=== PATIENT | male | born 1960 | race Caucasian/White ===

== ENCOUNTER 2017-12-13 06:33 | Emergency (ER) | payer OTHER, SELFPAY ==
[2017-12-13 06:34] VITALS: BP 180/92; PULSE 69; RESP 20; TEMP 36.7; O2SAT 96; BMI 37.0
--- NOTE | 2017-12-13 07:13 | EKG12_ITS ---
Test Reason : Blood Pressure : / mmHG Vent. Rate : 067 BPM Atrial Rate : 067 BPM P-R Int : 170 ms QRS Dur : 094 ms QT Int : 386 ms P-R-T Axes : 064 -09 058 degrees QTc Int : 407 ms Normal sinus rhythm Normal ECG Confirmed by THELMA SKELTON ([id number]), primer expeditor and drier REBECA OCONNELL ([id number]) on 12/18/2017 1:48:16 PM Referred By: JENNYFER Confirmed By:THELMA SKELTON
--- NOTE | 2017-12-13 07:14 | ED.VISSUMM ---
- ER Visit Summary Date of Service: 12/13/17 Chief Complaint: Dizziness and elevated blood pressure History of Present Illness: The patient is a 57 M who has a complicated past medical history of lupus anticoagulant, DVT and PEs, abnormal heart rhythm intermittently, vertigo, insulin-dependent diabetes and hypertension. Patient states on Sunday he started having his normal vertigo symptoms. Denies any headache. Denies any chest pain. Denies any shortness of breath. Denies any neurological symptoms other than dizziness. No trouble with speech, no trouble with his vision and no ataxia. No recent falls or head trauma. He is on Lovenox. He states that today he woke up he felt flushed and thought his blood pressure was elevated. Physical Examination: Well-appearing middle-age male. Vital signs are stable afebrile. His initial blood pressure is elevated at 180/92. Pulse ox 96% on room air no signs of hypoxia. H EENT exam is unremarkable atraumatic. Pupils round reactive light. Normal speech. No facial droop. Neck nontender. No lymphadenopathy. Lungs clear to auscultation bilaterally. Heart regular rate and rhythm no murmur rate about 70. Abdomen soft nontender no peritoneal signs. He is moving all 4 extremities. Neurovascular intact. He has 5 out of 5 radiologic technology teacher strength bilaterally. Dorsi plantar flexion intact. Neurologic exam is normal. His NIH is 0. He has normal fingertip to nose. Normal [id number]. Normal speech. No facial droop. Skin is unremarkable. Test Results: BC normal with a white count of 4 H&H of 15 and 42. Electrolytes unremarkable. Anion gap of 9. Normal BUN and creatinine. Glucose is elevated at 316. EKG is a sinus rhythm rate is 67 with no acute abnormalities. Emergency Department Course and Treatment: Extensive past medical history this does seem to be his typical vertigo which is been worked up extensively in the past with imaging. I do not think he needs that today because he has no neurological symptoms nor does he have a headache. I will obtain screening labs due to him being on blood thinners and being a diabetic. His neurological all and overall exam is normal. Treatment Plan: Efren exam the patient is doing well at 0817. Normal and is feeling better. He will take his normal medications at 9 AM. His current blood pressure is 151/69. His neurologic exam remains normal. Disposition: Discharge Impression: Acute dizziness secondary to vertigo. Acute on chronic hypertension History of lupus anticoagulant with prior DVTs and PEs on Lovenox. History of insulin-dependent diabetes. This note was generated with [employer] dictation software. It may contain incorrect words, spelling, and punctuation that were not noted in review of the chart prior to signing ED Disposition - Plan for ED Patient: Chief Complaint: Dizziness Referrals: Bianka Knutson MD [Primary Care Provider] -
--- NOTE | 2017-12-13 07:18 | ED.DCSUM_ITS ---
- ER Visit Summary Date of Service: 12/13/17 Chief Complaint: Dizziness and elevated blood pressure History of Present Illness: The patient is a 57 M who has a complicated past medical history of lupus anticoagulant, DVT and PEs, abnormal heart rhythm intermittently, vertigo, insulin-dependent diabetes and hypertension. Patient states on Sunday he started having his normal vertigo symptoms. Denies any headache. Denies any chest pain. Denies any shortness of breath. Denies any neurological symptoms other than dizziness. No trouble with speech, no trouble with his vision and no ataxia. No recent falls or head trauma. He is on Lovenox. He states that today he woke up he felt flushed and thought his blood pressure was elevated. Physical Examination: Well-appearing middle-age male. Vital signs are stable afebrile. His initial blood pressure is elevated at 180/92. Pulse ox 96% on room air no signs of hypoxia. H EENT exam is unremarkable atraumatic. Pupils round reactive light. Normal speech. No facial droop. Neck nontender. No lymphadenopathy. Lungs clear to auscultation bilaterally. Heart regular rate and rhythm no murmur rate about 70. Abdomen soft nontender no peritoneal signs. He is moving all 4 extremities. Neurovascular intact. He has 5 out of 5 waiter/waitress captain strength bilaterally. Dorsi plantar flexion intact. Neurologic exam is normal. His NIH is 0. He has normal fingertip to nose. Normal [id number]. Normal speech. No facial droop. Skin is unremarkable. Test Results: BC normal with a white count of 4 H&H of 15 and 42. Electrolytes unremarkable. Anion gap of 9. Normal BUN and creatinine. Glucose is elevated at 316. EKG is a sinus rhythm rate is 67 with no acute abnormalities. Emergency Department Course and Treatment: Extensive past medical history this does seem to be his typical vertigo which is been worked up extensively in the past with imaging. I do not think he needs that today because he has no neurological symptoms nor does he have a headache. I will obtain screening labs due to him being on blood thinners and being a diabetic. His neurological all and overall exam is normal. Treatment Plan: Efren exam the patient is doing well at 0817. Normal and is feeling better. He will take his normal medications at 9 AM. His current blood pressure is 151/69. His neurologic exam remains normal. Disposition: Discharge Impression: Acute dizziness secondary to vertigo. Acute on chronic hypertension History of lupus anticoagulant with prior DVTs and PEs on Lovenox. History of insulin-dependent diabetes. This note was generated with [employer] dictation software. It may contain incorrect words, spelling, and punctuation that were not noted in review of the chart prior to signing ED Disposition - Plan for ED Patient: Chief Complaint: Dizziness Referrals: Bianka Knutson MD [Primary Care Provider] -
[2017-12-13] MEDS: Meclizine 12.5 MG Tablet 50 MG PO (07:29)
[2017-12-13 07:36] LABS: Absolute Lymphocyte Count 1.22 X10^3/ul (0.83-4.51); Absolute Neutrophil Count 2.5 X10^3/uL (2.0-7.7); Basophil# 0.02 X10^3/uL; Basophil% 0.5 % (0-1); Eosinophil# 0.19 X10^3/uL; Eosinophils% 4.3 % (0-5); Hematocrit 42.2 % (40-54); Hemoglobin 15.3 g/dl (13.0-16.5); Lymphocyte # 1.22 X10^3/ul (4.0); Lymphocyte % 27.9 % (19-41); Mean Corp Hgb Conc 36.3 g/gl (32-36); Mean Corpuscular Hgb 32.3 pg (27.0-32.0); Mean Corpuscular Volume 89.2 fL (80-94); Mean Platelet Vol. 10.3 fl (6.2-12.0); Monocyte# 0.46 X10^3/uL; Monocyte% 10.5 % (0-10); Neutrophil # 2.48 X10^3/uL (2.7-7.7); Neutrophil % 56.6 % (47-70); Platelet Count 187 K/mm3 (150-450); RBC Distribution Width CV 13.2 % (11.6-14.6); RBC Distribution Width SD 42.8 fl (35.1-43.9); Red Blood Count 4.73 M/mm3 (4.6-6.2); White Blood Count 4.4 K/mm3 (4.4-11.0)
[2017-12-13 07:40] LABS: POSITIVE COUNT NO; POSITIVE DIFFERENTIAL NO; POSITIVE MORPHOLOGY NO
[2017-12-13 08:12] LABS: Anion Gap 9 (5-15); BUN 20 mg/dL (7-18); BUN/Creat Ratio 23.6 RATIO (10-20); Calcium,Total 10.3 mg/dL (8.5-10.1); Chloride 97 mmol/L (98-107); Creatinine, Serum 0.85 mg/dL (0.70-1.30); EST Glomerular Filtration Rate 99 mL/min (>60); Est Glom Filt Rate - Afr Amer 120 mL/min (>60); Estimated Creatinine Clearance 94.73 ml/min; Glucose 316 mg/dL (74-106); Potassium 4.7 mmol/L (3.5-5.1); Sodium Level 134 mmol/L (136-145)
--- NOTE | 2017-12-13 08:18 | ED.DEP ---
ED Disposition - Plan for ED Patient: Disposition: Home or Assisted Living Chief Complaint: Dizziness Instructions: ED Dizziness [facility]O, ED Hypertension Conf Out Of Control Referrals: Bianka Knutson MD [Primary Care Provider] - 3-5 Days if not improving Additional Instructions: Take your current medications. Watch her blood pressure and blood sugars closely. Return to ER feeling worse or follow-up your primary care physician to ensure your improving. Your labs and EKG today looked good other than your blood sugar being 316.
[2017-12-13 08:56] VITALS: BP 148/79; PULSE 69; RESP 15; O2SAT 98
== END 2017-12-13 08:56 | disposition home or self-care (01) ==
PROVIDERS: Emergency Provider Emergency Medicine; Family Provider Internal Medicine; PCP Internal Medicine
DX: R42 Dizziness and giddiness (principal); I10 Essential (primary) hypertension; D68.62 Lupus anticoagulant syndrome; Z86.718 Personal history of other venous thrombosis and embolism; Z86.711 Personal history of pulmonary embolism; E11.9 Type 2 diabetes mellitus without complications; I49.9 Cardiac arrhythmia, unspecified; Z79.4 Long term (current) use of insulin; Z79.84 Long term (current) use of oral hypoglycemic drugs; Z79.01 Long term (current) use of anticoagulants; Z79.899 Other long term (current) drug therapy
CPT/HCPCS: 80048; 85025; 93005; 99285; A4216

== ENCOUNTER 2018-01-02 17:24 | Emergency (ER) | payer OTHER, SELFPAY ==
[2018-01-02 17:24] VITALS: BP 180/103; PULSE 71; PULSE 74; RESP 14; RESP 16; TEMP 36.9; O2SAT 96; O2SAT 97; BMI 78.4
--- NOTE | 2018-01-02 17:47 | EKG12_ITS ---
Test Reason : CP Blood Pressure : / mmHG Vent. Rate : 071 BPM Atrial Rate : 071 BPM P-R Int : 148 ms QRS Dur : 092 ms QT Int : 408 ms P-R-T Axes : 068 030 058 degrees QTc Int : 443 ms Normal sinus rhythm Normal ECG Confirmed by THELMA SKELTON ([id number]), copy editor REBECA OCONNELL ([id number]) on 01/07/2018 1:59:01 PM Referred By: LEVAR Confirmed By:THELMA SKELTON
--- NOTE | 2018-01-02 17:47 | RAD_ITS ---
STUDY: X-RAY CHEST REASON FOR EXAM: Male, 57 years old. Chest pain for 3 days, atrial fibrillation. History of pulmonary embolus. TECHNIQUE: PA and lateral views of the chest. COMPARISON: Prior comparison studies are not available for review at this time. FINDINGS: The lungs are clear and expanded. There is no demonstrated pleural abnormality. Normal size heart. Normal mediastinum and art. Normal visualized pulmonary arteries. There is mild atherosclerotic calcification of the aortic arch. Normal visualized thoracic spine. 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 There is no demonstrated abnormality of the visualized soft tissue structures of the upper abdomen. RAD/Chest PA and Lateral IMPRESSION: No acute cardiopulmonary disease. Electronically Signed: Huan Flores MD at 19:13 EDT , Service support ,
[2018-01-02] MEDS: 0.9% Normal Saline 1,000 ML 1000 ML IV (18:09)
[2018-01-02 18:15] LABS: Absolute Lymphocyte Count 1.66 X10^3/ul (0.83-4.51); Absolute Neutrophil Count 2.6 X10^3/uL (2.0-7.7); Basophil# 0.01 X10^3/uL; Basophil% 0.2 % (0-1); Eosinophil# 0.15 X10^3/uL; Hematocrit 42.7 % (40-54); Hemoglobin 15.1 g/dl (13.0-16.5); Lymphocyte # 1.66 X10^3/ul (4.0); Lymphocyte % 33.3 % (19-41); Mean Corp Hgb Conc 35.4 g/gl (32-36); Mean Corpuscular Hgb 31.5 pg (27.0-32.0); Mean Corpuscular Volume 89.1 fL (80-94); Mean Platelet Vol. 10.9 fl (6.2-12.0); Monocyte# 0.51 X10^3/uL; Monocyte% 10.2 % (0-10); Neutrophil # 2.64 X10^3/uL (2.7-7.7); Neutrophil % 52.9 % (47-70); POSITIVE COUNT NO; POSITIVE DIFFERENTIAL NO; POSITIVE MORPHOLOGY NO; Platelet Count 214 K/mm3 (150-450); RBC Distribution Width CV 13.3 % (11.6-14.6); Red Blood Count 4.79 M/mm3 (4.6-6.2)
[2018-01-02 18:25] VITALS: BP 147/76; PULSE 74; RESP 13; O2SAT 93
--- NOTE | 2018-01-02 18:42 | ED.VISSUMM ---
- ER Visit Summary Date of Service: 01/02/18 Chief Complaint: Chest pain and diarrhea History of Present Illness: The patient is a 57 M who states that recently he went and ate a large amount of exotic foods. He states that he developed significant diarrhea over the past several days. He states he felt kind of weak today and did feel good enough to go to works a schedule appointment with his doctors nurse practitioner to get a work note. He went and they observed him rubbing his chest and he noted some epigastric lower chest discomfort. States it radiates into his back. He does note he has had a couple episodes of vomiting over the past few days. He took Imodium today which has stopped his diarrhea. He had an EKG that was negative at the office. He has a history of DVT and is on lifelong Lovenox. History of diabetes as well as colon cancer treated with radiation and chemotherapy. Also history of high cholesterol. Physical Examination: Afebrile blood pressure 170/84. Gen: Well-nourished well-developed Head: Normocephalic atraumatic Eyes: Perrl EOMI ENT: TMs clear no rhinorrhea moist mucous membranes Neck: Supple no lymphadenopathy no JVD nontender CVS: Regular rate rhythm no murmurs normal S1-S2 Respiratory: No distress clear to auscultation bilaterally chest nontender Abdomen: Soft nontender nondistended normal bowel sounds no masses Back: Nontender Extremity: Nontender no edema Skin: Normal color no rash Neuro: alert orientated ?3 CN II-XII intact normal strength sensation reflexes gait cerebellar Psych: Normal affect normal mood Test Results: EKG demonstrates a normal sinus rhythm at a rate of 71. This appears unchanged from December 13, 2017. CBC and BMP showed glucose of 255. Lipase 163. Liver enzymes normal. Troponin <0.02. Patient's symptoms have been constant greater than 24 hours. Emergency Department Course and Treatment: Patient's JEREMY score is 1. He got some improvement with a GI cocktail. I believe his symptoms are more consistent with some gastritis probably in relationship to the raw food he had been eating which given the diarrhea. Patient will be discharged home to follow-up with his doctor. Impression: 1. Chest pain 2. Gastritis 3. Diarrhea This note was generated with [employer] dictation software. It may contain incorrect words, spelling, and punctuation that were not noted in review of the chart prior to signing ED Disposition - Plan for ED Patient: Disposition: Home or Assisted Living Chief Complaint: Chest Pain Instructions: ED Gastritis Referrals: Bianka Knutson MD [Primary Care Provider] - 3-5 Days if not improving
[2018-01-02 19:03] LABS: ALB/GLOB Ratio 0.9 RATIO (0.9-2.4); AST(SGOT) 26 U/L (15-37); Alanine Aminotransfer ALT/SGPT 51 U/L (16-61); Albumin, Serum 4.1 g/dL (3.2-5.0); Alkaline Phosphatase 80 U/L (45-117); Anion Gap 9 (5-15); BUN 19 mg/dL (7-18); BUN/Creat Ratio 22.2 RATIO (10-20); Calcium,Total 9.3 mg/dL (8.5-10.1); Chloride 98 mmol/L (98-107); Creatinine, Serum 0.85 mg/dL (0.70-1.30); EST Glomerular Filtration Rate 98 mL/min (>60); Est Glom Filt Rate - Afr Amer 118 mL/min (>60); Estimated Creatinine Clearance 94.73 ml/min; Globulin 4.4 g/dL (2.2-4.2); Glucose 255 mg/dL (74-106); Lipase 163 U/L (73-393); Potassium 4.2 mmol/L (3.5-5.1); Protein, Total 8.5 g/dL (6.4-8.2); Sodium Level 135 mmol/L (136-145)
[2018-01-02 19:13] VITALS: BP 154/118; PULSE 72; RESP 14; O2SAT 95
[2018-01-02 20:01] VITALS: BP 145/86; RESP 17; O2SAT 94
== END 2018-01-02 20:02 | disposition home or self-care (01) ==
PROVIDERS: Emergency Provider Emergency Medicine; Family Provider Internal Medicine; PCP Internal Medicine
DX: R07.89 Other chest pain (principal); K29.70 Gastritis, unspecified, without bleeding; R19.7 Diarrhea, unspecified; K21.9 Gastro-esophageal reflux disease without esophagitis; E11.9 Type 2 diabetes mellitus without complications; E78.00 Pure hypercholesterolemia, unspecified; F41.9 Anxiety disorder, unspecified; Z85.038 Personal history of other malignant neoplasm of large intestine; Z86.718 Personal history of other venous thrombosis and embolism; Z92.21 Personal history of antineoplastic chemotherapy; Z92.3 Personal history of irradiation; Z79.84 Long term (current) use of oral hypoglycemic drugs; Z79.4 Long term (current) use of insulin; Z79.01 Long term (current) use of anticoagulants; Z79.899 Other long term (current) drug therapy
CPT/HCPCS: 71046; 80053; 83690; 84484; 85025; 93005; 96360; 96361; 99284; J7030; A4216

== ENCOUNTER 2018-01-11 16:39 | Emergency (ER) | payer OTHER, SELFPAY ==
[2018-01-11 16:41] VITALS: BP 154/91; PULSE 100; RESP 20; TEMP 36.8; O2SAT 95; BMI 35.2
--- NOTE | 2018-01-11 17:06 | CT_ITS ---
STUDY: CT ABDOMEN AND PELVIS WITH CONTRAST REASON FOR EXAM: Male, 57 years old. Nausea vomiting dizziness history of colon cancer RADIATION DOSAGE (If Supplied By Facility): CTDIvol = ( 16.32 ) mGy, DLP = ( 1268.56 ) mGycm TECHNIQUE: Transaxial images were obtained from the dome of the diaphragm to the symphysis pubis with oral contrast. 100 ml of Isovue 300 contrast was administered. Sagittal and coronal images were reconstructed. Individualized dose optimization techniques were used for this CT. COMPARISON: December 04, 2014 CT scan abdomen and pelvis FINDINGS: There is trace bilateral lower lobe atelectasis. There is minimal emphysematous change in the visualized left lung base image #22 stable since prior study. There is trace coronary calcification. There is decreased attenuation of the mildly liver consistent with steatosis. There is a stable subtle focus of low attenuation at the falciform fissure compatible a small focus of fatty infiltration. The liver appears otherwise fairly homogeneous. There are at least 2 gallstones each measuring 8.8 mm within the neck of the gallbladder. There is no significant obvious evidence of wall thickening of the gallbladder pericholecystic fluid. This is similar to the prior study. There is moderate splenomegaly the AP diameter of the spleen is 16 cm on today's study. Approximate the same level on prior study the spleen measured 15 cm. Normal pancreas. Normal bilateral adrenal glands. Normal right kidney. There is a stable exophytic left renal cyst measuring 1.8 cm with Hounsfield units in the range of simple fluid. There is no evidence of hydronephrosis. There is a minimal hiatal hernia. There is a partially decompressed appearance of the stomach with a thickened wall internal radiopaque material. There is contrast within the small bowel and nondistended loops. There is abundant stool in the colon from the cecum to the rectum. There is postoperative change in the sigmoid. This is similar to the prior study. Since the prior study there is lesser distention of the small bowel. There is persistent stable but somewhat atypical appearing presacral stranding that measures up to 2 cm at the level of the sacrum, image #108 there is a poor fatty plane between the presacral stranding similar to prior study. There is postoperative change visualized.. The appendix is visualized and appears normal. The aorta is partially calcified. There is contrast within the right iliac artery, right external iliac artery and visualized in the right internal iliac artery. There is contrast visualized in the left internal iliac and in the left external iliac. There is calcification demonstrated in the bilateral iliac arteries. Normal inferior vena cava. Normal retroperitoneum. The bladder is decompressed. It is mild wall thickening allowing for decompression. There is a stable phlebolith in the right side of the pelvis. There are prostatic calcifications. There is scarring and/or mild peripheral body wall edema similar to prior study. There are diffuse degenerative changes of the visualized lumbar spine. There is multilevel disc space narrowing spondylosis. The level of L2-L3 there is a broad disc osteophyte complex with moderate right neural foramina narrowing mild left neural foramina narrowing no significant central stenosis. At L3-L4 there is a broad disc bulge moderate neural foraminal narrowing without central stenosis. At L4-L5 there is a broad disc bulge moderate neural foramina narrowing mild central stenosis. At L5-S1 there is a broad disc osteophyte complex mild neural foramina narrowing or significant central stenosis. There is degenerative change of the SI joints. CT/Abdomen/Pelvis WITH Contrast IMPRESSION: Constipation. No evidence of obstruction. Postoperative change rectosigmoid junction stable since prior study. Decompressed nonspecific mild thick-walled appearance of the stomach for which gastritis is not excluded. Cholelithiasis stable since prior study Hepatic steatosis and hepatomegaly Slightly worsened splenomegaly Stable left renal cyst Persistent presacral stranding and thickening which may be related to prior history of radiation and/or surgery. Although this is stable, recommend consideration for follow-up PET scan given the clinical history. Decompressed appearance of the bladder could consider cystitis. Electronically Signed: Yeimy Merlos MD at 19:33 EDT Tel , Service support ,
--- NOTE | 2018-01-11 17:07 | EKG12_ITS ---
Test Reason : VOMITING Blood Pressure : / mmHG Vent. Rate : 090 BPM Atrial Rate : 090 BPM P-R Int : 148 ms QRS Dur : 088 ms QT Int : 366 ms P-R-T Axes : 055 -22 033 degrees QTc Int : 447 ms Normal sinus rhythm Normal ECG Confirmed by BOO ELIZONDO, MARTÍNEZ ([id number]), news video editor REBECA OCONNELL ([id number]) on 01/15/2018 1:39:08 PM Referred By: ISAIAH Confirmed By:MARTÍNEZ HADDAD MD
[2018-01-11] MEDS: 0.9% Normal Saline 1,000 ML 1000 ML IV (17:33)
[2018-01-11] MEDS: Ondansetron 4 MG/2 ML Vial IV (17:34)
[2018-01-11 17:36] LABS: Bacteria 0 SEEN /hpf (None Seen); Red Blood Cells-Urine 0 SEEN /hpf (0-5)
[2018-01-11 17:41] VITALS: BP 138/85; BP 143/75; BP 143/76; PULSE 71; PULSE 86
[2018-01-11 17:41] LABS: Absolute Lymphocyte Count 1.12 X10^3/ul (0.83-4.51); Absolute Neutrophil Count 1.8 X10^3/uL (2.0-7.7); Basophil# 0.02 X10^3/uL; Basophil% 0.6 % (0-1); Eosinophil# 0.11 X10^3/uL; Eosinophils% 3.1 % (0-5); Hematocrit 39.7 % (40-54); Hemoglobin 13.7 g/dl (13.0-16.5); Lymphocyte # 1.12 X10^3/ul (4.0); Lymphocyte % 31.5 % (19-41); Mean Corp Hgb Conc 34.5 g/gl (32-36); Mean Corpuscular Hgb 30.6 pg (27.0-32.0); Mean Corpuscular Volume 88.6 fL (80-94); Mean Platelet Vol. 10.5 fl (6.2-12.0); Monocyte# 0.51 X10^3/uL; Monocyte% 14.3 % (0-10); Neutrophil # 1.79 X10^3/uL (2.7-7.7); Neutrophil % 50.2 % (47-70); Platelet Count 169 K/mm3 (150-450); RBC Distribution Width CV 13.1 % (11.6-14.6); RBC Distribution Width SD 42.1 fl (35.1-43.9); Red Blood Count 4.48 M/mm3 (4.6-6.2); White Blood Count 3.6 K/mm3 (4.4-11.0)
[2018-01-11 17:43] LABS: POSITIVE COUNT NO; POSITIVE DIFFERENTIAL NO; POSITIVE MORPHOLOGY NO
[2018-01-11 17:52] LABS: Color, Urine Yellow (Yellow); Glucose, Dipstick Normal (Normal); Ketone-Dipstick Negative (Negative); Leukocyte Esterase-Dipstick Negative /ul (Negative); Nitrite-Dipstick Negative (Negative); Occult Blood-Urine 25 /ul (Negative); Protein-Dipstick 15 mg/dl (Negative); Urine Bilirubin Dipstick Negative (Negative); Urine Clarity Clear (Clear); Urine Urobilinogen Normal (Normal)
[2018-01-11 18:00] LABS: AST(SGOT) 17 U/L (15-37); Alanine Aminotransfer ALT/SGPT 36 U/L (16-61); Albumin, Serum 3.9 g/dL (3.2-5.0); Alkaline Phosphatase 88 U/L (45-117); Anion Gap 8 (5-15); BUN 19 mg/dL (7-18); BUN/Creat Ratio 22.9 RATIO (10-20); Calcium,Total 9.2 mg/dL (8.5-10.1); Chloride 101 mmol/L (98-107); Creatinine, Serum 0.83 mg/dL (0.70-1.30); EST Glomerular Filtration Rate 101 mL/min (>60); Est Glom Filt Rate - Afr Amer 123 mL/min (>60); Estimated Creatinine Clearance 97.01 ml/min; Globulin 3.8 g/dL (2.2-4.2); Glucose 238 mg/dL (74-106); Potassium 3.7 mmol/L (3.5-5.1); Protein, Total 7.7 g/dL (6.4-8.2); Sodium Level 134 mmol/L (136-145)
[2018-01-11 18:02] LABS: Mucous, Urine 1+ /hpf (<or=2+)
[2018-01-11 18:04] LABS: White Blood Cells 0-5 SEEN /hpf (0-5)
[2018-01-11 18:07] LABS: Squamous Epithelial Cells - UA 0-5 SEEN /hpf (0-5); Transitional Epithelial - Ur 0 SEEN /hpf (0-5)
--- NOTE | 2018-01-11 19:08 | ED.VISSUMM ---
- ER Visit Summary Date of Service: 01/11/18 Chief Complaint: Nausea, diarrhea, lightheadedness History of Present Illness: The patient is a 57 M with multiple comorbidities including lupus anticoagulant, fully anticoagulated on a Simons apparent, history of colon cancer, insulin-dependent diabetes, and new onset hypertension presents with multiple symptoms. The patient states over the past month and a half, he has been having intermittent dizziness. He describes it both as a sensation of motion and his lightheadedness. He states it is mostly when he changes position. He has also been having symptoms when he exerts himself. He states that if he gets up quickly or leans over, he will get lightheaded. He feels like it is going to pass out. He has never lost consciousness. He was also working out. He states that he was lifting weights and became more lightheaded. He also states that he has been having some loose watery diarrhea. He states that this is uncommon for him since his colon surgery. He had it 3 times last week and 3 times this week. He was also recently started on an DULCE inhibitor. He denies any fevers but does admit to some chills. He has not been on any recent antibiotics. There has been no blood in his bowel movements. He has had no chest pain or exertional dyspnea. Physical Examination: Vital signs reviewed General: Well-nourished, well-developed Head: Normocephalic, atraumatic Eyes: Pupils equal and reactive, extraocular muscles intact Neck, supple, no lymphadenopathy Heart: Regular rate and rhythm Respiratory: No distress, clear bilaterally Abdomen: Soft, nontender, nondistended, no peritoneal signs Back: Nontender Extremities: Nontender, no edema, no cords Skin: Normal color no rash Neuro: Alert and oriented, no focal or lateralizing deficits Test Results: [] Emergency Department Course and Treatment: The patient presents with major complaint being lightheadedness with motion. I did have some concern given his recent and new antihypertensive. I did obtain an EKG which is unremarkable. The patient's labs are relatively unremarkable. He does have a mild leukopenia with monocytic predominance. He also has a mild elevation of his BUN, which I feel is likely from volume contraction. The patient was hydrated. I did obtain orthostatics which were unremarkable. Patient underwent CT of his abdomen pelvis given his diarrhea and history of colon cancer. There are multiple findings, but they all appear chronic in nature. I do feel that the patient's lightheadedness is likely multifactorial. I do feel he may have some underlying autonomic insufficiency from significant diabetes along with his new and hypertensive medications. At this time, I do not see a dangerous process. I do feel this patient is safe for discharge with outpatient follow-up. He and are comfortable with this plan of care. He will be discharged home. Treatment Plan: [] Disposition: Discharge Impression: 1. Lightheadedness This note was generated with [employer] dictation software. It may contain incorrect words, spelling, and punctuation that were not noted in review of the chart prior to signing ED Disposition - Plan for ED Patient: Disposition: Home or Assisted Living Chief Complaint: Nausea/Vomiting/Diarrhea Instructions: ED Dizziness UKO Referrals: Bianka Knutson MD [Primary Care Provider] -
[2018-01-11 19:11] VITALS: BP 130/77; PULSE 79; RESP 15; O2SAT 97
[2018-01-11 19:56] VITALS: BP 154/79; PULSE 75; RESP 23; O2SAT 95
== END 2018-01-11 19:57 | disposition home or self-care (01) ==
PROVIDERS: Emergency Provider Emergency Medicine; Family Provider Internal Medicine; PCP Internal Medicine
DX: E86.0 Dehydration (principal); R42 Dizziness and giddiness; R11.2 Nausea with vomiting, unspecified; R19.7 Diarrhea, unspecified; K59.00 Constipation, unspecified; E11.9 Type 2 diabetes mellitus without complications; I10 Essential (primary) hypertension; D68.62 Lupus anticoagulant syndrome; Z85.038 Personal history of other malignant neoplasm of large intestine; Z79.84 Long term (current) use of oral hypoglycemic drugs; Z79.4 Long term (current) use of insulin; Z79.01 Long term (current) use of anticoagulants; Z79.899 Other long term (current) drug therapy
CPT/HCPCS: 74177; 80053; 81001; 85025; 93005; 96361; 96374; 99284; J7030; Q9967; A4216; J2405

== ENCOUNTER 2018-02-03 13:42 | Emergency (ER) | payer OTHER, SELFPAY ==
[2018-02-03 13:43] VITALS: BP 149/82; PULSE 82; RESP 20; TEMP 36.7; O2SAT 94; BMI 35.4
--- NOTE | 2018-02-03 13:55 | EKG12_ITS ---
Test Reason : COUGH Blood Pressure : / mmHG Vent. Rate : 073 BPM Atrial Rate : 073 BPM P-R Int : 150 ms QRS Dur : 084 ms QT Int : 408 ms P-R-T Axes : 053 021 052 degrees QTc Int : 449 ms Normal sinus rhythm Normal ECG Confirmed by KYARA ELIZONDO, KAVITA ([id number]), communications editor REBECA OCONNELL ([id number]) on 02/05/2018 2:55:05 PM Referred By: AKOSUA Confirmed By:KAVITA SPARROW MD
--- NOTE | 2018-02-03 13:58 | ED.VISSUMM ---
- ER Visit Summary Date of Service: 02/03/18 Chief Complaint: [] Runny nose harsh cough for for 5 days History of Present Illness: The patient is a 57 M [] history of on Lovenox for lupus anticoagulant no history of PE or DVT for 5 days of runny nose harsh cough sore throat decreased p.o. intake low-grade fevers he has no history of flu vaccination no exposures he has no cardiopulmonary history otherwise he simply states he is coughing so much is exhausted, body aches, bowel bladder habits are normal he does wear her CPAP machine and he cannot use his CPAP because of the coughing Physical Examination: [] Has a harsh cough during the department his nose is congested his neck is supple his lungs reveal minimal wheezing heart tones are regular the abdomen soft nontender upper lower extremity and extremities are unremarkable no sinus clubbing or edema neurologically is awake moving all 4 Test Results: [] Emergency Department Course and Treatment: [] IV fluids flu screen, flu screen was negative he is received IV fluids his labs are unremarkable as is his EKG his chest x-ray shows questionable lingular infiltrate some other findings consistent with possible viral infection see those reports the patient is feeling much better his clinical symptomatology of runny nose body aches cough certainly would support a viral diagnosis but given all the above his complaints and the chest x-ray finding he is comfortable discharge home he will start Levaquin Mucinex and inhaler and to follow-up with his family doctor return for change in symptoms Treatment Plan: [] Disposition: [] Home stable Impression: [] Viral illness acute versus pneumonia This note was generated with [employer] dictation software. It may contain incorrect words, spelling, and punctuation that were not noted in review of the chart prior to signing ED Disposition - Plan for ED Patient: Chief Complaint: Cold Sx Referrals: Bianka Knutson MD [Primary Care Provider] -
[2018-02-03] MEDS: Oxymetazoline 0.05% 1 SPRAY SPRAY.BTL 2 SPRAY NASAL (14:16)
[2018-02-03 14:17] VITALS: PULSE 65; RESP 18
[2018-02-03] MEDS: Ipratropium/Albuterol Sulfate 3 ML AMPUL.NEB INHALATION (14:17)
[2018-02-03] MEDS: Acetaminophen/Codeine #3 Tablet 1 TABLET PO (14:17)
--- NOTE | 2018-02-03 14:18 | RAD_ITS ---
STUDY: X-RAY CHEST REASON FOR EXAM: Male, 57 years old. Cough. TECHNIQUE: Single view of the chest was obtained COMPARISON: January 02, 2018 chest radiograph FINDINGS: No lung consolidation, pleural effusion or pneumothorax. Mild perihilar streaky opacities. Osseous structures demonstrate no acute abnormalities. Cardiac size within normal limits. IMPRESSION: Mild perihilar congestive changes with probable subtle developing infiltrates versus atelectasis in the left lingular region. Electronically Signed: Sammy Parra, at 14:36 EDT Tel , Service support , RAD/Chest 1 View (Portable)
[2018-02-03 14:19] LABS: Absolute Lymphocyte Count 1.29 X10^3/ul (0.83-4.51); Basophil# 0.02 X10^3/uL; Basophil% 0.3 % (0-1); Eosinophil# 0.23 X10^3/uL; Eosinophils% 3.5 % (0-5); Hematocrit 39.5 % (40-54); Hemoglobin 14.1 g/dl (13.0-16.5); Lymphocyte # 1.29 X10^3/ul (4.0); Lymphocyte % 19.8 % (19-41); Mean Corp Hgb Conc 35.7 g/gl (32-36); Mean Corpuscular Hgb 30.9 pg (27.0-32.0); Mean Corpuscular Volume 86.6 fL (80-94); Monocyte# 0.99 X10^3/uL; Monocyte% 15.2 % (0-10); Neutrophil # 3.98 X10^3/uL (2.7-7.7); Neutrophil % 60.9 % (47-70); POSITIVE COUNT NO; POSITIVE DIFFERENTIAL NO; POSITIVE MORPHOLOGY NO; Platelet Count 202 K/mm3 (150-450); RBC Distribution Width CV 13.5 % (11.6-14.6); RBC Distribution Width SD 41.7 fl (35.1-43.9); Red Blood Count 4.56 M/mm3 (4.6-6.2); White Blood Count 6.5 K/mm3 (4.4-11.0)
[2018-02-03 14:24] VITALS: BP 180/82; PULSE 72; RESP 12; O2SAT 95
[2018-02-03 14:42] LABS: Anion Gap 8 (5-15); BUN 15 mg/dL (7-18); Calcium,Total 10.2 mg/dL (8.5-10.1); Chloride 99 mmol/L (98-107); Creatinine, Serum 0.94 mg/dL (0.70-1.30); EST Glomerular Filtration Rate 88 mL/min (>60); Est Glom Filt Rate - Afr Amer 107 mL/min (>60); Estimated Creatinine Clearance 85.66 ml/min; Glucose 255 mg/dL (74-106); Potassium 4.2 mmol/L (3.5-5.1); Sodium Level 133 mmol/L (136-145)
[2018-02-03 14:53] LABS: BNP,B-Type NATRIURETIC PEPTIDE 16.9 pg/mL (0-100)
--- NOTE | 2018-02-03 15:58 | ED.DEP ---
ED Disposition - Plan for ED Patient: Chief Complaint: Cold Sx Instructions: ED Upper Resp Infec Abx Tx, ED Pneumonia Adult Prescriptions: Albuterol Inhaler [Ventolin Hfa] 1 - 2 puff INHALATION Q4H PRN PRN #1 inhaler PRN Reason: Wheezing Levofloxacin [Levaquin] 750 mg PO DAILY #7 tab Guaifenesin [Mucinex] 1,200 mg PO BID #10 tbmp.12hr Acetaminophen/Codeine #3 [Tylenol #3 Tablet] 1 - 2 tab PO Q6H PRN #12 tab PRN Reason: Pain Referrals: Bianka Knutson MD [Primary Care Provider] -
[2018-02-03] MEDS: levoFLOXacin 750 MG Tablet PO (16:06)
[2018-02-03 16:07] VITALS: BP 134/79; PULSE 68; RESP 20; O2SAT 92
== END 2018-02-03 16:23 | disposition home or self-care (01) ==
LOC: ED 14:34
PROVIDERS: Emergency Provider Emergency Medicine; Family Provider Internal Medicine; PCP Internal Medicine
DX: J18.9 Pneumonia, unspecified organism (principal); B34.9 Viral infection, unspecified; D68.62 Lupus anticoagulant syndrome; Z79.01 Long term (current) use of anticoagulants; Z79.899 Other long term (current) drug therapy
CPT/HCPCS: 71045; 80048; 83880; 84484; 85025; 87804; 87880; 93005; 94640; 96360; 99285; J7030; J7040; A4216

== ENCOUNTER 2018-02-11 10:01 | Emergency (ER) | payer OTHER, SELFPAY ==
[2018-02-11 10:02] VITALS: BP 176/87; PULSE 67; RESP 28; TEMP 36.6; O2SAT 97; BMI 19.8
--- NOTE | 2018-02-11 10:17 | RAD_ITS ---
STUDY: X-RAY CHEST REASON FOR EXAM: Male, 57 years old. SOB TECHNIQUE: Frontal and lateral views of the chest. COMPARISON: 02/03/2018 FINDINGS: The lungs are clear and expanded. There is no demonstrated pleural abnormality. Normal size heart. Normal mediastinum and art. Normal visualized pulmonary arteries. Normal visualized aortic arch and descending thoracic aorta. Normal visualized thoracic spine. Normal visualized ribs, clavicles, and shoulders. There is no demonstrated abnormality of the visualized soft tissue structures of the upper abdomen. RAD/Chest PA and Lateral IMPRESSION: Normal x-ray examination of the chest. Electronically Signed: Matias Milan MD at 11:34 EDT Tel , Service support ,
[2018-02-11] MEDS: predniSONE 20 MG Tablet 60 MG PO (10:31)
[2018-02-11] MEDS: Albuterol 2.5 MG/3 ML VIAL.NEB. INHALATION (10:55)
[2018-02-11] MEDS: Ipratropium/Albuterol Sulfate 3 ML AMPUL.NEB INHALATION (10:55)
[2018-02-11 10:56] LABS: Anion Gap 5 (5-15); BUN 17 mg/dL (7-18); BUN/Creat Ratio 21.2 RATIO (10-20); Chloride 98 mmol/L (98-107); EST Glomerular Filtration Rate 105 mL/min (>60); Est Glom Filt Rate - Afr Amer 127 mL/min (>60); Estimated Creatinine Clearance 86.53 ml/min; Glucose 268 mg/dL (74-106); Potassium 4.2 mmol/L (3.5-5.1); Sodium Level 133 mmol/L (136-145)
[2018-02-11 10:57] VITALS: PULSE 72; RESP 20; O2SAT 97
--- NOTE | 2018-02-11 11:22 | ED.VISSUMM ---
- ER Visit Summary Date of Service: 02/11/18 Chief Complaint: No better History of Present Illness: The patient is a 57 M is seen on January 08 and diagnosed with a lingular community-acquired pneumonia. He was placed on levofloxacin 750 mg. He is a non-smoker. He does report cough. Cough is nonproductive. He also has runny nose and congestion. He reported elevated temperature at onset of illness. He also had chills and sweats at that time. He does report generalized weakness. He made the comment I cannot believe you have and admitted me . He has used an inhaler. Does not have a spacer. Physical Examination: Vital signs remarkable for respiratory 28. Blood pressure 176/87. He is not hypoxic nor is afebrile. Head is atraumatic normocephalic. Pupils are equal round reactive. Extraocular muscles are intact. TMs are pearly white with landmarks noted. Nares patent with clear drainage. Posterior pharynx without erythema or exudate. Uvula is midline. There is no dysphonia or dysphasia. Trachea is midline. There is no stridor with auscultation of the neck. Heart is regular without murmur, gallop or rub. Lungs are remarkable for increased x-ray phase with wheezing heard throughout. Wheezing is greater on the left side. Abdomen is soft nontender. Bowel sounds are present normal. There is no asymmetry, swelling, discoloration, leg vein distention, palpable cords or tenderness along the distribution of the deep venous system. Test Results: BMP is remarkable for a glucose of 268, which is an improvement over reported blood sugar of greater than 350. Two-view chest x-ray was obtained and is unremarkable. The questional infiltrate has resolved. Emergency Department Course and Treatment: She was treated with DuoNeb and albuterol and received Solu-Medrol. Chest x-ray was obtained since he reports no improvement. BMP was obtained because of reported elevated blood sugars and increased urination and polydipsia. Treatment Plan: Prescription for spacer. Burst of prednisone and outpatient follow-up with PCP Disposition: Discharge to home Impression: 1. Hyperactive airway disease secondary to recent community acquired pneumonia, lingula 2. Hyperglycemia in known diabetic 3. History of PE and DVT status post IVC 4. High risk medication, anticoagulant This note was generated with FittingRoomation software. It may contain incorrect words, spelling, and punctuation that were not noted in review of the chart prior to signing ED Disposition - Plan for ED Patient: Disposition: Home or Assisted Living Chief Complaint: Shortness of Breath Instructions: ED Reactive Airway Disease Prescriptions: Inhaler, Assist Devices [Space Chamber Plus] 1 ea UD #1 spacer Prednisone [Deltasone] 40 mg PO DAILY #8 tab Referrals: Bianka Knutson MD [Primary Care Provider] - 3-5 Days if not improving
--- NOTE | 2018-02-11 11:28 | ED.DCSUM_ITS ---
- ER Visit Summary Date of Service: 02/11/18 Chief Complaint: No better History of Present Illness: The patient is a 57 M is seen on January 08 and diagnosed with a lingular community-acquired pneumonia. He was placed on levofloxacin 750 mg. He is a non-smoker. He does report cough. Cough is nonproductive. He also has runny nose and congestion. He reported elevated temperature at onset of illness. He also had chills and sweats at that time. He does report generalized weakness. He made the comment I cannot believe you have and admitted me . He has used an inhaler. Does not have a spacer. Physical Examination: Vital signs remarkable for respiratory 28. Blood pressure 176/87. He is not hypoxic nor is afebrile. Head is atraumatic normocephalic. Pupils are equal round reactive. Extraocular muscles are intact. TMs are pearly white with landmarks noted. Nares patent with clear drainage. Posterior pharynx without erythema or exudate. Uvula is midline. There is no dysphonia or dysphasia. Trachea is midline. There is no stridor with auscultation of the neck. Heart is regular without murmur, gallop or rub. Lungs are remarkable for increased x-ray phase with wheezing heard throughout. Wheezing is greater on the left side. Abdomen is soft nontender. Bowel sounds are present normal. There is no asymmetry, swelling, discoloration , leg vein distention, palpable cords or tenderness along the distribution of the deep venous system. Test Results: BMP is remarkable for a glucose of 268, which is an improvement over reported blood sugar of greater than 350. Two-view chest x-ray was obtained and is unremarkable. The questional infiltrate has resolved. Emergency Department Course and Treatment: She was treated with DuoNeb and albuterol and received Solu-Medrol. Chest x-ray was obtained since he reports no improvement. BMP was obtained because of reported elevated blood sugars and increased urination and polydipsia. Treatment Plan: Prescription for spacer. Burst of prednisone and outpatient follow-up with PCP Disposition: Discharge to home Impression: 1. Hyperactive airway disease secondary to recent community acquired pneumonia , lingula 2. Hyperglycemia in known diabetic 3. History of PE and DVT status post IVC 4. High risk medication, anticoagulant This note was generated with Prescientation software. It may contain incorrect words, spelling, and punctuation that were not noted in review of the chart prior to signing ED Disposition - Plan for ED Patient: Disposition: Home or Assisted Living Chief Complaint: Shortness of Breath Instructions: ED Reactive Airway Disease Prescriptions: Inhaler, Assist Devices [Space Chamber Plus] 1 ea UD #1 spacer Prednisone [Deltasone] 40 mg PO DAILY #8 tab Referrals: Bianka Knutson MD [Primary Care Provider] - 3-5 Days if not improving
[2018-02-11 11:39] VITALS: BP 139/84; PULSE 69; RESP 15; O2SAT 96
--- NOTE | 2018-02-12 15:50 | CM.ED ---
ED CALLBACK: Attempted to call patient for follow-up. Left a voicemail with contact information and to please call with questions/concerns.
== END 2018-02-11 11:42 | disposition home or self-care (01) ==
PROVIDERS: Emergency Provider Emergency Medicine; Family Provider Internal Medicine; PCP Internal Medicine
DX: J98.8 Other specified respiratory disorders (principal); Z87.01 Personal history of pneumonia (recurrent); E11.65 Type 2 diabetes mellitus with hyperglycemia; Z86.718 Personal history of other venous thrombosis and embolism; Z86.711 Personal history of pulmonary embolism; Z95.828 Presence of other vascular implants and grafts; E66.9 Obesity, unspecified; Z85.038 Personal history of other malignant neoplasm of large intestine; Z79.01 Long term (current) use of anticoagulants; Z79.84 Long term (current) use of oral hypoglycemic drugs; Z79.4 Long term (current) use of insulin; Z79.899 Other long term (current) drug therapy
CPT/HCPCS: 71046; 80048; 94640; 99283; A4216

== ENCOUNTER → 2018-04-30 14:45 | Outpatient (CLI) | payer OTHER, SELFPAY | PROVIDERS: Family Provider Internal Medicine; PCP Internal Medicine; Visit Provider Physician Assistant Surgical | DX: K52.9 Noninfective gastroenteritis and colitis, unspecified (principal) | CPT/HCPCS: 87506 ==

== ENCOUNTER 2018-08-13 08:08 | Emergency (ER) | payer OTHER, SELFPAY ==
[2018-08-13 08:09] VITALS: BP 165/89; PULSE 65; RESP 18; TEMP 36.6; O2SAT 97; BMI 35.8
--- NOTE | 2018-08-13 08:26 | CT_ITS ---
STUDY: CT ABDOMEN AND PELVIS WITH CONTRAST REASON FOR EXAM: Male, 57 years old. Right upper quadrant abdominal pain. RADIATION DOSAGE (If Supplied By Facility): CTDIvol = ( 17.02 ) mGy, DLP = ( 1337.22 ) mGycm TECHNIQUE: Transaxial images were obtained from the dome of the diaphragm to the symphysis pubis with oral contrast. 100 ml of Isovue 300 contrast was administered. Sagittal and coronal images were reconstructed. Individualized dose optimization techniques were used for this CT. COMPARISON: CT of the abdomen and pelvis dated January 11, 2018. FINDINGS: There is bilateral basilar dependent atelectasis. No pleural effusions are visualized. The visualized portions of the heart are within normal limits. There is hepatomegaly with diffuse hepatic enlargement. Maximum cephalocaudal dimension of the liver measures approximately 27.1 cm. There is decreased attenuation of the liver consistent with steatosis. There are multiple gallstones. There is mild splenomegaly. Maximum dimension of the spleen measures 15.6 cm. Normal pancreas. Normal bilateral adrenal glands. Normal right kidney. There is an exophytic cyst arising from the posterior cortex of the upper pole left kidney measuring 2.4 cm. There is no evidence for hydronephrosis, hydroureter or radiopaque ureteral calculi. Normal visualized stomach. There is no evidence for dilated bowel, ascites or pneumoperitoneum. Stool visible throughout the colon with scattered diverticula. The appendix is visualized and appears normal. There is mild atherosclerotic calcification of the abdominal aorta, without a demonstrated aneurysm. There is an IVC filter in place. There is borderline retroperitoneal lymphadenopathy with enlarged nodes no greater than 10mm in the short axis diameter. There is abnormal soft tissue in the presacral space. This is unchanged since the previous study and may be the result of treatment or infection. Urinary bladder wall is mildly thickened measuring approximately 6.4 mm in thickness. There are prostatic calcifications. Mesh arterial is visible adjacent to the intra-abdominal wall probably related to ventral herniorrhaphy. The bones appear osteopenic. There is multilevel spondylosis. There is degenerative disc disease at L5-S1. There are mild degenerative changes of both hips. There are degenerative changes of the left sacroiliac joint. CT/Abdomen/Pelvis WITH Contrast IMPRESSION: 1. Hepatic steatosis and hepatomegaly. 2. Cholelithiasis. 3. Mild splenomegaly. 4. Small left-sided renal cyst. Electronically Signed: Corina Schultz MD at 11:13 EDT , Service support ,
--- NOTE | 2018-08-13 08:29 | ED.DCSUM_ITS ---
- ER Visit Summary Date of Service: 08/13/18 Chief Complaint: Abdominal pain History of Present Illness: The patient is a 57 M who presents with a right- sided mid quadrant abdominal pain. Patient states that this began on Sunday while on vacation in [place]. He states he bent over to get his socks on and began to feel a spasm. He states his hurt ever since. He states he hurts throughout the abdomen. He notes his last bowel movement was this morning but was small. He notes it has been several days since he has had a significant bowel movement. He has been able to eat and drink and denies any nausea and vomiting. No fevers. No urinary symptoms. The pain radiates into his back. He has a history of colon cancer having had colectomy with 3 anastomosis. He notes he has a history of cholelithiasis. He has not had cholecystectomy or appendectomy. He has had abdominal hernia repair with mesh. He states that he has had a bowel blockage in the past that was treated by making him have a bowel movement. This was treated at [facility]. He reports that he left some of his medications behind in either [place] or [place]. Physical Examination: Afebrile vital signs are stable Gen: Well-nourished well-developed Head: Normocephalic atraumatic Eyes: Perrl EOMI ENT: TMs clear no rhinorrhea moist mucous membranes Neck: Supple no lymphadenopathy no JVD nontender CVS: Regular rate rhythm no murmurs normal S1-S2 Respiratory: No distress clear to auscultation bilaterally chest nontender Abdomen: Soft tender to palpation diffusely most significantly in the right middle quadrant without rebound nondistended normal bowel sounds no masses Back: Nontender Extremity: Nontender no edema Skin: Normal color no rash Neuro: alert orientated ?3 CN II-XII intact normal strength sensation reflexes gait cerebellar Psych: Normal affect normal mood Test Results: CBC the white count 3.6 hemoglobin 11.8. Glucose of 450. Lipase 193 liver enzymes normal. Lactic acid 2.3. CT abdomen pelvis showed some increased stool in the right side near the anastomosis. Emergency Department Course and Treatment: There is no obvious obstruction. Patient received pain medication. His glucose is elevated but he is also out of his insulin and now only taking his orals. He is awaiting word from his insurance company to get additional insulin. Patient will be started on some magnesium citrate some Colace and recommended that he obtain some apple juice or prune juice. I will write for some Bentyl. He will follow-up with his doctor. Impression: 1. Acute abdominal pain 2. Constipation This note was generated with Enbase dictation software. It may contain incorrect words, spelling, and punctuation that were not noted in review of the chart prior to signing ED Disposition - Plan for ED Patient: Disposition: Home or Assisted Living Chief Complaint: Abd Pain Instructions: ED Constipation Prescriptions: Docusate Sodium [Colace] 100 mg PO DAILY #7 cap Magnesium Citrate [Citrate Of Magnesia] 300 ml PO X1 #2 bottle Referrals: Bianka nKutson MD [Primary Care Provider] - 3-5 Days if not improving
[2018-08-13] MEDS: 0.9% Normal Saline 1,000 ML 125 ML IV (08:42)
[2018-08-13] MEDS: Ondansetron 4 MG/2 ML Vial IV (08:42)
[2018-08-13] MEDS: HYDROmorphone 1 MG/ML Syringe IV (08:42)
[2018-08-13 08:53] LABS: Absolute Lymphocyte Count 1.06 X10^3/ul (0.83-4.51); Absolute Neutrophil Count 1.9 X10^3/uL (2.0-7.7); Basophil# 0.01 X10^3/uL; Basophil% 0.3 % (0-1); Eosinophil# 0.17 X10^3/uL; Eosinophils% 4.7 % (0-5); Hemoglobin 11.8 g/dl (13.0-16.5); Lymphocyte # 1.06 X10^3/ul (4.0); Lymphocyte % 29.1 % (19-41); Mean Corpuscular Volume 88.8 fL (80-94); Mean Platelet Vol. 10.5 fl (6.2-12.0); Monocyte# 0.47 X10^3/uL; Monocyte% 12.9 % (0-10); Neutrophil # 1.92 X10^3/uL (2.7-7.7); Neutrophil % 52.7 % (47-70); Platelet Count 152 K/mm3 (150-450); RBC Distribution Width CV 13.4 % (11.6-14.6); Red Blood Count 3.94 M/mm3 (4.6-6.2); White Blood Count 3.6 K/mm3 (4.4-11.0)
[2018-08-13 08:54] LABS: Mean Corp Hgb Conc 33.7 g/gl (32-36); Mean Corpuscular Hgb 29.9 pg (27.0-32.0); POSITIVE COUNT NO; POSITIVE DIFFERENTIAL NO; POSITIVE MORPHOLOGY NO
[2018-08-13 09:49] LABS: AST(SGOT) 27 U/L (15-37); Albumin, Serum 3.5 g/dL (3.2-5.0); Alkaline Phosphatase 83 U/L (45-117); Anion Gap 8 (5-15); BUN 14 mg/dL (7-18); BUN/Creat Ratio 15.8 RATIO (10-20); Calcium,Total 8.9 mg/dL (8.5-10.1); Chloride 99 mmol/L (98-107); Creatinine, Serum 0.88 mg/dL (0.70-1.30); EST Glomerular Filtration Rate 94 mL/min (>60); Est Glom Filt Rate - Afr Amer 113 mL/min (>60); Globulin 3.4 g/dL (2.2-4.2); Glucose 450 mg/dL (74-106); Lipase 193 U/L (73-393); Potassium 4.1 mmol/L (3.5-5.1); Protein, Total 6.9 g/dL (6.4-8.2); Sodium Level 133 mmol/L (136-145)
[2018-08-13 09:55] LABS: Alanine Aminotransfer ALT/SGPT 40 U/L (16-61)
--- NOTE | 2018-08-13 09:57 | ED.RN ---
LACTIC 2.[address] LAB. DR CRISTOBAL AWARE
[2018-08-13 09:58] LABS: Lactic Acid 2.3 mmol/L (0.4-2.0)
[2018-08-13 10:45] VITALS: BP 157/69; PULSE 60; RESP 18; O2SAT 95
[2018-08-13] MEDS: Dicyclomine 10 MG Capsule 20 MG PO (11:54)
[2018-08-13 12:00] VITALS: BP 160/70; PULSE 72; RESP 16; O2SAT 99
[2018-08-13 12:40] LABS: Reflex Lactate? Y
== END 2018-08-13 12:00 | disposition home or self-care (01) ==
PROVIDERS: Emergency Provider Emergency Medicine; Family Provider Internal Medicine; PCP Internal Medicine
DX: R10.9 Unspecified abdominal pain (principal); K59.00 Constipation, unspecified; E11.9 Type 2 diabetes mellitus without complications; G89.29 Other chronic pain; D68.62 Lupus anticoagulant syndrome; Z85.038 Personal history of other malignant neoplasm of large intestine; Z86.718 Personal history of other venous thrombosis and embolism; Z87.19 Personal history of other diseases of the digestive system; Z90.49 Acquired absence of other specified parts of digestive tract; Z79.84 Long term (current) use of oral hypoglycemic drugs; Z79.4 Long term (current) use of insulin; Z79.899 Other long term (current) drug therapy; Z72.0 Tobacco use
CPT/HCPCS: 74177; 80053; 83605; 83690; 85025; 96361; 96374; 96375; 99284; J7030; Q9967; A4216; J2405

== ENCOUNTER 2018-10-14 09:16 | Emergency (ER) | payer OTHER, SELFPAY ==
[2018-10-14 09:17] VITALS: BP 149/87; PULSE 65; RESP 20; TEMP 36.4; O2SAT 97; BMI 35.4
--- NOTE | 2018-10-14 09:41 | CT_ITS ---
STUDY: CT ABDOMEN AND PELVIS WITH CONTRAST REASON FOR EXAM: Male, 57 years old. ABD PAIN, HX COLON CA. RADIATION DOSAGE (If Supplied By Facility): CTDIvol = ( 18.39 ) mGy, DLP = ( 1306.10 ) mGycm TECHNIQUE: Transaxial images were obtained from the dome of the diaphragm to the symphysis pubis with oral contrast. 100 ml of Isovue 300 contrast was administered. Sagittal and coronal images were reconstructed. Individualized dose optimization techniques were used for this CT. COMPARISON: August 13, 2018 FINDINGS: The visualized lung bases are unremarkable. The visualized portions of the heart are within normal limits. There is hepatomegaly and decreased attenuation of the liver consistent with steatosis. There are multiple gallstones. The spleen is enlarged at 15 cm Normal pancreas. Normal bilateral adrenal glands. Normal right kidney. Normal left kidney. Normal visualized stomach. Normal small intestine. There are multiple colonic diverticula consistent with diverticulosis. There are surgical sutures at the sigmoid. The appendix is visualized and appears normal. There is diffuse atherosclerotic calcification of the abdominal aorta, without a demonstrated aneurysm. There is an IVC filter in place. Normal retroperitoneum. Normal urinary bladder. There is a ventral abdominal wall hernia repair There are diffuse degenerative changes of the visualized lumbar spine. CT/Abdomen/Pelvis WITH Contrast IMPRESSION: Cholelithiasis. Hepatosplenomegaly Electronically Signed: Agatha Franco MD at 12:27 EST Tel , Service support ,
--- NOTE | 2018-10-14 09:42 | EKG12_ITS ---
Test Reason : ABNL PAIN Blood Pressure : / mmHG Vent. Rate : 069 BPM Atrial Rate : 069 BPM P-R Int : 154 ms QRS Dur : 086 ms QT Int : 396 ms P-R-T Axes : 060 039 052 degrees QTc Int : 424 ms Sinus rhythm with Premature atrial complexes Otherwise normal ECG Confirmed by THELMA SKELTON ([id number]), order editor REBECA OCONNELL ([id number]) on 10/28/2018 1:51:09 PM Referred By: LEVAR Confirmed By:THELMA SKELTON
[2018-10-14] MEDS: Ondansetron 4 MG/2 ML Vial IV (10:15)
[2018-10-14] MEDS: 0.9% Normal Saline 1,000 ML 125 ML IV (10:15)
[2018-10-14] MEDS: HYDROmorphone 1 MG/ML Syringe IV (10:15)
--- NOTE | 2018-10-14 10:15 | NURSING ---
NEEDS 2 RED TOPS PER LAB
--- NOTE | 2018-10-14 10:17 | ED.VISSUMM ---
- ER Visit Summary Date of Service: 10/14/18 Chief Complaint: Abdominal pain History of Present Illness: The patient is a 57 M who presents with upper abdominal pain radiating into his lower chest. He states he feels very bloated. He has had no bowel movement today Sunday or Sunday. He had a very small movement on Sunday. Notes a long history of constipation is been doing pretty well over the past couple months by using apple juice. He states he does have a lot of gas and a lot of belching. He feels nauseated. He states that he is never had this much pain before. He has lupus anticoagulant clotting disorder as well as GERD diabetes and hypertension. He also has a history of colon cancer having had colectomy with 3 anastomosis. No appendectomy or cholecystectomy. Former smoker. No fevers. Patient notes a history to penicillin [place] and morphine. He states that his allergy to [place] and morphine is that his doctor wanted to list him as allergies because Dilaudid works better for him. Physical Examination: Afebrile vital signs are stable Gen: Well-nourished well-developed Head: Normocephalic atraumatic Eyes: Perrl EOMI ENT: TMs clear no rhinorrhea moist mucous membranes Neck: Supple no lymphadenopathy no JVD nontender CVS: Regular rate rhythm no murmurs normal S1-S2 Respiratory: No distress clear to auscultation bilaterally chest nontender Abdomen: Soft diffusely tender without guarding or rebound no tympany with palpation normal bowel sounds no masses Back: Nontender Extremity: Nontender no edema Skin: Normal color no rash Neuro: alert orientated ?3 CN II-XII intact normal strength sensation reflexes gait cerebellar Psych: Normal affect normal mood Test Results: EKG showed a sinus rhythm at a rate of 69. This is unchanged from prior. CT of the pelvis no acute findings. CBC CMP and lipase show slight elevation of lipase but more of a nonspecific finding. The patient does not have inflammatory changes around the pancreas on CT. Emergency Department Course and Treatment: Patient initially treated fluids Zofran and Dilaudid. Pain however continued. He was given a GI cocktail and his pain subsided. He is taking his antacid medication only once a day and is supposed to be taken twice a day. I encouraged him to take it twice a day. We will add some Carafate for the next few days. Patient did have a bowel movement here in the department return if worsening or concerns Impression: 1. Acute abdominal pain 2. Constipation 3. GERD This note was generated with Giraffic dictation software. It may contain incorrect words, spelling, and punctuation that were not noted in review of the chart prior to signing ED Disposition - Plan for ED Patient: Disposition: Home or Assisted Living Chief Complaint: Abd Pain Instructions: ED GERD Prescriptions: Sucralfate [Carafate] 1 gm PO 4X/DAY #28 tab Referrals: iBanka Knutson MD [Primary Care Provider] - (in 2 weeks)
[2018-10-14 10:33] LABS: Absolute Lymphocyte Count 0.81 X10^3/ul (0.83-4.51); Absolute Neutrophil Count 5.7 X10^3/uL (2.0-7.7); Basophil# 0.01 X10^3/uL; Basophil% 0.1 % (0-1); Eosinophil# 0.12 X10^3/uL; Eosinophils% 1.6 % (0-5); Hematocrit 37.3 % (40-54); Hemoglobin 13.5 g/dl (13.0-16.5); Lymphocyte # 0.81 X10^3/ul (4.0); Mean Corp Hgb Conc 36.2 g/gl (32-36); Mean Corpuscular Volume 85.6 fL (80-94); Mean Platelet Vol. 10.8 fl (6.2-12.0); Monocyte% 9.5 % (0-10); Neutrophil % 77.7 % (47-70); POSITIVE COUNT NO; POSITIVE DIFFERENTIAL NO; POSITIVE MORPHOLOGY NO; Platelet Count 183 K/mm3 (150-450); RBC Distribution Width CV 13.4 % (11.6-14.6); RBC Distribution Width SD 41.1 fl (35.1-43.9); Red Blood Count 4.36 M/mm3 (4.6-6.2); White Blood Count 7.4 K/mm3 (4.4-11.0)
[2018-10-14 11:31] LABS: Anion Gap 10 (5-15); Chloride 92 mmol/L (98-107); Glucose 393 mg/dL (74-106); Lipase 457 U/L (73-393); Potassium 4.7 mmol/L (3.5-5.1); Sodium Level 127 mmol/L (136-145)
[2018-10-14 11:49] LABS: Albumin, Serum 4.1 g/dL (3.2-5.0); Alkaline Phosphatase 89 U/L (45-117); BUN 14 mg/dL (7-18); BUN/Creat Ratio 18.9 RATIO (10-20); Calcium,Total 9.4 mg/dL (8.5-10.1); Creatinine, Serum 0.74 mg/dL (0.70-1.30); EST Glomerular Filtration Rate 115 mL/min (>60); Est Glom Filt Rate - Afr Amer 139 mL/min (>60); Estimated Creatinine Clearance 108.81 ml/min; Protein, Total 8.1 g/dL (6.4-8.2)
[2018-10-14 11:57] LABS: AST(SGOT) 45 U/L (15-37)
[2018-10-14 11:58] LABS: Alanine Aminotransfer ALT/SGPT 44 U/L (16-61)
[2018-10-14 12:42] VITALS: RESP 15
[2018-10-14] MEDS: Mag Hydrox/Al Hydrox/Simeth 30 ML UDC PO (13:01)
[2018-10-14 13:56] VITALS: BP 163/88; PULSE 62; RESP 18; O2SAT 94
== END 2018-10-14 13:57 | disposition home or self-care (01) ==
PROVIDERS: Emergency Provider Emergency Medicine; Family Provider Internal Medicine; PCP Internal Medicine
DX: R10.10 Upper abdominal pain, unspecified (principal); K59.00 Constipation, unspecified; K21.9 Gastro-esophageal reflux disease without esophagitis; E11.9 Type 2 diabetes mellitus without complications; I10 Essential (primary) hypertension; D68.62 Lupus anticoagulant syndrome; Z85.038 Personal history of other malignant neoplasm of large intestine; Z90.49 Acquired absence of other specified parts of digestive tract; Z79.4 Long term (current) use of insulin; Z79.84 Long term (current) use of oral hypoglycemic drugs; Z79.899 Other long term (current) drug therapy; Z87.891 Personal history of nicotine dependence
CPT/HCPCS: 74177; 80053; 83690; 84484; 85025; 93005; 96361; 96374; 96375; 99283; J7030; Q9967; J2405

== ENCOUNTER → 2018-10-19 11:24 | Outpatient (CLI) | payer OTHER, SELFPAY ==
[2018-10-14 09:17] VITALS: BMI 35.4
[2018-10-19 11:43] LABS: Hemoglobin 13.5 g/dl (13.0-16.5); Mean Corp Hgb Conc 35.5 g/gl (32-36); Mean Corpuscular Hgb 30.4 pg (27.0-32.0); Mean Corpuscular Volume 85.6 fL (80-94); Platelet Count 165 K/mm3 (150-450); RBC Distribution Width CV 12.8 % (11.6-14.6); RBC Distribution Width SD 40.4 fl (35.1-43.9); Red Blood Count 4.44 M/mm3 (4.6-6.2); White Blood Count 4.1 K/mm3 (4.4-11.0)
[2018-10-19 11:45] LABS: Scan Indicated on CBC? Y/N NO
[2018-10-19 11:53] LABS: Anion Gap 7 (5-15); BUN 16 mg/dL (7-18); BUN/Creat Ratio 19.6 RATIO (10-20); Calcium,Total 9.7 mg/dL (8.5-10.1); Chloride 97 mmol/L (98-107); Creatinine, Serum 0.82 mg/dL (0.70-1.30); EST Glomerular Filtration Rate 103 mL/min (>60); Est Glom Filt Rate - Afr Amer 124 mL/min (>60); Glucose 318 mg/dL (74-106); Potassium 4.5 mmol/L (3.5-5.1); Sodium Level 131 mmol/L (136-145)
== END ==
PROVIDERS: Family Provider Internal Medicine; PCP Internal Medicine; Referring Provider Urology; Visit Provider Urology
DX: Z01.812 Encounter for preprocedural laboratory examination (principal); E11.9 Type 2 diabetes mellitus without complications
CPT/HCPCS: 36415; 80048; 85027

== ENCOUNTER 2019-01-03 06:15 | Emergency (ER) | payer OTHER, SELFPAY ==
[2019-01-03 06:16] VITALS: BP 172/89; PULSE 63; RESP 18; TEMP 36.1; O2SAT 97; BMI 35.4
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
[2019-01-03] MEDS: HYDROmorphone 0.5 MG/0.5 ML SYRINGE IM (06:40)
[2019-01-03 06:54] VITALS: RESP 18
== END 2019-01-03 06:55 | disposition home or self-care (01) ==
LOC: ED 06:46
PROVIDERS: Emergency Provider Emergency Medicine; Family Provider Internal Medicine; PCP Internal Medicine
DX: R51 Headache (principal)
CPT/HCPCS: 96372; 99282

== ENCOUNTER 2019-01-05 13:50 | Emergency (ER) | payer OTHER, SELFPAY ==
[2019-01-05 13:52] VITALS: BP 152/91; PULSE 69; RESP 16; TEMP 36.4; O2SAT 96; BMI 35.4
--- NOTE | 2019-01-05 14:13 | CT_ITS ---
STUDY: CT BRAIN WITHOUT CONTRAST REASON FOR EXAM: Male, 58 years old. Headache, right eye swelling RADIATION DOSAGE (If Supplied By Facility): CTDIvol = ( 44.99 ) mGy, DLP = ( 846.73 ) mGycm TECHNIQUE: Transaxial CT imaging of the brain was performed without administration of intravenous contrast material. Individualized dose optimization techniques were used for this CT. COMPARISON: 06/02/2016 FINDINGS: Normal soft tissue structures. Normal calvarium. Normal size ventricles and extra-axial spaces for the patient's age. Normal white matter tracts of the cerebral hemispheres. Normal basal ganglia and thalami. Normal brainstem. Normal cerebellum. There is no intracranial hemorrhage. There are no findings of an acute ischemic infarction. Normal visualized paranasal sinuses. CT/Brain/Head without Contrast IMPRESSION: Normal unenhanced CT scan of the brain. Electronically Signed: Pola Newell MD at 14:52 EDT , Service support ,
[2019-01-05] MEDS: 0.9% Normal Saline 1,000 ML 999 ML IV (14:22)
[2019-01-05] MEDS: proCHLORPERazine 10 MG/2 ML Vial IV (14:24)
[2019-01-05] MEDS: Ketorolac 30 MG/ML Syringe IV (14:24)
[2019-01-05] MEDS: DiphenhydrAMINE 50 MG/ML Syringe IV (14:24)
[2019-01-05 14:32] LABS: Erythrocyte Sedimentation Rate 21 mm/hr (0-20)
[2019-01-05 15:42] LABS: Anion Gap 9 (5-15); BUN 22 mg/dL (7-18); BUN/Creat Ratio 26.8 RATIO (10-20); CRP < 2.90 mg/L (0.0-3.0); Calcium,Total 9.9 mg/dL (8.5-10.1); Chloride 99 mmol/L (98-107); Creatinine, Serum 0.82 mg/dL (0.70-1.30); EST Glomerular Filtration Rate 102 mL/min (>60); Est Glom Filt Rate - Afr Amer 123 mL/min (>60); Glucose 353 mg/dL (74-106); Potassium 4.5 mmol/L (3.5-5.1); Sodium Level 133 mmol/L (136-145)
--- NOTE | 2019-01-05 16:13 | ED.VISSUMM ---
- ER Visit Summary Date of Service: 01/05/19 Chief Complaint: Headache History of Present Illness: The patient is a 58 M who presents with a headache that started a few days ago he was seen in the ED but continues to have the same type of headache. He describes it as a clusters of headaches with pain behind his right eye. He has no neurological symptoms or vision changes he is not a smoker and does not have any pain in his temporal region. He has no fever or chills. No neck pain or stiffness. This was gradual onset of headache. Physical Examination: He has a normal exam, he has tenderness over the right forehead. He has no tenderness over his temporal artery. He has no mastoid tenderness. He has a normal neuro exam. Emergency Department Course and Treatment: CT was negative. Patient has gradual onset of headache with no fever or neck stiffness and a normal neuro exam. Further diagnostic tests are not indicated Emergently. He improved significantly with IV fluids antiemetics and Benadryl as well as Toradol. He will be discharged in stable condition. This is likely cluster or migraine headache Disposition: Discharge stable condition Impression: Cephalgia This note was generated with Orange Leap dictation software. It may contain incorrect words, spelling, and punctuation that were not noted in review of the chart prior to signing ED Disposition - Plan for ED Patient: Disposition: Home or Assisted Living Instructions: Migraines and Cluster Headaches Prescriptions: Naproxen [Naprosyn] 500 mg PO BID PRN #20 tab Metoclopramide [Reglan] 10 mg PO 4X/DAY #20 tab Referrals: Bianka Knutson MD [Primary Care Provider] - 3-5 Days
== END 2019-01-05 16:44 | disposition home or self-care (01) ==
PROVIDERS: Emergency Provider Emergency Medicine; Family Provider Internal Medicine; PCP Internal Medicine
DX: R51 Headache (principal); E11.9 Type 2 diabetes mellitus without complications; I10 Essential (primary) hypertension
CPT/HCPCS: 70450; 80048; 85652; 86140; 96361; 96374; 96375; 99283; J7030; A4216

== ENCOUNTER → 2019-01-14 11:20 | Outpatient (CLI) | payer OTHER, SELFPAY ==
[2019-01-05 13:52] VITALS: BMI 35.4
[2019-01-14 12:43] LABS: Creatinine, Serum 0.93 mg/dL (0.70-1.30); EST Glomerular Filtration Rate 89 mL/min (>60); Est Glom Filt Rate - Afr Amer 107 mL/min (>60)
== END ==
PROVIDERS: Family Provider Internal Medicine; PCP Internal Medicine; Referring Provider Clinical Nurse Specialist; Visit Provider Clinical Nurse Specialist
DX: G89.18 Other acute postprocedural pain (principal); G44.89 Other headache syndrome; Z13.89 Encounter for screening for other disorder
CPT/HCPCS: 36415; 82565

== ENCOUNTER 2019-01-15 12:35 | Inpatient (IN) | payer OTHER, SELFPAY ==
[2019-01-15] VITALS (7 sets, daily range): BP systolic 140–185; BP diastolic 69–88; PULSE 53–79; RESP 14–21; TEMP 36.2–36.7; O2SAT 95–97; BMI 34.7; BMI 32.5; BMI 32.6
--- NOTE | 2019-01-15 13:33 | MRI_ITS ---
STUDY: MRI BRAIN WITH AND WITHOUT CONTRAST REASON FOR EXAM: Male, 58 years old. Facial droop TECHNIQUE: Standardized multiplanar fat and water weighted pulse sequences were obtained. 20 IV Dotarem was administered for the contrast portion of the examination. COMPARISON: None. FINDINGS: The diffusion-weighted sequence is normal. There are a few small punctate areas of increased T2 signal within the deep white matter. Normal bilateral basal ganglia. Normal thalami. There is no extra-axial fluid accumulation. There are no enhancing lesions. Normal flow voids within the major intracranial circulation suggesting patency by spin echo criteria. Normal venous enhancement. There is no enhancing intra-axial or extra-axial abnormality. Normal sella turcica, pituitary gland, infundibular stalk, optic chiasm and hypothalamus. Normal tectal plate and pineal gland. Normal midbrain, marc and medulla. Normal cerebellum. Normal basal cisterns. Normal bilateral temporal bones. Normal bilateral internal auditory canals. No demonstrated orbital abnormality, within the constraints of a routine brain study. There is mild edema of the turbinates. There is mild mucosal thickening within the paranasal sinuses.. Normal calvarium and skull base. Normal visualized soft tissue structures. Normal visualized upper cervical spine. MRI/Brain W/WO Contrast IMPRESSION: No MRI evidence for acute infarct few small punctate increased T2 signal abnormalities likely [place]-Tomas spaces less likely old ischemic changes Mild inflammatory changes paranasal sinuses Electronically Signed: Lenin Huang, at 17:58 EDT Tel , Service support ,
[2019-01-15] MEDS: 0.9% Normal Saline 1,000 ML 1000 ML IV (13:53)
[2019-01-15] MEDS: Ketorolac 30 MG/ML Syringe IV ×2 (13:56→17:21)
[2019-01-15] MEDS: Metoclopramide 10 MG/2 ML Vial IV (13:56)
[2019-01-15] MEDS: DiphenhydrAMINE 50 MG/ML Syringe 25 MG IV (13:56)
[2019-01-15 14:22] LABS: Absolute Lymphocyte Count 1.29 X10^3/ul (0.83-4.51); Absolute Neutrophil Count 3.2 X10^3/uL (2.0-7.7); Basophil# 0.01 X10^3/uL; Basophil% 0.2 % (0-1); Eosinophil# 0.14 X10^3/uL; Eosinophils% 2.7 % (0-5); Hematocrit 43.4 % (40-54); Hemoglobin 15.2 g/dl (13.0-16.5); Lymphocyte # 1.29 X10^3/ul (4.0); Lymphocyte % 24.5 % (19-41); Mean Corpuscular Hgb 30.2 pg (27.0-32.0); Mean Corpuscular Volume 86.3 fL (80-94); Mean Platelet Vol. 10.4 fl (6.2-12.0); Monocyte# 0.58 X10^3/uL; Neutrophil # 3.23 X10^3/uL (2.7-7.7); Neutrophil % 61.4 % (47-70); POSITIVE COUNT NO; POSITIVE DIFFERENTIAL NO; POSITIVE MORPHOLOGY NO; Platelet Count 184 K/mm3 (150-450); RBC Distribution Width CV 13.5 % (11.6-14.6); RBC Distribution Width SD 42.3 fl (35.1-43.9); Red Blood Count 5.03 M/mm3 (4.6-6.2); White Blood Count 5.3 K/mm3 (4.4-11.0)
[2019-01-15 14:23] LABS: International Normalized Ratio 1.2; Prothrombin Time (Protime)PT. 15.3 SECONDS (11.7-14.9)
[2019-01-15 14:24] LABS: Partial Thromboplast Time 40.2 Seconds (24.1-36.2)
[2019-01-15 14:26] LABS: Anion Gap 7 (5-15); BUN 18 mg/dL (7-18); BUN/Creat Ratio 21.1 RATIO (10-20); Calcium,Total 10.3 mg/dL (8.5-10.1); Chloride 96 mmol/L (98-107); Creatinine, Serum 0.85 mg/dL (0.70-1.30); EST Glomerular Filtration Rate 98 mL/min (>60); Est Glom Filt Rate - Afr Amer 118 mL/min (>60); Estimated Creatinine Clearance 93.57 ml/min; Glucose 311 mg/dL (74-106); Sodium Level 131 mmol/L (136-145)
--- NOTE | 2019-01-15 15:23 | ED.VISSUMM ---
- ER Visit Summary Date of Service: 01/15/19 Chief Complaint: Vomiting, headache History of Present Illness: The patient is a 58 M with prior right frontal injury and bone fractures. He states he gets intermittent headaches that seem to be centered around this area. He had a right frontal headache for the past 2 weeks. He is been seen in the ER twice. Patient states previously his right eyelid with a week but he can still open it. Now he seems to have difficulty controlling his right upper eyelid over the last 6 days. He has been having vomiting. Patient states that when he forces his right eye open he feels dizzy and as if he has double vision. Patient had a normal head CT on last visit. Patient is scheduled for MRI, but when symptoms worsened and he had persistent vomiting to the emergency room. Past history significant for diabetes, A. fib, lupus anticoagulant, DVT, complex migraines. He is on Lovenox and has an IVC filter. Physical Examination: Vital signs include blood pressure 172/88, temperature 97.2, heart rate 59, respiratory rate 16, pulse ox 97% on room air. Patient is sitting upright in bed. Head neck examination does reveal right upper eyelid droop. When held open eye is not injected. Pupils are equal and reactive. Heart is regular rate and rhythm. Lung sounds are clear. Abdomen is soft nontender. Neuro exam reveals good strength and sensation in the extremities. Test Results: CBC is unremarkable. Chemistry studies reveal glucose of 311 and a sodium of 131. INR is 1.2 and PTT is 40. Emergency Department Course and Treatment: Patient is given Toradol, Reglan, Benadryl, and IV fluids which helped him at last visit. Patient is sent for MRI which is currently pending. This be signed out to oncoming physician. Treatment Plan: [] Disposition: Pending MRI Impression: Cephalgia with right eyelid droop This note was generated with [employer] dictation software. It may contain incorrect words, spelling, and punctuation that were not noted in review of the chart prior to signing ED Disposition - Plan for ED Patient: Referrals: Bianka Knutson MD [Primary Care Provider] -
[2019-01-15] MEDS: 0.9% Normal Saline 1,000 ML 150 ML IV (17:44)
--- NOTE | 2019-01-15 19:35 | RAD_ITS ---
STUDY: X-RAY CHEST REASON FOR EXAM: Male, 58 years old. Vertigo, dizzy TECHNIQUE: PA and lateral chest COMPARISON: 02/11/2018. FINDINGS: The lungs are clear and expanded. There is no demonstrated pleural abnormality. Normal size heart. Normal mediastinum and art. Normal visualized pulmonary arteries. Normal visualized aortic arch and descending thoracic aorta. Normal visualized thoracic spine. Normal visualized ribs, clavicles, and shoulders. There is no demonstrated abnormality of the visualized soft tissue structures of the upper abdomen. RAD/Chest PA and Lateral IMPRESSION: Normal x-ray examination of the chest. Electronically Signed: Lenin Huang, at 21:30 EDT Tel , Service support ,
--- NOTE | 2019-01-15 19:50 | ED.DCSUM_ITS ---
- ER Visit Summary Date of Service: 01/15/19 Chief Complaint: [] History of Present Illness: The patient is a 58 M [] Physical Examination: [] Test Results: Patient turned over to me by the morning physician. CBC showed a white count of 5. Normal hemoglobin. Electrolytes showed a sodium 131. Glucose of 311 he is diabetic. MRI of his brain showed no specific abnormalities. T2 abnormalities were noted. Paranasal inflammation. No mass. No bleed. Chest x-ray showed no acute abnormality. No tumor. Emergency Department Course and Treatment: Repeat exam patient had recurrent headache. Family was very frustrated with multiple evaluations and no answers over the last 2 weeks. Due to his pain and need for further evaluation he was admitted. Treatment Plan: I spoke to the hospitalist and the patient will be admitted to medical floor. Disposition: Admission Impression: Acute cephalgia with right eye droop of uncertain etiology Hyperglycemia with a history of insulin pen diabetes. Hx of hypercoagulable state. History of A. fib This note was generated with [employer] dictation software. It may contain incorrect words, spelling, and punctuation that were not noted in review of the chart prior to signing
--- NOTE | 2019-01-15 20:13 | PCM.HP.STD ---
Problem List (1) Migraine Status: Acute Qualifiers: Migraine type: without aura Status migrainosus presence: with status migrainosus Intractability: intractable Qualified Code(s): G43.011 - Migraine without aura, intractable, with status migrainosus (2) Cranial nerve III palsy Status: Acute Qualifiers: Laterality: right Qualified Code(s): H49.01 - Third [oculomotor] nerve palsy, right eye History of Present Illness Date of Admission: 01/15/19 Chief Complaint: headache The patient is a 58 year old M presents with a 2-week history of a right-sided headache. For the past few days, patient has been having swelling of his right eyelid. Patient was here on the and received Dilaudid and again on the then again today. Today, he received Benadryl, Toradol, Reglan and IV fluids and still has a headache. The hospitalist service was asked to admit the patient. Patient is never had migraines previously. But has just been unrelenting. Patient had MRI in the ER that was negative for any acute stroke. Patient being admitted for further treatment and of his migraine and cranial nerve III palsy. [] Past Medical History Past Medical History (Chronic Problems): Chronic Problems Lupus anticoagulant disorder (Chronic) Presence of IVC filter (Chronic) Deep venous thrombosis of lower extremity (Chronic) Carcinoma of colon (Chronic) On anticoagulant therapy (Chronic) Anxiety (Chronic) Allergies acetaminophen [From Vicodin] Allergy (Verified 01/15/19 12:38) Other MAKES PT LOOPY hydrocodone [From Vicodin] Allergy (Verified 01/15/19 12:38) Other MAKES PT LOOPY Penicillins [PCN] Allergy (Verified 01/15/19 12:38) Unknown morphine Adverse Reaction (Verified 01/15/19 12:38) Other PER PATIENT MAKES HIM LOOPY Home Medications: Ambulatory Orders Medication Instructions Recorded Enoxaparin [Lovenox] 120 mg SC BID 12/04/14 Gemfibrozil 600 mg PO BID 12/04/14 Glimepiride 8 mg PO DAILY 12/04/14 Insulin Glargine [Lantus SoloStar 60 unit SC QHS 12/04/14 Pen] Metoprolol Tartrate [Lopressor 25 mg PO BID 12/04/14 (Beta Federico)] Omeprazole 20 mg PO DAILY 12/04/14 Lisinopril [Zestril] 10 mg PO DAILY 01/11/18 Metoclopramide [Reglan] 10 mg PO 4X/DAY #20 tab 01/05/19 Famotidine [Pepcid] 20 mg PO DAILY 01/15/19 Surgical History: - - Partial colectomy for colon cancer Smoking Status: Former smoker Tobacco Use: Non-smoker Alcohol: None Drugs: Marijuana - Daily - *Family History Maternal History Items: - - Clotting disorder Review of Systems Constitutional: Denies: Anorexia, Chills, Fever, Night Sweats, Malaise, Weakness Eyes: Reports: Blurred vision. Denies: Double vision HEENT: Denies: Head Aches, Sinus Congestion, Sinus Drainage Cardiovascular: Denies: Chest Pain, Palpitations Respiratory: Denies: Cough, Shortness of breath at rest, Sputum production Gastrointestinal: Denies: Abdominal Pain, Nausea, Vomiting Genitourinary: Denies: Dysuria Musculoskeletal: Denies: Joint Pain, Joint Tenderness Skin: Denies: Rash, Wounds Neurological: Reports: Blurred vision. Denies: Double vision, Focal weakness, Numbness, Tingling Psychiatric: Denies: Anxiety, Depression Endocrine: Denies: Change in Body Habitus, Heat/ Cold Intolerance Hematologic/ Lymphatic: Denies: Easy Bruising, Easy Bleeding, Hx of blood clot Comment: A 10 point ROS was negative expect as above in the ROS and HPI. VTE Information - Inpt Only VTE Present on Admission: No Patient Problems: Active and Suspected Problems Migraine (Acute) Cranial nerve III palsy (Acute) - Physical Exam General: Alert, Oriented x3, Cooperative, No apparent distress, Well developed, Well nourished HEENT: Atraumatic, EOMI, Normocephalic, - - right ptosis. right eye down and out. unable to look medially. Oral: Moist Mucosa, No Gingival or Mucosal Lesions/ Ulcerations Neck: No Nodes, Thyroid Normal Size and Texture Lungs: Clear to auscultation, Normal air movement, No rhonchi, No wheeze Cardiovascular: Regular rate, Regular Rhythm, Normal S1, Normal S2, No murmurs Abdomen: Bowel Sounds Present, Soft, Non Tender, Non-Distended Extremities: No edema, No Calf Tenderness Skin: No rashes, No breakdown Musculoskeletal: No Tenderness to Palpation of Joints or Extremities, No Muscle Wasting Neurological: Cranial nerves II-XII grossly intact - cranial nerve III palsy on right, Neuro grossly intact, - Psych/Mental Status: Normal Affect, Appropriate Vital Signs Temp Pulse Resp BP Pulse Ox 36.2 C L 79 18 168/88 H 97 01/15/19 12:35 01/15/19 19:13 01/15/19 19:13 01/15/19 19:13 01/15/19 19:13 Oxygen Delivery Method Room Air Weight: 100 kg Body Mass Index (BMI) 32.5 Finger Stick Blood Glucose 364 Laboratory Tests Past 24 Hrs 01/15/19 01/15/19 01/15/19 14:04 14:04 14:04 WBC 5.3 RBC 5.03 Hgb 15.2 Hct 43.4 MCV 86.3 MCH 30.2 MCHC 35.0 RDW 13.5 RDW Differential 42.3 Plt Count 184 MPV 10.4 Immature Gran % (Auto) 0.200 Neut % (Auto) 61.4 Lymph % (Auto) 24.5 [place] % (Auto) 11.0 H Eos % (Auto) 2.7 Baso % (Auto) 0.2 Absolute Neuts (auto) 3.2 Absolute Lymphs (auto) 1.29 Total Counted Not Reportable PT 15.3 H INR 1.2 APTT 40.2 H Sodium 131 L Potassium 5.0 Chloride 96 L Carbon Dioxide 28.0 Anion Gap 7 BUN 18 Creatinine 0.85 Estim Creat Clear Calc 93.57 Est GFR (MDRD) Af Amer 118 Est GFR (MDRD) Non-Af 98 BUN/Creatinine Ratio 21.1 H Glucose 311 H Calcium 10.3 H Assessment/Plan All Active Problems Migraine (Acute) Cranial nerve III palsy (Acute) Gastroenteritis (Acute) 1. Migraine; Discussed with neurology, and is recommended Depakote 500 IV every 8 hours for 48 hours, spoke with pharmacy and we have valproate, Decadron 4mg IV every 6 for 24 hours, magnesium sulfate 2 g IV x1, as needed Toradol. Neurology will evaluate the patient and make further recommendations on the 2. Right cranial nerve III palsy Neurology recommended getting a CTA of the head, ESR. Since patient is diabetic we will also get an A1 C. Will patch the patient's left eye for now to strengthen his right eye. 3. Diabetes mellitus type 2 Blood sugars have been uncontrolled as of late. Will check an A1c Continue with his home medications Sliding scale insulin for now, may need prandial insulin and possibly splitting his basal insulin to twice daily possibly at higher dose 4. History of venous thromboembolic disease Has lupus anticoagulant. Has been on Lovenox since being diagnosed. Patient said that he was diagnosed with VT E prior to being diagnosed with colon cancer. Recommend patient follow-up with Dr. Reddy as outpatient to see some a novel anticoagulants could be utilized 5. DVT prophylaxis: Patient is anticoagulated Code Visit Inpatient E&M: 52312 Init Hosp L3
--- NOTE | 2019-01-15 20:18 | HP.PCM_ITS ---
Problem List (1) Migraine Status: Acute Qualifiers: Migraine type: without aura Status migrainosus presence: with status migrainosus Intractability: intractable Qualified Code(s): G43.011 - Migraine without aura, intractable, with status migrainosus (2) Cranial nerve III palsy Status: Acute Qualifiers: Laterality: right Qualified Code(s): H49.01 - Third [oculomotor] nerve palsy, right eye History of Present Illness Date of Admission: 01/15/19 Chief Complaint: headache The patient is a 58 year old M presents with a 2-week history of a right-sided headache. For the past few days, patient has been having swelling of his right eyelid. Patient was here on the and received Dilaudid and again on the then again today. Today, he received Benadryl, Toradol, Reglan and IV fluids and still has a headache. The hospitalist service was asked to admit the patient. Patient is never had migraines previously. But has just been unrelenting. Patient had MRI in the ER that was negative for any acute stroke. Patient being admitted for further treatment and of his migraine and cranial nerve III palsy. [] Past Medical History Past Medical History (Chronic Problems): Chronic Problems Lupus anticoagulant disorder (Chronic) Presence of IVC filter (Chronic) Deep venous thrombosis of lower extremity (Chronic) Carcinoma of colon (Chronic) On anticoagulant therapy (Chronic) Anxiety (Chronic) Allergies acetaminophen [From Vicodin] Allergy (Verified 01/15/19 12:38) Other MAKES PT LOOPY hydrocodone [From Vicodin] Allergy (Verified 01/15/19 12:38) Other MAKES PT LOOPY Penicillins [PCN] Allergy (Verified 01/15/19 12:38) Unknown morphine Adverse Reaction (Verified 01/15/19 12:38) Other PER PATIENT MAKES HIM LOOPY Home Medications: Ambulatory Orders Medication Instructions Recorded Enoxaparin [Lovenox] 120 mg SC BID 12/04/14 Gemfibrozil 600 mg PO BID 12/04/14 Glimepiride 8 mg PO DAILY 12/04/14 Insulin Glargine [Lantus SoloStar 60 unit SC QHS 12/04/14 Pen] Metoprolol Tartrate [Lopressor 25 mg PO BID 12/04/14 (Beta Federico)] Omeprazole 20 mg PO DAILY 12/04/14 Lisinopril [Zestril] 10 mg PO DAILY 01/11/18 Metoclopramide [Reglan] 10 mg PO 4X/DAY #20 tab 01/05/19 Famotidine [Pepcid] 20 mg PO DAILY 01/15/19 Surgical History: - - Partial colectomy for colon cancer Smoking Status: Former smoker Tobacco Use: Non-smoker Alcohol: None Drugs: Marijuana - Daily - *Family History Maternal History Items: - - Clotting disorder Review of Systems Constitutional: Denies: Anorexia, Chills, Fever, Night Sweats, Malaise, Weakness Eyes: Reports: Blurred vision. Denies: Double vision HEENT: Denies: Head Aches, Sinus Congestion, Sinus Drainage Cardiovascular: Denies: Chest Pain, Palpitations Respiratory: Denies: Cough, Shortness of breath at rest, Sputum production Gastrointestinal: Denies: Abdominal Pain, Nausea, Vomiting Genitourinary: Denies: Dysuria Musculoskeletal: Denies: Joint Pain, Joint Tenderness Skin: Denies: Rash, Wounds Neurological: Reports: Blurred vision. Denies: Double vision, Focal weakness, Numbness, Tingling Psychiatric: Denies: Anxiety, Depression Endocrine: Denies: Change in Body Habitus, Heat/ Cold Intolerance Hematologic/ Lymphatic: Denies: Easy Bruising, Easy Bleeding, Hx of blood clot Comment: A 10 point ROS was negative expect as above in the ROS and HPI. VTE Information - Inpt Only VTE Present on Admission: No Patient Problems: Active and Suspected Problems Migraine (Acute) Cranial nerve III palsy (Acute) - Physical Exam General: Alert, Oriented x3, Cooperative, No apparent distress, Well developed, Well nourished HEENT: Atraumatic, EOMI, Normocephalic, - - right ptosis. right eye down and out. unable to look medially. Oral: Moist Mucosa, No Gingival or Mucosal Lesions/ Ulcerations Neck: No Nodes, Thyroid Normal Size and Texture Lungs: Clear to auscultation, Normal air movement, No rhonchi, No wheeze Cardiovascular: Regular rate, Regular Rhythm, Normal S1, Normal S2, No murmurs Abdomen: Bowel Sounds Present, Soft, Non Tender, Non-Distended Extremities: No edema, No Calf Tenderness Skin: No rashes, No breakdown Musculoskeletal: No Tenderness to Palpation of Joints or Extremities, No Muscle Wasting Neurological: Cranial nerves II-XII grossly intact - cranial nerve III palsy on right, Neuro grossly intact, - Psych/Mental Status: Normal Affect, Appropriate Vital Signs Temp Pulse Resp BP Pulse Ox 36.2 C L 79 18 168/88 H 97 01/15/19 12:35 01/15/19 19:13 01/15/19 19:13 01/15/19 19:13 01/15/19 19:13 Oxygen Delivery Method Room Air Weight: 100 kg Body Mass Index (BMI) 32.5 Finger Stick Blood Glucose 364 Laboratory Tests Past 24 Hrs 01/15/19 01/15/19 01/15/19 14:04 14:04 14:04 WBC 5.3 RBC 5.03 Hgb 15.2 Hct 43.4 MCV 86.3 MCH 30.2 MCHC 35.0 RDW 13.5 RDW Differential 42.3 Plt Count 184 MPV 10.4 Immature Gran % (Auto) 0.200 Neut % (Auto) 61.4 Lymph % (Auto) 24.5 [place] % (Auto) 11.0 H Eos % (Auto) 2.7 Baso % (Auto) 0.2 Absolute Neuts (auto) 3.2 Absolute Lymphs (auto) 1.29 Total Counted Not Reportable PT 15.3 H INR 1.2 APTT 40.2 H Sodium 131 L Potassium 5.0 Chloride 96 L Carbon Dioxide 28.0 Anion Gap 7 BUN 18 Creatinine 0.85 Estim Creat Clear Calc 93.57 Est GFR (MDRD) Af Amer 118 Est GFR (MDRD) Non-Af 98 BUN/Creatinine Ratio 21.1 H Glucose 311 H Calcium 10.3 H Assessment/Plan All Active Problems Migraine (Acute) Cranial nerve III palsy (Acute) Gastroenteritis (Acute) 1. Migraine; * Discussed with neurology, and is recommended Depakote 500 IV every 8 hours for 48 hours, spoke with pharmacy and we have valproate, Decadron 4mg IV every 6 for 24 hours, magnesium sulfate 2 g IV x1, as needed Toradol. * Neurology will evaluate the patient and make further recommendations on the 2. Right cranial nerve III palsy * Neurology recommended getting a CTA of the head, ESR. * Since patient is diabetic we will also get an A1 C. * Will patch the patient's left eye for now to strengthen his right eye. 3. Diabetes mellitus type 2 * Blood sugars have been uncontrolled as of late. * Will check an A1c * Continue with his home medications * Sliding scale insulin for now, may need prandial insulin and possibly splitting his basal insulin to twice daily possibly at higher dose 4. History of venous thromboembolic disease * Has lupus anticoagulant. * Has been on Lovenox since being diagnosed. Patient said that he was diagnosed with VT E prior to being diagnosed with colon cancer. * Recommend patient follow-up with Dr. Reddy as outpatient to see some a novel anticoagulants could be utilized 5. DVT prophylaxis: Patient is anticoagulated Code Visit Inpatient E&M: 69041 Init Hosp L3
--- NOTE | 2019-01-15 20:22 | CT_ITS ---
STUDY: CTA OF THE BRAIN REASON FOR EXAM: Male, 58 years old. Acute cranial nerve III palsy. RADIATION DOSAGE (If Supplied By Facility): CTDIvol = ( 26.76 ) mGy, DLP = ( 1327.59 ) mGycm TECHNIQUE: CT angiography was performed with a multi-detector CT scanner. Data acquisition was obtained from the skull base through the vertex following intravenous administration of 100ml IV Isovue 370. MIP images were reconstructed from the axial data set. Post-processing of the angiographic images was performed, with multiplanar reformation and 3D reconstruction. Individualized dose optimization techniques were used for this CT. COMPARISON: June 15, 2014 CT angiogram. MRI brain January 15, 2018.. FINDINGS: Normal bilateral petrous carotid arteries. Normal right cavernous carotid artery with a normal supraclinoid bifurcation. Normal left cavernous carotid artery with a normal supraclinoid bifurcation. Normal right A1 segments of the anterior cerebral artery. Normal left A1 segments of the anterior cerebral artery. Normal intact anterior communicating artery (ACOM). Normal bilateral A2 segments of the anterior cerebral arteries. Normal right M1 and M2 segments of the middle cerebral arteries, with a normal M1 bifurcation. Normal left M1 and M2 segments of the middle cerebral arteries, with a normal M1 bifurcation. Normal right posterior communicating artery (PCOM). Normal left posterior communicating artery (PCOM). Normal bilateral vertebral arteries. Normal basilar artery with a normal basilar bifurcation. The visualized bilateral superior cerebellar (SCA) arteries are normal. Normal bilateral P1, P2 and visualized P3 segments of the posterior cerebral arteries. There is no demonstrated aneurysm of the [place]. Chronic white matter changes. CT/CTA Head W/WO Contrast IMPRESSION: Normal [place] without a demonstrated aneurysm or hemodynamically significant stenosis. Electronically Signed: Ja Bermudez, at 4:11 EDT Tel , Service support ,
[2019-01-15 21:13] LABS: Erythrocyte Sedimentation Rate 14 mm/hr (0-20)
[2019-01-15 21:18] LABS: AST(SGOT) 22 U/L (15-37); Alanine Aminotransfer ALT/SGPT 52 U/L (16-61); Albumin, Serum 4.6 g/dL (3.2-5.0); Alkaline Phosphatase 77 U/L (45-117); Globulin 3.9 g/dL (2.2-4.2); Protein, Total 8.5 g/dL (6.4-8.2)
[2019-01-15] MEDS: Metoclopramide 10 MG Tablet PO (21:56)
[2019-01-15] MEDS: Enoxaparin 120 MG/0.8 ML Syringe SC (21:57)
[2019-01-15] MEDS: Metoprolol Tartrate 25 MG Tablet PO (21:58)
[2019-01-15 22:15] LABS: Bedside Glucose 249 mg/dL (70-110)
[2019-01-15] MEDS: Ketorolac 15 MG/ML Vial IV (23:10)
[2019-01-16] VITALS (8 sets, daily range): BP systolic 111–173; BP diastolic 62–78; PULSE 58–86; RESP 16–18; TEMP 36.7–37.2; O2SAT 94–97
[2019-01-16] MEDS: Insulin Lispro 100 UNIT/ML INSULN.PEN SQ ×3 (06:59→16:16)
[2019-01-16 07:01] LABS: Bedside Glucose 312 mg/dL (70-110)
[2019-01-16] MEDS: Glucerna Shake 120 ML LIQUID PO (07:50)
[2019-01-16] MEDS: Gemfibrozil 600 MG Tablet PO ×2 (07:50→16:16)
[2019-01-16] MEDS: Glimepiride 4 MG Tablet 8 MG PO (07:50)
[2019-01-16] MEDS: Lisinopril 10 MG Tablet PO (10:16)
[2019-01-16] MEDS: Famotidine 20 MG Tablet PO (10:16)
[2019-01-16] MEDS: Enoxaparin 120 MG/0.8 ML Syringe SC (10:16)
[2019-01-16] MEDS: Metoclopramide 10 MG Tablet PO ×4 (10:16→22:12)
[2019-01-16 10:17] LABS: Anion Gap 6 (5-15); BUN 17 mg/dL (7-18); Calcium,Total 9.6 mg/dL (8.5-10.1); Chloride 98 mmol/L (98-107); Creatinine, Serum 0.85 mg/dL (0.70-1.30); EST Glomerular Filtration Rate 98 mL/min (>60); Est Glom Filt Rate - Afr Amer 119 mL/min (>60); Estimated Creatinine Clearance 93.57 ml/min; Glucose 372 mg/dL (74-106); Potassium 4.7 mmol/L (3.5-5.1); Sodium Level 129 mmol/L (136-145)
[2019-01-16] MEDS: Metoprolol Tartrate 25 MG Tablet PO ×2 (10:17→22:11)
[2019-01-16] MEDS: Pantoprazole Sodium 20 MG Tablet PO (10:17)
--- NOTE | 2019-01-16 10:25 | CASEMGMT ---
RN CM Assessment Presentation: Migraine, R cranial nerve III palsy, MRI/CT neg. Neuro consult Intro role of CM and purpose of RN CM assessment. Pt is sitting in chair and able to participate in assessment. Demographics, PCP and Pharmacy verified. Pt states he is normally independent, works and does not require any assistance at home. PCP: Dr. Knutson Specialists: Preferred Pharmacy: [facility] Insurance: [employer] Prescription Benefit: yes LNOK: Olimpia Vargas, Living Arrangements: Lives independently in own home. Transportation: drives self DME: CPAP only. Pt states he has contacted [facility] to see if he can get supplies through them instead of [facility]. Pt states he does not need assistance with this. RN CM suggested they check his insurance for In/out of network benefits. HHC: none Patient DC goals: home DC PLAN: Srinath Ponce RN BSN ACM
[2019-01-16 11:16] LABS: Bedside Glucose 384 mg/dL (70-110)
--- NOTE | 2019-01-16 13:56 | PCM.PROGNOTE ---
Patient Problems: Active and Suspected Problems Migraine (Acute) Cranial nerve III palsy (Acute) Subjective: Patient seen and examined. Reports headache has improved, currently rates pain 3 out of 10. Continues to have right eye droop. No other neurologic symptoms or complaints. - Physical Exam General: Alert, Oriented x3, Cooperative HEENT: Atraumatic, PERRLA, EOMI, Normocephalic, - - Right eye ptosis. Neck: Supple, No JVD, Negative Carotid Bruits Lungs: Clear to auscultation, Normal air movement Cardiovascular: Regular rate, Regular Rhythm, Normal S1, Normal S2, No murmurs Abdomen: Bowel Sounds Present, Soft, Non Tender, Non-Distended Extremities: No clubbing, No cyanosis, No edema, Capillary Refill Less than 3 Seconds Skin: No rashes, No breakdown, - - Chronic skin changes bilateral lower extremities. Musculoskeletal: No Tenderness to Palpation of Joints or Extremities Neurological: Cranial nerves II-XII grossly intact, Neuro grossly intact Psych/Mental Status: Normal Affect, Appropriate Vital Signs Temp Pulse Resp BP Pulse Ox 98.0 F 70 16 111/63 97 01/16/19 13:36 01/16/19 13:36 01/16/19 13:36 01/16/19 13:36 01/16/19 13:36 Oxygen Delivery Method Room Air Weight: 220 lb 7.396 oz Body Mass Index (BMI) 32.5 Finger Stick Blood Glucose 364 Intake and Output for Last 24 Hours 01/14/19 01/15/19 01/16/19 23:59 23:59 23:59 Intake Total 2906 / 2906 Balance 2906 / 2906 Laboratory Tests Past 24 Hrs 01/15/19 01/15/19 01/15/19 14:04 14:04 14:04 WBC 5.3 RBC 5.03 Hgb 15.2 Hct 43.4 MCV 86.3 MCH 30.2 MCHC 35.0 RDW 13.5 RDW Differential 42.3 Plt Count 184 MPV 10.4 Immature Gran % (Auto) 0.200 Neut % (Auto) 61.4 Lymph % (Auto) 24.5 [place] % (Auto) 11.0 H Eos % (Auto) 2.7 Baso % (Auto) 0.2 Absolute Neuts (auto) 3.2 Absolute Lymphs (auto) 1.29 Total Counted Not Reportable ESR PT 15.3 H INR 1.2 APTT 40.2 H Sodium 131 L Potassium 5.0 Chloride 96 L Carbon Dioxide 28.0 Anion Gap 7 BUN 18 Creatinine 0.85 Estim Creat Clear Calc 93.57 Est GFR (MDRD) Af Amer 118 Est GFR (MDRD) Non-Af 98 BUN/Creatinine Ratio 21.1 H Glucose 311 H Hemoglobin A1c Calcium 10.3 H Total Bilirubin Direct Bilirubin AST ALT Alkaline Phosphatase Total Protein Albumin Globulin 01/15/19 01/15/19 01/15/19 14:04 14:04 14:04 WBC RBC Hgb Hct MCV MCH MCHC RDW RDW Differential Plt Count MPV Immature Gran % (Auto) Neut % (Auto) Lymph % (Auto) [place] % (Auto) Eos % (Auto) Baso % (Auto) Absolute Neuts (auto) Absolute Lymphs (auto) Total Counted ESR 14 PT INR APTT Sodium Potassium Chloride Carbon Dioxide Anion Gap BUN Creatinine Estim Creat Clear Calc Est GFR (MDRD) Af Amer Est GFR (MDRD) Non-Af BUN/Creatinine Ratio Glucose Hemoglobin A1c 10.0 H Calcium Total Bilirubin 0.40 Direct Bilirubin 0.10 AST 22 ALT 52 Alkaline Phosphatase 77 Total Protein 8.5 H Albumin 4.6 Globulin 3.9 01/16/19 09:46 WBC RBC Hgb Hct MCV MCH MCHC RDW RDW Differential Plt Count MPV Immature Gran % (Auto) Neut % (Auto) Lymph % (Auto) [place] % (Auto) Eos % (Auto) Baso % (Auto) Absolute Neuts (auto) Absolute Lymphs (auto) Total Counted ESR PT INR APTT Sodium 129 L Potassium 4.7 Chloride 98 Carbon Dioxide 25.0 Anion Gap 6 BUN 17 Creatinine 0.85 Estim Creat Clear Calc 93.57 Est GFR (MDRD) Af Amer 119 Est GFR (MDRD) Non-Af 98 BUN/Creatinine Ratio 20.0 Glucose 372 H Hemoglobin A1c Calcium 9.6 Total Bilirubin Direct Bilirubin AST ALT Alkaline Phosphatase Total Protein Albumin Globulin POC Glucose 01/16/19 01/16/19 01/15/19 11:02 06:56 22:02 POC Glucose 384 H 312 H 249 H Medical Necessity - Tobacco Use Smoking Status: Former smoker Tobacco Use: Non-smoker Assessment/Plan All Active Problems Migraine (Acute) Cranial nerve III palsy (Acute) Gastroenteritis (Acute) 1. Right cranial nerve III palsy-neurology consulted. Brain MRI showed no evidence of acute infarct. Head CTA showed normal [place] without demonstrated aneurysm or hemodynamically significant stenosis. Patient to undergo lumbar puncture. Further recommendations per neurology. 2. Intractable migraine-continue IV Decadron and IV valproic acid per neurology. Migraine improved. 3. 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 Discussed with Dr. Horn, he recommended follow up with Dr. Reddy at discharge, patient's primary oncologist for discussion regarding changing anticoagulation. 4. Type 2 diabetes mellitus, poorly controlled-hemoglobin A1c 10%. Will adjust home lantus regimen to BID. Continue SSI. 5. Hypertension-stable, continue home lisinopril and metoprolol regimen. 6. GERD-continue famotidine regimen. 7. Chronic hyponatremia-trend BMP. Check urine sodium. DVT prophylaxis-Lovenox subcu This patient was seen by ZEV Quintana under the supervision of Dr. Dick.
--- NOTE | 2019-01-16 14:11 | PCM.CONS.GEN ---
Problem List (1) Headache Status: Acute (2) Cranial nerve III palsy Status: Acute Qualifiers: Laterality: right Qualified Code(s): H49.01 - Third [oculomotor] nerve palsy, right eye Reason for Consult Date of Consultation: 01/16/19 Reason for Consultation: Headache, 3rd nerve palsy History of Present Illness: The patient is a 58 year old M with PMH HTN, DM, H/O Colon cancer, H/O DVT/PE on Enoxaparin, lupus anticoagulant, H/O lumbar surgery admitted with ptosis, and headache. Per patient he started having WILLIAMSON around 01/02/2019, right sided, also had associated droopiness of the right eyelid, diplopia, and vomiting. Per patient he had 2 ED visits since then and was treated with Dilaudid as well as migraine cocktail which helped. Per patient he continued to have daily headaches which were severe in intensity and the ptosis in the right eye worsened. Per patient he also had an ophthalmological evaluation as outpatient but no records available. At present patient denies any dizziness, his headache has been improved with Decadron, Depacon and magnesium sulphate that he received since admission. Present patient denies any focal motor weakness, sensory loss, speech disturbances, fever, denies any frequent falls, does drive and does not need any help with his ADLs. He does not use any cane or walker to ambulate. Patient he was given Coumadin in the past for DVT/PE but he continued to have blood clots and hence has been placed on enoxaparin. [] Past Medical History Past Medical History (Chronic Problems): Chronic Problems Lupus anticoagulant disorder (Chronic) Presence of IVC filter (Chronic) Deep venous thrombosis of lower extremity (Chronic) Carcinoma of colon (Chronic) On anticoagulant therapy (Chronic) Anxiety (Chronic) Allergies acetaminophen [From Vicodin] Allergy (Verified 01/15/19 20:16) itchy hydrocodone [From Vicodin] Allergy (Verified 01/15/19 20:16) itchy Penicillins [PCN] Allergy (Verified 01/15/19 20:16) Unknown pt was a child when he had issues with PCN morphine Adverse Reaction (Verified 01/15/19 20:16) loopy Home Medications: Ambulatory Orders Medication Instructions Recorded Enoxaparin [Lovenox] 120 mg SC BID 12/04/14 Gemfibrozil 600 mg PO BID 12/04/14 Glimepiride 8 mg PO DAILY 12/04/14 Insulin Glargine [Lantus SoloStar 60 unit SC QHS 12/04/14 Pen] Metoprolol Tartrate [Lopressor 25 mg PO BID 12/04/14 (Beta Federico)] Omeprazole 20 mg PO DAILY 12/04/14 Lisinopril [Zestril] 10 mg PO DAILY 01/11/18 Famotidine [Pepcid] 20 mg PO DAILY 01/15/19 Metoclopramide [Reglan] 10 mg PO 4X/DAY PRN PRN 01/15/19 Surgical History: - - Partial colectomy for colon cancer Lives: Spouse/ Significant Other Smoking Status: Former smoker Tobacco Use: Non-smoker Alcohol: None Drugs: Marijuana - Daily - *Family History Maternal History Items: - - Clotting disorder Review of Systems Constitutional: Reports: - - Complete ROS negative except as documented in HPI. Patient Problems: Active and Suspected Problems Migraine (Acute) Cranial nerve III palsy (Acute) Headache (Acute) - Physical Exam General: Alert HEENT: Normocephalic Neck: Supple Lungs: Normal air movement Cardiovascular: Normal S1, Normal S2 Abdomen: Bowel Sounds Present Extremities: No cyanosis Neurological: - - consious, alert, AoAx3, CN-right 3rd nerve palsy, pupils BERL, EOMI- right medial rectus palsy, no nystagmus, rest CN normal, power 5/5 both UE/LE, no sensory loss, no cerebellar signs, Reflexes + B/L B/S/T/K/A, gait deferred. Psych/Mental Status: Normal Affect Vital Signs Temp Pulse Resp BP Pulse Ox 98.0 F 70 16 111/63 97 01/16/19 13:36 01/16/19 13:36 01/16/19 13:36 01/16/19 13:36 01/16/19 13:36 Oxygen Delivery Method Room Air Weight: 100 kg Body Mass Index (BMI) 32.5 Finger Stick Blood Glucose 364 Intake and Output for Last 24 Hours 01/14/19 01/15/19 01/16/19 23:59 23:59 23:59 Intake Total 2906 / 2906 Balance 2906 / 2906 Laboratory Tests Past 24 Hrs 03/27/19 03/27/19 03/27/19 14:04 14:04 14:04 WBC 5.3 RBC 5.03 Hgb 15.2 Hct 43.4 MCV 86.3 MCH 30.2 MCHC 35.0 RDW 13.5 RDW Differential 42.3 Plt Count 184 MPV 10.4 Immature Gran % (Auto) 0.200 Neut % (Auto) 61.4 Lymph % (Auto) 24.5 [place] % (Auto) 11.0 H Eos % (Auto) 2.7 Baso % (Auto) 0.2 Absolute Neuts (auto) 3.2 Absolute Lymphs (auto) 1.29 Total Counted Not Reportable ESR PT 15.3 H INR 1.2 APTT 40.2 H Sodium 131 L Potassium 5.0 Chloride 96 L Carbon Dioxide 28.0 Anion Gap 7 BUN 18 Creatinine 0.85 Estim Creat Clear Calc 93.57 Est GFR (MDRD) Af Amer 118 Est GFR (MDRD) Non-Af 98 BUN/Creatinine Ratio 21.1 H Glucose 311 H Hemoglobin A1c Calcium 10.3 H Total Bilirubin Direct Bilirubin AST ALT Alkaline Phosphatase Total Protein Albumin Globulin 01/15/19 01/15/19 01/15/19 14:04 14:04 14:04 WBC RBC Hgb Hct MCV MCH MCHC RDW RDW Differential Plt Count MPV Immature Gran % (Auto) Neut % (Auto) Lymph % (Auto) [place] % (Auto) Eos % (Auto) Baso % (Auto) Absolute Neuts (auto) Absolute Lymphs (auto) Total Counted ESR 14 PT INR APTT Sodium Potassium Chloride Carbon Dioxide Anion Gap BUN Creatinine Estim Creat Clear Calc Est GFR (MDRD) Af Amer Est GFR (MDRD) Non-Af BUN/Creatinine Ratio Glucose Hemoglobin A1c 10.0 H Calcium Total Bilirubin 0.40 Direct Bilirubin 0.10 AST 22 ALT 52 Alkaline Phosphatase 77 Total Protein 8.5 H Albumin 4.6 Globulin 3.9 01/16/19 09:46 WBC RBC Hgb Hct MCV MCH MCHC RDW RDW Differential Plt Count MPV Immature Gran % (Auto) Neut % (Auto) Lymph % (Auto) [place] % (Auto) Eos % (Auto) Baso % (Auto) Absolute Neuts (auto) Absolute Lymphs (auto) Total Counted ESR PT INR APTT Sodium 129 L Potassium 4.7 Chloride 98 Carbon Dioxide 25.0 Anion Gap 6 BUN 17 Creatinine 0.85 Estim Creat Clear Calc 93.57 Est GFR (MDRD) Af Amer 119 Est GFR (MDRD) Non-Af 98 BUN/Creatinine Ratio 20.0 Glucose 372 H Hemoglobin A1c Calcium 9.6 Total Bilirubin Direct Bilirubin AST ALT Alkaline Phosphatase Total Protein Albumin Globulin POC Glucose 01/16/19 01/16/19 01/15/19 11:02 06:56 22:02 POC Glucose 384 H 312 H 249 H Assessment/Plan All Active Problems Migraine (Acute) Cranial nerve III palsy (Acute) Headache (Acute) Gastroenteritis (Acute) The patient is a 58 year old M with PMH HTN, DM, H/O Colon cancer, H/O DVT/PE on Enoxaparin, lupus anticoagulant, H/O lumbar surgery admitted with ptosis, and headache. Per patient he started having WILLIAMSON around 01/02/2019, right sided, also had associated droopiness of the right eyelid, diplopia, and vomiting. Per patient he had 2 ED visits since then and was treated with Dilaudid as well as migraine cocktail which helped. Per patient he continued to have daily headaches which were severe in intensity and the ptosis in the right eye worsened. Per patient he also had an ophthalmological evaluation as outpatient but no records available. At present patient denies any dizziness, his headache has been improved with Decadron, Depacon and magnesium sulphate that he received since admission. Present patient denies any focal motor weakness, sensory loss, speech disturbances, fever, denies any frequent falls, does drive and does not need any help with his ADLs. He does not use any cane or walker to ambulate. Patient he was given Coumadin in the past for DVT/PE but he continued to have blood clots and hence has been placed on enoxaparin. MRI brain w/w/o contrast reported nothing acute, CTA head showed no aneurysm Impression 3rd nerve Palsy Headache Plan -MRI brain report reviewed, CTA head report reviewed -Depacon 500 mg IV TID for 24-48 hrs -Decadron 4 mg IV q 4 hrly for 24-48 hrs -Magnesium Sulphate 1-2 g IV once -Toradol PRN for 24 hrs -Check DULCE level, ACH receptor binging, blocking, modulating Ab, anti-MUSK ab, Lyme ab -ESR-14 -LP- for CSF cell count, protein, glucose, DULCE level, CSF cytology, CSF flow cytometry, CSF HSV PCR, EBV PCR, CMV PCR, cryptococcus, gram stain, oligoclonal bands and MBP -CTA neck -Fall Precautions -GI/DVT prophylaxis -Further medical management per hospitalist team -Please Call with questions if any -Follow up with Neurology as outpatient in 3-4 weeks -Thank you for allowing us to participate in patient's care and management
--- NOTE | 2019-01-16 14:35 | CT_ITS ---
STUDY: CTA NECK WITH CONTRAST REASON FOR EXAM: Male, 58 years old. 3rd nerve palsy RADIATION DOSAGE (If Supplied By Facility): CTDIvol = ( 22.28 ) mGy, DLP = ( 704.70 ) mGycm TECHNIQUE: CT angiography with multi-detector data acquisition was performed from the aortic arch to the skull base following intravenous administration of 100 IV Isovue 370. MIP images were reconstructed from the axial data set. Post-processing of the angiographic images was performed, with multiplanar reformation and 3D reconstruction. Individualized dose optimization techniques were used for this CT. COMPARISON: None. FINDINGS: AORTIC ARCH: There is atherosclerotic calcific plaque formation of the aortic arch and great vessels arising from the aortic arch, without a hemodynamically significant stenosis. RIGHT CAROTID ARTERIES: Normal right common carotid artery (CCA). There is mild atherosclerotic plaque formation with minimal narrowing of the right carotid bulb. Normal origin of the right internal carotid (ICA) artery without a hemodynamically significant stenosis. Normal visualized cervical portion of the right internal carotid artery. Normal origin of the right external carotid artery (ECA). LEFT CAROTID ARTERIES: Normal left common carotid artery (CCA). There is mild atherosclerotic plaque formation with minimal narrowing of the left carotid bulb. Normal origin of the left internal carotid (ICA) artery without a hemodynamically significant stenosis. Normal visualized cervical portion of the left internal carotid artery. Normal origin of the left external carotid artery (ECA). VERTEBRAL ARTERIES: Normal bilateral vertebral arteries. CT/CTA Neck W/WO Contrast IMPRESSION: There is scattered atherosclerotic disease. There is no flow-limiting stenosis or occlusion identified. Electronically Signed: Ja Bermudez, at 6:53 EDT Tel , Service support ,
--- NOTE | 2019-01-16 15:38 | CHAPLAIN ---
patient and bed were out of room when visit was attempted; calling card left
[2019-01-16 16:57] LABS: Urine Sodium 108 mmol/L (Not Establ.)
[2019-01-16 18:46] LABS: Bedside Glucose 349 mg/dL (70-110)
[2019-01-16 22:25] LABS: Bedside Glucose 398 mg/dL (70-110)
--- NOTE | 2019-01-17 | CYSPIN_PTH ---
PATIENT: VALERIA SANTORO LOC: [facility] U#:[id number] AGE/SX: 58/M ROOM: GA314 RE01/15/[address]: Dr. Julia Dick DO : 1960 BED: 1 DIS: 01/17/2019 SPEC #: [id number] RECD: 01/17/19 11:12 STATUS: ADILSON REQ #: [id number] ONUR: 01/17/19 00:[address]: Julia Dick DEPT: CYTOLOGY RECD BY: Chris Vasquez ENTERED: 01/17/19 11:13 SP TYPE: CYSPIN FL OTHR DR: DO Dr. Bianka Childs MD Dr. Ramnath S Ramanathan, MD Tissues: Cerebrospinal Fluid Procedures: Pap Stain (control) Special Stain Group II Cytospin Fluid HEADER OPERATION: Lumbar puncture PRE-OP DIAGNOSIS: Headache TISSUE SUBMITTED: Cerebrospinal fluid for cytology DIAGNOSIS CYTOLOGY Cerebrospinal fluid for cytology (cytospin): Negative for malignant cells. See comment. AM:alexandro 01/20/19 COMMENT The specimen contains scattered polymorphous lymphocytes. Clinical correlation is suggested. CYTOLOGY STUDY Slides are reviewed. CYTOLOGY GROSS Received is 3 ml of clear colorless fluid labeled with the patient's name and and designated per the requisition as CSF. Submitted for cytology preparation. 01/17/19 TC:5 CPT: 86241
[2019-01-17 05:03] VITALS: BP 148/75; PULSE 60; RESP 16; TEMP 36.2; O2SAT 97
[2019-01-17 06:55] LABS: Anion Gap 4 (5-15); BUN 17 mg/dL (7-18); BUN/Creat Ratio 21.8 RATIO (10-20); Chloride 97 mmol/L (98-107); Creatinine, Serum 0.78 mg/dL (0.70-1.30); EST Glomerular Filtration Rate 108 mL/min (>60); Est Glom Filt Rate - Afr Amer 131 mL/min (>60); Estimated Creatinine Clearance 101.97 ml/min; Glucose 271 mg/dL (74-106); Potassium 4.3 mmol/L (3.5-5.1); Sodium Level 130 mmol/L (136-145)
[2019-01-17 07:01] LABS: International Normalized Ratio 1.3
[2019-01-17 07:02] LABS: Partial Thromboplast Time 31.7 Seconds (24.1-36.2)
[2019-01-17 07:15] LABS: Bedside Glucose 269 mg/dL (70-110)
[2019-01-17 08:14] VITALS: BP 167/86; PULSE 58; RESP 16; TEMP 36.7; O2SAT 98
[2019-01-17] MEDS: Insulin Lispro 100 UNIT/ML INSULN.PEN SQ ×2 (08:21→12:33)
[2019-01-17] MEDS: Gemfibrozil 600 MG Tablet PO (08:23)
[2019-01-17] MEDS: Glimepiride 4 MG Tablet 8 MG PO (08:23)
--- NOTE | 2019-01-17 09:05 | RAD_ITS ---
PROCEDURE: Fluoroscopic guided Lumbar Puncture. DATE: January 17, 2019. CLINICAL INDICATION: Headaches. New 3rd cranial nerve palsy. PHYSICIAN: Yogesh Herrera M.D. MEDICATIONS: 1% lidocaine administered subcutaneously for local anesthesia. ACCESS SITE: Lower posterior back. NEEDLE: 22-gauge spinal needle. SPECIMEN: Approximately 15 mL clear]CSF fluid. FLUOROSCOPY TIME (if supplied): (0:47) minutes/seconds COMPLICATIONS: None immediate. The risks, benefits, and alternatives to the procedure were explained to the patient. The specific risks of bleeding, infection, and neurovascular injury were detailed and accepted. Witnessed informed consent was obtained. The patient was placed on the fluoroscopic table in the prone position. The level for needle entry was determined and marked. The overlying skin was cleaned and prepped in the usual sterile fashion. 2% lidocaine was administered subcutaneously for local anesthesia. Under fluoroscopic guidance a 22-gauge spinal needle was advanced. The thecal sac was entered at the L3- L4 vertebral level. The inner stylet was removed. There was spontaneous flow of clear CSF fluid. The patient was placed in a reversed Trendelenburg position. Approximately 15 mL of cerebrospinal fluid was collected using gravity. The specimen was collected and submitted to the laboratory for further evaluation. The needle was withdrawn,. Hemostasis was achieved and a sterile dressing placed. The patient tolerated the procedure well without any immediate complications. The patient was placed supine with head elevated and returned to the floor in stable condition. RAD/Fluoro Guided Lumbar Puncture IMPRESSION: Successful fluoroscopic-guided lumbar puncture. Electronically Signed: Yogesh Herrera, at 10:35 EDT , Service support ,
[2019-01-17 09:42] LABS: Cytology, Body Fluid / CSF SEE PATHOLOGY REPORT
[2019-01-17 09:49] VITALS: BP 167/79; PULSE 64
[2019-01-17] MEDS: Metoprolol Tartrate 25 MG Tablet PO (09:49)
[2019-01-17] MEDS: Pantoprazole Sodium 20 MG Tablet PO (09:52)
[2019-01-17] MEDS: Metoclopramide 10 MG Tablet PO (09:52)
[2019-01-17] MEDS: Famotidine 20 MG Tablet PO (09:52)
[2019-01-17] MEDS: Lisinopril 10 MG Tablet PO (09:52)
[2019-01-17 09:57] LABS: Appearance CSF (character) CLEAR (Clear); Auto B Fluid Analyzer BKGD Ct COUNTS W/IN LIMITS (W/IN LIMITS); CSF Color COLORLESS (Colorless); Tested Tube # 4
[2019-01-17 10:00] LABS: RBC Count, Spinal Fluid 0 /mm-3 (None seen)
[2019-01-17 10:07] LABS: Glucose Spinal Fluid 173 mg/dL (40-75)
[2019-01-17] MEDS: 0.9% NaCl Peripheral Flush Adult/Peds IV (10:08)
[2019-01-17] MEDS: Ketorolac 15 MG/ML Vial IV (10:08)
[2019-01-17 10:20] LABS: Body Fluid QC Type(s) BF1
[2019-01-17 11:30] LABS: Bedside Glucose 347 mg/dL (70-110)
[2019-01-17] MEDS: Insulin Lispro 100 UNIT/ML INSULN.PEN 10 UNIT SC (12:32)
--- NOTE | 2019-01-17 12:37 | DCINST_ITS ---
- Discharge Diagnoses Current Active Problems: Current Active and Chronic Problems Migraine (Acute) Cranial nerve III palsy (Acute) Headache (Acute) You will use the following diet at home:: Calorie/Carbohydrate Controlled (specify 1200, 1400, etc) Discharge Activity: Return to Normal Activity, May Not Drive - Until follow up with PCP/neurology. Call your doctor if you observe: Fever of 101 or Higher, Numbness or Tingling, Shortness of breath, Dizziness, Fainting spells, Chest pain Allergies/Adverse Reactions: Allergies acetaminophen [From Vicodin] Allergy (Verified 01/15/19 20:16) itchy hydrocodone [From Vicodin] Allergy (Verified 01/15/19 20:16) itchy Penicillins [PCN] Allergy (Verified 01/15/19 20:16) Unknown pt was a child when he had issues with PCN morphine Adverse Reaction (Verified 01/15/19 20:16) loopy Medications to take at Discharge Enoxaparin [Lovenox] 120 mg SC BID 12/04/14 Gemfibrozil 600 mg PO BID 12/04/14 Glimepiride 8 mg PO DAILY 12/04/14 Metoprolol Tartrate [Lopressor (beta kris)] 25 mg PO BID 12/04/14 Omeprazole 20 mg PO DAILY 12/04/14 Lisinopril [Zestril] 10 mg PO DAILY 01/11/18 Famotidine [Pepcid] 20 mg PO DAILY 01/15/19 Metoclopramide [Reglan] 10 mg PO 4X/DAY PRN PRN 01/15/19 Insulin Glargine [Lantus SoloStar Pen] 40 units SC BID pen 01/17/19 Insulin Lispro [Humalog KwikPen] See Protocol SQ ACHS #2 insuln.pen 01/17/19 The following prescriptions were given: Insulin Lispro [Humalog KwikPen] See Protocol SQ ACHS #2 insuln.pen Primary Care Physician: Bianka Knutson MD [Primary Care Provider] - Please follow up with your Primary Care Physician in: 1 Week Test Results: Test results from this visit will be discussed in further detail at your follow- up appointment, if applicable. Please Follow Up With: Palomo Parrish MD When: 3 weeks, can call next week to check on lab results Please Follow Up With: Lisy Reddy MD When: Call for apppointment next week Proposed Discharge Date: 01/17/19
--- NOTE | 2019-01-17 12:40 | PCM.WORK.EX ---
Work/School Excuse Work/School Excuse for:: Patient Please excuse this person from:: Work From: 01/15/19 through: 01/24/19 - Or until able to see PCP Restrictions: Other - No driving until follow up with PCP.
--- NOTE | 2019-01-17 12:41 | PCM.DC.SUM ---
Discharge Date and Diagnosis Date of Admission: 01/15/19 Date of Discharge: 01/17/19 - Primary Discharge Diagnosis Active and Suspected Problems 1. Right cranial nerve III palsy 2. Intractable headache, possible cluster headaches 3. History of VTE, lupus anticoagulant 4. Type 2 diabetes mellitus, poorly controlled 5. Hypertension 6. GERD 7. Chronic hyponatremia 8. History of colon cancer - Secondary Discharge Diagnosis Chronic Problems Lupus anticoagulant disorder (Chronic) Presence of IVC filter (Chronic) Deep venous thrombosis of lower extremity (Chronic) Carcinoma of colon (Chronic) On anticoagulant therapy (Chronic) Anxiety (Chronic) Hospital Course and Treatment Imaging Results: Diagnostic Data Brain MRI 01/15/19 13:33 IMPRESSION: No MRI evidence for acute infarct few small punctate increased T2 signal abnormalities likely Virchow-Tomas spaces less likely old ischemic changes Mild inflammatory changes paranasal sinuses Electronically Signed: Lenin Huang, at 17:58 EDT Tel , Service support , Chest X-Ray 01/15/19 19:35 IMPRESSION: Normal x-ray examination of the chest. Electronically Signed: Lenin Huang, at 21:30 EDT Tel , Service support , Head CTA 01/15/19 20:22 IMPRESSION: Normal [place] without a demonstrated aneurysm or hemodynamically significant stenosis. Electronically Signed: Ja Bermudez, at 4:11 EDT Tel , Service support , Neck CTA 01/16/19 14:35 IMPRESSION: There is scattered atherosclerotic disease. There is no flow-limiting stenosis or occlusion identified. Electronically Signed: Ja Bermudez, at 6:53 EDT Tel , Service support , Lumbar Puncture Fluoroscopy 01/17/19 09:05 IMPRESSION: Successful fluoroscopic-guided lumbar puncture. Electronically Signed: Yogesh Herrera, at 10:35 EDT , Service support , Dr. Parrish- Neurology Operations: None Procedures: - - Lumbar Puncture Summary of Care Provided: The patient is a 58 year old M admitted 01/16/2019 due to headache, 3rd nerve palsy. 1. Right cranial nerve III palsy-neurology consulted. Brain MRI showed no evidence of acute infarct. Head CTA showed normal [place] without demonstrated aneurysm or hemodynamically significant stenosis. Lumbar puncture completed, initial labs appear normal. Pending labs to be followed up with as outpatient. Follow up with Dr. Parrish in 3 weeks. Follow up with PCP in one week. Patient continues to have blurred vision of the right eye. Instructed no driving until follow up with PCP. 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 2. Intractable headache, possible cluster headaches-received IV Decadron and IV valproic acid per neurology. Headache resolved. Follow up with neuro as noted above. 3. History of VTE, lupus anticoagulant- on chronic anticoagulation with lovenox. Discussed with Dr. Horn, he recommended follow up with Dr. Reddy at discharge, patient's primary oncologist for discussion regarding changing anticoagulation. Patient reports he had DVT on coumadin. Unknown if INR therapeutic during that time. Follow up with Dr. Reddy next week. 4. Type 2 diabetes mellitus, poorly controlled-hemoglobin A1c 10%. Home lantus regimen increased to 40 units BID. Added on SSI. Continue home oral regimen. Recommend repeat HA1c in 3 months. 5. Hypertension-stable, continue home lisinopril and metoprolol regimen. 6. GERD-continue famotidine regimen. 7. Chronic hyponatremia-trend BMP. Urine sodium WNL. Further evaluation by PCP. 8. History of colon cancer- follows with Dr. Reddy. General: Alert, Oriented x3, Cooperative HEENT: Atraumatic, PERRLA, EOMI, Normocephalic, Right eye ptosis. Neck: Supple, No JVD, Negative Carotid Bruits Lungs: Clear to auscultation, Normal air movement Cardiovascular: Regular rate, Regular Rhythm, Normal S1, Normal S2, No murmurs Abdomen: Bowel Sounds Present, Soft, Non Tender, Non-Distended Extremities: No clubbing, No cyanosis, No edema, Capillary Refill Less than 3 Seconds Skin: No rashes, No breakdown, Chronic skin changes/hyperpigmentation bilateral lower extremities Musculoskeletal: No Tenderness to Palpation of Joints or Extremities Neurological: Cranial nerves II-XII grossly intact, Neuro grossly intact Psych/Mental Status: Normal Affect, Appropriate Patient seen and examined prior to discharge. Physical assessment as noted above. Patient is stable for discharge with follow up recommendations as noted above. This patient was seen by ZEV Quintana under the supervision of Dr. Dick. - Physical Exam Vital Signs Temp Pulse Resp BP Pulse Ox 98.1 F 64 16 167/79 H 98 01/17/19 08:14 01/17/19 09:49 01/17/19 08:14 01/17/19 09:49 01/17/19 08:14 Oxygen Delivery Method Room Air Weight: 220 lb 7.396 oz Body Mass Index (BMI) 32.5 Finger Stick Blood Glucose 364 Intake and Output for Last 24 Hours 01/15/19 01/16/19 01/17/19 23:59 23:59 23:59 Intake Total 4139 / 4139 818 / 818 Balance 4139 / 4139 818 / 818 Microbiology Past 72 Hours 01/17/19 09:28 Gram Stain - Final Csf, Spinal Fluid Laboratory Tests Past 24 Hrs 01/16/19 01/17/19 01/17/19 16:27 06:20 06:20 PT 16.0 H INR 1.3 APTT 31.7 Sodium 130 L Potassium 4.3 Chloride 97 L Carbon Dioxide 29.0 Anion Gap 4 L BUN 17 Creatinine 0.78 Estim Creat Clear Calc 101.97 Est GFR (MDRD) Af Amer 131 Est GFR (MDRD) Non-Af 108 BUN/Creatinine Ratio 21.8 H Glucose 271 H Calcium 10.0 Albumin Ur Random Sodium 108 Fld Polynuclear WBCs # Fld Polynuclear WBCs % Fluid Mononuclear WBCs Fld Mononuclear WBCs % CSF Appearance CSF Color CSF WBC CSF RBC CSF Cell Count Tube # CSF Total Cell Counted CSF Comment CSF Glucose CSF Total Protein CSF Albumin Serum IgG CSF IgG/Albumin CSF Albumin Index CSF IgG Index CSF IgG Local Synthesis CSF Myelin Basic Protein CSF/Ser Oligoclon Bands CSF Cryptococcus Ag CSF VZV DNA (PCR) Acetylchol Rcpt Block Ab Acetylchol Rcpt Modu Ab Lyme Total Antibody CMV DNA Qual PCR [place] RNA (RT-PCR) [place] Interp Enterovirus RNA (PCR) Culture Method Miscellaneous Cytology Miscellaneous Test 01/17/19 01/17/19 01/17/19 06:20 06:20 06:20 PT INR APTT Sodium Potassium Chloride Carbon Dioxide Anion Gap BUN Creatinine Estim Creat Clear Calc Est GFR (MDRD) Af Amer Est GFR (MDRD) Non-Af BUN/Creatinine Ratio Glucose Calcium Albumin Ur Random Sodium Fld Polynuclear WBCs # Fld Polynuclear WBCs % Fluid Mononuclear WBCs Fld Mononuclear WBCs % CSF Appearance CSF Color CSF WBC CSF RBC CSF Cell Count Tube # CSF Total Cell Counted CSF Comment CSF Glucose CSF Total Protein CSF Albumin Serum IgG CSF IgG/Albumin CSF Albumin Index CSF IgG Index CSF IgG Local Synthesis CSF Myelin Basic Protein CSF/Ser Oligoclon Bands CSF Cryptococcus Ag CSF VZV DNA (PCR) Acetylchol Rcpt Block Ab Pending Acetylchol Rcpt Modu Ab Pending Lyme Total Antibody Pending CMV DNA Qual PCR [place] RNA (RT-PCR) [place] Interp Enterovirus RNA (PCR) Culture Method Miscellaneous Cytology Miscellaneous Test Pending 01/17/19 01/17/19 01/17/19 08:55 08:55 09:25 PT INR APTT Sodium Potassium Chloride Carbon Dioxide Anion Gap BUN Creatinine Estim Creat Clear Calc Est GFR (MDRD) Af Amer Est GFR (MDRD) Non-Af BUN/Creatinine Ratio Glucose Calcium Albumin Pending Ur Random Sodium Fld Polynuclear WBCs # Fld Polynuclear WBCs % Fluid Mononuclear WBCs Fld Mononuclear WBCs % CSF Appearance CSF Color CSF WBC CSF RBC CSF Cell Count Tube # CSF Total Cell Counted CSF Comment CSF Glucose CSF Total Protein CSF Albumin Pending Serum IgG Pending CSF IgG/Albumin Pending CSF Albumin Index Pending CSF IgG Index Pending CSF IgG Local Synthesis Pending CSF Myelin Basic Protein Pending CSF/Ser Oligoclon Bands Pending CSF Cryptococcus Ag CSF VZV DNA (PCR) Pending Acetylchol Rcpt Block Ab Acetylchol Rcpt Modu Ab Lyme Total Antibody CMV DNA Qual PCR Pending [place] RNA (RT-PCR) Pending [place] Interp Pending Enterovirus RNA (PCR) Pending Culture Method Pending Miscellaneous Cytology Miscellaneous Test Pending 01/17/19 01/17/19 01/17/19 09:28 09:28 09:28 PT INR APTT Sodium Potassium Chloride Carbon Dioxide Anion Gap BUN Creatinine Estim Creat Clear Calc Est GFR (MDRD) Af Amer Est GFR (MDRD) Non-Af BUN/Creatinine Ratio Glucose Calcium Albumin Ur Random Sodium Fld Polynuclear WBCs # Fld Polynuclear WBCs % Fluid Mononuclear WBCs Fld Mononuclear WBCs % CSF Appearance CSF Color CSF WBC CSF RBC CSF Cell Count Tube # CSF Total Cell Counted CSF Comment CSF Glucose 173 H CSF Total Protein 75.0 H CSF Albumin Serum IgG CSF IgG/Albumin CSF Albumin Index CSF IgG Index CSF IgG Local Synthesis CSF Myelin Basic Protein CSF/Ser Oligoclon Bands CSF Cryptococcus Ag Pending CSF VZV DNA (PCR) Acetylchol Rcpt Block Ab Acetylchol Rcpt Modu Ab Lyme Total Antibody CMV DNA Qual PCR [place] RNA (RT-PCR) [place] Interp Enterovirus RNA (PCR) Culture Method Miscellaneous Cytology Miscellaneous Test Pending 01/17/19 01/17/19 09:28 09:28 PT INR APTT Sodium Potassium Chloride Carbon Dioxide Anion Gap BUN Creatinine Estim Creat Clear Calc Est GFR (MDRD) Af Amer Est GFR (MDRD) Non-Af BUN/Creatinine Ratio Glucose Calcium Albumin Ur Random Sodium Fld Polynuclear WBCs # 0.000 Fld Polynuclear WBCs % 0.0 Fluid Mononuclear WBCs 0.000 Fld Mononuclear WBCs % 0.0 CSF Appearance CLEAR CSF Color COLORLESS CSF WBC 0.000 CSF RBC 0 CSF Cell Count Tube # 4 CSF Total Cell Counted 0.000 CSF Comment May follow CSF Glucose CSF Total Protein CSF Albumin Serum IgG CSF IgG/Albumin CSF Albumin Index CSF IgG Index CSF IgG Local Synthesis CSF Myelin Basic Protein CSF/Ser Oligoclon Bands CSF Cryptococcus Ag CSF VZV DNA (PCR) Acetylchol Rcpt Block Ab Acetylchol Rcpt Modu Ab Lyme Total Antibody CMV DNA Qual PCR [place] RNA (RT-PCR) [place] Interp Enterovirus RNA (PCR) Culture Method Miscellaneous Cytology Pending Miscellaneous Test POC Glucose 01/17/19 01/17/19 01/16/19 11:19 07:08 22:09 POC Glucose 347 H 269 H 398 H 01/16/19 16:11 POC Glucose 349 H Discharge Diet: Carb Control Diet Discharge Activity: Return to Normal Activity, May Not Drive - Until follow up with PCP/neurology. Call your doctor if you observe: Fever of 101 or Higher, Numbness or Tingling, Shortness of breath, Dizziness, Fainting spells, Chest pain Home Medications: Medications to take at Discharge Enoxaparin [Lovenox] 120 mg SC BID 12/04/14 Gemfibrozil 600 mg PO BID 12/04/14 Glimepiride 8 mg PO DAILY 12/04/14 Metoprolol Tartrate [Lopressor (beta kris)] 25 mg PO BID 12/04/14 Omeprazole 20 mg PO DAILY 12/04/14 Lisinopril [Zestril] 10 mg PO DAILY 01/11/18 Famotidine [Pepcid] 20 mg PO DAILY 01/15/19 Metoclopramide [Reglan] 10 mg PO 4X/DAY PRN PRN 01/15/19 Insulin Glargine [Lantus SoloStar Pen] 40 units SC BID pen 01/17/19 Insulin Lispro [Humalog KwikPen] See Protocol SQ ACHS #2 [email or web address] 01/17/19 Following Prescrptions Were Given to Patient: Insulin Lispro [Humalog KwikPen] See Protocol SQ ACHS #2 [email or web address] Primary Care Physician: Bianka Knutson MD [Primary Care Provider] - Please follow up with your Primary Care Physician in: 1 Week Please Follow Up With: Palomo aPrrish MD When: 3 weeks, can call next week to check on lab results Please Follow Up With: Lisy Reddy MD When: Call for apppointment next week Disposition: Home Minutes spent on discharge:: 35 Patient Condition:: Stable Medical Necessity - Tobacco Use Smoking Status: Former smoker Tobacco Use: Non-smoker Meaningful Use Info Meaningful Use Diagnoses (Choose all that apply): None applicable
--- NOTE | 2019-01-17 12:56 | DS.PCM_ITS ---
Discharge Date and Diagnosis Date of Admission: 01/15/19 Date of Discharge: 01/17/19 - Primary Discharge Diagnosis Active and Suspected Problems 1. Right cranial nerve III palsy 2. Intractable headache, possible cluster headaches 3. History of VTE, lupus anticoagulant 4. Type 2 diabetes mellitus, poorly controlled 5. Hypertension 6. GERD 7. Chronic hyponatremia 8. History of colon cancer - Secondary Discharge Diagnosis Chronic Problems Lupus anticoagulant disorder (Chronic) Presence of IVC filter (Chronic) Deep venous thrombosis of lower extremity (Chronic) Carcinoma of colon (Chronic) On anticoagulant therapy (Chronic) Anxiety (Chronic) Hospital Course and Treatment Imaging Results: Diagnostic Data Brain MRI 01/15/19 13:33 IMPRESSION: No MRI evidence for acute infarct few small punctate increased T2 signal abnormalities likely [place]chow-Tomas spaces less likely old ischemic changes Mild inflammatory changes paranasal sinuses Electronically Signed: Lenin Huang, at 17:58 EDT Tel , Service support , Chest X-Ray 01/15/19 19:35 IMPRESSION: Normal x-ray examination of the chest. Electronically Signed: Lenin Huang, at 21:30 EDT Tel , Service support , Head CTA 01/15/19 20:22 IMPRESSION: Normal [place] without a demonstrated aneurysm or hemodynamically significant stenosis. Electronically Signed: Ja Bermudez, at 4:11 EDT Tel , Service support , Neck CTA 01/16/19 14:35 IMPRESSION: There is scattered atherosclerotic disease. There is no flow-limiting stenosis or occlusion identified. Electronically Signed: Ja Bermudez, at 6:53 EDT Tel , Service support , Lumbar Puncture Fluoroscopy 01/17/19 09:05 IMPRESSION: Successful fluoroscopic-guided lumbar puncture. Electronically Signed: Yogesh Herrera, at 10:35 EDT , Service support , Dr. Parrish- Neurology Operations: None Procedures: - - Lumbar Puncture Summary of Care Provided: The patient is a 58 year old M admitted 01/16/2019 due to headache, 3rd nerve palsy. 1. Right cranial nerve III palsy-neurology consulted. Brain MRI showed no evidence of acute infarct. Head CTA showed normal [place] without demonstrated aneurysm or hemodynamically significant stenosis. Lumbar puncture completed, initial labs appear normal. Pending labs to be followed up with as outpatient. Follow up with Dr. Parrish in 3 weeks. Follow up with PCP in one week. Patient continues to have blurred vision of the right eye. Instructed no driving until follow up with PCP. 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 2. Intractable headache, possible cluster headaches-received IV Decadron and IV valproic acid per neurology. Headache resolved. Follow up with neuro as noted above. 3. History of VTE, lupus anticoagulant- on chronic anticoagulation with lovenox. Discussed with Dr. Horn, he recommended follow up with Dr. Reddy at discharge, patient's primary oncologist for discussion regarding changing anticoagulation. Patient reports he had DVT on coumadin. Unknown if INR therapeutic during that time. Follow up with Dr. Reddy next week. 4. Type 2 diabetes mellitus, poorly controlled-hemoglobin A1c 10%. Home lantus regimen increased to 40 units BID. Added on SSI. Continue home oral regimen. Recommend repeat HA1c in 3 months. 5. Hypertension-stable, continue home lisinopril and metoprolol regimen. 6. GERD-continue famotidine regimen. 7. Chronic hyponatremia-trend BMP. Urine sodium WNL. Further evaluation by PCP. 8. History of colon cancer- follows with Dr. Rdedy. General: Alert, Oriented x3, Cooperative HEENT: Atraumatic, PERRLA, EOMI, Normocephalic, Right eye ptosis. Neck: Supple, No JVD, Negative Carotid Bruits Lungs: Clear to auscultation, Normal air movement Cardiovascular: Regular rate, Regular Rhythm, Normal S1, Normal S2, No murmurs Abdomen: Bowel Sounds Present, Soft, Non Tender, Non-Distended Extremities: No clubbing, No cyanosis, No edema, Capillary Refill Less than 3 Seconds Skin: No rashes, No breakdown, Chronic skin changes/hyperpigmentation bilateral lower extremities Musculoskeletal: No Tenderness to Palpation of Joints or Extremities Neurological: Cranial nerves II-XII grossly intact, Neuro grossly intact Psych/Mental Status: Normal Affect, Appropriate Patient seen and examined prior to discharge. Physical assessment as noted above. Patient is stable for discharge with follow up recommendations as noted above. This patient was seen by ZEV Quintana under the supervision of Dr. Dick. - Physical Exam Vital Signs Temp Pulse Resp BP Pulse Ox 98.1 F 64 16 167/79 H 98 01/17/19 08:14 01/17/19 09:49 01/17/19 08:14 01/17/19 09:49 01/17/19 08:14 Oxygen Delivery Method Room Air Weight: 220 lb 7.396 oz Body Mass Index (BMI) 32.5 Finger Stick Blood Glucose 364 Intake and Output for Last 24 Hours 01/15/19 01/16/19 01/17/19 23:59 23:59 23:59 Intake Total 4139 / 4139 818 / 818 Balance 4139 / 4139 818 / 818 Microbiology Past 72 Hours 01/17/19 09:28 Gram Stain - Final Csf, Spinal Fluid Laboratory Tests Past 24 Hrs 01/16/19 01/17/19 01/17/19 16:27 06:20 06:20 PT 16.0 H INR 1.3 APTT 31.7 Sodium 130 L Potassium 4.3 Chloride 97 L Carbon Dioxide 29.0 Anion Gap 4 L BUN 17 Creatinine 0.78 Estim Creat Clear Calc 101.97 Est GFR (MDRD) Af Amer 131 Est GFR (MDRD) Non-Af 108 BUN/Creatinine Ratio 21.8 H Glucose 271 H Calcium 10.0 Albumin Ur Random Sodium 108 Fld Polynuclear WBCs # Fld Polynuclear WBCs % Fluid Mononuclear WBCs Fld Mononuclear WBCs % CSF Appearance CSF Color CSF WBC CSF RBC CSF Cell Count Tube # CSF Total Cell Counted CSF Comment CSF Glucose CSF Total Protein CSF Albumin Serum IgG CSF IgG/Albumin CSF Albumin Index CSF IgG Index CSF IgG Local Synthesis CSF Myelin Basic Protein CSF/Ser Oligoclon Bands CSF Cryptococcus Ag CSF VZV DNA (PCR) Acetylchol Rcpt Block Ab Acetylchol Rcpt Modu Ab Lyme Total Antibody CMV DNA Qual PCR [place] RNA (RT-PCR) [place] Interp Enterovirus RNA (PCR) Culture Method Miscellaneous Cytology Miscellaneous Test 01/17/19 01/17/19 01/17/19 06:20 06:20 06:20 PT INR APTT Sodium Potassium Chloride Carbon Dioxide Anion Gap BUN Creatinine Estim Creat Clear Calc Est GFR (MDRD) Af Amer Est GFR (MDRD) Non-Af BUN/Creatinine Ratio Glucose Calcium Albumin Ur Random Sodium Fld Polynuclear WBCs # Fld Polynuclear WBCs % Fluid Mononuclear WBCs Fld Mononuclear WBCs % CSF Appearance CSF Color CSF WBC CSF RBC CSF Cell Count Tube # CSF Total Cell Counted CSF Comment CSF Glucose CSF Total Protein CSF Albumin Serum IgG CSF IgG/Albumin CSF Albumin Index CSF IgG Index CSF IgG Local Synthesis CSF Myelin Basic Protein CSF/Ser Oligoclon Bands CSF Cryptococcus Ag CSF VZV DNA (PCR) Acetylchol Rcpt Block Ab Pending Acetylchol Rcpt Modu Ab Pending Lyme Total Antibody Pending CMV DNA Qual PCR [place] RNA (RT-PCR) [place] Interp Enterovirus RNA (PCR) Culture Method Miscellaneous Cytology Miscellaneous Test Pending 01/17/19 01/17/19 01/17/19 08:55 08:55 09:25 PT INR APTT Sodium Potassium Chloride Carbon Dioxide Anion Gap BUN Creatinine Estim Creat Clear Calc Est GFR (MDRD) Af Amer Est GFR (MDRD) Non-Af BUN/Creatinine Ratio Glucose Calcium Albumin Pending Ur Random Sodium Fld Polynuclear WBCs # Fld Polynuclear WBCs % Fluid Mononuclear WBCs Fld Mononuclear WBCs % CSF Appearance CSF Color CSF WBC CSF RBC CSF Cell Count Tube # CSF Total Cell Counted CSF Comment CSF Glucose CSF Total Protein CSF Albumin Pending Serum IgG Pending CSF IgG/Albumin Pending CSF Albumin Index Pending CSF IgG Index Pending CSF IgG Local Synthesis Pending CSF Myelin Basic Protein Pending CSF/Ser Oligoclon Bands Pending CSF Cryptococcus Ag CSF VZV DNA (PCR) Pending Acetylchol Rcpt Block Ab Acetylchol Rcpt Modu Ab Lyme Total Antibody CMV DNA Qual PCR Pending [place] RNA (RT-PCR) Pending [place] Interp Pending Enterovirus RNA (PCR) Pending Culture Method Pending Miscellaneous Cytology Miscellaneous Test Pending 01/17/19 01/17/19 01/17/19 09:28 09:28 09:28 PT INR APTT Sodium Potassium Chloride Carbon Dioxide Anion Gap BUN Creatinine Estim Creat Clear Calc Est GFR (MDRD) Af Amer Est GFR (MDRD) Non-Af BUN/Creatinine Ratio Glucose Calcium Albumin Ur Random Sodium Fld Polynuclear WBCs # Fld Polynuclear WBCs % Fluid Mononuclear WBCs Fld Mononuclear WBCs % CSF Appearance CSF Color CSF WBC CSF RBC CSF Cell Count Tube # CSF Total Cell Counted CSF Comment CSF Glucose 173 H CSF Total Protein 75.0 H CSF Albumin Serum IgG CSF IgG/Albumin CSF Albumin Index CSF IgG Index CSF IgG Local Synthesis CSF Myelin Basic Protein CSF/Ser Oligoclon Bands CSF Cryptococcus Ag Pending CSF VZV DNA (PCR) Acetylchol Rcpt Block Ab Acetylchol Rcpt Modu Ab [place]yme Total Antibody CMV DNA Qual PCR [place] RNA (RT-PCR) [place] Interp Enterovirus RNA (PCR) Culture Method Miscellaneous Cytology Miscellaneous Test Pending 01/17/19 01/17/19 09:28 09:28 PT INR APTT Sodium Potassium Chloride Carbon Dioxide Anion Gap BUN Creatinine Estim Creat Clear Calc Est GFR (MDRD) Af Amer Est GFR (MDRD) Non-Af BUN/Creatinine Ratio Glucose Calcium Albumin Ur Random Sodium Fld Polynuclear WBCs # 0.000 Fld Polynuclear WBCs % 0.0 Fluid Mononuclear WBCs 0.000 Fld Mononuclear WBCs % 0.0 CSF Appearance CLEAR CSF Color COLORLESS CSF WBC 0.000 CSF RBC 0 CSF Cell Count Tube # 4 CSF Total Cell Counted 0.000 CSF Comment May follow CSF Glucose CSF Total Protein CSF Albumin Serum IgG CSF IgG/Albumin CSF Albumin Index CSF IgG Index CSF IgG Local Synthesis CSF Myelin Basic Protein CSF/Ser Oligoclon Bands CSF Cryptococcus Ag CSF VZV DNA (PCR) Acetylchol Rcpt Block Ab Acetylchol Rcpt Modu Ab Lyme Total Antibody CMV DNA Qual PCR [place] RNA (RT-PCR) [place] Interp Enterovirus RNA (PCR) Culture Method Miscellaneous Cytology Pending Miscellaneous Test POC Glucose 01/17/19 01/17/19 01/16/19 11:19 07:08 22:09 POC Glucose 347 H 269 H 398 H 01/16/19 16:11 POC Glucose 349 H Discharge Diet: Carb Control Diet Discharge Activity: Return to Normal Activity, May Not Drive - Until follow up with PCP/neurology. Call your doctor if you observe: Fever of 101 or Higher, Numbness or Tingling, Shortness of breath, Dizziness, Fainting spells, Chest pain Home Medications: Medications to take at Discharge Enoxaparin [Lovenox] 120 mg SC BID 12/04/14 Gemfibrozil 600 mg PO BID 12/04/14 Glimepiride 8 mg PO DAILY 12/04/14 Metoprolol Tartrate [Lopressor (beta kris)] 25 mg PO BID 12/04/14 Omeprazole 20 mg PO DAILY 12/04/14 Lisinopril [Zestril] 10 mg PO DAILY 01/11/18 Famotidine [Pepcid] 20 mg PO DAILY 01/15/19 Metoclopramide [Reglan] 10 mg PO 4X/DAY PRN PRN 01/15/19 Insulin Glargine [Lantus SoloStar Pen] 40 units SC BID pen 01/17/19 Insulin Lispro [Humalog KwikPen] See Protocol SQ ACHS #2 [email or web address] 01/17/19 Following Prescrptions Were Given to Patient: Insulin Lispro [Humalog KwikPen] See Protocol SQ ACHS #2 [email or web address] Primary Care Physician: Bianka Knutson MD [Primary Care Provider] - Please follow up with your Primary Care Physician in: 1 Week Please Follow Up With: Palomo Parrish MD When: 3 weeks, can call next week to check on lab results Please Follow Up With: Lisy Reddy MD When: Call for apppointment next week Disposition: Home Minutes spent on discharge:: 35 Patient Condition:: Stable Medical Necessity - Tobacco Use Smoking Status: Former smoker Tobacco Use: Non-smoker Meaningful Use Info Meaningful Use Diagnoses (Choose all that apply): None applicable
[2019-01-17 15:03] VITALS: BP 161/88; PULSE 61; RESP 18; TEMP 36.5; O2SAT 94
[2019-01-17 15:21] LABS: Bedside Glucose 256 mg/dL (70-110)
[2019-01-20 12:04] LABS: Lyme AB/Total Immuno < 0.91 ISR (0.00-0.90)
[2019-01-20 13:28] LABS: Pathologist Review Reviewed
[2019-01-20 14:40] LABS: Cryptococcus Antigen CSF Negative (Negative)
--- NOTE | 2019-01-21 15:46 | CASEMGMT ---
RN CM Discharge Follow-up Phone Call: RAYSHAWN: Blanquita Strata: 4 Call Date: 01/21/19 Discharge Date: 01/15/19 Time of Call: 1545 Duration: 1 min Admitting Diagnosis: Migraine, Cranial Nerve Palsy RN CM attempted to complete follow-up phone call after recent hospitalization. No answer, voice message left with return contact information.
[2019-01-23 14:11] LABS: CMV by PCR Negative (Negative)
[2019-01-30 15:43] LABS: ACHR AB Modulating <12 % (0-20); ACHR Recep AB, Blocking 12 % (0-25)
== END 2019-01-17 15:30 | disposition home or self-care (01) | DRG 103 ==
LOC: ED 14:10 → MS3 19:40
PROVIDERS: Nurse Practitioner Family; Psychiatry & Neurology Neurology; Emergency Provider Emergency Medicine; Family Provider Internal Medicine; PCP Internal Medicine; Visit Provider Internal Medicine
DX: G44.001 Cluster headache syndrome, unspecified, intractable (principal); D68.62 Lupus anticoagulant syndrome; E87.1 Hypo-osmolality and hyponatremia; H49.01 Third [oculomotor] nerve palsy, right eye; E11.65 Type 2 diabetes mellitus with hyperglycemia; I10 Essential (primary) hypertension; K21.9 Gastro-esophageal reflux disease without esophagitis; F41.9 Anxiety disorder, unspecified; Z85.038 Personal history of other malignant neoplasm of large intestine; Z79.01 Long term (current) use of anticoagulants; Z86.718 Personal history of other venous thrombosis and embolism; Z95.828 Presence of other vascular implants and grafts; Z87.891 Personal history of nicotine dependence; Z79.4 Long term (current) use of insulin; Z90.49 Acquired absence of other specified parts of digestive tract
CPT/HCPCS: 36415; 62270; 70496; 70498; 70553; 71046; 77003; 80048; 80076; 82040; 82042; 82784; 82945; 82962; 83036; 83519; 83873; 83916; 84157; 84300; 85025; 85610; 85652; 85730; 86618; 87070; 87102; 87205; 87206; 87496; 87498; 87798; 87899; 88108; 88313; 89050; 89051; 97802; 99282; A9575; J7030; J7040; Q9967; A4216

== ENCOUNTER 2019-01-21 12:22 | Emergency (ER) | payer OTHER, SELFPAY ==
[2019-01-15 20:05] VITALS: BMI 32.5
[2019-01-21 12:23] VITALS: BP 149/73; PULSE 72; RESP 16; TEMP 36.4; O2SAT 98; BMI 34.0
--- NOTE | 2019-01-21 12:42 | EKG12_ITS ---
Test Reason : HYPERKALEMIA Blood Pressure : / mmHG Vent. Rate : 071 BPM Atrial Rate : 071 BPM P-R Int : 150 ms QRS Dur : 084 ms QT Int : 402 ms P-R-T Axes : 053 -17 051 degrees QTc Int : 436 ms Sinus rhythm with marked sinus arrhythmia Otherwise normal ECG Confirmed by THELMA SKELTON ([id number]), department editor MARI REA ([id number]) on 01/24/2019 11:12:51 AM Referred By: Monalisa Johnson Confirmed By:THELMA SKELTON
--- NOTE | 2019-01-21 12:42 | RAD_ITS ---
STUDY: X-RAY CHEST REASON FOR EXAM: Male, 58 years old. Cough. Hyperglycemia. TECHNIQUE: AP and lateral views of the chest. COMPARISON: Comparison is made with prior study dated January 15, 2019. FINDINGS: EKG electrodes are seen. Mild elevation of the right hemidiaphragm. There is no demonstrated pleural abnormality. Normal size heart. Normal mediastinum and art. Normal visualized pulmonary arteries. There is atherosclerotic tortuosity of the aortic arch and descending thoracic aorta. Normal visualized thoracic spine. Normal visualized ribs, clavicles, and shoulders. There is no demonstrated abnormality of the visualized soft tissue structures of the upper abdomen. RAD/Chest PA and Lateral IMPRESSION: No acute abnormality is seen. Electronically Signed: Yogesh Herrera, at 14:05 EDT , Service support ,
[2019-01-21 12:45] LABS: Bedside Glucose 328 mg/dL (70-110)
--- NOTE | 2019-01-21 13:15 | ED.VISSUMM ---
- ER Visit Summary Date of Service: 01/21/19 Chief Complaint: Headache and elevated blood sugar History of Present Illness: The patient is a 58 M who presents with headaches and elevated blood sugar that has been getting worse over the past few days. Patient was recently admitted to the hospital for this. Patient states that when he was discharged his headaches and blood sugars have been getting worse. Patient admits to nausea and vomiting. Patient admits to chronic back pain. Patient describes the pain as throbbing and over the right frontal area. Denies any fevers or chills but admits to some sweats. Patient denies any chest pain or shortness of breath. Physical Examination: Vital signs are stable. Patient is afebrile. Patient is in no acute distress. Cranial nerves II through XII are grossly intact. There is some right facial weakness due to his recent Crandall's palsy. Strength is 5/5 bilaterally in the upper and lower extremities. There are no sensory deficits noted. Heart was regular rate and rhythm. Lungs are clear and equal bilaterally. Abdomen is soft. Bowel sounds are normal. There is no tenderness. The remaining physical exam is within normal limits. Test Results: CBC was normal. Basic metabolic profile showed glucose of 314 with a sodium of 130. Serum ketones were negative. Troponin was less than 0.015. EKG showed normal sinus rhythm with a rate of 71. There are no acute ST or T wave changes. Chest x-ray does not show any acute cardiopulmonary process. A sed rate was obtained because of the headache in the right temporal area. This was normal at 20. Emergency Department Course and Treatment: Patient was given IV fluids, Reglan, Benadryl, and Toradol here. Patient states his headache is resolved at that time. Case was discussed with Dr. Watts. He was going to admit the patient for observation however, the patient declined observation status. Patient wanted to be discharged after this. Patient will be discharged with instructions to increase his Lantus and NovoLog for better control of his blood sugars. Patient and family understood and were agreeable with the plan. All questions were answered. Disposition: Discharge home Impression: 1. Hyperglycemia 2. Migraine headache This note was generated with [employer] software. It may contain incorrect words, spelling, and punctuation that were not noted in review of the chart prior to signing ED Disposition - Plan for ED Patient: Disposition: Home or Assisted Living Diagnosis: Hyperglycemia, Migraine headache Instructions: ED Hyperglycemia Diabetic, ED Headache Migraine Referrals: Bianka Knutson MD [Primary Care Provider] - 5-7 Days Additional Instructions: Increase your Lantus and NovoLog as instructed by Dr. Watts.
[2019-01-21] MEDS: Metoclopramide 10 MG/2 ML Vial IV (13:20)
[2019-01-21] MEDS: 0.9% Normal Saline 1,000 ML 1000 ML IV (13:20)
[2019-01-21] MEDS: Ketorolac 30 MG/ML Syringe IV (13:20)
[2019-01-21] MEDS: DiphenhydrAMINE 50 MG/ML Syringe 25 MG IV (13:20)
[2019-01-21 13:24] LABS: Erythrocyte Sedimentation Rate 20 mm/hr (0-20)
[2019-01-21 13:27] LABS: Absolute Lymphocyte Count 1.53 X10^3/ul (0.83-4.51); Absolute Neutrophil Count 3.2 X10^3/uL (2.0-7.7); Basophil# 0.01 X10^3/uL; Basophil% 0.2 % (0-1); Eosinophil# 0.16 X10^3/uL; Hematocrit 42.5 % (40-54); Hemoglobin 15.2 g/dl (13.0-16.5); Lymphocyte # 1.53 X10^3/ul (4.0); Lymphocyte % 28.2 % (19-41); Mean Corp Hgb Conc 35.8 g/gl (32-36); Mean Corpuscular Hgb 30.5 pg (27.0-32.0); Mean Corpuscular Volume 85.2 fL (80-94); Mean Platelet Vol. 10.3 fl (6.2-12.0); Monocyte# 0.49 X10^3/uL; Neutrophil # 3.22 X10^3/uL (2.7-7.7); Neutrophil % 59.4 % (47-70); POSITIVE COUNT NO; POSITIVE DIFFERENTIAL NO; POSITIVE MORPHOLOGY NO; Platelet Count 214 K/mm3 (150-450); RBC Distribution Width CV 13.6 % (11.6-14.6); Red Blood Count 4.99 M/mm3 (4.6-6.2); White Blood Count 5.4 K/mm3 (4.4-11.0)
[2019-01-21 13:34] LABS: International Normalized Ratio 1.2; Prothrombin Time (Protime)PT. 14.8 SECONDS (11.7-14.9)
[2019-01-21 13:35] LABS: Partial Thromboplast Time 36.5 Seconds (24.1-36.2)
[2019-01-21 13:42] LABS: ALB/GLOB Ratio 1.1 RATIO (0.9-2.4); AST(SGOT) 18 U/L (15-37); Albumin, Serum 4.1 g/dL (3.2-5.0); Alkaline Phosphatase 73 U/L (45-117); Anion Gap 6 (5-15); BUN 19 mg/dL (7-18); BUN/Creat Ratio 22.5 RATIO (10-20); Calcium,Total 9.6 mg/dL (8.5-10.1); Chloride 99 mmol/L (98-107); Creatinine, Serum 0.84 mg/dL (0.70-1.30); EST Glomerular Filtration Rate 99 mL/min (>60); Est Glom Filt Rate - Afr Amer 120 mL/min (>60); Estimated Creatinine Clearance 94.69 ml/min; Globulin 3.9 g/dL (2.2-4.2); Glucose 314 mg/dL (74-106); Potassium 4.4 mmol/L (3.5-5.1); Sodium Level 130 mmol/L (136-145)
[2019-01-21 13:53] LABS: Alanine Aminotransfer ALT/SGPT 41 U/L (16-61)
[2019-01-21 14:50] VITALS: BP 132/74; PULSE 81; RESP 19; TEMP 36.7; O2SAT 100
[2019-01-21 15:10] VITALS: BMI 34.0
[2019-01-21 15:49] VITALS: BP 169/88; PULSE 92; RESP 14; O2SAT 97
[2019-01-21 15:51] LABS: Bedside Glucose 300 mg/dL (70-110)
--- NOTE | 2019-01-21 16:43 | PCM.CONS.GEN ---
Problem List (1) Hyperglycemia Status: Acute (2) Migraine Status: Acute Qualifiers: Migraine type: without aura Status migrainosus presence: with status migrainosus Intractability: intractable Qualified Code(s): G43.011 - Migraine without aura, intractable, with status migrainosus (3) Cranial nerve III palsy Status: Acute Qualifiers: Reason for Consult Date of Consultation: 01/21/19 Reason for Consultation: hyperglycemia. rehab. History of Present Illness: The patient is a 58 year old M who was discharged on 17 January with migraine and cranial nerve III palsy. Still having diplopia. Using patching but with that still makes him feel dizzy. Blood sugars have been in the 3 and 400 range. His Lantus was cut back to 60-40+ sliding scale and blood sugars have been in the 3-400 range. Still with a migraine and presented to the emergency room cocktail of medications with Benadryl, Toradol, Reglan and IV fluids. Headache was better but still ongoing. The hospital service was asked to admit the patient for the hyperglycemia and to assess for rehabilitation needs. I spoke with the patient and female plant operator helper about admission and observation and explained that we can bring him in to get his blood sugars further tuned up, have physical therapy see him and work with tourniquet is headache under better control but it would solely be under observation status. I said that may incur additional cost as compared to admission status did offer them to speak with case management to further delineate that. Patient became very upset and stated that I would go home at that point. I said I will be happy to admit them and get these things further address but it would be silly under observation status at this time but did tell them that if things change that could possibly change to admission status but the observation status at this time. He remained upset and insisted on going home. [] Past Medical History Past Medical History (Chronic Problems): Chronic Problems Lupus anticoagulant disorder (Chronic) Presence of IVC filter (Chronic) Deep venous thrombosis of lower extremity (Chronic) Carcinoma of colon (Chronic) On anticoagulant therapy (Chronic) Anxiety (Chronic) Allergies acetaminophen [From Vicodin] Allergy (Verified 01/15/19 20:16) itchy hydrocodone [From Vicodin] Allergy (Verified 01/15/19 20:16) itchy Penicillins [PCN] Allergy (Verified 01/15/19 20:16) Unknown pt was a child when he had issues with PCN morphine Adverse Reaction (Verified 01/15/19 20:16) loopy Home Medications: Ambulatory Orders Medication Instructions Recorded Enoxaparin [Lovenox] 120 mg SC BID 12/04/14 Metoprolol Tartrate [Lopressor 25 mg PO BID 12/04/14 (beta kris)] Lisinopril [Zestril] 10 mg PO DAILY 01/11/18 Famotidine [Pepcid] 20 mg PO DAILY 01/15/19 Metoclopramide [Reglan] 10 mg PO 4X/DAY PRN PRN 01/15/19 Insulin Lispro [Humalog KwikPen] See Protocol SQ ACHS #2 insuln.pen 01/17/19 Gemfibrozil 600 mg PO BID 01/21/19 Glimepiride 8 mg PO DAILY 01/21/19 Insulin Glargine [Lantus SoloStar 40 units SC QHS 01/21/19 Pen] Omeprazole 20 mg PO BID 01/21/19 Surgical History: - - Partial colectomy for colon cancer Smoking Status: Never smoker - *Family History Maternal History Items: - - Clotting disorder Review of Systems Comment: Patient cut the history and physical short before a good vascular review of systems because he insisted on leaving. - Physical Exam General: Alert, Cooperative, - - Patient had a pleasant demeanor at first but then when I was trying to clarify misconceptions that were told to the patient and his plant operator helper, he became very angry and stated that he was tired of my attitude and insisted on going home. HEENT: Atraumatic, - - Still had ptosis from my limited evaluation on the right Psych/Mental Status: Agitated, Anxious Vital Signs Temp Pulse Resp BP Pulse Ox 36.7 C 92 14 169/88 H 97 01/21/19 14:50 01/21/19 15:49 01/21/19 15:49 01/21/19 15:49 01/21/19 15:49 Oxygen Delivery Method Room Air Weight: 104.326 kg Body Mass Index (BMI) 34.0 Finger Stick Blood Glucose 328 Laboratory Tests Past 24 Hrs 01/21/19 01/21/19 01/21/19 13:10 13:10 13:10 WBC 5.4 RBC 4.99 Hgb 15.2 Hct 42.5 MCV 85.2 MCH 30.5 MCHC 35.8 RDW 13.6 RDW Differential 42.0 Plt Count 214 MPV 10.3 Immature Gran % (Auto) 0.200 Neut % (Auto) 59.4 Lymph % (Auto) 28.2 Morrill % (Auto) 9.0 Eos % (Auto) 3.0 Baso % (Auto) 0.2 Absolute Neuts (auto) 3.2 Absolute Lymphs (auto) 1.53 Total Counted Not Reportable ESR 20 PT 14.8 INR 1.2 APTT 36.5 H Sodium 130 L Potassium 4.4 Chloride 99 Carbon Dioxide 25.0 Anion Gap 6 BUN 19 H Creatinine 0.84 Estim Creat Clear Calc 94.69 Est GFR (MDRD) Af Amer 120 Est GFR (MDRD) Non-Af 99 BUN/Creatinine Ratio 22.5 H Glucose 314 H Calcium 9.6 Total Bilirubin 0.40 AST 18 ALT 41 Alkaline Phosphatase 73 Troponin I < 0.015 Total Protein 8.0 Albumin 4.1 Globulin 3.9 Albumin/Globulin Ratio 1.1 Acetone Level 01/21/19 13:10 WBC RBC Hgb Hct MCV MCH MCHC RDW RDW Differential Plt Count MPV Immature Gran % (Auto) Neut % (Auto) Lymph % (Auto) Morrill % (Auto) Eos % (Auto) Baso % (Auto) Absolute Neuts (auto) Absolute Lymphs (auto) Total Counted ESR PT INR APTT Sodium Potassium Chloride Carbon Dioxide Anion Gap BUN Creatinine Estim Creat Clear Calc Est GFR (MDRD) Af Amer Est GFR (MDRD) Non-Af BUN/Creatinine Ratio Glucose Calcium Total Bilirubin AST ALT Alkaline Phosphatase Troponin I Total Protein Albumin Globulin Albumin/Globulin Ratio Acetone Level NEGATIVE POC Glucose 01/21/19 01/21/19 15:44 12:39 POC Glucose 300 H 328 H Assessment/Plan All Active Problems Hyperglycemia (Acute) Hyperglycemia (Acute) Migraine (Acute) Cranial nerve III palsy (Acute) Headache (Acute) Gastroenteritis (Acute) 1. Hyperglycemia Not in DKA nor hyperosmolar non-ketosis state recommend going back up on his insulin and to scheduled log Follow with primary care and continue to keep a registry of his blood sugars to see if further modifications would be necessary 2. Migraine Overall improved but still ongoing Patient can follow-up with neurology for further recommendations 3. Cranial nerve III palsy May be due to his diabetes Workup at the hospital from last admission was thus far negative though results for myasthenia gravis and LP studies are still outstanding at this time. Did recommend patching of his good eye 4. Possible debility I did offer the patient to be evaluated by physical and Occupational Therapy to assess for any kind of rehabilitation needs Patient became very angry and home. Recommend patient follow-up with his primary care physician in 1-2weeks and see what additional changes would be necessary. Code Visit Office Visits / Consults: [id number] OP Consult L3
--- NOTE | 2019-01-21 16:48 | CON.PCM_ITS ---
Problem List (1) Hyperglycemia Status: Acute (2) Migraine Status: Acute Qualifiers: Migraine type: without aura Status migrainosus presence: with status migrainosus Intractability: intractable Qualified Code(s): G43.011 - Migraine without aura, intractable, with status migrainosus (3) Cranial nerve III palsy Status: Acute Qualifiers: Reason for Consult Date of Consultation: 01/21/19 Reason for Consultation: hyperglycemia. rehab. History of Present Illness: The patient is a 58 year old M who was discharged on 17 January with migraine and cranial nerve III palsy. Still having diplopia. Using patching but with that still makes him feel dizzy. Blood sugars have been in the 3 and 400 range. His Lantus was cut back to 60-40+ sliding scale and blood sugars have been in the 3- 400 range. Still with a migraine and presented to the emergency room cocktail of medications with Benadryl, Toradol, Reglan and IV fluids. Headache was better but still ongoing. The hospital service was asked to admit the patient for the hyperglycemia and to assess for rehabilitation needs. I spoke with the patient and female lighthouse keeper about admission and observation and explained that we can bring him in to get his blood sugars further tuned up, have physical therapy see him and work with tourniquet is headache under better control but it would solely be under observation status. I said that may incur additional cost as compared to admission status did offer them to speak with case management to further delineate that. Patient became very upset and stated that I would go home at that point. I said I will be happy to admit them and get these things further address but it would be silly under observation status at this time but did tell them that if things change that could possibly change to admission status but the observation status at this time. He remained upset and insisted on going home. [] Past Medical History Past Medical History (Chronic Problems): Chronic Problems Lupus anticoagulant disorder (Chronic) Presence of IVC filter (Chronic) Deep venous thrombosis of lower extremity (Chronic) Carcinoma of colon (Chronic) On anticoagulant therapy (Chronic) Anxiety (Chronic) Allergies acetaminophen [From Vicodin] Allergy (Verified 01/15/19 20:16) itchy hydrocodone [From Vicodin] Allergy (Verified 01/15/19 20:16) itchy Penicillins [PCN] Allergy (Verified 01/15/19 20:16) Unknown pt was a child when he had issues with PCN morphine Adverse Reaction (Verified 01/15/19 20:16) loopy Home Medications: Ambulatory Orders Medication Instructions Recorded Enoxaparin [Lovenox] 120 mg SC BID 12/04/14 Metoprolol Tartrate [Lopressor 25 mg PO BID 12/04/14 (beta kris)] Lisinopril [Zestril] 10 mg PO DAILY 01/11/18 Famotidine [Pepcid] 20 mg PO DAILY 01/15/19 Metoclopramide [Reglan] 10 mg PO 4X/DAY PRN PRN 01/15/19 Insulin Lispro [Humalog KwikPen] See Protocol SQ ACHS #2 insuln.pen 01/17/19 Gemfibrozil 600 mg PO BID 01/21/19 Glimepiride 8 mg PO DAILY 01/21/19 Insulin Glargine [Lantus SoloStar 40 units SC QHS 01/21/19 Pen] Omeprazole 20 mg PO BID 01/21/19 Surgical History: - - Partial colectomy for colon cancer Smoking Status: Never smoker - *Family History Maternal History Items: - - Clotting disorder Review of Systems Comment: Patient cut the history and physical short before a good vascular review of systems because he insisted on leaving. - Physical Exam General: Alert, Cooperative, - - Patient had a pleasant demeanor at first but then when I was trying to clarify misconceptions that were told to the patient and his lighthouse keeper, he became very angry and stated that he was tired of my attitude and insisted on going home. HEENT: Atraumatic, - - Still had ptosis from my limited evaluation on the right Psych/Mental Status: Agitated, Anxious Vital Signs Temp Pulse Resp BP Pulse Ox 36.7 C 92 14 169/88 H 97 01/21/19 14:50 01/21/19 15:49 01/21/19 15:49 01/21/19 15:49 01/21/19 15:49 Oxygen Delivery Method Room Air Weight: 104.326 kg Body Mass Index (BMI) 34.0 Finger Stick Blood Glucose 328 Laboratory Tests Past 24 Hrs 01/21/19 01/21/19 01/21/19 13:10 13:10 13:10 WBC 5.4 RBC 4.99 Hgb 15.2 Hct 42.5 MCV 85.2 MCH 30.5 MCHC 35.8 RDW 13.6 RDW Differential 42.0 Plt Count 214 MPV 10.3 Immature Gran % (Auto) 0.200 Neut % (Auto) 59.4 Lymph % (Auto) 28.2 [place] % (Auto) 9.0 Eos % (Auto) 3.0 Baso % (Auto) 0.2 Absolute Neuts (auto) 3.2 Absolute Lymphs (auto) 1.53 Total Counted Not Reportable ESR 20 PT 14.8 INR 1.2 APTT 36.5 H Sodium 130 L Potassium 4.4 Chloride 99 Carbon Dioxide 25.0 Anion Gap 6 BUN 19 H Creatinine 0.84 Estim Creat Clear Calc 94.69 Est GFR (MDRD) Af Amer 120 Est GFR (MDRD) Non-Af 99 BUN/Creatinine Ratio 22.5 H Glucose 314 H Calcium 9.6 Total Bilirubin 0.40 AST 18 ALT 41 Alkaline Phosphatase 73 Troponin I < 0.015 Total Protein 8.0 Albumin 4.1 Globulin 3.9 Albumin/Globulin Ratio 1.1 Acetone Level 01/21/19 13:10 WBC RBC Hgb Hct MCV MCH MCHC RDW RDW Differential Plt Count MPV Immature Gran % (Auto) Neut % (Auto) Lymph % (Auto) [place] % (Auto) Eos % (Auto) Baso % (Auto) Absolute Neuts (auto) Absolute Lymphs (auto) Total Counted ESR PT INR APTT Sodium Potassium Chloride Carbon Dioxide Anion Gap BUN Creatinine Estim Creat Clear Calc Est GFR (MDRD) Af Amer Est GFR (MDRD) Non-Af BUN/Creatinine Ratio Glucose Calcium Total Bilirubin AST ALT Alkaline Phosphatase Troponin I Total Protein Albumin Globulin Albumin/Globulin Ratio Acetone Level NEGATIVE POC Glucose 01/21/19 01/21/19 15:44 12:39 POC Glucose 300 H 328 H Assessment/Plan All Active Problems Hyperglycemia (Acute) Hyperglycemia (Acute) Migraine (Acute) Cranial nerve III palsy (Acute) Headache (Acute) Gastroenteritis (Acute) 1. Hyperglycemia * Not in DKA nor hyperosmolar non-ketosis state recommend going back up on his insulin and to scheduled log * Follow with primary care and continue to keep a registry of his blood sugars to see if further modifications would be necessary 2. Migraine * Overall improved but still ongoing * Patient can follow-up with neurology for further recommendations 3. Cranial nerve III palsy * May be due to his diabetes * Workup at the hospital from last admission was thus far negative though results for myasthenia gravis and LP studies are still outstanding at this time. * Did recommend patching of his good eye 4. Possible debility * I did offer the patient to be evaluated by physical and Occupational Therapy to assess for any kind of rehabilitation needs Patient became very angry and home. Recommend patient follow-up with his [facility] care physician in 1-2weeks and see what additional changes would be necessary. Code Visit Office Visits / Consults: [id number] OP Consult L3
== END 2019-01-21 15:50 | disposition home or self-care (01) ==
PROVIDERS: Emergency Provider Emergency Medicine; Family Provider Internal Medicine; PCP Internal Medicine
DX: E11.65 Type 2 diabetes mellitus with hyperglycemia (principal); G43.909 Migraine, unspecified, not intractable, without status migrainosus; R11.2 Nausea with vomiting, unspecified; G47.33 Obstructive sleep apnea (adult) (pediatric); M54.9 Dorsalgia, unspecified; G89.29 Other chronic pain; Z79.01 Long term (current) use of anticoagulants; Z79.4 Long term (current) use of insulin; Z79.899 Other long term (current) drug therapy; Z85.038 Personal history of other malignant neoplasm of large intestine; Z86.718 Personal history of other venous thrombosis and embolism; Z86.711 Personal history of pulmonary embolism
CPT/HCPCS: 71046; 80053; 82009; 82962; 84484; 85025; 85610; 85652; 85730; 93005; 96361; 96374; 96375; 99285; J7030; A4216

== ENCOUNTER → 2020-03-25 12:10 | Outpatient (CLI) | payer OTHER, SELFPAY ==
[2020-03-03 10:43] VITALS: BMI 34.0
[2020-03-25 13:16] LABS: Absolute Neutrophil Count 3.3 X10^3/uL (2.0-7.7); Basophil# 0.03 X10^3/uL; Basophil% 0.5 % (0-1); Eosinophil# 0.24 X10^3/uL; Eosinophils% 4.1 % (0-5); Hematocrit 41.5 % (40-54); Hemoglobin 14.1 g/dL (13.0-16.5); Lymphocyte % 25.6 % (19-41); Mean Corpuscular Volume 91.2 fL (80-94); Mean Platelet Vol. 10.7 fl (6.2-12.0); Monocyte# 0.73 X10^3/uL; Monocyte% 12.5 % (0-10); NRBC Flagged by Analyzer 0 % (0-5); Neutrophil # 3.34 X10^3/uL (2.7-7.7); Platelet Count 238 K/mm3 (150-450); RBC Distribution Width CV 13.2 % (11.6-14.6); RBC Distribution Width SD 44.3 fl (35.1-43.9); Red Blood Count 4.55 M/mm3 (4.6-6.2); White Blood Count 5.9 K/mm3 (4.4-11.0)
[2020-03-25 13:35] LABS: Microalbumin,Random Urine 18.3 mg/L (NO RANGE EST.); Microalbumin:Creatinine Ratio 13.3 mg/g CRE (<30 mg/g CRE)
[2020-03-25 13:55] LABS: Hemoglobin A1c 7.4 % (3.8-5.6)
[2020-03-25 13:57] LABS: ALB/GLOB Ratio 1.1 RATIO (0.9-2.4); AST(SGOT) 25 U/L (15-37); Alanine Aminotransfer ALT/SGPT 53 U/L (16-61); Albumin, Serum 4.4 g/dL (3.2-5.0); Alkaline Phosphatase 84 U/L (45-117); Anion Gap 7 (5-15); BUN 19 mg/dL (7-18); BUN/Creat Ratio 22.2 RATIO (10-20); Calcium,Total 10.4 mg/dL (8.5-10.1); Chloride 100 mmol/L (98-107); Cholesterol 218 mg/dL (200); Creatinine, Serum 0.86 mg/dL (0.70-1.30); EST Glomerular Filtration Rate 97 mL/min (>60); Est Glom Filt Rate - Afr Amer 117 mL/min (>60); Globulin 4.1 g/dL (2.2-4.2); Glucose 188 mg/dL (74-106); High Density Lipoprotein 27 mg/dL; PSA,Total - Annual Screen 0.05 ng/mL (0.00-4.00); Potassium 4.5 mmol/L (3.5-5.1); Protein, Total 8.5 g/dL (6.4-8.2); Sodium Level 135 mmol/L (136-145); Thyroid Stim Hormone (TSH) 2.77 uIU/mL (0.358-3.74); Triglycerides 660 mg/dL
== END ==
PROVIDERS: PCP Internal Medicine; Referring Provider Internal Medicine; Visit Provider Internal Medicine
DX: E11.65 Type 2 diabetes mellitus with hyperglycemia (principal); Z12.5 Encounter for screening for malignant neoplasm of prostate
CPT/HCPCS: 80053; 80061; 82043; 82570; 83036; 84153; 84443; 85025; G0103

== ENCOUNTER 2020-04-14 07:25 | Day surgery (SDC) | payer OTHER, SELFPAY ==
[2020-03-31 15:13] VITALS: BMI 34.0
--- NOTE | 2020-04-07 12:28 | HP_ITS ---
Intake Vital Signs 03/31/20 BMI 34.0 03/31/20 Height 5 ft 9 in 03/31/20 Weight: 232 lb 03/31/20 BMI 34.2 03/31/20 BP 123/70 H 03/31/20 Blood Pressure Location Rt brachial 03/31/20 Position Sitting 03/31/20 Respiration 18 03/31/20 Temp 98.0 F 03/31/20 Temp Source Temporal Intake Visit Reasons: CSCOPE Chief Complaint: N/V/D [employer] Required: No Is patient in pain?: No Allergies acetaminophen [From Vicodin] Allergy (Verified 03/31/20 15:12) itchy hydrocodone [From Vicodin] Allergy (Verified 03/31/20 15:12) itchy Penicillins [PCN] Allergy (Verified 03/31/20 15:12) Unknown morphine Adverse Reaction (Verified 03/31/20 15:12) loopy Medications Enoxaparin [Lovenox] 120 mg SC BID 12/04/14 [History Confirmed 03/31/20] Metoprolol Tartrate [Lopressor (beta kris)] 25 mg PO BID 12/04/14 [History Confirmed 03/31/20] Lisinopril [Zestril] 10 mg PO DAILY 01/11/18 [History Confirmed 03/31/20] Famotidine [Pepcid] 20 mg PO DAILY 01/15/19 [History Confirmed 03/31/20] Metoclopramide [Reglan] 10 mg PO 4X/DAY PRN PRN 01/15/19 [History Confirmed 03/31/20] Insulin Lispro [Humalog KwikPen] See Protocol SQ ACHS #2 insuln.pen 01/17/19 [Rx Confirmed 03/31/20] Gemfibrozil 600 mg PO BID 01/21/19 [History Confirmed 03/31/20] Glimepiride 8 mg PO DAILY 01/21/19 [History Confirmed 03/31/20] Insulin Glargine [Lantus SoloStar Pen] 40 units SUBCUT QHS 01/21/19 [History Confirmed 03/31/20] Omeprazole 20 mg PO BID 01/21/19 [History Confirmed 03/31/20] PFSH Medical History Vertigo (Acute) Diarrhea (Acute) Hyperglycemia (Acute) Migraine (Acute) Cranial nerve III palsy (Acute) Headache (Acute) Gastroenteritis (Acute) Lupus anticoagulant disorder (Chronic) Presence of IVC filter (Chronic) Deep venous thrombosis of lower extremity (Chronic) Carcinoma of colon (Chronic) On anticoagulant therapy (Chronic) Anxiety (Chronic) Cancer (Acute) Diabetes (Acute) Hemorrhoids (Acute) Pulmonary embolism (Acute) HTN (hypertension) (Chronic) Surgical History S/P colectomy (Acute) S/P hernia repair (Acute) S/P vasectomy (Acute) Family History Mother Cancer Social History (Updated 04/07/20 @ 12:[address] Alfonso Hatch MD) Smoking Status: Never smoker alcohol intake: current alcohol intake frequency: holidays/special occasions only substance use type: marijuana HPI HPI Surgical H&P: Yes HPI: VALERIA SANTORO, is a 59 M who presents to the office today for Evaluation for colonoscopy. Patient had rectal cancer in 2009 underwent a low anterior resection for this. His most recent colonoscopy was 05/28/2015 where a few large mouth diverticuli were found in the sigmoid colon and descending colon and a 5 mm polyp was found at 40 cm from the anal verge.. The polyp came back as a hyperplastic polyp. Patient has a longstanding history of fecal incontinence since his surgery as well. And this is not new and has been fairly consistent and persistent since that surgery. ROS General General: Yes colon cancer; no weight change, appetite, fatigue, breast cancer or weakness HEENT HEENT: No difficulty swallowing, eye injury, eye surgery, swollen glands or hoarseness Endo Endocrine: Yes diabetes mellitus; no thyroid disease, thyroid cancer, Hair loss, heat intolerance or cold intolerance Skin Skin: No rash or changing moles Breast Breast: No left breast lump, right breast lump, nipple discharge, breast pain, abnormal mammogram, abnormal US or breast enlargement Musc Musculoskeletal: No back problems, arthritis, rheumatoid arthritis, gout or joint pain Cardio Cardiovascular: Yes high blood pressure and heart stent; no murmur, pacemaker, heart disease, atrial fibrillation, heart attack, palpitations, shortness of breat with exertion or chest pain Psych Psychiatric: No depression, anxiety or hearing voices Resp Respiratory: No shortness of breath, Yes sleep apnea, No cough, No COPD, No asthma, No emphysema, No wheezing Gastro Gastrointestinal: Yes abdominal pain, No nausea or vomiting, Yes diarrhea, Yes constipation, No blood in stool, Yes acid reflux, No hemorrhoids, No ulcers, No gallbladder problem, No black,tarry stools Hemanth Hematologic: Yes blood thinners, Yes blood disorders, No bleeding, No anemia, Yes blood clots Neuro Neurologic: No system reviewed and no additional complaints, except as docu, No as per HPI, No abnormal walking, No abnormal hearing, No abnormal movements, No abnormal speech, No behavioral changes, No burning sensations, No confusion, No seizure-like activity, No unsteadiness, No dizziness, No localized weakness, No frequent falls, No headache(s), No lack of coordination, No loss of vision, No memory loss, No numbness, No other visual disturbances, No radiating pain, No restless legs, No sensory deficit, No fainting, No tingling, No tremor(s), No weakness, No other Exam Const General: no acute distress, well developed, well hydrated Orientation: oriented to person, oriented to place, oriented to time [facility] Head: normocephalic, atraumatic Ears: external ears normal Mouth: moist mucous membranes Eyes Sclera: sclerae normal Pupils: normal by confrontation Neck Neck: no lymphadenopathy noted Neck mass: No Thyroid: thyroid normal, symmetrical Chest Chest palpation & inspection: normal inspection of the chest Breast Palpation: No nipple discharge Resp Effort & Inspection: normal respiratory effort Auscultation: clear to auscultation bilaterally Percussion: percussion normal Cardio Rate: regular rate Rhythm: regular rhythm Heart Sounds: no murmurs GI Palpation: soft, no hepatosplenomegaly, no masses, nontender Rectal Exam: other Other: Rectal exam deferred. Extrem General: normal to inspection, no clubbing, cyanosis or edema Assessment & Plan Problems 1. Personal history of rectal cancer Z85.048 2. Full incontinence of feces R15.9 Plan I have discussed the above with the patient. I have offered the patient colonoscopy for evaluation. I have explained the risks/benefits of the procedure and described the procedure. I have discussed the risks with the patient, including but not limited to: infection, bleeding, perforation of the GI tract requiring emergency surgery, inability to complete the procedure, injury to any internal organs, complications of anesthesia, etc. - the patient understands and agrees to proceed. I have answered all the patient's questions to the patient's satisfaction and the patient has no further questions. The patient has been given instructions for the colon cleansing preparation. Patient has a history of DVT and PE and has been on IV Lovenox for a long time. I am going to keep him on his IV Lovenox and stop it only on his nighttime dose so that we can get his colonoscopy completed. Coding Level of Care Code Off vis,new,level 3 Diagnoses Personal history of rectal cancer Z85.048 Full incontinence of feces R15.9 ??Fecal incontinence type: full incontinence of feces 04/07/20 1228 <Electronically signed by Alfonso cevallos MD> Date _ Alfonso Hatch MD I have re-examined the patient. There are no clinical changes since date of exam.
[2020-04-14 07:54] VITALS: BP 189/72; PULSE 71; RESP 17; TEMP 36.2; O2SAT 98; BMI 35.1
[2020-04-14] MEDS: Lactated Ringers 1,000 ML 100 ML IV (08:06)
[2020-04-14 08:10] LABS: Bedside Glucose 184 mg/dL (70-110)
[2020-04-14 08:45] VITALS: BP 124/79; BP 189/72; PULSE 55; RESP 16; TEMP 36.4; O2SAT 95
--- NOTE | 2020-04-14 08:49 | OP.COLON_ITS ---
Patient Name: Bright Vargas Procedure Date: 04/14/2020 8:27 AM Date of : 1960 Age: 59 Procedure: Colonoscopy Indications: High risk colon cancer surveillance: Personal history of colon cancer Providers: Alfonso Hatch MD Referring MD: Enedina Magdaleno Medicines: See the Anesthesia note for documentation of the administered medications Patient Profile: This is a 59 year old male. Refer to note in patient chart for documentation of history and physical. Last Colonoscopy: 2014. Complications: No immediate complications. Procedure: Pre-Anesthesia Assessment: - Prior to the procedure, a History and Physical was performed, and patient medications and allergies were reviewed. The patient's tolerance of previous anesthesia was also reviewed. The risks and benefits of the procedure and the sedation options and risks were discussed with the patient. All questions were answered, and informed consent was obtained. Prior Anticoagulants: The patient has taken Lovenox (enoxaparin), last dose was 1 day prior to procedure. ASA Grade Assessment: III - A patient with severe systemic disease. After reviewing the risks and benefits, the patient was deemed in satisfactory condition to undergo the procedure. After I obtained informed consent, the scope was passed under direct vision. Throughout the procedure, the patient's blood pressure, pulse, and oxygen saturations were monitored continuously. The Colonoscope was introduced through the anus with the intention of advancing to the cecum. The scope was advanced to the sigmoid colon before the procedure was aborted. Medications were given. The colonoscopy was aborted due to inadequate bowel prep. Lavage did not allow for the successful completion of the procedure. Scope In: 8:37:57 AM Scope Out: 8:40:29 AM Total Procedure Duration Time 0 hours 2 minutes 32 seconds Findings: Copious quantities of semi-solid stool was found in the entire colon, precluding visualization. Lavage of the area was performed using a small amount, resulting in incomplete clearance with continued poor visualization. Impression: - The procedure was aborted due to inadequate bowel prep. - Stool in the entire examined colon. - No specimens collected. Recommendation: - Discharge patient to home. - Resume previous diet. - Continue present medications. - Repeat colonoscopy in 2 weeks because the bowel preparation was poor. - Telephone my office to schedule appointment in 3 days. Procedure Code(s): --- Professional --- 45660, 53, Colonoscopy, flexible; diagnostic, including collection of specimen(s) by brushing or washing, when performed (separate procedure) Diagnosis Code(s): --- Professional --- Z85.038, Personal history of other malignant neoplasm of large intestine Z53.8, Procedure and treatment not carried out for other reasons CPT copyright 2017 [employer]. All rights reserved. The codes documented in this report are preliminary and upon postal carrier review may be revised to meet current compliance requirements. MD Alfonso Francisco MD 04/14/2020 8:48:30 AM This report has been signed electronically. Number of Addenda: 0 Note Initiated On: 04/14/2020 8:27 AM
--- NOTE | 2020-04-14 08:49 | OP.CCLET_ITS ---
04/14/2020 Enedina Magdaleno [address] [place] [address] Re : Colonoscopy procedure for Bright Vargas Dear Dr. Magdaleno This procedure was performed on Tuesday, April 14, 2020. My impressions and recommendations are as follows: Impressions : - The procedure was aborted due to inadequate bowel prep. - Stool in the entire examined colon. - No specimens collected. Recommendations : - Discharge patient to home. - Resume previous diet. - Continue present medications. - Repeat colonoscopy in 2 weeks because the bowel preparation was poor. - Telephone my office to schedule appointment in 3 days. My findings are described in the full procedure note, which is enclosed. If I can be of further assistance, please feel free to contact me at Doctor phone number(s): , Fax: [phone], Work: . Sincerely, MD Alfonso Francisco MD 04/14/2020 8:48:30 AM This report has been signed electronically.
[2020-04-14 08:55] VITALS: BP 128/76; BP 136/71; BP 189/72; PULSE 52; PULSE 56; RESP 18; O2SAT 96
--- NOTE | 2020-04-14 08:55 | SUR.PHASEI ---
PATIENT INFORMED THIS RN THAT HE DID NOT STOP EATING SOLID FOOD DURING HIS PREP PERIOD, HE DID NOT READ THE INSTRUCTIONS. STATES HE DID NOT TELL DR AKINS OR MEDICAL STAFF UNTIL REACHING PACU.
[2020-04-14 09:00] VITALS: BP 144/76; BP 189/72; PULSE 54; RESP 18; TEMP 36.7; O2SAT 97
[2020-04-14 09:25] VITALS: BP 189/72
== END 2020-04-14 09:36 | disposition home or self-care (01) ==
LOC: EN 07:26 → AC 07:27
PROVIDERS: Anesthesiology; PCP Internal Medicine; Referring Provider Internal Medicine; Visit Provider Surgery
PROC: 0DJD8ZZ Inspection of Lower Intestinal Tract, Via Natural or Artificial Opening Endoscopic (ICD-10-PCS; CPT 45378; principal; 2020-04-14 08:25)
DX: R15.9 Full incontinence of feces (principal); Z53.8 Procedure and treatment not carried out for other reasons; Z85.048 Personal history of other malignant neoplasm of rectum, rectosigmoid junction, and anus; Z11.59 Encounter for screening for other viral diseases; I10 Essential (primary) hypertension; F41.9 Anxiety disorder, unspecified; E11.9 Type 2 diabetes mellitus without complications; G43.909 Migraine, unspecified, not intractable, without status migrainosus; G47.30 Sleep apnea, unspecified; Z86.711 Personal history of pulmonary embolism; Z86.718 Personal history of other venous thrombosis and embolism; Z79.4 Long term (current) use of insulin; Z79.82 Long term (current) use of aspirin; Z79.84 Long term (current) use of oral hypoglycemic drugs; Z79.01 Long term (current) use of anticoagulants; Z79.899 Other long term (current) drug therapy; Z86.010 Personal history of colon polyps
CPT/HCPCS: 45378; 82962; 87635; G2023; J7120; U0003

== ENCOUNTER 2020-05-19 06:49 | Day surgery (SDC) | payer OTHER, SELFPAY ==
--- NOTE | 2020-04-07 12:28 | HP_ITS ---
Intake Vital Signs 03/31/20 BMI 34.0 03/31/20 Height 5 ft 9 in 03/31/20 Weight: 232 lb 03/31/20 BMI 34.2 03/31/20 BP 123/70 H 03/31/20 Blood Pressure Location Rt brachial 03/31/20 Position Sitting 03/31/20 Respiration 18 03/31/20 Temp 98.0 F 03/31/20 Temp Source Temporal Intake Visit Reasons: CSCOPE Chief Complaint: N/V/D Highway Patrol Pilot Required: No Is patient in pain?: No Allergies acetaminophen [From Vicodin] Allergy (Verified 03/31/20 15:12) itchy hydrocodone [From Vicodin] Allergy (Verified 03/31/20 15:12) itchy Penicillins [PCN] Allergy (Verified 03/31/20 15:12) Unknown morphine Adverse Reaction (Verified 03/31/20 15:12) loopy Medications Enoxaparin [Lovenox] 120 mg SC BID 12/04/14 [History Confirmed 03/31/20] Metoprolol Tartrate [Lopressor (beta kris)] 25 mg PO BID 12/04/14 [History Confirmed 03/31/20] Lisinopril [Zestril] 10 mg PO DAILY 01/11/18 [History Confirmed 03/31/20] Famotidine [Pepcid] 20 mg PO DAILY 01/15/19 [History Confirmed 03/31/20] Metoclopramide [Reglan] 10 mg PO 4X/DAY PRN PRN 01/15/19 [History Confirmed 03/31/20] Insulin Lispro [Humalog KwikPen] See Protocol SQ ACHS #2 insuln.pen 01/17/19 [Rx Confirmed 03/31/20] Gemfibrozil 600 mg PO BID 01/21/19 [History Confirmed 03/31/20] Glimepiride 8 mg PO DAILY 01/21/19 [History Confirmed 03/31/20] Insulin Glargine [Lantus SoloStar Pen] 40 units SUBCUT QHS 01/21/19 [History Confirmed 03/31/20] Omeprazole 20 mg PO BID 01/21/19 [History Confirmed 03/31/20] PFSH Medical History Vertigo (Acute) Diarrhea (Acute) Hyperglycemia (Acute) Migraine (Acute) Cranial nerve III palsy (Acute) Headache (Acute) Gastroenteritis (Acute) Lupus anticoagulant disorder (Chronic) Presence of IVC filter (Chronic) Deep venous thrombosis of lower extremity (Chronic) Carcinoma of colon (Chronic) On anticoagulant therapy (Chronic) Anxiety (Chronic) Cancer (Acute) Diabetes (Acute) Hemorrhoids (Acute) Pulmonary embolism (Acute) HTN (hypertension) (Chronic) Surgical History S/P colectomy (Acute) S/P hernia repair (Acute) S/P vasectomy (Acute) Family History Mother Cancer Social History (Updated 04/07/20 @ 12:[address] Alfonso Hatch MD) Smoking Status: Never smoker alcohol intake: current alcohol intake frequency: holidays/special occasions only substance use type: marijuana HPI HPI Surgical H&P: Yes HPI: VALERIA SANTORO, is a 59 M who presents to the office today for Evaluation for colonoscopy. Patient had rectal cancer in 2009 underwent a low anterior resection for this. His most recent colonoscopy was 05/28/2015 where a few large mouth diverticuli were found in the sigmoid colon and descending colon and a 5 mm polyp was found at 40 cm from the anal verge.. The polyp came back as a hyperplastic polyp. Patient has a longstanding history of fecal incontinence since his surgery as well. And this is not new and has been fairly consistent and persistent since that surgery. ROS General General: Yes colon cancer; no weight change, appetite, fatigue, breast cancer or weakness HEENT HEENT: No difficulty swallowing, eye injury, eye surgery, swollen glands or hoarseness Endo Endocrine: Yes diabetes mellitus; no thyroid disease, thyroid cancer, Hair loss, heat intolerance or cold intolerance Skin Skin: No rash or changing moles Breast Breast: No left breast lump, right breast lump, nipple discharge, breast pain, abnormal mammogram, abnormal US or breast enlargement Musc Musculoskeletal: No back problems, arthritis, rheumatoid arthritis, gout or joint pain Cardio Cardiovascular: Yes high blood pressure and heart stent; no murmur, pacemaker, heart disease, atrial fibrillation, heart attack, palpitations, shortness of breat with exertion or chest pain Psych Psychiatric: No depression, anxiety or hearing voices Resp Respiratory: No shortness of breath, Yes sleep apnea, No cough, No COPD, No asthma, No emphysema, No wheezing Gastro Gastrointestinal: Yes abdominal pain, No nausea or vomiting, Yes diarrhea, Yes constipation, No blood in stool, Yes acid reflux, No hemorrhoids, No ulcers, No gallbladder problem, No black,tarry stools Hemanth Hematologic: Yes blood thinners, Yes blood disorders, No bleeding, No anemia, Yes blood clots Neuro Neurologic: No system reviewed and no additional complaints, except as docu, No as per HPI, No abnormal walking, No abnormal hearing, No abnormal movements, No abnormal speech, No behavioral changes, No burning sensations, No confusion, No seizure-like activity, No unsteadiness, No dizziness, No localized weakness, No frequent falls, No headache(s), No lack of coordination, No loss of vision, No memory loss, No numbness, No other visual disturbances, No radiating pain, No restless legs, No sensory deficit, No fainting, No tingling, No tremor(s), No weakness, No other Exam Const General: no acute distress, well developed, well hydrated Orientation: oriented to person, oriented to place, oriented to time [facility] Head: normocephalic, atraumatic Ears: external ears normal Mouth: moist mucous membranes Eyes Sclera: sclerae normal Pupils: normal by confrontation Neck Neck: no lymphadenopathy noted Neck mass: No Thyroid: thyroid normal, symmetrical Chest Chest palpation & inspection: normal inspection of the chest Breast Palpation: No nipple discharge Resp Effort & Inspection: normal respiratory effort Auscultation: clear to auscultation bilaterally Percussion: percussion normal Cardio Rate: regular rate Rhythm: regular rhythm Heart Sounds: no murmurs GI Palpation: soft, no hepatosplenomegaly, no masses, nontender Rectal Exam: other Other: Rectal exam deferred. Extrem General: normal to inspection, no clubbing, cyanosis or edema Assessment & Plan Problems 1. Personal history of rectal cancer Z85.048 2. Full incontinence of feces R15.9 Plan I have discussed the above with the patient. I have offered the patient colonoscopy for evaluation. I have explained the risks/benefits of the procedure and described the procedure. I have discussed the risks with the patient, including but not limited to: infection, bleeding, perforation of the GI tract requiring emergency surgery, inability to complete the procedure, injury to any internal organs, complications of anesthesia, etc. - the patient understands and agrees to proceed. I have answered all the patient's questions to the patient's satisfaction and the patient has no further questions. The patient has been given instructions for the colon cleansing preparation. Patient has a history of DVT and PE and has been on IV Lovenox for a long time. I am going to keep him on his IV Lovenox and stop it only on his nighttime dose so that we can get his colonoscopy completed. Coding Level of Care Code Off vis,new,level 3 Diagnoses Personal history of rectal cancer Z85.048 Full incontinence of feces R15.9 ??Fecal incontinence type: full incontinence of feces 04/07/20 1228 <Electronically signed by Alfonso cevallos MD> Date _ Alfonso Hatch MD I have re-examined the patient. There are no clinical changes since date of exam.
[2020-05-19 07:17] VITALS: BP 142/75; PULSE 86; RESP 16; TEMP 36.6; O2SAT 96; BMI 33.4
[2020-05-19] MEDS: Lactated Ringers 1,000 ML 100 ML IV (07:30)
[2020-05-19 07:36] LABS: Bedside Glucose 235 mg/dL (70-110)
[2020-05-19 08:28] VITALS: BP 111/44; BP 142/75; PULSE 82; RESP 16; TEMP 36.7; O2SAT 97
[2020-05-19 08:30] VITALS: BP 122/44; BP 142/75; PULSE 78; RESP 16; O2SAT 97
--- NOTE | 2020-05-19 08:31 | PCM.HP.BLA ---
History and Physical Date of Admission: 05/19/20 [facility] Medical Records Department [address] [place] [address] MR#: [id number] Acct: [id number] Name: VALERIA SANTORO Rep #: [id number] : 1960 59 From: Alfonso Hatch MD PCP: Dr. Enedina Magdaleno, DO Status: [facility] [place] [facility] Location: [place] [address] Intake Vital Signs 03/31/20 BMI 34.0 03/31/20 Height 5 ft 9 in 03/31/20 Weight: 232 lb 03/31/20 BMI 34.2 03/31/20 BP 123/70 H 03/31/20 Blood Pressure Location Rt brachial 03/31/20 Position Sitting 03/31/20 Respiration 18 03/31/20 Temp 98.0 F 03/31/20 Temp Source Temporal Intake Visit Reasons: CSCOPE Chief Complaint: N/V/D Direct Care Worker Required: No Is patient in pain?: No Allergies acetaminophen [From Vicodin] Allergy (Verified 03/31/20 15:12) itchy hydrocodone [From Vicodin] Allergy (Verified 03/31/20 15:12) itchy Penicillins [PCN] Allergy (Verified 03/31/20 15:12) Unknown morphine Adverse Reaction (Verified 03/31/20 15:12) loopy Medications Enoxaparin [Lovenox] 120 mg SC BID 12/04/14 [History Confirmed 03/31/20] Metoprolol Tartrate [Lopressor (beta kris)] 25 mg PO BID 12/04/14 [History Confirmed 03/31/20] Lisinopril [Zestril] 10 mg PO DAILY 01/11/18 [History Confirmed 03/31/20] Famotidine [Pepcid] 20 mg PO DAILY 01/15/19 [History Confirmed 03/31/20] Metoclopramide [Reglan] 10 mg PO 4X/DAY PRN PRN 01/15/19 [History Confirmed 03/31/20] Insulin Lispro [Humalog KwikPen] See Protocol SQ ACHS #2 insuln.pen 01/17/19 [Rx Confirmed 03/31/20] Gemfibrozil 600 mg PO BID 01/21/19 [History Confirmed 03/31/20] Glimepiride 8 mg PO DAILY 01/21/19 [History Confirmed 03/31/20] Insulin Glargine [Lantus SoloStar Pen] 40 units SUBCUT QHS 01/21/19 [History Confirmed 03/31/20] Omeprazole 20 mg PO BID 01/21/19 [History Confirmed 03/31/20] PFSH Medical History Vertigo (Acute) Diarrhea (Acute) Hyperglycemia (Acute) Migraine (Acute) Cranial nerve III palsy (Acute) Headache (Acute) Gastroenteritis (Acute) Lupus anticoagulant disorder (Chronic) Presence of IVC filter (Chronic) Deep venous thrombosis of lower extremity (Chronic) Carcinoma of colon (Chronic) On anticoagulant therapy (Chronic) Anxiety (Chronic) Cancer (Acute) Diabetes (Acute) Hemorrhoids (Acute) Pulmonary embolism (Acute) HTN (hypertension) (Chronic) Surgical History S/P colectomy (Acute) S/P hernia repair (Acute) S/P vasectomy (Acute) Family History Mother Cancer Social History (Updated 04/07/20 @ 12:[address] Alfonso Hatch MD) Smoking Status: Never smoker alcohol intake: current alcohol intake frequency: holidays/special occasions only substance use type: marijuana HPI HPI Surgical H&P: Yes HPI: VALERIA SANTORO, is a 59 M who presents to the office today for Evaluation for colonoscopy. Patient had rectal cancer in 2009 underwent a low anterior resection for this. His most recent colonoscopy was 05/28/2015 where a few large mouth diverticuli were found in the sigmoid colon and descending colon and a 5 mm polyp was found at 40 cm from the anal verge.. The polyp came back as a hyperplastic polyp. Patient has a longstanding history of fecal incontinence since his surgery as well. And this is not new and has been fairly consistent and persistent since that surgery. ROS General General: Yes colon cancer; no weight change, appetite, fatigue, breast cancer or weakness HEENT HEENT: No difficulty swallowing, eye injury, eye surgery, swollen glands or hoarseness Endo Endocrine: Yes diabetes mellitus; no thyroid disease, thyroid cancer, Hair loss, heat intolerance or cold intolerance Skin Skin: No rash or changing moles Breast Breast: No left breast lump, right breast lump, nipple discharge, breast pain, abnormal mammogram, abnormal US or breast enlargement Musc Musculoskeletal: No back problems, arthritis, rheumatoid arthritis, gout or joint pain Cardio Cardiovascular: Yes high blood pressure and heart stent; no murmur, pacemaker, heart disease, atrial fibrillation, heart attack, palpitations, shortness of breat with exertion or chest pain Psych Psychiatric: No depression, anxiety or hearing voices Resp Respiratory: No shortness of breath, Yes sleep apnea, No cough, No COPD, No asthma, No emphysema, No wheezing Gastro Gastrointestinal: Yes abdominal pain, No nausea or vomiting, Yes diarrhea, Yes constipation, No blood in stool, Yes acid reflux, No hemorrhoids, No ulcers, No gallbladder problem, No black,tarry stools Hemanth Hematologic: Yes blood thinners, Yes blood disorders, No bleeding, No anemia, Yes blood clots Neuro Neurologic: No system reviewed and no additional complaints, except as docu, No as per HPI, No abnormal walking, No abnormal hearing, No abnormal movements, No abnormal speech, No behavioral changes, No burning sensations, No confusion, No seizure-like activity, No unsteadiness, No dizziness, No localized weakness, No frequent falls, No headache(s), No lack of coordination, No loss of vision, No memory loss, No numbness, No other visual disturbances, No radiating pain, No restless legs, No sensory deficit, No fainting, No tingling, No tremor(s), No weakness, No other Exam Const General: no acute distress, well developed, well hydrated Orientation: oriented to person, oriented to place, oriented to time [facility] Head: normocephalic, atraumatic Ears: external ears normal Mouth: moist mucous membranes Eyes Sclera: sclerae normal Pupils: normal by confrontation Neck Neck: no lymphadenopathy noted Neck mass: No Thyroid: thyroid normal, symmetrical Chest Chest palpation & inspection: normal inspection of the chest Breast Palpation: No nipple discharge Resp Effort & Inspection: normal respiratory effort Auscultation: clear to auscultation bilaterally Percussion: percussion normal Cardio Rate: regular rate Rhythm: regular rhythm Heart Sounds: no murmurs GI Palpation: soft, no hepatosplenomegaly, no masses, nontender Rectal Exam: other Other: Rectal exam deferred. Extrem General: normal to inspection, no clubbing, cyanosis or edema Assessment & Plan Problems 1. Personal history of rectal cancer Z85.048 2. Full incontinence of feces R15.9 Plan I have discussed the above with the patient. I have offered the patient colonoscopy for evaluation. I have explained the risks/benefits of the procedure and described the procedure. I have discussed the risks with the patient, including but not limited to: infection, bleeding, perforation of the GI tract requiring emergency surgery, inability to complete the procedure, injury to any internal organs, complications of anesthesia, etc. - the patient understands and agrees to proceed. I have answered all the patient's questions to the patient's satisfaction and the patient has no further questions. The patient has been given instructions for the colon cleansing preparation. Patient has a history of DVT and PE and has been on IV Lovenox for a long time. I am going to keep him on his IV Lovenox and stop it only on his nighttime dose so that we can get his colonoscopy completed. Coding Level of Care Code Off vis,new,level 3 Diagnoses Personal history of rectal cancer Z85.048 Full incontinence of feces R15.9 ??Fecal incontinence type: full incontinence of feces I have re-examined the patient. There are no clinical changes since date of exam.
[2020-05-19 08:35] VITALS: BP 130/53; BP 142/75; PULSE 74; RESP 16; O2SAT 97
--- NOTE | 2020-05-19 08:35 | OP.COLON_ITS ---
Patient Name: Bright Vargas Procedure Date: 05/19/2020 8:03 AM Date of : 1960 Age: 59 Procedure: Colonoscopy Indications: High risk colon cancer surveillance: Personal history of colonic polyps Providers: Alfonso Hatch MD Referring MD: Enedina Magdaleno Medicines: See the Anesthesia note for documentation of the administered medications Patient Profile: This is a 59 year old male. Refer to note in patient chart for documentation of history and physical. Last Colonoscopy: 2014. Complications: No immediate complications. Procedure: Pre-Anesthesia Assessment: - Prior to the procedure, a History and Physical was performed, and patient medications and allergies were reviewed. The patient's tolerance of previous anesthesia was also reviewed. The risks and benefits of the procedure and the sedation options and risks were discussed with the patient. All questions were answered, and informed consent was obtained. Prior Anticoagulants: The patient has taken no previous anticoagulant or antiplatelet agents. ASA Grade Assessment: III - A patient with severe systemic disease. After reviewing the risks and benefits, the patient was deemed in satisfactory condition to undergo the procedure. After I obtained informed consent, the scope was passed under direct vision. Throughout the procedure, the patient's blood pressure, pulse, and oxygen saturations were monitored continuously. The adult colonoscope was introduced through the anus and advanced to the cecum, identified by appendiceal orifice and ileocecal valve. The colonoscopy was performed without difficulty. The patient tolerated the procedure well. The quality of the bowel preparation was adequate to identify polyps 6 mm and larger in size. Scope In: 8:13:07 AM Scope Withdrawal Time 0 hours 6 minutes 47 seconds Scope Out: 8:22:52 AM Total Procedure Duration Time 0 hours 9 minutes 45 seconds Findings: The digital rectal exam findings include decreased sphincter tone. A few small-mouthed diverticula were found in the sigmoid colon. No biopsies or other specimens were collected for this exam. The exam was otherwise without abnormality. Impression: - Decreased sphincter tone found on digital rectal exam. - Diverticulosis in the sigmoid colon. No specimens collected. - The examination was otherwise normal. Recommendation: - Discharge patient to home. - Resume previous diet. - Continue present medications. - Repeat colonoscopy in 10 years for screening purposes. - Return to primary care physician at appointment to be scheduled. Procedure Code(s): --- Professional --- 41736, Colonoscopy, flexible; diagnostic, including collection of specimen(s) by brushing or washing, when performed (separate procedure) Diagnosis Code(s): --- Professional --- Z86.010, Personal history of colonic polyps K62.89, Other specified diseases of anus and rectum K57.30, Diverticulosis of large intestine without perforation or abscess without bleeding CPT copyright 2017 [employer]. All rights reserved. The codes documented in this report are preliminary and upon customer acquisition manager review may be revised to meet current compliance requirements. MD Alfonso Francisco MD 05/19/2020 8:35:02 AM This report has been signed electronically. Number of Addenda: 0 Note Initiated On: 05/19/2020 8:03 AM
--- NOTE | 2020-05-19 08:35 | OP.CCLET_ITS ---
05/19/2020 Enedina Magdaleno [address] [place] [address] Re : Colonoscopy procedure for Bright Vargas Dear Dr. Magdaleno This procedure was performed on Tuesday, May 19, 2020. My impressions and recommendations are as follows: Impressions : - Decreased sphincter tone found on digital rectal exam. - Diverticulosis in the sigmoid colon. No specimens collected. - The examination was otherwise normal. Recommendations : - Discharge patient to home. - Resume previous diet. - Continue present medications. - Repeat colonoscopy in 10 years for screening purposes. - Return to primary care physician at appointment to be scheduled. My findings are described in the full procedure note, which is enclosed. If I can be of further assistance, please feel free to contact me at Doctor phone number(s): , Fax: [phone], Work: . Sincerely, MD Alfonso Francisco MD 05/19/2020 8:35:02 AM This report has been signed electronically.
[2020-05-19 08:40] VITALS: BP 129/44; BP 142/75; PULSE 82; RESP 16; TEMP 36.8; O2SAT 97
[2020-05-19 09:13] VITALS: BP 142/75
== END 2020-05-19 09:13 | disposition home or self-care (01) ==
LOC: EN 06:50 → AC 06:51
PROVIDERS: Anesthesiology; PCP Internal Medicine; Referring Provider Internal Medicine; Visit Provider Surgery
PROC: 0DJD8ZZ Inspection of Lower Intestinal Tract, Via Natural or Artificial Opening Endoscopic (ICD-10-PCS; CPT 45378; principal; 2020-05-19 07:55)
DX: Z85.048 Personal history of other malignant neoplasm of rectum, rectosigmoid junction, and anus (principal); K57.30 Diverticulosis of large intestine without perforation or abscess without bleeding; Z11.59 Encounter for screening for other viral diseases; I10 Essential (primary) hypertension; K21.9 Gastro-esophageal reflux disease without esophagitis; F41.9 Anxiety disorder, unspecified; G47.30 Sleep apnea, unspecified; D68.62 Lupus anticoagulant syndrome; E11.9 Type 2 diabetes mellitus without complications; G43.909 Migraine, unspecified, not intractable, without status migrainosus; Z86.2 Personal history of diseases of the blood and blood-forming organs and certain disorders involving the immune mechanism; Z86.711 Personal history of pulmonary embolism; Z86.718 Personal history of other venous thrombosis and embolism; Z86.010 Personal history of colon polyps; Z95.828 Presence of other vascular implants and grafts; Z90.49 Acquired absence of other specified parts of digestive tract; Z79.4 Long term (current) use of insulin; Z79.84 Long term (current) use of oral hypoglycemic drugs; Z79.899 Other long term (current) drug therapy; F12.90 Cannabis use, unspecified, uncomplicated
CPT/HCPCS: 45378; 82962; 87635; G2023; J7120; J1610; J2405; U0003

== ENCOUNTER → 2021-02-07 10:14 | Outpatient (CLI) | payer OTHER, SELFPAY ==
[2021-02-07 12:45] LABS: Absolute Lymphocyte Count 1.07 X10^3/uL (0.83-4.51); Basophil# 0.01 X10^3/uL; Basophil% 0.2 % (0-1); Eosinophil# 0.22 X10^3/uL; Eosinophils% 4.7 % (0-5); Hematocrit 36.8 % (40-54); Hemoglobin 12.1 g/dL (13.0-16.5); Lymphocyte # 1.07 X10^3/ul (0.83-4.51); Lymphocyte % 22.6 % (19-41); Mean Corp Hgb Conc 32.9 g/dL (32-36); Mean Corpuscular Hgb 29.8 pg (27.0-32.0); Mean Corpuscular Volume 90.6 fL (80-94); Mean Platelet Vol. 10.7 fl (6.2-12.0); Monocyte# 0.42 X10^3/uL; Monocyte% 8.9 % (0-10); NRBC Flagged by Analyzer 0 % (0-5); Neutrophil % 63.4 % (47-70); Platelet Count 194 K/mm3 (150-450); RBC Distribution Width CV 13.3 % (11.6-14.6); RBC Distribution Width SD 44.4 fl (35.1-43.9); Red Blood Count 4.06 M/mm3 (4.6-6.2); White Blood Count 4.7 K/mm3 (4.4-11.0)
[2021-02-07 13:14] LABS: ALB/GLOB Ratio 1.1 RATIO (0.9-2.4); AST(SGOT) 17 U/L (15-37); Alanine Aminotransfer ALT/SGPT 40 U/L (16-61); Albumin, Serum 3.9 g/dL (3.2-5.0); Alkaline Phosphatase 70 U/L (45-117); Anion Gap 5 (5-15); BUN 15 mg/dL (7-18); BUN/Creat Ratio 21.6 RATIO (10-20); Calcium,Total 9.8 mg/dL (8.5-10.1); Chloride 103 mmol/L (98-107); EST Glomerular Filtration Rate 123 mL/min (>60); Est Glom Filt Rate - Afr Amer 148 mL/min (>60); Globulin 3.5 g/dL (2.2-4.2); Glucose 148 mg/dL (74-106); Potassium 4.2 mmol/L (3.5-5.1); Protein, Total 7.4 g/dL (6.4-8.2); Sodium Level 136 mmol/L (136-145); Thyroid Stim Hormone (TSH) 1.93 uIU/mL (0.358-3.74)
[2021-02-09 12:41] LABS: PSA, Total <0.1 ng/mL (0.0-4.0)
== END ==
PROVIDERS: PCP Internal Medicine; Referring Provider Internal Medicine; Visit Provider Internal Medicine
DX: E78.00 Pure hypercholesterolemia, unspecified (principal); Z13.29 Encounter for screening for other suspected endocrine disorder; E29.1 Testicular hypofunction
CPT/HCPCS: 36415; 80053; 84153; 84443; 85025

== ENCOUNTER 2021-07-25 12:16 | Emergency (ER) | payer OTHER, SELFPAY ==
[2021-07-25 12:17] VITALS: BP 131/67; PULSE 68; RESP 16; TEMP 36.5; O2SAT 96; BMI 32.0
--- NOTE | 2021-07-25 12:34 | RAD_ITS ---
STUDY: X-RAY - LEFT HAND, ATTENTION 3 FINGER REASON FOR EXAM: Male, 60 years old. INJURY TECHNIQUE: 3 view(s) of the finger were obtained. COMPARISON: None. FINDINGS: Normal metacarpal head. Normal metacarpophalangeal joint. Normal proximal phalanx. Normal middle phalanx. Normal distal phalanx. Normal proximal interphalangeal joint. Normal distal interphalangeal joint. RAD/Finger(s) Min 2 Views IMPRESSION: Normal x-ray examination of the finger. Electronically Signed: Js Stewart MD at 13:01 EDT Tel , Service support ,
--- NOTE | 2021-07-25 14:13 | EX.ED.UPPERE ---
HPI History of Present Illness Chief Complaint: Upper Extremity Injury Narrative Narrative: Patient presented with laceration to the right middle digit on his right hand. Patient states he was trying to remove a tire from the bottom of his truck because he had a flat tire and states it would not come off. He tried aggressively to pull this down and caught his finger on something. He notes bleeding to the right dorsal middle finger. Patient's tetanus immunization is unknown. [id number]. Patient was able to get the bleeding somewhat controlled however he is on Lovenox daily because he has history of blood clots secondary to lupus anticoagulant disorder. [facility] Medical History Anxiety Cancer Carcinoma of colon Cranial nerve III palsy Deep venous thrombosis of lower extremity Diabetes Diarrhea Gastroenteritis Headache Hemorrhoids HTN (hypertension) Hyperglycemia Lupus anticoagulant disorder Migraine On anticoagulant therapy Presence of IVC filter Pulmonary embolism Right foot pain Vertigo Home Medications enoxaparin 120 mg SC BID 12/04/14 [History Last Taken 01/21/19] metoprolol tartrate 25 mg PO BID 12/04/14 [History Last Taken 04/14/20 05:00] lisinopril 10 mg PO BID 01/11/18 [History Last Taken 01/21/19] famotidine 20 mg PO BID 01/15/19 [History Last Taken 01/21/19] insulin lispro See Protocol SQ ACHS #2 insuln.pen 01/17/19 [Rx Last Taken 01/21/19] gemfibrozil 600 mg PO DAILY 01/21/19 [History Last Taken 01/21/19] glimepiride 8 mg PO DAILY 01/21/19 [History Last Taken 01/21/19] insulin glargine 20 units SC BID 01/21/19 [History Last Taken 01/20/19] Allergy/AdvReac Type Severity Reaction Status Date / Time Penicillins [PCN] Allergy Unknown Verified 07/25/21 12:19 acetaminophen [From Vicodin] AdvReac dopey Verified 07/25/21 12:19 hydrocodone [From Vicodin] AdvReac dopey Verified 07/25/21 12:19 morphine AdvReac loopy Verified 07/25/21 12:19 Family History Mother Cancer Surgical History (Updated 07/25/21 @ 14:40 by Meghana Berman) H/O colectomy S/P colectomy S/P hernia repair S/P vasectomy Social History Smoking Status: Never smoker alcohol intake: current alcohol intake frequency: holidays/special occasions only substance use type: marijuana ROS ROS ED Constitutional Constitutional ED: Denies fever(s) or sweats Eyes Eyes: Denies blurry vision or diplopia ENT ENT ED: Denies rhinorrhea or sore throat Cardiovascular Cardiovascular: Denies chest pain or palpitations Respiratory/Chest Respiratory/Chest: Denies cough, dyspnea or sputum Gastrointestinal Gastrointestinal: Denies abdominal pain, nausea or vomiting Genitourinary Genitourinary ED: Denies dysuria or hematuria Musculoskeletal Musculoskeletal: Denies myalgias or neck pain Integumentary Reports other Details: Right hand laceration Neurologic Neurologic: Denies headache(s) or paresthesias EXAM Physical Exam Const Vital Signs: 07/25/21 12:17 Temperature 97.7 F L Temperature Source Temporal Pulse Rate 68 Respiratory Rate 16 Blood Pressure 131/67 H Blood Pressure Mean 88 Pulse Ox 96 Oxygen Delivery Method Room Air Positive well nourished General Appearance ED: NAD HEENT normocephalic and atraumatic Eyes PERRL and EOMs intact bilaterally Resp normal respiratory effort and no use of accessory muscles Cardio regular rate and regular rhythm Extremity Extremity Narrative: 2 cm laceration dorsal surface of the right third digit on the right hand. Bleeding is controlled with a dressing. No obvious tendon or bony exposure. Patient is full range of motion of the right third digit. Neuro oriented x3 Sensorium / Orientation: alert Psych mental status grossly normal Skin Skin Narrative: As described above. MDM MDM MDM Narrative Medical decision making narrative: Patient with 2 cm laceration to the dorsal surface of the left middle finger. Bleeding is controlled. X-ray of the left hand shows no acute fracture or subluxation. Patient laceration was cleaned and anesthetized. Patient's wound was sutured. Please see procedure note. Patient tolerated procedure well. Tetanus was updated today. Patient given wound care instructions and follow-up in office. Patient given discharge at this time. Impression: 1. Left third digit laceration 2.0 cm Radiography Diagnostic Testing: Radiology Impression Finger X-Ray 07/25/21 12:34 IMPRESSION: Normal x-ray examination of the finger. Electronically Signed: Js Stewart MD at 13:01 EDT Tel , Service support , Procedures Lacerations finger laceration: Length: 0.79 in Depth: Skin Shape: Linear Prep: Sterile Conditions and Chlorhexadine Laceration repair: Irrigated and Lidocaine Irrigated (ml): 250 Suture Information: Ethilon Discharge Plan Triage Chief Complaint: Upper Extremity Injury ED Provider: Yuriy Bland Dx/Rx/DC Orders Prescriptions: No Action enoxaparin 120 MG/0.8 ML syringe 120 mg SC BID RF: 0 metoprolol tartrate 25 MG tablet 25 mg PO BID RF: 0 lisinopril 10 MG tablet 10 mg PO BID RF: 0 famotidine 20 MG tablet 20 mg PO BID RF: 0 insulin lispro 100 UNIT/ML insulin pen See Protocol unit SQ ACHS Qty: 2 RF: 0 gemfibrozil 600 MG tablet 600 mg PO DAILY RF: 0 glimepiride 4 MG tablet 8 mg PO DAILY RF: 0 insulin glargine 100 UNITS/ML insulin pen 20 units SC BID RF: 0 Primary Care Provider: Enedina Magdaleno
[2021-07-25] MEDS: Diphth,Pertuss(Acell),Tet Vac 0.5 ML Vial IM (15:00)
== END 2021-07-25 15:51 | disposition home or self-care (01) ==
PROVIDERS: Emergency Provider Student in an Organized Health Care Education/Training Program; PCP Internal Medicine
DX: S61.213A Laceration without foreign body of left middle finger without damage to nail, initial encounter (principal); W26.9XXA Contact with unspecified sharp object(s), initial encounter; Y93.9 Activity, unspecified; Y92.9 Unspecified place or not applicable; I10 Essential (primary) hypertension; F41.9 Anxiety disorder, unspecified; E11.9 Type 2 diabetes mellitus without complications; H49.00 Third [oculomotor] nerve palsy, unspecified eye; D68.62 Lupus anticoagulant syndrome; G43.909 Migraine, unspecified, not intractable, without status migrainosus; Z86.718 Personal history of other venous thrombosis and embolism; Z86.711 Personal history of pulmonary embolism; Z79.4 Long term (current) use of insulin; Z79.01 Long term (current) use of anticoagulants; Z79.899 Other long term (current) drug therapy
CPT/HCPCS: 12001; 73140; 90471; 90715; 99283

== ENCOUNTER 2022-01-11 09:27 | Emergency (ER) | payer OTHER, SELFPAY ==
[2022-01-11 09:28] VITALS: BP 169/91; PULSE 88; RESP 14; TEMP 36.9; O2SAT 100; BMI 31.8
--- NOTE | 2022-01-11 10:02 | CT_ITS ---
STUDY: CT CERVICAL SPINE WITHOUT CONTRAST REASON FOR EXAM: Male, 61 years old. Neck and shoulder pain following a fall. History of colon cancer. RADIATION DOSAGE (If Supplied By Facility): CTDIvol = ( 26.05 ) mGy, DLP = ( 600.12 ) mGycm TECHNIQUE: High resolution transaxial imaging was performed without contrast material. Sagittal and coronal images were reconstructed. Individualized dose optimization techniques were used for this CT. COMPARISON: None FINDINGS: Normal craniovertebral junction. Normal anterior atlantoaxial articulation. Normal odontoid process. Normal cervical lordosis. Normal vertebral bodies and posterior osseous elements. C2-3: Facet joint osteoarthritis more prominent on the left side. No significant stenosis seen. C3-4: Facet joint osteoarthritis and hypertrophy more prominent on the left side. No significant stenosis is seen. C4-5: Normal endplates. Normal disc height and morphology. Normal central canal and intervertebral neuroforamina. C5-6: Mild degree of disc space narrowing. Uncovertebral arthrosis. Facet joint osteoarthritis and hypertrophy more prominent on the left side. C6-7: Disc space narrowing. Spondylosis. No significant stenosis is seen. C7-T1: Normal endplates. Normal disc height and morphology. Normal central canal and intervertebral neuroforamina. Normal visualized soft tissue structures. CT/Spine Cervical without Contras IMPRESSION: Multilevel degenerative changes, as described above. Electronically Signed: Yogesh Herrera MD at 10:48 EDT ,
--- NOTE | 2022-01-11 10:02 | RAD_ITS ---
STUDY: X-RAY CHEST REASON FOR EXAM: Male, 61 years old. Neck and shoulder pain following a fall. TECHNIQUE: PA and lateral views of the chest. COMPARISON: Comparison is made with prior study of 01/21/2019. FINDINGS: The lungs are clear and expanded. Scattered calcified granulomas. There is no demonstrated pleural abnormality. Normal size heart. Normal mediastinum and art. Normal visualized pulmonary arteries. There is atherosclerotic calcification of the aortic arch with tortuosity. There is demineralization of the osseous structures. Normal visualized ribs, clavicles, and shoulders. There is no demonstrated abnormality of the visualized soft tissue structures of the upper abdomen. RAD/Chest PA and Lateral IMPRESSION: Scattered calcified granulomas. No acute abnormality is seen. Electronically Signed: Yogesh Herrera MD at 10:54 EDT ,
--- NOTE | 2022-01-11 10:08 | EX.ED.DYSGE1 ---
HPI History of Present Illness Chief Complaint: Other, Pain/Inj Informant: patient Onset/Context/Timing Onset: Weeks Current Severity: Moderate Maximum Severity: Severe Narrative Narrative: Patient presents with a 3-week history of neck and upper back pain. Patient states he fell down some steps 3 weeks ago. [facility] and given steroids and Flexeril. Patient states x-rays were performed that he was told was negative. Patient presents today with continued pain. No radicular symptoms. He is taking Tylenol and muscle relaxer at home. [facility] Medical History Anxiety Cancer Carcinoma of colon Cervical strain, acute CHI (closed head injury) Cranial nerve III palsy Deep venous thrombosis of lower extremity Diabetes Diarrhea Gastroenteritis Headache Hemorrhoids HTN (hypertension) Hyperglycemia Left shoulder strain Lupus anticoagulant disorder Migraine On anticoagulant therapy Presence of IVC filter Pulmonary embolism Right foot pain Thoracic myofascial strain Vertigo Home Medications enoxaparin 120 mg SC BID 12/04/14 [History Last Taken 01/21/19] metoprolol tartrate 25 mg PO BID 12/04/14 [History Last Taken 04/14/20 05:00] lisinopril 10 mg PO BID 01/11/18 [History Last Taken 01/21/19] famotidine 20 mg PO BID 01/15/19 [History Last Taken 01/21/19] insulin lispro See Protocol SQ ACHS #2 insuln.pen 01/17/19 [Rx Last Taken 01/21/19] gemfibrozil 600 mg PO DAILY 01/21/19 [History Last Taken 01/21/19] glimepiride 8 mg PO DAILY 01/21/19 [History Last Taken 01/21/19] insulin glargine 20 units SC BID 01/21/19 [History Last Taken 01/20/19] cyclobenzaprine 10 mg tablet 10 mg PO TID PRN #20 tab 12/28/21 [Rx Last Taken Unknown] lidocaine [Lidoderm] 1 patch TOPICAL DAILY #6 ea 01/11/22 [Rx Last Taken Unknown] oxycodone-acetaminophen [Percocet] 1 tab PO Q6H PRN 3 Days #10 tab 01/11/22 [Rx Last Taken Unknown] Allergy/AdvReac Type Severity Reaction Status Date / Time Penicillins [PCN] Allergy Unknown Verified 01/11/22 09:28 acetaminophen [From Vicodin] AdvReac dopey Verified 01/11/22 09:28 hydrocodone [From Vicodin] AdvReac dopey Verified 01/11/22 09:28 morphine AdvReac loopy Verified 01/11/22 09:28 Family History Mother Cancer Surgical History H/O colectomy S/P colectomy S/P hernia repair S/P vasectomy Social History Smoking Status: Never smoker alcohol intake: current alcohol intake frequency: holidays/special occasions only substance use type: marijuana ROS ROS ED Constitutional Constitutional ED: Denies chills or fever(s) Eyes Eyes: Denies change in vision ENT ENT ED: Denies sore throat Cardiovascular Cardiovascular: Denies chest pain Respiratory/Chest Respiratory/Chest: Denies cough or dyspnea Gastrointestinal Gastrointestinal: Denies abdominal pain, nausea or vomiting Genitourinary Genitourinary ED: Denies dysuria Musculoskeletal Musculoskeletal: Reports arthralgias and neck pain; Denies back pain Integumentary Denies rash Neurologic Neurologic: Denies headache(s) or weakness Allergic/Immunologic Allergic/Immunologic ED: Denies urticaria EXAM Physical Exam Const Vital Signs: 01/11/22 09:28 Temperature 98.4 F Temperature Source Temporal Pulse Rate 88 Respiratory Rate 14 Blood Pressure 169/91 H Blood Pressure Mean 117 Pulse Ox 100 Oxygen Delivery Method Room Air Positive well nourished and well developed General Appearance ED: well developed HEENT Reports moist mucous membranes Eyes EOMs intact bilaterally Neck supple Chest Wall inspection of chest normal and palpation of chest normal Resp normal respiratory effort and clear to auscultation bilaterally Cardio regular rate and regular rhythm GI non-tender Palpation: soft Back/Spine Back/Spine Narrative: Paraspinal muscular tenderness left greater than right in the upper thoracic and cervical region. Extremity normal to inspection Neuro oriented x3 Sensorium / Orientation: alert Psych mental status grossly normal Skin no rashes or lesions noted MDM MDM MDM Narrative Medical decision making narrative: Patient given oxycodone for pain. CT scan of the C-spine and chest x-ray ordered. Radiography Diagnostic Testing: Clinical Impression(s) from Imaging Studies Cervical Spine CT 01/11/22 10:02 IMPRESSION: Multilevel degenerative changes, as described above. Electronically Signed: Yogesh Herrera MD at 10:48 EDT , Chest X-Ray 01/11/22 10:02 IMPRESSION: Scattered calcified granulomas. No acute abnormality is seen. Electronically Signed: Yogesh Herrera MD at 10:54 EDT , Treatment and Re-Evaluation Narrative: CT the C-spine shows degenerative changes only. Chest x-ray per my interpretation was no acute abnormality. I did speak with Dr. Magdaleno, the patient's primary care physician. She is okay with me prescribing a short-term of oxycodone. Patient will also be given Lidoderm patches. He has muscle relaxers at home he will take. Discharge Plan Triage Chief Complaint: Other, Pain/Inj ED Provider: Colleen Do Dx/Rx/DC Orders Clinical Impression: Musculoskeletal back pain Instructions: ED Back and Neck Pain, General Prescriptions: New oxycodone-acetaminophen [Percocet] 5-325 mg tablet 1 tab PO Q6H PRN (Reason: pain) 3 Days Qty: 10 RF: 0 lidocaine [Lidoderm] 5 % adhesive patch,medicated 1 patch topical DAILY Qty: 6 RF: 0 No Action cyclobenzaprine 10 mg tablet 10 mg PO TID PRN (Reason: muscle spasm) Qty: 20 RF: 0 enoxaparin 120 MG/0.8 ML syringe 120 mg SC BID RF: 0 metoprolol tartrate 25 MG tablet 25 mg PO BID RF: 0 lisinopril 10 MG tablet 10 mg PO BID RF: 0 famotidine 20 MG tablet 20 mg PO BID RF: 0 insulin lispro 100 UNIT/ML insulin pen See Protocol unit SQ ACHS Qty: 2 RF: 0 gemfibrozil 600 MG tablet 600 mg PO DAILY RF: 0 glimepiride 4 MG tablet 8 mg PO DAILY RF: 0 insulin glargine 100 UNITS/ML insulin pen 20 units SC BID RF: 0 Primary Care Provider: Enedina Magdaleno Referrals: Enedina Magdaleno DO [Primary Care Provider] - 1 Week Disposition Disposition: Home, Self Care
[2022-01-11] MEDS: oxyCODONE 5 MG Tablet PO (10:09)
[2022-01-11 11:19] VITALS: BP 150/75; PULSE 65; RESP 16; O2SAT 97
== END 2022-01-11 11:33 | disposition home or self-care (01) ==
PROVIDERS: Emergency Provider Emergency Medicine; PCP Internal Medicine; Visit Provider Emergency Medicine
DX: M54.9 Dorsalgia, unspecified (principal); D68.62 Lupus anticoagulant syndrome; E11.9 Type 2 diabetes mellitus without complications; Z79.4 Long term (current) use of insulin; M54.2 Cervicalgia; I10 Essential (primary) hypertension; F41.9 Anxiety disorder, unspecified; Z86.718 Personal history of other venous thrombosis and embolism; Z87.19 Personal history of other diseases of the digestive system; Z95.828 Presence of other vascular implants and grafts; H49.00 Third [oculomotor] nerve palsy, unspecified eye; Z85.038 Personal history of other malignant neoplasm of large intestine; W10.9XXA Fall (on) (from) unspecified stairs and steps, initial encounter; Y93.9 Activity, unspecified; Y92.9 Unspecified place or not applicable; Z79.899 Other long term (current) drug therapy; Z90.49 Acquired absence of other specified parts of digestive tract; Z79.01 Long term (current) use of anticoagulants
CPT/HCPCS: 71046; 72125; 99282

== ENCOUNTER 2022-01-25 09:30 | Outpatient (RCR) | payer OTHER, SELFPAY ==
--- NOTE | 2022-01-17 18:27 | HP.PTEVAL ---
Patient's Visit Information VALERIA SANTORO is a 61 year old M referred to Physical Therapy by Dr. Enedina Magdaleno DO with a diagnosis of cervical radiculopathy.. Date of Evaluation: 01/17/22 Physical Therapist: Andres Alegria, DPT, OCS, CSCS - Visit Plan Frequency: 3x /Week Duration: 4-6 Weeks Plan: 2-3x/week for 4 weeks for... 1. Luzmaria based cervical retraction extension ex program and progression of forces, mobs as needed. 2. Manual therapy of STM L UT and manual traction and PROM neck as needed, ext mobs. 3. cervical and postural strengthening. ensure activity modification and return to function. - Subjective Fell 3.5 weeks ago tripping on fabric softener on step down steps. Hit L shoulder on wall and hurt neck. Xrays OK. Needs PT to have an MRI. Has been doing c/s retraction but it really hurts. 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 Sleep is not great but that is normal for her. Has sleep apnea. 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 Ice and rest has helped a little bit. Basic ADLS are getting done at home. Splits petty. - Pain L neck Pain Intensity (Out of 10): 3 Pain Intensity Range: 0, 10 Comment: numb after ice. - Objective Walks and trasnfers I and normal today. Head and hands move as he talks. Certain positions of neck will make him wince mostly L SB, or rotated or extended. Posture is foreard head and protracted scapula. Tender to palpation in L UT are minimally. cervical AROM ext deviates R and 45 degrees, r rotation 50 and L rotation 70 with pain to the right. SB R hurts vs L. UE AROM WFL and without pain. - ext rotation lag test, - HK, - neer, - drop arm, + c/s compression test L. reflexes 1/3 bi and triceps. Sensation UE WNL to gross light touch. Strength UE symmetrical and without pain today. Repeated retraction improves R rotation and ext subtly. - Balance/Special Test Scores Oswestry Neck Score: 11 - Goals Goal 1:: Full cervical AROM without pain or wincing. Goal Time Frame: 4-6 Weeks Goal 2:: patient feel 90% better in overall L neck and shoulder. Goal Time Frame: 4-6 Weeks Goal 3:: Patient score 5 or less on neck oswestry Goal Time Frame: 4-6 Weeks Goal 4:: pt I appropriate management of his condition Goal Time Frame: 4-6 Weeks - Rehabilitation Potential Physical Therapy Diagnosis: cervical radiculopathy Rehabilitation Potential: Fair - Anticipated Interventions Patient/Client Instruction: Educate patient on: Condition, Plan of Care For the Purpose of:: To decrease pain, To increase ROM, To improve muscle performance and motor function, To increase tolerance to activity/condition/position, To improve ability of physical actions for home/community/work/leisure Therapeutic Exercise to Include: Strength training, Postural training, Flexibilty training, Passive ROM, Active ROM, Luzmaria Exercises For the Purpose of:: To decrease pain, To increase ROM, To increase tolerance to activity/condition/position Manual Therapy Techniques to Include: Mobilization, Passive ROM, Soft tissue mobilization For the Purpose of:: To decrease pain, To increase ROM, To improve muscle performance and motor function, To increase tolerance to activity/condition/position, To improve ability of physical actions for home/community/work/leisure Thank you for the opportunity to evaluate your patient. For Medicare and Medicare HMO plans, please review the plan of care and approve it. It will need to be FAXED BACK to us at [phone] for Medicare purposes. For Medicare only, by signing this I certify the plan of care. Please let me know if there are questions or concerns regarding this plan of care. Physician Signature: Date:
--- NOTE | 2022-01-30 09:23 | HP.PTREVAL ---
Dr. Enedina Magdaleno, DO, It has been my pleasure to treat VALERIA SANTORO over the last 6 visits for cervical radiculopathy.. Please see the progress note below for an update on the physical therapy plan of care! Subjective: Pt is very frustrated with pain level which is not improving with therapy. He called ER to see if they could do a full body MRI but did not visit ER over the weekend but his wanted him to. He has only been semicompliant with exercises. He changed lawnmower oil and tire last and was in a lot of pain Sunday after that which is why he cancelled hsi appointment. Objective/Function: Winces in pain with many movements today and restless, does tell some stories for 2-4 minutes with decent head movement and no painful expressions but they return quickly. Just chatted with patient today as he is very frustrated with pain, losing sleep. He is 10/10 over the weekend and wants to be done with PT and get his MRI and move onto next ttreatment. he is slightly bullheaded and wants to do his own thing but, in this case, du to lack of improvement and high level of pain, next step and back to doctor is appropriate. ROM 50 L rotation with pain, 75 R rotation at vervical, 28 ext with increased pain in L UT area. Retraction causes pain. has tingling and numbness in L arm and is weak in wrist ext, and shoulder flexion although it is hard to tell if this is myotomal or due to pain. No improvement in last two weeks. Plan Plan: Pt to schedule with doctor later today and I recommend next appropriate step(MRI, spinne doc, pain management, etc) as he is not progressing with PT. Balance/Gait/Functional tests - Balance/Special Test Scores Oswestry Neck Score: 31 Goals Goal 1:: Full cervical AROM without pain or wincing. Goal Time Frame: 4-6 Weeks Goal Progress: Not Progressing Goal 2:: patient feel 90% better in overall L neck and shoulder. Goal Time Frame: 4-6 Weeks Goal Progress: Not Progressing Goal 3:: Patient score 5 or less on neck oswestry Goal Time Frame: 4-6 Weeks Goal Progress: Not Progressing Goal 4:: pt I appropriate management of his condition Goal Time Frame: 4-6 Weeks Goal Progress: Not Progressing Anticipated Interventions Patient/Client Instruction: Educate patient on: Condition, Plan of Care For the Purpose of:: To decrease pain, To increase ROM, To improve muscle performance and motor function, To increase tolerance to activity/condition/position, To improve ability of physical actions for home/community/work/leisure Therapeutic Exercise to Include: Strength training, Postural training, Flexibilty training, Passive ROM, Active ROM, Luzmaria Exercises For the Purpose of:: To decrease pain, To increase ROM, To increase tolerance to activity/condition/position Manual Therapy Techniques to Include: Mobilization, Passive ROM, Soft tissue mobilization For the Purpose of:: To decrease pain, To increase ROM, To improve muscle performance and motor function, To increase tolerance to activity/condition/position, To improve ability of physical actions for home/community/work/leisure Please do not hesitate to contact me at [phone] by phone or if you have questions or concerns regarding this new plan of care! Sincerely, Andres Alegria, DPT, OCS, CSCS
--- NOTE | 2022-04-04 18:41 | HP.PTDCNRP_ITS ---
VALERIA SANTORO was seen in my office for initial evaluation on 01/17/22. The following Plan of Care was established for this patient: Initial Frequency: 3x /Week Initial Duration: 4-6 Weeks Patient/Client Instruction: Educate patient on: Condition, Plan of Care For the Purpose of:: To decrease pain, To increase ROM, To improve muscle performance and motor function, To increase tolerance to activity/condition/position, To improve ability of physical actions for home/community/work/leisure Therapeutic Exercise to Include: Strength training, Postural training, Flexibilty training, Passive ROM, Active ROM, Luzmaria Exercises For the Purpose of:: To decrease pain, To increase ROM, To increase tolerance to activity/condition/position Manual Therapy Techniques to Include: Mobilization, Passive ROM, Soft tissue mobilization For the Purpose of:: To decrease pain, To increase ROM, To improve muscle performance and motor function, To increase tolerance to activity/condition/pos ition, To improve ability of physical actions for home/community/work/leisure This patient was last seen in our office 01/30/22. Pertinent comments regarding their Physical therapy will appear below: Pt seen 6 visits of POC and was not improving. He was sent back to the doctor for next medical step at last session. i will discontinue from my care. At this point I will be discontinuing this patient from physical therapy. I would be happy to see this patient again in the future if found appropriate by the physician. Thank you! Andres Alegria, DPT, OCS, CSCS Balance/Gait/Functional tests - Balance/Special Test Scores Oswestry Neck Score: 31
== END 2022-01-25 19:00 | disposition home or self-care (01) ==
LOC: PT 09:30
PROVIDERS: PCP Internal Medicine; Referring Provider Internal Medicine; Visit Provider Internal Medicine
DX: M54.12 Radiculopathy, cervical region (principal)
CPT/HCPCS: 97014; 97110; 97140; 97162; 97530; G0283

== ENCOUNTER → 2022-02-13 | Outpatient (CLI) | payer OTHER, SELFPAY ==
--- NOTE | 2022-02-13 07:07 | MRI_ITS ---
EXAM: MR CERVICAL SPINE WITHOUT INTRAVENOUS CONTRAST CLINICAL INDICATION: RADICULOPATHY, NECK PAIN, LEFT ARM PAIN TECHNIQUE: Multiplanar and multisequence MR images of the cervical spine without intravenous contrast were performed. This report was created using [employer] report New [employer] technology. COMPARISON: None. FINDINGS: VERTEBRAE: Straightening of the usual lordotic curvature. No significant spondylolisthesis. Minimal spondylosis and slight associated bulging discs at C5-C6 mildly narrowing the right thecal sac and slightly flattening the right ventral cord contour without ernesto spinal stenosis. Normal craniocervical junction and cervicothoracic junction. SPINAL CORD: Unremarkable in signal and morphology. SOFT TISSUES: Unremarkable. No prevertebral soft tissue swelling. LYMPH NODES: Unremarkable. There is no cervical adenopathy. DISCS/SPINAL CANAL/NEURAL FORAMINA: C2-C3: Unremarkable. Normal disc height and morphology. Normal spinal canal. Normal neuroforamina. C3-C4: Unremarkable. Normal disc height and morphology. Normal spinal canal. Normal neuroforamina. C4-C5: Unremarkable. Normal disc height and morphology. Normal spinal canal. Normal neuroforamina. C5-C6: See above. C6-C7: Unremarkable. Normal disc height and morphology. Normal spinal canal. Normal neuroforamina. C7-T1: Unremarkable. Normal disc height and morphology. Normal spinal canal. Normal neuroforamina. OTHER FINDINGS: No suspicious fluid collections. MRI/Spine Cervical (Routine) IMPRESSION: No acute findings in the cervical spine. Minimal degenerative change at C5-C6. No frankly extruded disc or ernesto spinal stenosis. Electronically Signed: Jennifer Gray MD at 4:39 EDT ,
== END | disposition home or self-care (01) ==
LOC: MRI 06:55
PROVIDERS: PCP Internal Medicine; Visit Provider Nurse Practitioner
DX: M54.12 Radiculopathy, cervical region (principal)
CPT/HCPCS: 72141

== ENCOUNTER 2022-05-08 04:10 | Emergency (ER) | payer OTHER, SELFPAY ==
[2022-05-08 04:11] VITALS: BP 156/85; PULSE 124; RESP 15; TEMP 36.4; O2SAT 96; BMI 31.1
--- NOTE | 2022-05-08 04:32 | EX.ED.DYSGE1 ---
HPI History of Present Illness Chief Complaint: Other, Pain/Inj Narrative Narrative: Patient is a 61-year-old male with history of lupus and previous DVT as well as diabetes. He states that he missed a dose of his Lovenox recently and then after this noticed pain swelling warmth and redness to his left lower leg. He denies any trauma prior to the symptoms began. He denies any fevers or chills. He denies any chest pain or shortness of breath. He states that he is continue to take his Lovenox but has had persistent pain and secondary to this comes in for evaluation [facility] Medical History Anxiety Carcinoma of colon Cranial nerve III palsy Deep venous thrombosis of lower extremity Diabetes HTN (hypertension) Lupus anticoagulant disorder Migraine Presence of IVC filter Pulmonary embolism Home Medications enoxaparin 120 mg/0.8 mL subcutaneous syringe 120 mg subcut BID lupus 12/04/14 [History Last Taken 01/21/19] metoprolol tartrate 25 mg tablet 25 mg PO BID arrythmia 12/04/14 [History Last Taken 04/14/20 05:00] lisinopril 10 mg tablet 10 mg PO BID blood pressure 01/11/18 [History Last Taken 01/21/19] famotidine 20 mg tablet 20 mg PO BID GERD 01/15/19 [History Last Taken 01/21/19] insulin lispro 100 unit/mL subcutaneous pen See Protocol SQ ACHS ##2 01/17/19 [Rx Last Taken 01/21/19] gemfibrozil 600 mg tablet 600 mg PO DAILY DIABETES 01/21/19 [History Last Taken 01/21/19] glimepiride 4 mg tablet 8 mg PO DAILY DIABETES 01/21/19 [History Last Taken 01/21/19] insulin glargine 100 unit/mL (3 mL) subcutaneous pen 20 - 30 unit subcut BID DM 01/21/19 [History Last Taken 01/20/19] oxycodone-acetaminophen 5 mg-325 mg tablet (Percocet) 1 tab PO Q6H PRN pain 3 days #12 tabs 05/08/22 [Rx Last Taken Unknown] Allergy/AdvReac Type Severity Reaction Status Date / Time Penicillins [PCN] Allergy Unknown Verified 05/08/22 04:15 acetaminophen [From Vicodin] AdvReac dopey Verified 05/08/22 04:15 hydrocodone [From Vicodin] AdvReac dopey Verified 05/08/22 04:15 morphine AdvReac loopy Verified 05/08/22 04:15 Family History (Updated 05/08/22 @ 04:[address] Tatiana Sanchez MD) Mother Cancer VTE (venous thromboembolism) Clotting disorder Surgical History (Updated 05/08/22 @ 04:[address] Tatiana Sanchez MD) History of vascular surgery S/P colectomy S/P hernia repair S/P partial colectomy S/P vasectomy Social History (Updated 05/08/22 @ 04:[address] Tatiana Sanchez MD) household members: spouse Smoking Status: Former smoker alcohol intake: current alcohol intake frequency: holidays/special occasions only substance use type: marijuana ROS ROS ED Constitutional Constitutional ED: Denies chills or fever(s) ENT ENT ED: Denies sore throat Cardiovascular Cardiovascular: Denies chest pain Respiratory/Chest Respiratory/Chest: Denies cough or dyspnea Gastrointestinal Gastrointestinal: Reports diarrhea, nausea and vomiting; Denies abdominal pain Genitourinary Genitourinary ED: Denies dysuria Musculoskeletal Musculoskeletal: Reports other Details: Positive of leg pain ; Denies myalgias Integumentary Reports other Details: Positive redness and warmth ; Denies rash Neurologic Neurologic: Denies headache(s) Hematologic/Lymphatic Hematologic/Lymphatic: Reports easy bleeding and easy bruising EXAM Physical Exam Const Vital Signs: 05/08/22 04:11 Temperature 97.6 F L Temperature Source Temporal Pulse Rate 124 H Respiratory Rate 15 Blood Pressure 156/85 H Blood Pressure Mean 108 Pulse Ox 96 Oxygen Delivery Method Room Air Positive well nourished and well developed General Appearance ED: well developed Eyes PERRL and EOMs intact bilaterally Neck supple Resp normal respiratory effort and clear to auscultation bilaterally Cardio regular rhythm Rate: tachycardic and other Other Details: Tachycardic rate with regular rhythm. Radial pulses are plus 2 out of 4 bilaterally are equal and symmetric. GI non-tender and non-distended GI Narrative: No voluntary guarding or rigidity no pulsatile mass Auscultation: hyperactive bowel sounds Palpation: soft Extremity Extremity Narrative: Left lower extremity is asymmetrically swollen compared to right. There is pain with palpation of the left lower leg with positive Homans' sign. There is asymmetric erythema and warmth as well without obvious abscess or lymphangitic streaking. Neuro oriented x3 and CN's II-XII intact bilaterally Sensorium / Orientation: alert Psych mental status grossly normal Skin Skin Narrative: Asymmetric erythema and warmth to the left lower leg as documented above MDM MDM MDM Narrative Medical decision making narrative: Patient presented to the ER afebrile mildly hypertensive and tachycardic which I felt was related to his pain and satting in the high 90s on room air. With his history and physical exam there is concern that his leg pain is from an acute DVT. We also discussed however as he is diabetic it could be secondary to soft tissue skin infection. I informed the patient that I cannot perform a venous duplex at this time of the night/morning. We discussed obtaining laboratory values to check for possible infectious process as well to look at his electrolytes and kidney function as he states he has had bouts of vomiting and diarrhea. The patient states that he does not want these obtained. He denies any chest pain or shortness of breath and does have the presence of an IVC filter and is only missed 1 dose of Lovenox therefore concern for pulmonary versus low despite his tachycardia. I feel tachycardia is related to pain. Therefore at this time patient will be given pain medication. He will be advised to return for an outpatient venous duplex to confirm clot. However as he is on a proper dose of Lovenox at slightly above 1 mg/kg twice a day this is a therapeutic dose for a DVT. Therefore he can continue this therapy to treat a presumed acute DVT but as he has no signs of arterial occlusion and does not want further work-up he is safe for discharge. Discharge Plan Triage Chief Complaint: Other, Pain/Inj ED Provider: Alvaro Canas Dx/Rx/DC Orders Clinical Impression: Deep venous thrombosis of lower extremity, Lupus anticoagulant disorder, Nausea vomiting and diarrhea Instructions: DVT Dc, ED Gastroenteritis, Viral (Adult) Prescriptions: New oxycodone-acetaminophen [Percocet] 5-325 mg tablet 1 tab PO Q6H PRN (Reason: pain) 3 Days Qty: 12 0RF No Action enoxaparin 120 MG/0.8 ML syringe 120 mg SC BID Label Comments: pt states Dr Hatch instructed to hold on [id number] for [id number] metoprolol tartrate 25 MG tablet 25 mg PO BID lisinopril 10 MG tablet 10 mg PO BID famotidine 20 MG tablet 20 mg PO BID insulin lispro 100 UNIT/ML insulin pen See Protocol SQ ACHS Qty: 2 0RF Protocol: 4. Sliding Scale Insulin High-Med Dosing Condition: 150-199 mg/dl = 2 units Condition: 200-259 mg/dl = 4 units Condition: 260-324 mg/dl = 6 units Condition: 325-374 mg/dl = 8 units Condition: 375-409 mg/dl = 10 units Condition: 410-449 mg/dl = 11 units Condition: Greater than 449 call physician Protocol Text: - Use for Total Daily Dose of Insulin 56-80 units - Patient who are insulin resistant or septic HIGH MEDIUM DOSING ALGORITHM gemfibrozil 600 MG tablet 600 mg PO DAILY Label Comments: TAKE 1 TABLET BY MOUTH TWICE DAILY. glimepiride 4 MG tablet 8 mg PO DAILY Label Comments: TAKE 2 TABLETS BY MOUTH DAILY WITH BREAKFAST. insulin glargine 100 UNITS/ML insulin pen 20 - 30 unit SC BID Stand Alone Forms: ED Work / School Excuse Other Ambulatory Orders: Venous Duplex US, Unilateral (Routine) Facility: [facility] - Location: [facility] Ordered By: Dr. Alvaro Canas Primary Care Provider: Enedina Magdaleno Referrals: Enedina Magdaleno DO [Primary Care Provider] - Activity Restrictions/Additional Instructions: Please continue to take your Lovenox/enoxaparin twice a day as directed. Please return to the hospital for your outpatient venous duplex to confirm acute DVT as a cause of your pain and swelling. Your Lovenox twice a day should be enough to resolve your clot but please discuss with your family doctor about the possibility of starting Coumadin for further anticoagulation control. If you develop chest pain or shortness of breath or have any further concerns please return to the ER for repeat evaluation Disposition Disposition: Home, Self Care
[2022-05-08] MEDS: HYDROmorphone 1 MG/ML Syringe 2 MG IV (04:35)
[2022-05-08] MEDS: Ondansetron 4 MG/2 ML Vial IV (04:35)
[2022-05-08 04:59] VITALS: RESP 16
--- NOTE | 2022-05-08 04:59 | NURSING ---
patient educated before giving narcotic about needing to have a ride home and patient told this RN and MD that he would go sleep in his truck. Pt verbalizes understanding that he will go and sleep in truck until 0845.
== END 2022-05-08 05:03 | disposition home or self-care (01) ==
PROVIDERS: Emergency Provider Emergency Medicine; PCP Internal Medicine; Visit Provider Emergency Medicine
DX: I82.402 Acute embolism and thrombosis of unspecified deep veins of left lower extremity (principal); D68.62 Lupus anticoagulant syndrome; E11.9 Type 2 diabetes mellitus without complications; Z79.4 Long term (current) use of insulin; F41.9 Anxiety disorder, unspecified; H49.00 Third [oculomotor] nerve palsy, unspecified eye; Z86.718 Personal history of other venous thrombosis and embolism; Z86.711 Personal history of pulmonary embolism; Z95.828 Presence of other vascular implants and grafts; G43.909 Migraine, unspecified, not intractable, without status migrainosus; Z79.899 Other long term (current) drug therapy; Z87.891 Personal history of nicotine dependence; R11.2 Nausea with vomiting, unspecified; R19.7 Diarrhea, unspecified
CPT/HCPCS: 96374; 96375; 99282; A4216; J2405

== ENCOUNTER 2022-05-08 13:26 | Outpatient (CLI) | payer OTHER, SELFPAY ==
--- NOTE | 2022-05-08 13:29 | VDLE_ITS ---
Reason For Study: Swelling Procedure LEFT This is a venous duplex using B-mode, color GSV is normal. flow and spectral Doppler. CFV is compressible, spontaneous, phasic, Exam performed in department. competent, and demonstrates normal A preliminary report was called and/or faxed augmentation. to PCP: Sharla. FV is compressible, spontaneous, phasic, competent and demonstrates normal augmentation. POP V is compressible, spontaneous, phasic, competent and demonstrates normal augmentation. T/P Trunk is compressible. PTV is compressible. LT PerV is compressible. VL/Venous Duplex US, Unilateral Interpretation Summary There is no evidence of left lower extremity deep vein thrombosis. Left great s aphenous vein appears patent and compressible segmentally. Ordering Physician: Alvaro Canas Referring Physician: Enedina Magdaleno M.D. Performed By: Anastasia Wang RVT
== END 2022-05-08 23:59 | disposition home or self-care (01) ==
LOC: CVS 13:27
PROVIDERS: PCP Internal Medicine; Referring Provider Emergency Medicine; Visit Provider Emergency Medicine
DX: M79.89 Other specified soft tissue disorders (principal); I82.402 Acute embolism and thrombosis of unspecified deep veins of left lower extremity; D68.62 Lupus anticoagulant syndrome; E11.9 Type 2 diabetes mellitus without complications; Z97.4 Presence of external hearing-aid; H49.00 Third [oculomotor] nerve palsy, unspecified eye; Z86.718 Personal history of other venous thrombosis and embolism; Z86.711 Personal history of pulmonary embolism; Z95.828 Presence of other vascular implants and grafts; G43.909 Migraine, unspecified, not intractable, without status migrainosus; Z79.899 Other long term (current) drug therapy; Z87.891 Personal history of nicotine dependence; R11.2 Nausea with vomiting, unspecified; R19.7 Diarrhea, unspecified
CPT/HCPCS: 93971; 96374; 96375; 99282; A4216; J2405

== ENCOUNTER → 2022-05-09 | Outpatient (CLI) | payer OTHER, SELFPAY ==
[2022-05-09 10:38] LABS: Absolute Lymphocyte Count 1.35 X10^3/uL (0.83-4.51); Absolute Neutrophil Count 3.1 X10^3/uL (2.0-7.7); Basophil# 0.03 X10^3/uL; Basophil% 0.5 % (0-1); Eosinophil# 0.26 X10^3/uL; Eosinophils% 4.7 % (0-5); Hematocrit 36.8 % (40-54); Hemoglobin 12.9 g/dL (13.0-16.5); Lymphocyte # 1.35 X10^3/ul (0.83-4.51); Lymphocyte % 24.4 % (19-41); Mean Corp Hgb Conc 35.1 g/dL (32-36); Mean Corpuscular Hgb 31.3 pg (27.0-32.0); Mean Corpuscular Volume 89.3 fL (80-94); Mean Platelet Vol. 10.8 fl (6.2-12.0); Monocyte% 14.5 % (0-10); NRBC Flagged by Analyzer 0 % (0-5); Neutrophil # 3.07 X10^3/uL (2.7-7.7); Neutrophil % 55.5 % (47-70); Platelet Count 220 K/mm3 (150-450); RBC Distribution Width CV 13.1 % (11.6-14.6); RBC Distribution Width SD 42.9 fl (35.1-43.9); Red Blood Count 4.12 M/mm3 (4.6-6.2); White Blood Count 5.5 K/mm3 (4.4-11.0)
[2022-05-09 11:14] LABS: ALB/GLOB Ratio 1.1 RATIO (0.9-2.4); AST(SGOT) 18 U/L (15-37); Alanine Aminotransfer ALT/SGPT 41 U/L (16-61); Albumin, Serum 4.2 g/dL (3.2-5.0); Alkaline Phosphatase 80 U/L (45-117); Anion Gap 8 (5-15); BUN 21 mg/dL (7-18); BUN/Creat Ratio 25.5 RATIO (10-20); Chloride 100 mmol/L (98-107); Creatinine, Serum 0.82 mg/dL (0.70-1.30); EST Glomerular Filtration Rate 101 mL/min (>60); Est Glom Filt Rate - Afr Amer 122 mL/min (>60); Globulin 3.8 g/dL (2.2-4.2); Glucose 197 mg/dL (74-106); Potassium 4.4 mmol/L (3.5-5.1); Sodium Level 136 mmol/L (136-145)
== END | disposition home or self-care (01) ==
LOC: LABSPEC 10:27
PROVIDERS: PCP Internal Medicine; Visit Provider Nurse Practitioner Family
DX: L03.116 Cellulitis of left lower limb (principal)
CPT/HCPCS: 80053; 85025

== ENCOUNTER 2022-10-25 08:16 | Emergency (ER) | payer OTHER, SELFPAY ==
[2022-10-25 08:17] VITALS: BP 186/71; PULSE 64; RESP 14; TEMP 36.2; O2SAT 98; BMI 32.8
--- NOTE | 2022-10-25 08:49 | CT_ITS ---
STUDY: CT ABDOMEN AND PELVIS WITHOUT CONTRAST REASON FOR EXAM: Male, 61 years old. Kidney Stone. Left flank pain. History of lupus. RADIATION DOSAGE (If Supplied By Facility): CTDIvol = ( 15.72 ) mGy, DLP = ( 844.40 ) mGycm TECHNIQUE: Transaxial images were obtained from the dome of the diaphragm to the symphysis pubis without oral contrast, and without intravenous contrast. Sagittal and coronal images were reconstructed. Individualized dose optimization techniques were used for this CT. COMPARISON: Comparison is made with prior examination dated 10/14/2018. FINDINGS: Minimal degree of increased linear markings at the lung bases suggestive of atelectasis and/or scarring. Coronary artery calcification. There is decreased attenuation of the liver consistent with steatosis. Hepatomegaly. There are multiple gallstones. There is mild splenomegaly. Normal pancreas. Normal bilateral adrenal glands. Normal right kidney. Stable left renal cysts. Normal visualized stomach. Normal small intestine. Surgical anastomosis seen at the rectal region. The appendix is visualized and appears normal. There is diffuse atherosclerotic calcification of the abdominal aorta and its major visceral branches, without a demonstrated aneurysm. There is an IVC filter in place. There is borderline retroperitoneal lymphadenopathy with enlarged nodes no greater than 10mm in the short axis diameter. The bladder is not well distended. There is evidence of diffuse bladder wall thickening. There are prostatic calcifications. Stable prominence of the soft tissues in the presacral space. This may be related to prior surgery or radiation. There is evidence of prior ventral hernia repair with a mesh. There are diffuse degenerative changes of the visualized lumbar spine. CT/Abdomen/Pelvis without Cont IMPRESSION: No evidence of obstructive uropathy. Stable examination. Electronically Signed: Yogesh Herrera MD at 10:05 [facility] ,
[2022-10-25] MEDS: fentaNYL 100 MCG/2 ML Ampul 50 MCG IV (09:00)
[2022-10-25] MEDS: Ketorolac 15 MG/ML Vial IV (09:01)
[2022-10-25 09:13] LABS: Bacteria 0 SEEN /hpf (None Seen); Mucous, Urine 0 SEEN /hpf (<or=2+); Red Blood Cells-Urine 0 SEEN /hpf (0-5); Squamous Epithelial Cells - UA 0 SEEN /hpf (0-5); White Blood Cells 0 SEEN /hpf (0-5)
[2022-10-25 09:17] LABS: Absolute Lymphocyte Count 1.43 X10^3/uL (0.83-4.51); Absolute Neutrophil Count 2.4 X10^3/uL (2.0-7.7); Basophil# 0.03 X10^3/uL; Basophil% 0.7 % (0-1); Eosinophil# 0.15 X10^3/uL; Eosinophils% 3.3 % (0-5); Hematocrit 38.5 % (40-54); Hemoglobin 13.7 g/dL (13.0-16.5); Lymphocyte # 1.43 X10^3/ul (0.83-4.51); Lymphocyte % 31.2 % (19-41); Mean Corp Hgb Conc 35.6 g/dL (32-36); Mean Corpuscular Hgb 30.5 pg (27.0-32.0); Mean Corpuscular Volume 85.7 fL (80-94); Mean Platelet Vol. 10.5 fl (6.2-12.0); Monocyte# 0.62 X10^3/uL; Monocyte% 13.5 % (0-10); NRBC Flagged by Analyzer 0 % (0-5); Neutrophil # 2.35 X10^3/uL (2.7-7.7); Neutrophil % 51.1 % (47-70); Platelet Count 156 K/mm3 (150-450); RBC Distribution Width CV 12.8 % (11.6-14.6); Red Blood Count 4.49 M/mm3 (4.6-6.2); White Blood Count 4.6 K/mm3 (4.4-11.0)
[2022-10-25 09:18] LABS: Color, Urine Yellow (Yellow); Glucose, Dipstick 50 mg/dl (Normal); Ketone-Dipstick Negative (Negative); Leukocyte Esterase-Dipstick Negative /ul (Negative); Nitrite-Dipstick Negative (Negative); Occult Blood-Urine Negative /ul (Negative); Protein-Dipstick Negative (Negative); Specific Gravity, Urine 1.015 (1.002-1.030); Urine Bilirubin Dipstick Negative (Negative); Urine Clarity Clear (Clear); Urine Urobilinogen Normal (Normal); Urine pH 6.5 (5.0 - 8.0)
[2022-10-25 09:33] LABS: Anion Gap 6 (5-15); BUN 14 mg/dL (7-18); BUN/Creat Ratio 18.8 RATIO (10-20); Calcium,Total 10.1 mg/dL (8.5-10.1); Chloride 102 mmol/L (98-107); Creatinine, Serum 0.75 mg/dL (0.70-1.30); EST Glomerular Filtration Rate 113 mL/min (>60); Est Glom Filt Rate - Afr Amer 136 mL/min (>60); Estimated Creatinine Clearance 102.12 ml/min; Glucose 250 mg/dL (74-106); Potassium 4.4 mmol/L (3.5-5.1); Sodium Level 136 mmol/L (136-145)
--- NOTE | 2022-10-25 09:45 | EDS_ITS ---
HPI HPI - GI History of Present Illness Chief Complaint: Flank Pain Informant: patient Abdominal Pain/Flank Pain Onset: Weeks (3) Context: Gradual Onset Timing: Intermittent and Waxes and wanes Quality: Aching Location: - (left low back) Current Severity: Severe Maximum Severity: Severe Worsened by: Nothing; Not Worsened By Movement Relieved by: Nothing (Tried smoking marijuana, taking muscle relaxer that may be baclofen, and [id number] pain relievers) Nausea/Vomiting/Emesis GI Symptom: Negative for Nausea or Vomiting Diarrhea/Melena/Hematochezia GI Symptom: Negative for Diarrhea, Melena or Hematochezia Associated Symptoms Associated Symptoms: Negative for Dysuria, Frequency or Hematuria Narrative Narrative: Patient has been having 3 weeks of pain in his left low back that is now so severe that he presents to have it evaluated. He denies any radiation of the pain into his flank or his abdomen or groin. He has never had this before. No known history of kidney stones. 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 He has a history of needing to sit down in order to urinate since his abdominal surgery, however he denies any new urinary symptoms. The pain has been colicky in his low back. [facility] Medical History Anxiety Carcinoma of colon Cranial nerve III palsy Deep venous thrombosis of lower extremity Diabetes HTN (hypertension) Lupus anticoagulant disorder Migraine Presence of IVC filter Pulmonary embolism Home Medications enoxaparin 120 mg/0.8 mL subcutaneous syringe 120 mg subcut BID lupus 12/04/14 [History Last Taken 01/21/19] metoprolol tartrate 25 mg tablet 25 mg PO BID arrythmia 12/04/14 [History Last Taken 04/14/20 05:00] lisinopril 10 mg tablet 10 mg PO BID blood pressure 01/11/18 [History Last Taken 01/21/19] famotidine 20 mg tablet 20 mg PO BID GERD 01/15/19 [History Last Taken 01/21/19] insulin lispro 100 unit/mL subcutaneous pen See Protocol SQ ACHS ##2 01/17/19 [Rx Last Taken 01/21/19] gemfibrozil 600 mg tablet 600 mg PO DAILY DIABETES 01/21/19 [History Last Taken 01/21/19] glimepiride 4 mg tablet 8 mg PO DAILY DIABETES 01/21/19 [History Last Taken 01/21/19] insulin glargine 100 unit/mL (3 mL) subcutaneous pen 20 - 30 unit subcut BID DM 01/21/19 [History Last Taken 01/20/19] oxycodone-acetaminophen 5 mg-325 mg tablet (Percocet) 1 tab PO Q6H PRN pain 3 days #12 tabs 05/08/22 [Rx Last Taken Unknown] cyclobenzaprine 10 mg tablet 10 mg PO TID PRN Muscle Spasm #20 TABLETS 10/25/22 [Rx Last Taken Unknown] meloxicam 7.5 mg tablet 7.5 mg PO DAILY #10 tabs 10/25/22 [Rx Last Taken Unknown] oxycodone-acetaminophen 5 mg-325 mg tablet 1 tab PO Q6H PRN PRN Pain 3 days #12 TABLETS 10/25/22 [Rx Last Taken Unknown] Allergy/AdvReac Type Severity Reaction Status Date / Time Penicillins [PCN] Allergy Unknown Verified 10/25/22 08:17 acetaminophen [From Vicodin] AdvReac dopey Verified 10/25/22 08:17 hydrocodone [From Vicodin] AdvReac dopey Verified 10/25/22 08:17 morphine AdvReac loopy Verified 10/25/22 08:17 Family History (Updated 05/08/22 @ 04:[address] Tatiana Sanchez MD) Mother Cancer VTE (venous thromboembolism) Clotting disorder Surgical History History of vascular surgery S/P colectomy S/P hernia repair S/P partial colectomy S/P vasectomy Social History household members: spouse Smoking Status: Current some day smoker tobacco type: cigarettes alcohol intake: current alcohol intake frequency: holidays/special occasions only substance use type: marijuana ROS ROS ED Constitutional Constitutional ED: Denies chills or fever(s) Eyes Eyes: Denies change in vision or diplopia ENT ENT ED: Denies rhinorrhea or sore throat Cardiovascular Cardiovascular: Denies chest pain or palpitations Respiratory/Chest Respiratory/Chest: Denies cough or dyspnea Gastrointestinal Gastrointestinal: Denies abdominal pain, diarrhea, nausea or vomiting Genitourinary Genitourinary ED: Denies dysuria or hematuria Musculoskeletal Musculoskeletal: Reports back pain; Denies neck pain Integumentary Denies abscess or rash Neurologic Neurologic: Denies headache(s), paresthesias or weakness Psychiatric Psychiatric: Denies anxiety or suicidal thoughts EXAM Physical Exam Const Vital Signs: 10/25/22 08:17 Temperature 97.1 F L Temperature Source Temporal Pulse Rate 64 Respiratory Rate 14 Blood Pressure 186/71 H Blood Pressure Mean 109 Pulse Ox 98 Oxygen Delivery Method Room Air Positive well nourished and well developed General Appearance ED: well developed and NAD HEENT Reports moist mucous membranes normocephalic and atraumatic Eyes PERRL and EOMs intact bilaterally Neck full ROM and supple Resp normal respiratory effort and clear to auscultation bilaterally Cardio regular rate, regular rhythm and no murmurs GI non-tender and non-distended Auscultation: normoactive bowel sounds Palpation: soft Back/Spine Back/Spine Narrative: No pain with superficial palpation of the left low back which is normal on inspection with no rash, but there is significant left CVA tenderness, none on the right. General Back: other FROM Extremity normal to inspection General Extremety ED: Negative for edema, pulses abnormal or tenderness General Extremity: Negative for edema or pulses abnormal Neuro oriented x3, CN's II-XII intact bilaterally, no sensory deficits noted and gait normal Sensorium / Orientation: awake and alert Motor Exam: strength 5/5 throughout Skin no rashes or lesions noted and no wounds MDM MDM MDM Narrative Medical decision making narrative: Possible kidney stone, possible retroperitoneal pathology, CT was ordered, labs, pain and nausea medications. My interpretation of the CT agrees with that of the radiologist. Basically negative. On reevaluation, the rest of his work-up is negative including the urine, patient is feeling a little better but still having discomfort. He states he feels a little swollen back there in his back where it hurts. 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 I encouraged him to try to stretch out the area but I can discharge him home on prescriptions. He used to be on Dilaudid, he states that really bound him up with regards to bowel movements but he can take Vicodin and oxycodone okay. We will prescribe him a short course of oxycodone in addition to cyclobenzaprine and meloxicam. He is comfortable with that plan. Also checked outside report from [facility], no recent narcotic prescriptions. Lab Data Attestation: I reviewed the patient's lab results. Labs: Laboratory Results - last 24 hr 10/25/22 10/25/22 10/25/22 09:00 09:00 09:00 WBC 4.6 RBC 4.49 L Hgb 13.7 Hct 38.5 L MCV 85.7 MCH 30.5 MCHC 35.6 RDW Std Deviation 40.0 RDW Coeff of Yolanda 12.8 Plt Count 156 MPV 10.5 Immature Gran % (Auto) 0.200 Neut % (Auto) 51.1 Lymph % (Auto) 31.2 [place] % (Auto) 13.5 H Eos % (Auto) 3.3 Baso % (Auto) 0.7 Absolute Neuts (auto) 2.4 Absolute Lymphs (auto) 1.43 Nucleated RBC % 0 Sodium 136 Potassium 4.4 Chloride 102 Carbon Dioxide 28.0 Anion Gap 6 BUN 14 Creatinine 0.75 Estim Creat Clear Calc 102.12 Est GFR (MDRD) Af Amer 136 Est GFR (MDRD) Non-Af 113 BUN/Creatinine Ratio 18.8 Glucose 250 H Calcium 10.1 Urine Color Yellow Urine Clarity Clear Urine pH 6.5 Ur Specific [place] 1.015 Urine Protein Negative Urine Glucose (UA) 50 H Urine Ketones Negative Urine Occult Blood Negative Urine Nitrite Negative Urine Bilirubin Negative Urine Urobilinogen Normal Ur Leukocyte Esterase Negative Urine RBC 0 SEEN Urine WBC 0 SEEN Ur Squamous Epith Cells 0 SEEN Urine Bacteria 0 SEEN Urine Mucus 0 SEEN Radiography Diagnostic Testing: Clinical Impression(s) from Imaging Studies Abdomen/Pelvis CT 10/25/22 08:49 IMPRESSION: No evidence of obstructive uropathy. Stable examination. Electronically Signed: Yogesh Herrera MD at 10:05 EST , Discharge Plan Triage Chief Complaint: Flank Pain ED Provider: Mark Armijo Dx/Rx/DC Orders Clinical Impression: Acute left-sided low back pain Instructions: Self-Care for Low Back Pain, ED Back Pain (Acute or Chronic) Prescriptions: New cyclobenzaprine [cyclobenzaprine] 10 mg tablet 10 mg PO TID PRN (Reason: Muscle Spasm) Qty: 20 0RF oxycodone-acetaminophen [oxycodone-acetaminophen] 5-325 mg tablet 1 tab PO Q6H PRN PRN (Reason: Pain) 3 Days Qty: 12 0RF meloxicam 7.5 mg tablet 7.5 mg PO DAILY Qty: 10 0RF No Action enoxaparin 120 MG/0.8 ML syringe 120 mg SC BID Label Comments: pt states Dr Hatch instructed to hold on [id number] for [id number] metoprolol tartrate 25 MG tablet 25 mg PO BID lisinopril 10 MG tablet 10 mg PO BID famotidine 20 MG tablet 20 mg PO BID insulin lispro 100 UNIT/ML insulin pen See Protocol SQ ACHS Qty: 2 0RF Protocol: 4. Sliding Scale Insulin High-Med Dosing Condition: 150-199 mg/dl = 2 units Condition: 200-259 mg/dl = 4 units Condition: 260-324 mg/dl = 6 units Condition: 325-374 mg/dl = 8 units Condition: 375-409 mg/dl = 10 units Condition: 410-449 mg/dl = 11 units Condition: Greater than 449 call physician Protocol Text: - Use for Total Daily Dose of Insulin 56-80 units - Patient who are insulin resistant or septic HIGH MEDIUM DOSING ALGORITHM gemfibrozil 600 MG tablet 600 mg PO DAILY Label Comments: TAKE 1 TABLET BY MOUTH TWICE DAILY. glimepiride 4 MG tablet 8 mg PO DAILY Label Comments: TAKE 2 TABLETS BY MOUTH DAILY WITH BREAKFAST. insulin glargine 100 UNITS/ML insulin pen 20 - 30 unit SC BID oxycodone-acetaminophen [Percocet] 5-325 mg tablet 1 tab PO Q6H PRN (Reason: pain) 3 Days Qty: 12 0RF Stand Alone Forms: ED Work / School Excuse Primary Care Provider: Enedina Magdaleno Referrals: Enedina Magdaleno DO [Primary Care Provider] - 1 Week if not improving Disposition Disposition: Home, Self Care
[2022-10-25 12:10] VITALS: BP 177/80; PULSE 68; RESP 18; O2SAT 98
--- NOTE | 2022-10-25 12:10 | ED.RN ---
PT EDUCATED NOT TO DRIVE AFTER HAVING NARCOTIC MEDICATION FOR 6 HOURS PT VERBALIZES UNDERSTANDING. PT OK TO DRIVE AGAIN AT 1510. PT REPORTS HE WILL GO OUT TO HIS TRUCK AND TRAKE A NAP UNTIL HE IS ABLE TO DRIVE HOME.
== END 2022-10-25 12:12 | disposition home or self-care (01) ==
PROVIDERS: Emergency Provider Emergency Medicine; PCP Internal Medicine; Visit Provider Emergency Medicine
DX: M54.50 Low back pain, unspecified (principal); E11.9 Type 2 diabetes mellitus without complications; I10 Essential (primary) hypertension; F17.210 Nicotine dependence, cigarettes, uncomplicated
CPT/HCPCS: 74176; 80048; 81001; 85025; 96374; 96375; 99282

== ENCOUNTER → 2023-11-09 | Outpatient (CLI) | payer OTHER, SELFPAY ==
--- OUTSIDE RECORDS SUMMARY | 2023-11-09 08:19 | XMS RPT_ITS | CCD ---
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 DO Date Dictated: 05/08/22 1337 Date Transcribed: 05/08/221532 Digital Art Director: Jonel Magdaleno DO Work Phone: Start: 05-08-2022 End: 05-08-2022 Emergency Department Summary Comments: See Note; NOTES: [facility] Medical Records Department [address] [place] [address] Emergency Department Summary 05/08/22 MR#: [id number] Acct: [id number] Name: VALERIA VARGAS Rep #: [id number] : 1960 61 From: Alvaro Canas DO PCP: Dr. Enedina Magdaleno DO Status:REG ER Location: ED HPI History of Present Illness Chief Complaint: Other, Pain/Inj Narrative Narrative: Patient is a 61-year-old male with history of lupus and previous DVT as well as diabetes. He states that he missed a dose of his Lovenox recently and then after this noticed pain swelling warmth and redness to his left lower leg. He denies any trauma prior to the symptoms began. He denies any fevers or chills. He denies any chest pain or shortness of breath. He states that he is continue to take his Lovenox but has had persistent pain and secondary to this comes in for evaluation [facility] Medical History Anxiety Carcinoma of colon Cranial nerve III palsy Deep venous thrombosis of lower extremity Diabetes HTN (hypertension) Lupus anticoagulant disorder Migraine Presence of IVC filter Pulmonary embolism Home Medications enoxaparin 120 mg/0.8 mL subcutaneous syringe 120 mg subcut BID lupus 12/04/14 [History Last Taken 01/21/19] metoprolol tartrate 25 mg tablet 25 mg PO BID arrythmia 12/04/14 [History Last Taken 04/14/20 05:00] lisinopril 10 mg tablet 10 mg PO BID blood pressure 01/11/18 [History Last Taken 01/21/19] famotidine 20 mg tablet 20 mg PO BID GERD 01/15/19 [History Last Taken 01/21/19] insulin lispro 100 unit/mL subcutaneous pen See Protocol SQ ACHS ##2 01/17/19 [Rx Last Taken 01/21/19] gemfibrozil 600 mg tablet 600 mg PO DAILY DIABETES 01/21/19 [History Last Taken 01/21/19] glimepiride 4 mg tablet 8 mg PO DAILY DIABETES 01/21/19 [History Last Taken 01/21/19] insulin glargine 100 unit/mL (3 mL) subcutaneous pen 20 - 30 unit subcut BID DM 01/21/19 [History Last Taken 01/20/19] oxycodone-acetaminophen 5 mg-325 mg tablet (Percocet) 1 tab PO Q6H PRN pain 3 days #12 tabs 05/08/22 [Rx Last Taken Unknown] Allergy/AdvReac Type Severity Reaction Status Date / Time Penicillins [PCN] Allergy Unknown Verified 05/08/22 04:15 acetaminophen [From Vicodin] AdvReac dopey Verified 05/08/22 04:15 hydrocodone [From Vicodin] AdvReac dopey Verified 05/08/22 04:15 morphine AdvReac loopy Verified 05/08/22 04:15 Family History (Updated 05/08/22 @ 04:[address] Tatiana Sanchez MD) Mother Cancer VTE (venous thromboembolism) Clotting disorder Surgical History (Updated 05/08/22 @ 04:[address] Tatiana Sanchez MD) History of vascular surgery S/P colectomy S/P hernia repair S/P partial colectomy S/P vasectomy Social History (Updated 05/08/22 @ 04:[address] Tatiana Sanchez MD) household members: spouse Smoking Status: Former smoker alcohol intake: current alcohol intake frequency: holidays/special occasions only substance use type: marijuana ROS ROS ED Constitutional Constitutional ED: Denies chills or fever(s) ENT ENT ED: Denies sore throat Cardiovascular Cardiovascular: Denies chest pain Respiratory/Chest Respiratory/Chest: Denies cough or dyspnea Gastrointestinal Gastrointestinal: Reports diarrhea, nausea and vomiting; Denies abdominal pain Genitourinary Genitourinary ED: Denies dysuria Musculoskeletal Musculoskeletal: Reports other Details: Positive of leg pain ; Denies myalgias Integumentary Reports other Details: Positive redness and warmth ; Denies rash Neurologic Neurologic: Denies headache(s) Hematologic/Lymphatic Hematologic/Lymphatic: Reports easy bleeding and easy bruising EXAM Physical Exam Const Vital Signs: 05/08/22 04:11 Temperature 97.6 F L Temperature Source Temporal Pulse Rate 124 H Respiratory Rate 15 Blood Pressure 156/85 H Blood Pressure Mean 108 Pulse Ox 96 Oxygen Delivery Method Room Air Positive well nourished and well developed General Appearance ED: well developed Eyes PERRL and EOMs intact bilaterally Neck supple Resp normal respiratory effort and clear to auscultation bilaterally Cardio regular rhythm Rate: tachycardic and other Other Details: Tachycardic rate with regular rhythm. Radial pulses are plus 2 out of 4 bilaterally are equal and symmetric. GI non-tender and non-distended GI Narrative: No voluntary guarding or rigidity no pulsatile mass Auscultation: hyperactive bowel sounds Palpation: soft Extremity Extremity Narrative: Left lower extremity is asymmetrically swollen compared to right. There is pain with palpation of the left lower leg with positive Homans' sign. There is asymmetric erythema and warmth as well without obvious abscess or lymphangitic streaking. Neuro oriented x3 and CN's II-XII intact bilaterally Sensorium / Orientation: alert Psych mental status grossly normal Skin Skin Narrative: Asymmetric erythema and warmth to the left lower leg as documented above MDM MDM MDM Narrative Medical decision making narrative: Patient presented to the ER afebrile mildly hypertensive and tachycardic which I felt was related to his pain and satting in the high 90s on room air. With his history and physical exam there is concern that his leg pain is from an acute DVT. We also discussed however as he is diabetic it could be secondary to soft tissue skin infection. I informed the patient that I cannot perform a venous duplex at this time of the night/morning. We discussed obtaining laboratory values to check for possible infectious process as well to look at his electrolytes and kidney function as he states he has had bouts of vomiting and diarrhea. The patient states that he does not want these obtained. He denies any chest pain or shortness of breath and does have the presence of an IVC filter and is only missed 1 dose of Lovenox therefore concern for pulmonary versus low despite his tachycardia. I feel tachycardia is related to pain. Therefore at this time patient will be given pain medication. He will be advised to return for an outpatient venous duplex to confirm clot. However as he is on a proper dose of Lovenox at slightly above 1 mg/kg twice a day this is a therapeutic dose for a DVT. Therefore he can continue this therapy to treat a presumed acute DVT but as he has no signs of arterial occlusion and does not want further work-up he is safe for discharge. Discharge Plan Triage Chief Complaint: Other, Pain/Inj ED Provider: Alvaro Canas Dx/Rx/DC Orders Clinical Impression: Deep venous thrombosis of lower extremity, Lupus anticoagulant disorder, Nausea vomiting and diarrhea Instructions: DVT Dc, ED Gastroenteritis, Viral (Adult) Prescriptions: New oxycodone-acetaminophen [Percocet] 5-325 mg tablet 1 tab PO Q6H PRN (Reason: pain) 3 Days Qty: 12 0RF No Action enoxaparin 120 MG/0.8 ML syringe 120 mg SC BID Label Comments: pt states Dr Hatch instructed to hold on [id number] for [id number] metoprolol tartrate 25 MG tablet 25 mg PO BID lisinopril 10 MG tablet 10 mg PO BID famotidine 20 MG tablet 20 mg PO BID insulin lispro 100 UNIT/ML insulin pen See Protocol SQ ACHS Qty: 2 0RF Protocol: 4. Sliding Scale Insulin High-Med Dosing Condition: 150-199 mg/dl = 2 units Condition: 200-259 mg/dl = 4 units Condition: 260-324 mg/dl = 6 units Condition: 325-374 mg/dl = 8 units Condition: 375-409 mg/dl = 10 units Condition: 410-449 mg/dl = 11 units Condition: Greater than 449 call physician Protocol Text: - Use for Total Daily Dose of Insulin 56-80 units - Patient who are insulin resistant or septic HIGH MEDIUM DOSING ALGORITHM gemfibrozil 600 MG tablet 600 mg PO DAILY Label Comments: TAKE 1 TABLET BY MOUTH TWICE DAILY. glimepiride 4 MG tablet 8 mg PO DAILY Label Comments: TAKE 2 TABLETS BY MOUTH DAILY WITH BREAKFAST. insulin glargine 100 UNITS/ML insulin pen 20 - 30 unit SC BID Stand Alone Forms: ED Work / School Excuse Other Ambulatory Orders: Venous Duplex US, Unilateral (Routine) Facility: [facility] - Location: [facility] Ordered By: Dr. Alvaro Canas Primary Care Provider: Enedina Magdaleno Referrals: Enedina Magdaleno DO [Primary Care Provider] - Activity Restrictions/Additional Instructions: Please continue to take your Lovenox/enoxaparin twice a day as directed. Please return to the hospital for your outpatient venous duplex to confirm acute DVT as a cause of your pain and swelling. Your Lovenox twice a day should be enough to resolve your clot but please discuss with your family doctor about the possibility of starting Coumadin for further anticoagulation control. If you develop chest pain or shortness of breath or have any further concerns please return to the ER for repeat evaluation Disposition Disposition: Home, Self Care What to do if you have Problems For any increased pain, shortness of breath, bleeding, nausea or vomiting, chest pain, or any unexpected problems, contact your Primary Care Provider. Call [facility] ([phone]) or report to the closest Emergency Room. Call 911 if necessary. 05/08/22 9010 <Electronically signed by Alvaro Canas DO> Cosigner Signature (if applicable): CC: Dr. Enedina Magdaleno DO Signed Enedina Magdaleno DO Work Phone: Start: 02-13-2022 End: 02-14-2022 Spine Cervical (Routine) Comments: See Note; NOTES: [facility] Imaging Services [address] [place] [address] Spine Cervical (Routine) MR#: [id number] Acct: [id number] Name: VALERIA VARGAS Rep #: [id number] : 1960 M 61 From: Jennifer Gray MD PCP: Dr. Enedina Magdaleno DO Status: REG CLI Study: Spine Cervical (Routine) Date of Exam: Exam# [id number] Ordering Dr: Julia Mckeon NP MEDICAL ASST-C EXAM: MR CERVICAL SPINE WITHOUT INTRAVENOUS CONTRAST CLINICAL INDICATION: RADICULOPATHY, NECK PAIN, LEFT ARM PAIN TECHNIQUE: Multiplanar and multisequence MR images of the cervical spine without intravenous contrast were performed. This report was created using [employer] report generation technology. COMPARISON: None. FINDINGS: VERTEBRAE: Straightening of the usual lordotic curvature. No significant spondylolisthesis. Minimal spondylosis and slight associated bulging discs at C5-C6 mildly narrowing the right thecal sac and slightly flattening the right ventral cord contour without ernesto spinal stenosis. Normal craniocervical junction and cervicothoracic junction. SPINAL CORD: Unremarkable in signal and morphology. SOFT TISSUES: Unremarkable. No prevertebral soft tissue swelling. LYMPH NODES: Unremarkable. There is no cervical adenopathy. DISCS/SPINAL CANAL/NEURAL FORAMINA: C2-C3: Unremarkable. Normal disc height and morphology. Normal spinal canal. Normal neuroforamina. C3-C4: Unremarkable. Normal disc height and morphology. Normal spinal canal. Normal neuroforamina. C4-C5: Unremarkable. Normal disc height and morphology. Normal spinal canal. Normal neuroforamina. C5-C6: See above. C6-C7: Unremarkable. Normal disc height and morphology. Normal spinal canal. Normal neuroforamina. C7-T1: Unremarkable. Normal disc height and morphology. Normal spinal canal. Normal neuroforamina. OTHER FINDINGS: No suspicious fluid collections. MRI/Spine Cervical (Routine) IMPRESSION: No acute findings in the cervical spine. Minimal degenerative change at C5-C6. No frankly extruded disc or ernesto spinal stenosis. Electronically Signed: Jennifer Gray MD at 4:39 EDT , CC: MEDICAL ASST-Alonso Mckeon; Dr. Enedina Magdaleno DO Digital Art Director: Signed Julia Mckeon Work Phone: Start: 01-30-2022 End: 01-30-2022 Re-Evaluation - PT (1) Comments: See Note; NOTES: [facility] Physical Therapy [facility] [address] [place] [address]. [address] [place] [address] / REEVALUATION / MEDICARE RECERTIFICATION PHYSICAL THERAPY MR#: [id number] Acct: [id number] Name: VALERIA VARGAS Rep #: [id number] : 1960 61 From: Andres Alegria DPT, OCS, CSCS Referring Dr.: Dr. Enedina Magdaleno DO Status:REG RCR Insurance: [facility] SELF PAY INSURANCE Dr. Enedina Magdaleno, DO, It has been my pleasure to treat VALERIA VARGAS over the last 6 visits for cervical radiculopathy.. Please see the progress note below for an update on the physical therapy plan of care! Subjective: Pt is very frustrated with pain level which is not improving with therapy. He called ER to see if they could do a full body MRI but did not visit ER over the weekend but his wanted him to. He has only been semicompliant with exercises. He changed lawnmower oil and tire last and was in a lot of pain Sunday after that which is why he cancelled hsi appointment. Objective/Function: Winces in pain with many movements today and restless, does tell some stories for 2-4 minutes with decent head movement and no painful expressions but they return quickly. Just chatted with patient today as he is very frustrated with pain, losing sleep. He is 10/10 over the weekend and wants to be done with PT and get his MRI and move onto next ttreatment. he is slightly bullheaded and wants to do his own thing but, in this case, du to lack of improvement and high level of pain, next step and back to doctor is appropriate. ROM 50 L rotation with pain, 75 R rotation at vervical, 28 ext with increased pain in L UT area. Retraction causes pain. has tingling and numbness in L arm and is weak in wrist ext, and shoulder flexion although it is hard to tell if this is myotomal or due to pain. No improvement in last two weeks. Plan Plan: Pt to schedule with doctor later today and I recommend next appropriate step(MRI, spinne doc, pain management, etc) as he is not progressing with PT. Balance/Gait/Functional tests - Balance/Special Test Scores Oswestry Neck Score: 31 Goals Goal 1:: Full cervical AROM without pain or wincing. Goal Time Frame: 4-6 Weeks Goal Progress: Not Progressing Goal 2:: patient feel 90% better in overall L neck and shoulder. Goal Time Frame: 4-6 Weeks Goal Progress: Not Progressing Goal 3:: Patient score 5 or less on neck oswestry Goal Time Frame: 4-6 Weeks Goal Progress: Not Progressing Goal 4:: pt I appropriate management of his condition Goal Time Frame: 4-6 Weeks Goal Progress: Not Progressing Anticipated Interventions Patient/Client Instruction: Educate patient on: Condition, Plan of Care For the Purpose of:: To decrease pain, To increase ROM, To improve muscle performance and motor function, To increase tolerance to activity/condition/position, To improve ability of physical actions for home/community/work/leisure Therapeutic Exercise to Include: Strength training, Postural training, Flexibilty training, Passive ROM, Active ROM, Luzmaria Exercises For the Purpose of:: To decrease pain, To increase ROM, To increase tolerance to activity/condition/position Manual Therapy Techniques to Include: Mobilization, Passive ROM, Soft tissue mobilization For the Purpose of:: To decrease pain, To increase ROM, To improve muscle performance and motor function, To increase tolerance to activity/condition/position, To improve ability of physical actions for home/community/work/leisure Please do not hesitate to contact me at [phone] by phone or if you have questions or concerns regarding this new plan of care! Sincerely, Andres Alegria DPT, OCS, CSCS <Electronically signed by Andres Alegria DPT, OCS, CSCS> 01/30/22 0923 CC: Dr. Enedina Magdaleno, DO EBG Signed For Medicare only, by signing this I certify the plan of care. Physicians Signature Date Enedina Magdaleno DO Work Phone: Start: 01-17-2022 End: 01-17-2022 Inital Evaluation (1) - PT Comments: See Note; NOTES: [facility] Physical Therapy [facility] [address] [place] [address] / REHABILITATION SERVICES INITIAL EVALUATION MR#: [id number] Acct: [id number] Name: VALERIA VARGAS Rep #: [id number] : 1960 61 From: Andres Alegria DPT, OCS, CSCS Referring Dr.: Dr. Enedina Magdaleno DO Status: REG RCR Insurance: [facility] SELF PAY INSURANCE Patient's Visit Information VALERIA VARGAS is a 61 year old M referred to Physical Therapy by Dr. Enedina Magdaleno DO with a diagnosis of cervical radiculopathy.. Date of Evaluation: 01/17/22 Physical Therapist: Andres Alegria, RONALD, OCS, CSCS - Visit Plan Frequency: 3x /Week Duration: 4-6 Weeks Plan: 2-3x/week for 4 weeks for... 1. Luzmaria based cervical retraction extension ex program and progression of forces, mobs as needed. 2. Manual therapy of STM L UT and manual traction and PROM neck as needed, ext mobs. 3. cervical and postural strengthening. ensure activity modification and return to function. - Subjective Fell 3.5 weeks ago tripping on fabric softener on step down steps. Hit L shoulder on wall and hurt neck. Xrays OK. Needs PT to have an MRI. Has been doing c/s retraction but it really hurts. 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 Sleep is not great but that is normal for her. Has sleep apnea. 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 Ice and rest has helped a little bit. Basic ADLS are getting done at home. Splits petty. - Pain L neck Pain Intensity (Out of 10): 3 Pain Intensity Range: 0, 10 Comment: numb after ice. - Objective Walks and trasnfers I and normal today. Head and hands move as he talks. Certain positions of neck will make him wince mostly L SB, or rotated or extended. Posture is foreard head and protracted scapula. Tender to palpation in L UT are minimally. cervical AROM ext deviates R and 45 degrees, r rotation 50 and L rotation 70 with pain to the right. SB R hurts vs L. UE AROM WFL and without pain. - ext rotation lag test, - HK, - neer, - drop arm, + c/s compression test L. reflexes 1/3 bi and triceps. Sensation UE WNL to gross light touch. Strength UE symmetrical and without pain today. Repeated retraction improves R rotation and ext subtly. - Balance/Special Test Scores Oswestry Neck Score: 11 - Goals Goal 1:: Full cervical AROM without pain or wincing. Goal Time Frame: 4-6 Weeks Goal 2:: patient feel 90% better in overall L neck and shoulder. Goal Time Frame: 4-6 Weeks Goal 3:: Patient score 5 or less on neck oswestry Goal Time Frame: 4-6 Weeks Goal 4:: pt I appropriate management of his condition Goal Time Frame: 4-6 Weeks - Rehabilitation Potential Physical Therapy Diagnosis: cervical radiculopathy Rehabilitation Potential: Fair - Anticipated Interventions Patient/Client Instruction: Educate patient on: Condition, Plan of Care For the Purpose of:: To decrease pain, To increase ROM, To improve muscle performance and motor function, To increase tolerance to activity/condition/position, To improve ability of physical a ctions for home/community/work/leisure Therapeutic Exercise to Include: Strength training, Postural training, Flexibilty training, Passive ROM, Active ROM, Luzmaria Exercises For the Purpose of:: To decrease pain, To increase ROM, To increase tolerance to activity/condition/position Manual Therapy Techniques to Include: Mobilization, Passive ROM, Soft tissue mobilization For the Purpose of:: To decrease pain, To increase ROM, To improve muscle performance and motor function, To increase tolerance to activity/condition/position, To improve ability of physical actions for home/community/work/leisure Thank you for the opportunity to evaluate your patient. For Medicare and Medicare HMO plans, please review the plan of care and approve it. It will need to be FAXED BACK to us at [phone] for Medicare purposes. For Medicare only, by signing this I certify the plan of care. Please let me know if there are questions or concerns regarding this plan of care. Physician Signature: ___Date: <Electronically signed by Andres Alegria DPT, OCS, CSCS> 01/17/22 1827 CC: Dr. Enedina Magdaleno DO EBG Signed Enedina Magdaleno DO Work Phone: Start: 01-11-2022 End: 01-11-2022 Emergency Department Summary Comments: See Note; NOTES: [facility] Medical Records Department [address] [place] [address] Emergency Department Summary 01/11/22 MR#: [id number] Acct: [id number] Name: VALERIA VARGAS Rep #: [id number] : 1960 61 From: Colleen Do MD PCP: Dr. Enedina Magdaleno DO Status:DEP ER Location: ED HPI History of Present Illness Chief Complaint: Other, Pain/Inj Informant: patient Onset/Context/Timing Onset: Weeks Current Severity: Moderate Maximum Severity: Severe Narrative Narrative: Patient presents with a 3-week history of neck and upper back pain. Patient states he fell down some steps 3 weeks ago. He was seen at the [facility] and given steroids and Flexeril. Patient states x-rays were performed that he was told was negative. Patient presents today with continued pain. No radicular symptoms. He is taking Tylenol and muscle relaxer at home. [facility] Medical History Anxiety Cancer Carcinoma of colon Cervical strain, acute CHI (closed head injury) Cranial nerve III palsy Deep venous thrombosis of lower extremity Diabetes Diarrhea Gastroenteritis Headache Hemorrhoids HTN (hypertension) Hyperglycemia Left shoulder strain Lupus anticoagulant disorder Migraine On anticoagulant therapy Presence of IVC filter Pulmonary embolism Right foot pain Thoracic myofascial strain Vertigo Home Medications enoxaparin 120 mg SC BID 12/04/14 [History Last Taken 01/21/19] metoprolol tartrate 25 mg PO BID 12/04/14 [History Last Taken 04/14/20 05:00] lisinopril 10 mg PO BID 01/11/18 [History Last Taken 01/21/19] famotidine 20 mg PO BID 01/15/19 [History Last Taken 01/21/19] insulin lispro See Protocol SQ ACHS #2 insuln.pen 01/17/19 [Rx Last Taken 01/21/19] gemfibrozil 600 mg PO DAILY 01/21/19 [History Last Taken 01/21/19] glimepiride 8 mg PO DAILY 01/21/19 [History Last Taken 01/21/19] insulin glargine 20 units SC BID 01/21/19 [History Last Taken 01/20/19] cyclobenzaprine 10 mg tablet 10 mg PO TID PRN #20 tab 12/28/21 [Rx Last Taken Unknown] lidocaine [Lidoderm] 1 patch TOPICAL DAILY #6 ea 01/11/22 [Rx Last Taken Unknown] oxycodone-acetaminophen [Percocet] 1 tab PO Q6H PRN 3 Days #10 tab 01/11/22 [Rx Last Taken Unknown] Allergy/AdvReac Type Severity Reaction Status Date / Time Penicillins [PCN] Allergy Unknown Verified 01/11/22 09:28 acetaminophen [From Vicodin] AdvReac dopey Verified 01/11/22 09:28 hydrocodone [From Vicodin] AdvReac dopey Verified 01/11/22 09:28 morphine AdvReac loopy Verified 01/11/22 09:28 Family History Mother Cancer Surgical History H/O colectomy S/P colectomy S/P hernia repair S/P vasectomy Social History Smoking Status: Never smoker alcohol intake: current alcohol intake frequency: holidays/special occasions only substance use type: marijuana ROS ROS ED Constitutional Constitutional ED: Denies chills or fever(s) Eyes Eyes: Denies change in vision ENT ENT ED: Denies sore throat Cardiovascular Cardiovascular: Denies chest pain Respiratory/Chest Respiratory/Chest: Denies cough or dyspnea Gastrointestinal Gastrointestinal: Denies abdominal pain, nausea or vomiting Genitourinary Genitourinary ED: Denies dysuria Musculoskeletal Musculoskeletal: Reports arthralgias and neck pain; Denies back pain Integumentary Denies rash Neurologic Neurologic: Denies headache(s) or weakness Allergic/Immunologic Allergic/Immunologic ED: Denies urticaria EXAM Physical Exam Const Vital Signs: 01/11/22 09:28 Temperature 98.4 F Temperature Source Temporal Pulse Rate 88 Respiratory Rate 14 Blood Pressure 169/91 H Blood Pressure Mean 117 Pulse Ox 100 Oxygen Delivery Method Room Air Positive well nourished and well developed General Appearance ED: well developed HEENT Reports moist mucous membranes Eyes EOMs intact bilaterally Neck supple Chest Wall inspection of chest normal and palpation of chest normal Resp normal respiratory effort and clear to auscultation bilaterally Cardio regular rate and regular rhythm GI non-tender Palpation: soft Back/Spine Back/Spine Narrative: Paraspinal muscular tenderness left greater than right in the upper thoracic and cervical region. Extremity normal to inspection Neuro oriented x3 Sensorium / Orientation: alert Psych mental status grossly normal Skin no rashes or lesions noted MDM MDM MDM Narrative Medical decision making narrative: Patient given oxycodone for pain. CT scan of the C-spine and chest x-ray ordered. Radiography Diagnostic Testing: Clinical Impression(s) from Imaging Studies Cervical Spine CT 01/11/22 10:02 IMPRESSION: Multilevel degenerative changes, as described above. Electronically Signed: Yogesh Herrera MD at 10:48 EDT , Chest X-Ray 01/11/22 10:02 IMPRESSION: Scattered calcified granulomas. No acute abnormality is seen. Electronically Signed: Yogesh Herrera MD at 10:54 EDT , Treatment and Re-Evaluation Narrative: CT the C-spine shows degenerative changes only. Chest x-ray per my interpretation was no acute abnormality. I did speak with Dr. Magdaleno, the patient's primary care physician. She is okay with me prescribing a short-term of oxycodone. Patient will also be given Lidoderm patches. He has muscle relaxers at home he will take. Discharge Plan Triage Chief Complaint: Other, Pain/Inj ED Provider: Colleen Do Dx/Rx/DC Orders Clinical Impression: Musculoskeletal back pain Instructions: ED Back and Neck Pain, General Prescriptions: New oxycodone-acetaminophen [Percocet] 5-325 mg tablet 1 tab PO Q6H PRN (Reason: pain) 3 Days Qty: 10 RF: 0 lidocaine [Lidoderm] 5 % adhesive patch,medicated 1 patch topical DAILY Qty: 6 RF: 0 No Action cyclobenzaprine 10 mg tablet 10 mg PO TID PRN (Reason: muscle spasm) Qty: 20 RF: 0 enoxaparin 120 MG/0.8 ML syringe 120 mg SC BID RF: 0 metoprolol tartrate 25 MG tablet 25 mg PO BID RF: 0 lisinopril 10 MG tablet 10 mg PO BID RF: 0 famotidine 20 MG tablet 20 mg PO BID RF: 0 insulin lispro 100 UNIT/ML insulin pen See Protocol unit SQ ACHS Qty: 2 RF: 0 gemfibrozil 600 MG tablet 600 mg PO DAILY RF: 0 glimepiride 4 MG tablet 8 mg PO DAILY RF: 0 insulin glargine 100 UNITS/ML insulin pen 20 units SC BID RF: 0 Primary Care Provider: Enedina Magdaleno Referrals: Enedina Magdaleno DO [Primary Care Provider] - 1 Week Disposition Disposition: Home, Self Care What to do if you have Problems For any increased pain, shortness of breath, bleeding, nausea or vomiting, chest pain, or any unexpected problems, contact your Primary Care Provider. Call [facility] ([phone]) or report to the closest Emergency Room. Call 911 if necessary. 01/11/22 1709 <Electronically signed by Colleen Do MD> Cosigner Signature (if applicable): CC: Dr. Enedina Magdaleno DO Signed Enedina Magdaleno DO Work Phone: Start: 01-11-2022 End: 01-11-2022 Chest PA and Lateral Comments: See Note; NOTES: [facility] Imaging Services [address] [place] [address] Chest PA and Lateral MR#: [id number] Acct: [id number] Name: VALERIA VARGAS Rep #: [id number] : 1960 M 61 From: Yogesh argueta MD PCP: Dr. Enedina Magdaleno DO Status: REG ER Study: Chest PA and Lateral Date of Exam: 01/11/22 Exam# [id number] Ordering Dr: Colleen Do MD STUDY: X-RAY CHEST REASON FOR EXAM: Male, 61 years old. Neck and shoulder pain following a fall. TECHNIQUE: PA and lateral views of the chest. COMPARISON: Comparison is made with prior study of 01/21/2019. FINDINGS: The lungs are clear and expanded. Scattered calcified granulomas. There is no demonstrated pleural abnormality. Normal size heart. Normal mediastinum and art. Normal visualized pulmonary arteries. There is atherosclerotic calcification of the aortic arch with tortuosity. There is demineralization of the osseous structures. Normal visualized ribs, clavicles, and shoulders. There is no demonstrated abnormality of the visualized soft tissue structures of the upper abdomen. RAD/Chest PA and Lateral IMPRESSION: Scattered calcified granulomas. No acute abnormality is seen. Electronically Signed: Yogesh Herrera MD at 10:54 EDT , CC: Dr. Colleen Do MD; Dr. Enedina Magdaleno DO Digital Art Director: Signed Enedina Magdaleno DO Work Phone: Start: 01-11-2022 End: 01-11-2022 Spine Cervical without Contras Comments: See Note; NOTES: [facility] Imaging Services [address] [place] [address] Spine Cervical without Contras MR#: [id number] Acct: [id number] Name: VALERIA VARGAS Rep #: [id number] : 1960 M 61 From: Yogesh argueta MD PCP: Dr. Enedina Magdaleno, DO Status: REG ER Study: Spine Cervical without Contras Date of Exam: 0 01/11/22 Exam# [id number] Ordering Dr: Colleen Do MD STUDY: CT CERVICAL SPINE WITHOUT CONTRAST REASON FOR EXAM: Male, 61 years old. Neck and shoulder pain following a fall. History of colon cancer. RADIATION DOSAGE (If Supplied By Facility): CTDIvol = ( 26.05 ) mGy, DLP = ( 600.12 ) mGycm TECHNIQUE: High resolution transaxial imaging was performed without contrast material. Sagittal and coronal images were reconstructed. Individualized dose optimization techniques were used for this CT. COMPARISON: None FINDINGS: Normal craniovertebral junction. Normal anterior atlantoaxial articulation. Normal odontoid process. Normal cervical lordosis. Normal vertebral bodies and posterior osseous elements. C2-3: Facet joint osteoarthritis more prominent on the left side. No significant stenosis seen. C3-4: Facet joint osteoarthritis and hypertrophy more prominent on the left side. No significant stenosis is seen. C4-5: Normal endplates. Normal disc height and morphology. Normal central canal and intervertebral neuroforamina. C5-6: Mild degree of disc space narrowing. Uncovertebral arthrosis. Facet joint osteoarthritis and hypertrophy more prominent on the left side. C6-7: Disc space narrowing. Spondylosis. No significant stenosis is seen. C7-T1: Normal endplates. Normal disc height and morphology. Normal central canal and intervertebral neuroforamina. Normal visualized soft tissue structures. CT/Spine Cervical without Contras IMPRESSION: Multilevel degenerative changes, as described above. Electronically Signed: Yogesh Herrera MD at 10:48 EDT , CC: Dr. Colleen Do MD; Dr. Enedina Magdaleno DO Digital Art Director: Signed Enedina Magdaleno DO Work Phone: Start: 12-28-2021 End: 12-28-2021 Cerv Spine 4 or 5 Views Comments: See Note; NOTES: [facility] Radiology [address] [place] [address] Cerv Spine 4 or 5 Views MR#: [id number] Acct: [id number] Name: VALERIA VARGAS Rep #: [id number] : 1960 M 61 From: Adonay Grier PCP: Dr. Enedina Magdaleno DO Status: DEP AMB Study: Cerv Spine 4 or 5 Views Date of Exam: 12/28/21 Exam# [id number] Ordering Dr: Hema Garvin STUDY: X-RAY - CERVICAL SPINE REASON FOR EXAM: Male, 61 years old. fall TECHNIQUE: 5 view(s) of the cervical spine were obtained. COMPARISON: 16 January 2019 FINDINGS: Normal anterior atlantoaxial articulation. Normal odontoid process. There are minor age-appropriate changes. Normal cervical lordosis. Normal vertebral bodies and endplates. Normal disc space heights. Normal visualized intervertebral neuroforamina. The soft tissue structures are unremarkable. RAD/Cerv Spine 4 or 5 Views IMPRESSION: No acute osseous injury. Normal cervical spine. Electronically Signed: Adonay Cuellar MD at 11:18 EST , CC: DENNY Garvin; Dr. Enedina Magdaleno DO Digital Art Director: Signed Enedina Magdaleno DO Work Phone: Start: 12-28-2021 End: 12-28-2021 Shoulder min 2 Views Comments: See Note; NOTES: [facility] Radiology [address] [place] [address] Shoulder min 2 Views MR#: [id number] Acct: [id number] Name: VALERIA VARGAS Rep #: [id number] : 1960 M 61 From: Adonay Grier PCP: Dr. Enedina Magdaleno DO Status: DEP AMB Study: Shoulder min 2 Views Date of Exam: 12/28/21 Exam# [id number] Ordering Dr: Hema Garvin STUDY: X-RAY - LEFT SHOULDER REASON FOR EXAM: Male, 61 years old. fallFALL. PAIN LEFT NECK AND INTO LEFT SHOULDER TECHNIQUE: 2 view(s) of the shoulder. COMPARISON: None. FINDINGS: Normal glenohumeral articulation. Normal acromioclavicular joint. Normal acromion. Normal humeral head and visualized proximal humerus. The soft tissue structures are unremarkable. Normal visualized pulmonary apex. RAD/Shoulder min 2 Views IMPRESSION: No acute abnormality. Age-appropriate shoulder. Electronically Signed: Adonay Cuellar MD at 11:42 EST , CC: DENNY Garvin; Dr. Enedina Magdaleno DO Digital Art Director: Signed Enedina Magdaleno DO Work Phone: Start: 12-28-2021 End: 12-28-2021 Thoracic Spine 3 Views Comments: See Note; NOTES: [facility] Radiology [address] [place] [address] Thoracic Spine 3 Views MR#: [id number] Acct: [id number] Name: VALERIA VARGAS Rep #: [id number] : 1960 M 61 From: Js Stewart MD PCP: Dr. Enedina Magdaleno DO Status: DEP AMB Study: Thoracic Spine 3 Views Date of Exam: 12/28/21 Exam# [id number] Ordering Dr: Hema Garvin STUDY: X-RAY - THORACIC SPINE REASON FOR EXAM: Male, 61 years old. upper back pain s/p fall TECHNIQUE: 3 view(s) of the thoracic spine were obtained. COMPARISON: None. FINDINGS: Normal kyphosis of the thoracic spine. There is no substantial scoliosis. Normal thoracic vertebrae and endplates. Normal disc space heights. The soft tissue structures are unremarkable. RAD/Thoracic Spine 3 Views IMPRESSION: Normal x-ray examination of the thoracic spine. Electronically Signed: Js Stewart MD at 10:04 EST , CC: DENNY Garvin; Dr. Enedina Magdaleno DO Digital Art Director: Signed Enedina Magdaleno DO Work Phone: Start: 12-28-2021 End: 12-28-2021 Urgent Care Visit Report Comments: See Note; NOTES: [facility] [address] [place] [address] [address] [place] [address] OFFICE VISIT Date of Service: 12/28/21 MR#: [id number] Acct: [id number] Name: VALERIA VARGAS Rep #: [id number] : 1960 Provider: DENNY ruiz Age/Sex: 61/M Location: [facility] Status: Signed Intake Vital Signs 12/28/21 08:58 BP 124/72 H Blood Pressure Location Lt brachial Position Sitting Respiration 16 Pulse 77 Pulse Source Monitor Temp 98.4 F Temp Source Temporal Pulse Oximetry (%) 98 Oxygen Delivery Method room air Intake Visit Reasons: NECK/L SHOULDER PAIN/SWELLING Chief Complaint: right foot pain Allergies Penicillins [PCN] Allergy (Verified 07/25/21 12:19) Unknown acetaminophen [From Vicodin] Adverse Reaction (Verified 07/25/21 12:19) dopey hydrocodone [From Vicodin] Adverse Reaction (Verified 07/25/21 12:19) dopey morphine Adverse Reaction (Verified 07/25/21 12:19) meredithy [facility] Medical History (Updated 12/28/21 @ 10:38 by Heam Garvin PA, PA) Anxiety Cancer Carcinoma of colon Cervical strain, acute CHI (closed head injury) Cranial nerve III palsy Deep venous thrombosis of lower extremity Diabetes Diarrhea Gastroenteritis Headache Hemorrhoids HTN (hypertension) Hyperglycemia Left shoulder strain Lupus anticoagulant disorder Migraine On anticoagulant therapy Presence of IVC filter Pulmonary embolism Right foot pain Thoracic myofascial strain Vertigo Surgical History (Updated 07/25/21 @ 14:40 by Meghana Berman) H/O colectomy S/P colectomy S/P hernia repair S/P vasectomy Family History Mother Cancer Social History Smoking Status: Never smoker alcohol intake: current alcohol intake frequency: holidays/special occasions only substance use type: marijuana HPI HPI Chief Complaint: right foot pain Details: VALERIA VARGAS, is a 61 M who presents to the office today for initial evaluation s/p fall 5 days ago down steps at home, grabbing hand railing with left hand and causing left shoulder and cervical pain. He also notes hitting the back of his head and neck causing occipital scalp and posterior cervical spine tenderness to palpation though describing no radicular complaints in the upper extremities. Additionally, patient notes having had emesis episodes x2 on date of injury status post fall without recurring nausea or emesis since (no loc on DOI since as well); patient describes persistent 1-2/10 aching throbbing headache which patient notes is tolerable and not as concerning as his neck discomfort he so states he has taken no [id number] products to assist with symptoms. He notes no other associated symptoms and no alleviating/aggravating factors. ROS Const Constitutional: No other (as above) Exam Const General: cooperative, healthy appearing, uncomfortable and no acute distress Nutritional Appearance: well nourished and obese Orientation: alert, awake and oriented x3 HENMT Head: normal to inspection (Except occipital scalp soft tissue swelling/tender to touch) Ears: hearing grossly normal bilaterally, external ears normal, TM's normal bilaterally and EAC's normal Nose: external nose normal, nares normal, septum normal and no nasal discharge Face and sinus: normal facial exam, sinuses nontender and face symmetric Mouth: oral mucosae normal, lip normal, tongue normal and moist mucous membranes Throat: posterior oropharynx normal, tonsils normal, uvula midline and no postnasal drainage Eyes General: appearance normal, both eyes and all related structures Neck Neck: normal visual inspection, full ROM, no lymphadenopathy, no meningeal signs and supple Neck mass: No Thyroid: thyroid normal Lymphatic: no lymphadenopathy noted Chest Chest palpation inspection: normal inspection of the chest Resp Effort Inspection: normal respiratory effort, able to speak in complete sentences, symmetric chest movement and no cough Auscultation: Bilateral: Clear to Auscultation Cardio Palpation: normal PMI Rate: regular rate Rhythm: regular rhythm Heart Sounds: S1 normal, S2 normal, no gallops, no murmurs and no rubs Pulses: radial pulses present GI Inspection: large pannus Palpation: soft and nontender Musc Cervical Spine: normal cervical lordosis, pain with cervical ROM and cervical spinal tenderness Thoracic/Lumbar Spine: thoracic and lumbar spine normal to inspection, thoraco-lumbar ROM normal and paraspinal tenderness on the left greater than right (mid-upper thoracic) Skin General: no rashes or lesions noted Neuro General: patient alert, patient awake, patient oriented x3 and gait normal Cognition: normal cognition Speech: speech normal Gait: normal gait Motor: muscle tone normal throughout Sensory Exam: no sensory deficits noted Extrem General: normal to inspection, capillary refill normal, normal exam except as noted (Mild left shoulder discomfort with all FAROM) and no joint enlargement Psych Appearance: grossly normal Mental Status: mental status grossly normal Mood: congruent mood Affect: normal affect Speech and Movement: speech and movement normal Attitude: cooperative Thought Process: normal Thought Content: normal Judgment: judgment good Coding Level of Care Code Off vis,est,level 4 Diagnoses CHI (closed head injury) S09.90XA Cervical strain, acute S16.1XXA Thoracic myofascial strain S29.019A Left shoulder strain S46.912A Assessment and Plan Assessment and Plan (1) CHI (closed head injury): Status: Acute (2) Cervical strain, acute: Status: Acute (3) Thoracic myofascial strain: Status: Acute (4) Left shoulder strain: Status: Acute Plan - Hema BALDWIN PA: Left shoulder, cervical, thoracic radiographs taken today reviewed with patient in office today, with radiologist interpretation pending at the time of patient discharge. Head CT no contrast ordered due to symptoms as described in HPI. Prednisone as prescribed today, with pharmacist being notified that patient is to clarify with PCP if this is okay to take before initiating. Cyclobenzaprine as prescribed today. Patient refused work restrictions. Follow-up with PCP in 3 to 5 days should symptoms not improve, ED sooner should symptoms only worsen or any other concerns develop. Patient states acknowledging understanding all the above. This note was generated with [employer] dictation software. It may contain incorrect words, spelling, and punctuation that were not noted in checking the note before signing. Plan Details Other Medications: New: cyclobenzaprine to be taken only AFTER work hours on work days as needed 10 mg PO TID PRN 20 tabs 0RF muscle spasm prednisone 4 tablets daily for 3 days, then 3 tablets daily for 3 days, then 2 tablets daily for 3 days, then 1 tablet daily for 3 days 10 mg PO DAILY 30 tabs 0RF Other Orders: Orders: Brain/Head without Contrast Today R11.10, W19.XXXA Cerv Spine 4 or 5 Views Today M54.2 Thoracic Spine 3 Views Today M54.9 Shoulder min 2 Views Today S49.92XA 12/28/21 1158 <Electronically signed by Hema BALDWIN> Date Hema BALDWIN Cosigner Signature: Date (if applicable) CC: Enedina Magdaleno DO Work Phone: Start: 07-25-2021 End: 07-25-2021 Emergency Department Summary Comments: See Note; NOTES: [facility] Medical Records Department [address] [place] [address] Emergency Department Summary 07/25/21 MR#: [id number] Acct: [id number] Name: VALERIA VARGAS Rep #: [id number] : 1960 60 From: Yuriy Bland DO PCP: Dr. Enedina Magdaleno, DO Status:REG ER Location: ED HPI History of Present Illness Chief Complaint: Upper Extremity Injury Narrative Narrative: Patient presented with laceration to the right middle digit on his right hand. Patient states he was trying to remove a tire from the bottom of his truck because he had a flat tire and states it would not come off. He tried aggressively to pull this down and caught his finger on something. He notes bleeding to the right dorsal middle finger. Patient's tetanus immunization is unknown. [id number]-[id number]. Patient was able to get the bleeding somewhat controlled however he is on Lovenox daily because he has history of blood clots secondary to lupus anticoagulant disorder. [facility] Medical History Anxiety Cancer Carcinoma of colon Cranial nerve III palsy Deep venous thrombosis of lower extremity Diabetes Diarrhea Gastroenteritis Headache Hemorrhoids HTN (hypertension) Hyperglycemia Lupus anticoagulant disorder Migraine On anticoagulant therapy Presence of IVC filter Pulmonary embolism Right foot pain Vertigo Home Medications enoxaparin 120 mg SC BID 12/04/14 [History Last Taken 01/21/19] metoprolol tartrate 25 mg PO BID 12/04/14 [History Last Taken 04/14/20 05:00] lisinopril 10 mg PO BID 01/11/18 [History Last Taken 01/21/19] famotidine 20 mg PO BID 01/15/19 [History Last Taken 01/21/19] insulin lispro See Protocol SQ ACHS #2 insuln.pen 01/17/19 [Rx Last Taken 01/21/19] gemfibrozil 600 mg PO DAILY 01/21/19 [History Last Taken 01/21/19] glimepiride 8 mg PO DAILY 01/21/19 [History Last Taken 01/21/19] insulin glargine 20 units SC BID 01/21/19 [History Last Taken 01/20/19] Allergy/AdvReac Type Severity Reaction Status Date / Time Penicillins [PCN] Allergy Unknown Verified 07/25/21 12:19 acetaminophen [From Vicodin] AdvReac dopey Verified 07/25/21 12:19 hydrocodone [From Vicodin] AdvReac dopey Verified 07/25/21 12:19 morphine AdvReac loopy Verified 07/25/21 12:19 Family History Mother Cancer Surgical History (Updated 07/25/21 @ 14:40 by Meghana Berman) H/O colectomy S/P colectomy S/P hernia repair S/P vasectomy Social History Smoking Status: Never smoker alcohol intake: current alcohol intake frequency: holidays/special occasions only substance use type: marijuana ROS ROS ED Constitutional Constitutional ED: Denies fever(s) or sweats Eyes Eyes: Denies blurry vision or diplopia ENT ENT ED: Denies rhinorrhea or sore throat Cardiovascular Cardiovascular: Denies chest pain or palpitations Respiratory/Chest Respiratory/Chest: Denies cough, dyspnea or sputum Gastrointestinal Gastrointestinal: Denies abdominal pain, nausea or vomiting Genitourinary Genitourinary ED: Denies dysuria or hematuria Musculoskeletal Musculoskeletal: Denies myalgias or neck pain Integumentary Reports other Details: Right hand laceration Neurologic Neurologic: Denies headache(s) or paresthesias EXAM Physical Exam Const Vital Signs: 07/25/21 12:17 Temperature 97.7 F L Temperature Source Temporal Pulse Rate 68 Respiratory Rate 16 Blood Pressure 131/67 H Blood Pressure Mean 88 Pulse Ox 96 Oxygen Delivery Method Room Air Positive well nourished General Appearance ED: NAD HEENT normocephalic and atraumatic Eyes PERRL and EOMs intact bilaterally Resp normal respiratory effort and no use of accessory muscles Cardio regular rate and regular rhythm Extremity Extremity Narrative: 2 cm laceration dorsal surface of the right third digit on the right hand. Bleeding is controlled with a dressing. No obvious tendon or bony exposure. Patient is full range of motion of the right third digit. Neuro oriented x3 Sensorium / Orientation: alert Psych mental status grossly normal Skin Skin Narrative: As described above. MDM MDM MDM Narrative Medical decision making narrative: Patient with 2 cm laceration to the dorsal surface of the left middle finger. Bleeding is controlled. X-ray of the left hand shows no acute fracture or subluxation. Patient laceration was cleaned and anesthetized. Patient's wound was sutured. Please see procedure note. Patient tolerated procedure well. Tetanus was updated today. Patient given wound care instructions and follow-up in office. Patient given discharge at this time. Impression: 1. Left third digit laceration 2.0 cm Radiography Diagnostic Testing: Radiology Impression Finger X-Ray 07/25/21 12:34 IMPRESSION: Normal x-ray examination of the finger. Electronically Signed: Js Stewart MD at 13:01 EDT Tel , Service support , Procedures Lacerations finger laceration: Length: 0.79 in Depth: Skin Shape: Linear Prep: Sterile Conditions and Chlorhexadine Laceration repair: Irrigated and Lidocaine Irrigated (ml): 250 Suture Information: Eth[place] Discharge Plan Triage Chief Complaint: Upper Extremity Injury ED Provider: Yuriy Bland Dx/Rx/DC Orders Prescriptions: No Action enoxaparin 120 MG/0.8 ML syringe 120 mg SC BID RF: 0 metoprolol tartrate 25 MG tablet 25 mg PO BID RF: 0 lisinopril 10 MG tablet 10 mg PO BID RF: 0 famotidine 20 MG tablet 20 mg PO BID RF: 0 insulin lispro 100 UNIT/ML insulin pen See Protocol unit SQ ACHS Qty: 2 RF: 0 gemfibrozil 600 MG tablet 600 mg PO DAILY RF: 0 glimepiride 4 MG tablet 8 mg PO DAILY RF: 0 insulin glargine 100 UNITS/ML insulin pen 20 units SC BID RF: 0 Primary Care Provider: Enedina Magdaleno What to do if you have Problems For any increased pain, shortness of breath, bleeding, nausea or vomiting, chest pain, or any unexpected problems, contact your Primary Care Provider. Call [facility] ([phone]) or report to the closest Emergency Room. Call 911 if necessary. 07/25/21 1531 <Electronically signed by Yuriy Bland DO> Cosigner Signature (if applicable): CC: Dr. Enedina Magdaleno DO Signed Enedina Magdaleno DO Work Phone: Start: 07-25-2021 End: 07-25-2021 Finger(s) Min 2 Views Comments: See Note; NOTES: [facility] Imaging Services [address] [place] [address] Finger(s) Min 2 Views MR#: [id number] Acct: [id number] Name: VALERIA VARGAS Rep #: [id number] : 1960 M 60 From: Js Stewart MD PCP: Dr. Enedina Magdaleno DO Status: PRE ER Study: Finger(s) Min 2 Views Date of Exam: 07/25/21 Exam# [id number] Ordering Dr: Provider,Ed P. STUDY: X-RAY - LEFT HAND, ATTENTION 3 FINGER REASON FOR EXAM: Male, 60 years old. INJURY TECHNIQUE: 3 view(s) of the finger were obtained. COMPARISON: None. FINDINGS: Normal metacarpal head. Normal metacarpophalangeal joint. Normal proximal phalanx. Normal middle phalanx. Normal distal phalanx. Normal proximal interphalangeal joint. Normal distal interphalangeal joint. RAD/Finger(s) Min 2 Views IMPRESSION: Normal x-ray examination of the finger. Electronically Signed: Js Stewart MD at 13:01 EDT Tel , Service support , CC: Dr. Enedina Magdaleno DO; ED PHYSICIAN PROVIDER Digital Art Director: Signed Enedina Magdaleno DO Work Phone: Start: 06-28-2021 End: 06-28-2021 Urgent Care Visit Report Comments: See Note; NOTES: [facility] [address] [place] [address] [address] [place] [address] OFFICE VISIT Date of Service: 06/28/21 MR#: [id number] Acct: [id number] Name: VALERIA VARGAS Rep #: [id number] : 1960 Provider: DENNY Reynoso Age/Sex: 60/M Location: [facility] Status: Signed Intake Vital Signs 06/28/21 10:01 Weight: 219 lb BP 162/80 H Blood Pressure Location Lt brachial Position Sitting Respiration 15 Pulse 65 Pulse Source Monitor Temp 97.8 F Temp Source Temporal Pulse Oximetry (%) 98 Oxygen Delivery Method room air Intake Visit Reasons: Diarrhea Allergies Penicillins [PCN] Allergy (Verified 06/28/21 10:02) Unknown acetaminophen [From Vicodin] Adverse Reaction (Verified 06/28/21 10:02) dopey hydrocodone [From Vicodin] Adverse Reaction (Verified 06/28/21 10:02) dopey morphine Adverse Reaction (Verified 06/28/21 10:02) loopy Medications enoxaparin 120 mg SC BID 12/04/14 [History Confirmed 06/28/21] metoprolol tartrate 25 mg PO BID 12/04/14 [History Confirmed 06/28/21] lisinopril 10 mg PO BID 01/11/18 [History Confirmed 06/28/21] famotidine 20 mg PO BID 01/15/19 [History Confirmed 06/28/21] insulin lispro See Protocol SQ ACHS #2 insuln.pen 01/17/19 [Rx Confirmed 06/28/21] gemfibrozil 600 mg PO DAILY 01/21/19 [History Confirmed 06/28/21] glimepiride 8 mg PO DAILY 01/21/19 [History Confirmed 06/28/21] insulin glargine 40 units SC BID 01/21/19 [History Confirmed 06/28/21] omeprazole 20 mg PO BID 01/21/19 [History Confirmed 06/28/21] peg 3350-electrolytes 236 gram-22.74 gram-6.74 gram-5.86 gram solution 4,000 ml PO ONCE #4000 ml 04/27/20 [Rx Confirmed 06/28/21] PFSH Medical History Anxiety Cancer Carcinoma of colon Cranial nerve III palsy Deep venous thrombosis of lower extremity Diabetes Diarrhea Gastroenteritis Headache Hemorrhoids HTN (hypertension) Hyperglycemia Lupus anticoagulant disorder Migraine On anticoagulant therapy Presence of IVC filter Pulmonary embolism Right foot pain Vertigo Surgical History S/P colectomy S/P hernia repair S/P vasectomy Family History Mother Cancer Social History Smoking Status: Never smoker alcohol intake: current alcohol intake frequency: holidays/special occasions only substance use type: marijuana HPI HPI Details: VALERIA VARGAS, is a 60 M who presents to the office today for evaluation after having diarrhea this morning. Patient states that he needs a return to work letter. Patient states he had diarrhea which was resolved with several doses of Imodium. Patient does have a history of intermittent diarrhea due to his IBS and previous colon cancer issues. He denies any further diarrhea or hematochezia. No fever, chills, sweats. No nausea or vomiting. No abdominal or pelvic pain. No other associated symptoms or alleviating/aggravating factors. ROS Const Constitutional: No other (as above) Exam Const General: cooperative and healthy appearing [facility] Head: normocephalic and atraumatic Ears: hearing grossly normal bilaterally Face and sinus: face symmetric Eyes General: appearance normal, both eyes and all related structures Pupils: PERRL Resp Effort Inspection: normal respiratory effort Auscultation: Bilateral: Clear to Auscultation Cardio Rate: regular rate Rhythm: regular rhythm Heart Sounds: S1 normal and S2 normal GI Inspection: normal to inspection Auscultation: hyperactive bowel sounds Percussion: normal to percussion Palpation: soft, no hepatosplenomegaly, no guarding and nontender General: bimanual renal exam normal bilaterally and No CVA tenderness Skin General: no rashes or lesions noted Neuro General: patient alert and CN's II-XI intact bilaterally Psych Appearance: grossly normal Mental Status: mental status grossly normal Coding Level of Care Code Off vis,est,level 3 Diagnoses Diarrhea R19.7 Diarrhea type: unspecified type Carcinoma of colon C18.9 Assessment and Plan Assessment and Plan (1) Diarrhea: Status: Acute Qualifiers: Diarrhea type: unspecified type Qualified Code(s): R19.7 - Diarrhea, unspecified (2) Carcinoma of colon: Status: Chronic Orders: Referrals: Gastroenterology C18.9 Plan - DENNY Gottlieb: Patient given work excuse for today and given referral to GI for further evaluation and treatment of his intermittent GI issues. Patient advised of potential red flags and when appropriate to report to the ED. Patient verbalized understanding and agreement with all the above. 06/28/21 1029 <Electronically signed by Spenser BALDWIN> Date Spenser BALDWIN Cosigner Signature: Date (if applicable) CC: Enedina Magdaleno DO Work Phone: Start: 04-06-2021 End: 04-06-2021 Urgent Care Visit Report Comments: See Note; NOTES: [facility] [address] [place] [address] [address] [place] [address] OFFICE VISIT Date of Service: 04/06/21 MR#: [id number] Acct: [id number] Name: VALERIA VARGAS Rep #: [id number] : 1960 Provider: DENNY ruiz Age/Sex: 60/M Location: [facility] Status: Signed Intake Vital Signs 04/06/21 13:44 04/06/21 13:49 Weight: 217 lb BMI 33.4 BP 130/76 H Blood Pressure Location Lt brachial Position Sitting Respiration 15 Pulse 62 Pulse Source Monitor Temp 97.3 F L Temp Source Temporal Pulse Oximetry (%) 99 Oxygen Delivery Method room air Intake Visit Reasons: RT FOOT PAIN Chief Complaint: right foot pain Allergies Penicillins [PCN] Allergy (Verified 04/06/21 13:49) Unknown acetaminophen [From Vicodin] Adverse Reaction (Verified 04/06/21 13:49) dopey hydrocodone [From Vicodin] Adverse Reaction (Verified 04/06/21 13:49) dopey morphine Adverse Reaction (Verified 04/06/21 13:49) loopy Medications enoxaparin 120 mg SC BID 12/04/14 [History Confirmed 04/06/21] metoprolol tartrate 25 mg PO BID 12/04/14 [History Confirmed 04/06/21] lisinopril 10 mg PO BID 01/11/18 [History Confirmed 04/06/21] famotidine 20 mg PO BID 01/15/19 [History Confirmed 04/06/21] insulin lispro See Protocol SQ ACHS #2 insuln.pen 01/17/19 [Rx Confirmed 04/06/21] gemfibrozil 600 mg PO DAILY 01/21/19 [History Confirmed 04/06/21] glimepiride 8 mg PO DAILY 01/21/19 [History Confirmed 04/06/21] insulin glargine 40 units SC BID 01/21/19 [History Confirmed 04/06/21] omeprazole 20 mg PO BID 01/21/19 [History Confirmed 04/06/21] peg 3350-electrolytes 236 gram-22.74 gram-6.74 gram-5.86 gram solution 4,000 ml PO ONCE #4000 ml 04/27/20 [Rx Confirmed 04/06/21] PFSH Medical History (Updated 04/06/21 @ 14:09 by Hema BALDWIN, PA) Anxiety Cancer Carcinoma of colon Cranial nerve III palsy Deep venous thrombosis of lower extremity Diabetes Diarrhea Gastroenteritis Headache Hemorrhoids HTN (hypertension) Hyperglycemia Lupus anticoagulant disorder Migraine On anticoagulant therapy Presence of IVC filter Pulmonary embolism Right foot pain Vertigo Surgical History S/P colectomy S/P hernia repair S/P vasectomy Family History Mother Cancer Social History Smoking Status: Never smoker alcohol intake: current alcohol intake frequency: holidays/special occasions only substance use type: marijuana HPI HPI Chief Complaint: right foot pain Details: VALERIA VARGAS, is a 60 M who presents to the office today for initial evaluation right plantar foot pain - after stepping out of truck to address an issue. No locking/ giving way of right ankle nor right ankle pain. Pain aggravated to touch, alleviated w/ sit/ rest. Requesting work excuse and refusing radiographs upon offering. No otc products taken to assist. No other associated symptoms and no other alleviating/ aggravating factors. ROS Const Constitutional: No other (as above) Exam Const General: cooperative, healthy appearing, comfortable and no acute distress Nutritional Appearance: well nourished Orientation: alert, awake and oriented x3 Resp Effort Inspection: normal respiratory effort, able to speak in complete sentences and symmetric chest movement Cardio Rate: regular rate Skin General: no rashes or lesions noted Neuro General: patient alert, patient awake, patient oriented x3 and gait normal Cognition: normal cognition Speech: speech normal Gait: normal gait Motor: muscle tone normal throughout Sensory Exam: no sensory deficits noted Extrem General: normal to inspection (w/o plantar foot swelling to palpation appreciated), full ROM (R ankle/ digits x5), capillary refill normal, normal exam except as noted (tender to touch right p lantar foot) and no joint enlargement Psych Appearance: grossly normal Mental Status: mental status grossly normal Mood: congruent mood Affect: normal affect Speech and Movement: speech and movement normal Attitude: cooperative Thought Process: normal Thought Content: normal Judgment: judgment good Coding Level of Care Code Off vis,est,level 2 Diagnoses Right foot pain M79.671 Assessment and Plan Assessment and Plan (1) Right foot pain: Status: Acute Plan - Hema BALDWIN PA: Refsued RLE radiographs upon offering. Work excuse provided for today at patient's request. Rest. elevate, ibuprofen as needed. Recommend f/u w/ podiatry should symptoms persist or other concerns develop. Pt states acknowledging understanding all the above. 04/06/21 1412 <Electronically signed by Hema BALDWIN PA> Date Hema Warner Signature: Date (if applicable) CC: Enedina Magdaleno DO Work Phone: Start: 02-07-2021 End: 02-07-2021 Urgent Care Visit Report Comments: See Note; NOTES: [facility] [address] [place] [address] [address] [place] [address] OFFICE VISIT Date of Service: 02/07/21 MR#: [id number] Acct: [id number] Name: VALERIA VARGAS Rep #: [id number] : 1960 Provider: DENNY ruiz Age/Sex: 60/M Location: [facility] Status: Signed Intake Vital Signs 02/07/21 Weight: 221 lb 2 oz 02/07/21 BP 138/80 H 02/07/21 Blood Pressure Location Lt brachial 02/07/21 Position Sitting 02/07/21 Respiration 16 02/07/21 Pulse 71 02/07/21 Pulse Source Monitor 02/07/21 Temp 97.7 F L 02/07/21 Temp Source Temporal 02/07/21 Pulse Oximetry (%) 98 02/07/21 Oxygen Delivery Method room air Intake Visit Reasons: Headache Chief Complaint: Headache Allergies Penicillins [PCN] Allergy (Verified 12/15/20 10:31) Unknown acetaminophen [From Vicodin] Adverse Reaction (Verified 12/15/20 10:31) dopey hydrocodone [From Vicodin] Adverse Reaction (Verified 12/15/20 10:31) dopey morphine Adverse Reaction (Verified 12/15/20 10:31) [facility] Medical History Vertigo (Acute) Diarrhea (Acute) Hyperglycemia (Acute) Migraine (Acute) Cranial nerve III palsy (Acute) Headache (Acute) Gastroenteritis (Acute) Lupus anticoagulant disorder (Chronic) Presence of IVC filter (Chronic) Deep venous thrombosis of lower extremity (Chronic) Carcinoma of colon (Chronic) On anticoagulant therapy (Chronic) Anxiety (Chronic) Cancer (Acute) Diabetes (Acute) Hemorrhoids (Acute) Pulmonary embolism (Acute) HTN (hypertension) (Chronic) Surgical History S/P colectomy (Acute) S/P hernia repair (Acute) S/P vasectomy (Acute) Family History Mother Cancer Social History (Updated 02/07/21 @ 11:19 by Hema BALDWIN, PA) Smoking Status: Never smoker alcohol intake: current alcohol intake frequency: holidays/special occasions only substance use type: marijuana HPI HPI Chief Complaint: Headache Details: VALERIA VARGAS, is a 60 M who presents to the office today for initial evaluation moderate headache developing this morning upon awakening. Patient states he has been out of his blood pressure medication for the last couple weeks, stating the prescription was just refilled as of this morning and his will be bringing it to him at home later today. He actually notes his headache is slightly improved without LOC or nausea or vomiting and no history of trauma to the same. No vision changes. He is requesting a work excuse for today. He notes no other complaints at this time. Exam Const General: cooperative, healthy appearing, comfortable, no acute distress Nutritional Appearance: well nourished, obese Orientation: alert, awake, oriented x3 [facility] Head: normal to inspection, normocephalic, atraumatic Ears: hearing grossly normal bilaterally, external ears normal, TM's normal bilaterally, EAC's normal Nose: external nose normal, nares normal, septum normal, no nasal discharge Face and sinus: normal facial exam, sinuses nontender, face symmetric Mouth: oral mucosae normal, lip normal, tongue normal, oropharynx normal Teeth and gingiva: dentition normal, gingiva normal Throat: posterior oropharynx normal, tonsils normal, uvula midline, no postnasal drainage Eyes General: appearance normal, both eyes and all related structures Neck Neck: normal visual inspection, full ROM, no lymphadenopathy, no meningeal signs, supple Neck mass: No Thyroid: thyroid normal Lymphatic: no lymphadenopathy noted Chest Chest palpation inspection: normal inspection of the chest Resp Effort Inspection: normal respiratory effort, able to speak in complete sentences, symmetric chest movement Cardio Rate: regular rate Pulses: radial pulses present GI Inspection: normal to inspection Palpation: soft, no hepatosplenomegaly Skin General: no rashes or lesions noted Neuro General: alert, awake, oriented x3, gait normal Cranial Nerves: CN's II-XI intact bilaterally, PERRL, EOM intact bilaterally Cognition: normal cognition Speech: speech normal Gait: normal gait Motor: muscle tone normal throughout Sensory Exam: no sensory deficits noted Coordination: ogocpb-um-cdru test normal, sulp-xw-ccmr test normal, Romberg test normal, tandem gait normal, Does not sway with eyes open Extrem General: normal to inspection Psych Appearance: grossly normal Mental Status: mental status grossly normal Mood: congruent mood Affect: normal affect Speech and Movement: speech and movement normal Attitude: cooperative Thought Process: normal Thought Content: normal Judgment: judgment good Assessment Plan 1. Headache R51 Plan - improving per patient. Work excuse given per patient request. Reinforce appropriate compliance with medication regiment (see HPI). Follow-up with PCP in 3 to 5 days should symptoms not continue to improve, ED sooner should symptoms worsen or any other concerns develop. Patient states acknowledging understanding all the above. This note was generated with [employer] dictation software. It may contain incorrect words, spelling, and punctuation that were not noted in checking the note before signing. Coding Level of Care Code Off vis,est,level 2 Diagnoses Headache R51 02/07/21 1119 <Electronically signed by Hema BALDWIN> Date Hema BALDWIN Cosigner Signature: Date (if applicable) CC: Enedina Magdaleno DO Work Phone: Start: 12-15-2020 End: 12-15-2020 Urgent Care Visit Report Comments: See Note; NOTES: [place] [id number] OFFICE VISIT Date of Service: 12/15/20 MR#: [id number] Acct: [id number] Name: VALERIA VARGAS Rep #: [id number] : 1960 Provider: DENNY ruiz Age/Sex: 60/M Location: [facility] Status: Signed Intake Vital Signs 12/15/20 Weight: 221 lb 12/15/20 BP 152/74 H 12/15/20 Blood Pressure Location Lt brachial 12/15/20 Position Sitting 12/15/20 Respiration 15 12/15/20 Pulse 72 12/15/20 Pulse Source Monitor 12/15/20 Temp 98.5 F 12/15/20 Temp Source Temporal 12/15/20 Pulse Oximetry (%) 98 12/15/20 Oxygen Delivery Method room air Intake Visit Reasons: Diarrhea Chief Complaint: Diarrhea Allergies Penicillins [PCN] Allergy (Verified 12/15/20 10:31) Unknown acetaminophen [From Vicodin] Adverse Reaction (Verified 12/15/20 10:31) dopey hydrocodone [From Vicodin] Adverse Reaction (Verified 12/15/20 10:31) dopey morphine Adverse Reaction (Verified 12/15/20 10:31) loopy Medications Enoxaparin [Lovenox] 120 mg SC BID 12/04/14 [History Confirmed 12/15/20] Metoprolol Tartrate [Lopressor (beta kris)] 25 mg PO BID 12/04/14 [History Confirmed 12/15/20] Lisinopril [Zestril] 10 mg PO BID 01/11/18 [History Confirmed 12/15/20] Famotidine [Pepcid] 20 mg PO BID 01/15/19 [History Confirmed 12/15/20] Insulin Lispro [Humalog KwikPen] See Protocol SQ ACHS #2 insuln.pen 01/17/19 [Rx Confirmed 12/15/20] Gemfibrozil 600 mg PO DAILY 01/21/19 [History Confirmed 12/15/20] Glimepiride 8 mg PO DAILY 01/21/19 [History Confirmed 12/15/20] Insulin Glargine [Lantus SoloStar Pen] 40 units SC BID 01/21/19 [History Confirmed 12/15/20] Omeprazole 20 mg PO BID 01/21/19 [History Confirmed 12/15/20] peg 3350-electrolytes 236 gram-22.74 gram-6.74 gram-5.86 gram solution 4,000 ml PO ONCE #4000 ml 04/27/20 [Rx Confirmed 12/15/20] [facility] Medical History Vertigo (Acute) Diarrhea (Acute) Hyperglycemia (Acute) Migraine (Acute) Cranial nerve III palsy (Acute) Headache (Acute) Gastroenteritis (Acute) Lupus anticoagulant disorder (Chronic) Presence of IVC filter (Chronic) Deep venous thrombosis of lower extremity (Chronic) Carcinoma of colon (Chronic) On anticoagulant therapy (Chronic) Anxiety (Chronic) Cancer (Acute) Diabetes (Acute) Hemorrhoids (Acute) Pulmonary embolism (Acute) HTN (hypertension) (Chronic) Surgical History S/P colectomy (Acute) S/P hernia repair (Acute) S/P vasectomy (Acute) Family History Mother Cancer Social History (Updated 12/15/20 @ 11:10 by Hema BALDWIN, DENNY) Smoking Status: Never smoker alcohol intake: current alcohol intake frequency: holidays/special occasions only substance use type: marijuana HPI HPI Chief Complaint: Diarrhea Details: VALERIA VARGAS, is a 60 M who presents to the office today for evaluation of employer's request as he had missed work yesterday. Patient states he did not report to work at his employer yesterday as he was having symptoms of diarrhea, though notes he is now symptom-free. He notes no complaints of fever/chills, cough, shortness of breath/difficulty breathing, fatigue, myalgias, headache, loss of taste/smell, sore throat, congestion/runny nose, or nausea/vomiting. He also notes his diarrhea is resolved at this time. He does not want screened for COVID-19 as he feels he does not have this. He is here for medical evaluation to clarify if he is eligible to return to work. He is taking no mpre-tyi-[id number] medications to assist as he is symptom-free. He notes no other complaints at this time. ROS Const Constitutional: No other (As above) Exam Const General: cooperative, healthy appearing, comfortable, no acute distress Nutritional Appearance: well nourished Orientation: alert, awake, oriented x3 [facility] Head: normal to inspection Ears: hearing grossly normal bilaterally, external ears normal, TM's normal bilaterally, EAC's normal Nose: external nose normal, nares normal, septum normal, no nasal discharge Face and sinus: normal facial exam, face symmetric Mouth: oral mucosae normal, lip normal, tongue normal, oropharynx normal Teeth and gingiva: dentition normal, gingiva normal Throat: posterior oropharynx normal, tonsils normal, uvula midline, no postnasal drainage Eyes General: appearance normal, both eyes and all related structures Neck Neck: normal visual inspection, full ROM, no lymphadenopathy, no meningeal signs, supple Neck mass: No Thyroid: thyroid normal Lymphatic: no lymphadenopathy noted Chest Chest palpation inspection: normal inspection of the chest Resp Effort Inspection: normal respiratory effort, able to speak in complete sentences, symmetric chest movement, no cough Auscultation: Bilateral: Clear to Auscultation Cardio Palpation: normal PMI Rate: regular rate Rhythm: regular rhythm Heart Sounds: S1 normal, S2 normal, no gallops, no murmurs, no rubs Pulses: radial pulses present GI Inspection: normal to inspection Palpation: soft, nontender Skin General: no rashes or lesions noted Neuro General: alert, awake, oriented x3, gait normal Cognition: normal cognition Speech: speech normal Gait: normal gait Motor: muscle tone normal throughout Sensory Exam: no sensory deficits noted Psych Appearance: grossly normal Mental Status: mental status grossly normal Mood: congruent mood Affect: normal affect Speech and Movement: speech and movement normal Attitude: cooperative Thought Process: normal Thought Content: normal Judgment: judgment good Assessment Plan 1. Diarrhea R19.7 Plan - by history At patient's request, work excuse provided. Work excuse allows him to return to work tomorrow, though he is eligible to return to work today but patient states his employer's protocol does not provide for him to return to work today due to history of diarrhea complaints from yesterday. COVID-19 screening offered which patient is refusing at this time. Follow-up with PCP regarding hypertension management/control and should diarrhea symptoms return. Patient states acknowledging understanding all the above. This note was generated with [employer] software. It may contain incorrect words, spelling, and punctuation that were not noted in checking the note before signing. Coding Level of Care Code Off vis,est,level 2 Diagnoses Diarrhea R19.7 12/15/20 1110 <Electronically signed by Hema BALDWIN> Date Hema BALDWIN Cosigner Signature: Date (if applicable) CC: Enedina Magdaleno Start: 10-27-2020 End: 04-03-2021 Urgent Care Visit Report Comments: See Note; NOTES: [facility] [address] [place], [place] [id number] OFFICE VISIT Date of Service: 10/27/20 MR#: [id number] Acct: [id number] Name: VALERIA VARGAS Rep #: [id number] : 1960 Provider: DENNY ruiz Age/Sex: 59/M Location: [facility] Status: Signed Intake Vital Signs 10/27/20 BP 152/80 H 10/27/20 Blood Pressure Location Lt brachial 10/27/20 Position Sitting 10/27/20 Respiration 15 10/27/20 Pulse 68 10/27/20 Pulse Source Monitor 10/27/20 Temp 97.5 F L 10/27/20 Temp Source Temporal 10/27/20 Pulse Oximetry (%) 98 10/27/20 Oxygen Delivery Method room air Intake Visit Reasons: Vertigo Chief Complaint: dizziness on 10/26/20 - improved now Allergies Penicillins [PCN] Allergy (Verified 10/27/20 11:02) Unknown acetaminophen [From Vicodin] Adverse Reaction (Verified 10/27/20 11:02) dopey hydrocodone [From Vicodin] Adverse Reaction (Verified 10/27/20 11:02) dopey morphine Adverse Reaction (Verified 10/27/20 11:02) loopy Medications Enoxaparin [Lovenox] 120 mg SC BID 12/04/14 [History Confirmed 10/27/20] Metoprolol Tartrate [Lopressor (beta kris)] 25 mg PO BID 12/04/14 [History Confirmed 10/27/20] Lisinopril [Zestril] 10 mg PO BID 01/11/18 [History Confirmed 10/27/20] Famotidine [Pepcid] 20 mg PO BID 01/15/19 [History Confirmed 10/27/20] Insulin Lispro [Humalog KwikPen] See Protocol SQ ACHS #2 insuln.pen 01/17/19 [Rx Confirmed 10/27/20] Gemfibrozil 600 mg PO DAILY 01/21/19 [History Confirmed 10/27/20] Glimepiride 8 mg PO DAILY 01/21/19 [History Confirmed 10/27/20] Insulin Glargine [Lantus SoloStar Pen] 40 units SC BID 01/21/19 [History Confirmed 10/27/20] Omeprazole 20 mg PO BID 01/21/19 [History Confirmed 10/27/20] peg 3350-electrolytes 236 gram-22.74 gram-6.74 gram-5.86 gram solution 4,000 ml PO ONCE #4000 ml 04/27/20 [Rx Confirmed 10/27/20] [facility] Medical History Vertigo (Acute) Diarrhea (Acute) Hyperglycemia (Acute) Migraine (Acute) Cranial nerve III palsy (Acute) Headache (Acute) Gastroenteritis (Acute) Lupus anticoagulant disorder (Chronic) Presence of IVC filter (Chronic) Deep venous thrombosis of lower extremity (Chronic) Carcinoma of colon (Chronic) On anticoagulant therapy (Chronic) Anxiety (Chronic) Cancer (Acute) Diabetes (Acute) Hemorrhoids (Acute) Pulmonary embolism (Acute) HTN (hypertension) (Chronic) Surgical History S/P colectomy (Acute) S/P hernia repair (Acute) S/P vasectomy (Acute) Family History Mother Cancer Social History (Updated 10/27/20 @ 13:38 by Hema BALDWIN, PA) Smoking Status: Never smoker alcohol intake: current alcohol intake frequency: holidays/special occasions only substance use type: marijuana HPI HPI Chief Complaint: dizziness on 10/26/20 - improved now Details: VALERIA VARGAS, is a 59 M who presents to the office today for Initial evaluation new onset lightheadedness/dizziness beginning yesterday morning therefore calling off work yesterday as well as today. He notes his symptoms are proved remarkably with trace to absent dizziness remaining and he has taken no pokc-cbj-ndiuoyk products to assist with symptoms. He is a non-smoker. He notes no LOC/nausea/vomiting either yesterday or today. He notes no other associated symptoms no other alleviating or aggravating factors. He is requesting a work excuse for yesterday as well as today. ROS Const Constitutional: Positive for other (as above) Exam Const General: cooperative, healthy appearing, comfortable, no acute distress Nutritional Appearance: well nourished Orientation: alert, awake, oriented x3 HENMT Head: normal to inspection Ears: hearing grossly normal bilaterally, external ears normal, TM's normal bilaterally, EAC's normal Nose: external nose normal, nares normal, septum normal, no nasal discharge Face and sinus: normal facial exam, sinuses nontender, face symmetric Mouth: oral mucosae normal, lip normal, tongue normal, oropharynx normal Teeth and gingiva: dentition normal, gingiva normal Throat: posterior oropharynx normal, tonsils normal, uvula midline, no postnasal drainage Eyes General: appearance normal, both eyes and all related structures Neck Neck: normal visual inspection, full ROM, no lymphadenopathy, no meningeal signs, supple Neck mass: No Thyroid: thyroid normal Lymphatic: no lymphadenopathy noted Chest Chest palpation inspection: normal inspection of the chest Resp Effort Inspection: normal respiratory effort, able to speak in complete sentences, symmetric chest movement Auscultation: Bilateral: Clear to Auscultation Cardio Palpation: normal PMI Rate: regular rate Rhythm: regular rhythm Heart Sounds: S1 normal, S2 normal, no gallops, no murmurs, no rubs Pulses: radial pulses present GI Inspection: normal to inspection Palpation: soft, no hepatosplenomegaly Skin General: no rashes or lesions noted Neuro General: alert, awake, oriented x3, gait normal Cranial Nerves: CN's II-XI intact bilaterally, PERRL, EOM intact bilaterally Cognition: normal cognition Speech: speech normal Gait: normal gait Motor: muscle tone normal throughout Sensory Exam: no sensory deficits noted Coordination: tandem gait normal, Does not sway with eyes open Psych Appearance: grossly normal Mental Status: mental status grossly normal Mood: congruent mood Affect: normal affect Speech and Movement: speech and movement normal Attitude: cooperative Thought Process: normal Thought Content: normal Judgment: judgment good Assessment Plan 1. Vertigo R42 Plan - Hema BALDWIN PA - by history - improved; pt requesting work excuse for both yesterday and today Clear fluids, rest, tylenol/ dramamine as recommended. Work excuse provided for today only, return to work without restrictions effective tomorrow; work excuse reiterates the same. Recommend establishing with PCP regarding uncontrolled hypertension for monitoring and management - first available appointment recommended. Patient states acknowledging understanding all the above. This note was generated with Linkiation software. It may contain incorrect words, spelling, and punctuation that were not noted in checking the note before signing. Coding Level of Care Code Off vis,est,level 2 Diagnoses Vertigo R42 04/03/21 1354 <Electronically signed by Meryl BALDWIN> Date Meryl BALDWIN 10/27/20 1338<Electronically signed by Hema BALDWIN> Cosigner Signature: Date (if applicable) Hema Garvni CC: Enedina Magdaleno DO Work Phone: Start: 05-19-2020 End: 05-19-2020 Colonoscopy Report Comments: See Note; NOTES: [facility] Medical Records Department [address] [place] [address] Colonoscopy Report MR#: [id number] Acct: [id number] Name: VALERIA VARGAS Rep #: [id number] : 1960 59 From: Alfonso Hatch MD PCP: Dr. Enedina Magdaleno, DO [place] [facility] [place] Name: Valeria Vargas Procedure Date: 05/19/2020 8:03 AM Date of : 1960 Age: 59 Procedure: Colonoscopy Indications: High risk colon cancer surveillance: Personal history of colonic polyps Providers: Alfonso Hatch MD Referring MD: Enedina Magdaleno Medicines: See the Anesthesia note for documentation of the administered medications Patient Profile: This is a 59 year old male. Refer to note in patient chart for documentation of history and physical. Last Colonoscopy: 2014. Complications: No immediate complications. Procedure: Pre-Anesthesia Assessment: - Prior to the procedure, a History and Physical was performed, and patient medications and allergies were reviewed. The patient's tolerance of previous anesthesia was also reviewed. The risks and benefits of the procedure and the sedation options and risks were discussed with the patient. All questions were answered, and informed consent was obtained. Prior Anticoagulants: The patient has taken no previous anticoagulant or antiplatelet agents. ASA Grade Assessment: III - A patient with severe systemic disease. After reviewing the risks and benefits, the patient was deemed in satisfactory condition to undergo the procedure. After I obtained informed consent, the scope was passed under direct vision. Throughout the procedure, the patient's blood pressure, pulse, and oxygen saturations were monitored continuously. The adult colonoscope was introduced through the anus and advanced to the cecum, identified by appendiceal orifice and ileocecal valve. The colonoscopy was performed without difficulty. The patient tolerated the procedure well. The quality of the bowel preparation was adequate to identify polyps 6 mm and larger in size. Scope In: 8:13:07 AM Scope Withdrawal Time 0 hours 6 minutes 47 seconds Scope Out: 8:22:52 AM Total Procedure Duration Time 0 hours 9 minutes 45 seconds Findings: The digital rectal exam findings include decreased sphincter tone. A few small-mouthed diverticula were found in the sigmoid colon. No biopsies or other specimens were collected for this exam. The exam was otherwise without abnormality. Impression: - Decreased sphincter tone found on digital rectal exam. - Diverticulosis in the sigmoid colon. No specimens collected. - The examination was otherwise normal. Recommendation: - Discharge patient to home. - Resume previous diet. - Continue present medications. - Repeat colonoscopy in 10 years for screening purposes. - Return to primary care physician at appointment to be scheduled. Procedure Code(s): --- Professional --- 02893, Colonoscopy, flexible; diagnostic, including collection of specimen(s) by brushing or washing, when performed (separate procedure) Diagnosis Code(s): --- Professional --- Z86.010, Personal history of colonic polyps K62.89, Other specified diseases of anus and rectum K57.30, Diverticulosis of large intestine without perforation or abscess without bleeding CPT copyright 2017 [employer]. All rights reserved. The codes documented in this report are preliminary and upon brand communications manager review may be revised to meet current compliance requirements. MD Alfonso Francisco MD 05/19/2020 8:35:02 AM This report has been signed electronically. Number of Addenda: 0 Note Initiated On: 05/19/2020 8:03 AM 05/19/20834 Date Alfonso Hatch MD Cosigner Signature: Date (if indicated) CC: Dr. Alfonso Hatch MD; Dr. Enedina Magdaleno DO Date Dictated: 05/19/20802 Date Transcribed: Digital Art Director: DP Signed Enedina Magdaleno Start: 05-19-2020 End: 05-19-2020 Operative Report - CC Letter Comments: See Note; NOTES: [facility] Medical Records Department [address] [place] [address] Operative Report - CC Letter MR#: [id number] Acct: [id number] Name: VALERIA VARGAS Rep #: [id number] : 1960 59 From: Alfonso Hatch MD PCP: Dr. Enedina Magdaleno, DO [place] [place]/19/2020 Enedina Magdaleno [address] [facility] [place] [address] Re : Colonoscopy procedure for Valeria Vargas Dear Dr. Magdaleno This procedure was performed on Sunday, May 19, 2020. My impressions and recommendations are as follows: Impressions : - Decreased sphincter tone found on digital rectal exam. - Diverticulosis in the sigmoid colon. No specimens collected. - The examination was otherwise normal. Recommendations : - Discharge patient to home. - Resume previous diet. - Continue present medications. - Repeat colonoscopy in 10 years for screening purposes. - Return to primary care physician at appointment to be scheduled. My findings are described in the full procedure note, which is enclosed. If I can be of further assistance, please feel free to contact me at Doctor phone number(s): , Fax: [phone], Work: . Sincerely, MD Alfonso Francisco MD 05/19/2020 8:35:02 AM This report has been signed electronically. 05/19/20834 Date Alfonso Hatch MD Cosigner Signature: Date (if indicated) CC: Dr. Alfonso Hatch MD; Dr. Enedina Magdaleno DO Date Dictated: 05/19/20802 Date Transcribed: Digital Art Director: DP Signed Enedina Magdaleno Start: 05-19-2020 End: 05-19-2020 History and Physical Exam Comments: See Note; NOTES: [facility] Medical Records Department [address] [place] [address] History and Physical 05/19/20 0831 MR#: [id number] Acct: [id number] Name: VALERIA VARGAS Rep #: [id number] : 1960 59 From: Alfonso Hatch MD PCP: Dr. Enedina Magdaleno DO Status:[facility] Location: [place] [address] History and Physical Date of Admission: 05/19/20 [facility] Medical Records Department [address] [place] [address] MR#: [id number] Acct: [id number] Name: VALERIA VARGAS Rep #: [id number] : 1960 59 From: Alfonso Hatch MD PCP: Dr. Enedina Magdaleno, DO [place] [facility] [place] [address]- Intake Vital Signs 03/31/20 BMI 34.0 03/31/20 Height 5 ft 9 in 03/31/20 Weight: 232 lb 03/31/20 BMI 34.2 03/31/20 BP 123/70 H 03/31/20 Blood Pressure Location Rt brachial 03/31/20 Position Sitting 03/31/20 Respiration 18 03/31/20 Temp 98.0 F 03/31/20 Temp Source Temporal Intake Visit Reasons: CSCOPE Chief Complaint: N/V/D Certified Appliance Service Technician Required: No Is patient in pain?: No Allergies acetaminophen [From Vicodin] Allergy (Verified 03/31/20 15:12) itchy hydrocodone [From Vicodin] Allergy (Verified 03/31/20 15:12) itchy Penicillins [PCN] Allergy (Verified 03/31/20 15:12) Unknown morphine Adverse Reaction (Verified 03/31/20 15:12) loopy Medications Enoxaparin [Lovenox] 120 mg SC BID 12/04/14 [History Confirmed 03/31/20] Metoprolol Tartrate [Lopressor (beta kris)] 25 mg PO BID 12/04/14 [History Confirmed 03/31/20] Lisinopril [Zestril] 10 mg PO DAILY 01/11/18 [History Confirmed 03/31/20] Famotidine [Pepcid] 20 mg PO DAILY 01/15/19 [History Confirmed 03/31/20] Metoclopramide [Reglan] 10 mg PO 4X/DAY PRN PRN 01/15/19 [History Confirmed 03/31/20] Insulin Lispro [Humalog KwikPen] See Protocol SQ ACHS #2 insuln.pen 01/17/19 [Rx Confirmed 03/31/20] Gemfibrozil 600 mg PO BID 01/21/19 [History Confirmed 03/31/20] Glimepiride 8 mg PO DAILY 01/21/19 [History Confirmed 03/31/20] Insulin Glargine [Lantus SoloStar Pen] 40 units SUBCUT QHS 01/21/19 [History Confirmed 03/31/20] Omeprazole 20 mg PO BID 01/21/19 [History Confirmed 03/31/20] [facility] Medical History Vertigo (Acute) Diarrhea (Acute) Hyperglycemia (Acute) Migraine (Acute) Cranial nerve III palsy (Acute) Headache (Acute) Gastroenteritis (Acute) Lupus anticoagulant disorder (Chronic) Presence of IVC filter (Chronic) Deep venous thrombosis of lower extremity (Chronic) Carcinoma of colon (Chronic) On anticoagulant therapy (Chronic) Anxiety (Chronic) Cancer (Acute) Diabetes (Acute) Hemorrhoids (Acute) Pulmonary embolism (Acute) HTN (hypertension) (Chronic) Surgical History S/P colectomy (Acute) S/P hernia repair (Acute) S/P vasectomy (Acute) Family History Mother Cancer Social History (Updated 04/07/20 @ 12:[address] Alfonso Hatch MD) Smoking Status: Never smoker alcohol intake: current alcohol intake frequency: holidays/special occasions only substance use type: marijuana HPI HPI Surgical H P: Yes HPI: VALERIA VARGAS, is a 59 M who presents to the office today for Evaluation for colonoscopy. Patient had rectal cancer in 2009 underwent a low anterior resection for this. His most recent colonoscopy was 05/28/2015 where a few large mouth diverticuli were found in the sigmoid colon and descending colon and a 5 mm polyp was found at 40 cm from the anal verge.. The polyp came back as a hyperplastic polyp. Patient has a longstanding history of fecal incontinence since his surgery as well. And this is not new and has been fairly consistent and persistent since that surgery. ROS General General: Yes colon cancer; no weight change, appetite, fatigue, breast cancer or weakness HEENT HEENT: No difficulty swallowing, eye injury, eye surgery, swollen glands or hoarseness Endo Endocrine: Yes diabetes mellitus; no thyroid disease, thyroid cancer, Hair loss, heat intolerance or cold intolerance Skin Skin: No rash or changing moles Breast Breast: No left breast lump, right breast lump, nipple discharge, breast pain, abnormal mammogram, abnormal US or breast enlargement Musc Musculoskeletal: No back problems, arthritis, rheumatoid arthritis, gout or joint pain Cardio Cardiovascular: Yes high blood pressure and heart stent; no murmur, pacemaker, heart disease, atrial fibrillation, heart attack, palpitations, shortness of breat with exertion or chest pain Psych Psychiatric: No depression, anxiety or hearing voices Resp Respiratory: No shortness of breath, Yes sleep apnea, No cough, No COPD, No asthma, No emphysema, No wheezing Gastro Gastrointestinal: Yes abdominal pain, No nausea or vomiting, Yes diarrhea, Yes constipation, No blood in stool, Yes acid reflux, No hemorrhoids, No ulcers, No gallbladder problem, No black,tarry stools Hemanth Hematologic: Yes blood thinners, Yes blood disorders, No bleeding, No anemia, Yes blood clots Neuro Neurologic: No system reviewed and no additional complaints, except as docu, No as per HPI, No abnormal walking, No abnormal hearing, No abnormal movements, No abnormal speech, No behavioral changes, No burning sensations, No confusion, No seizure-like activity, No unsteadiness, No dizziness, No localized weakness, No frequent falls, No headache(s), No lack of coordination, No loss of vision, No memory loss, No numbness, No other visual disturbances, No radiating pain, No restless legs, No sensory deficit, No fainting, No tingling, No tremor(s), No weakness, No other Exam Const General: no acute distress, well developed, well hydrated Orientation: oriented to person, oriented to place, oriented to time [facility] Head: normocephalic, atraumatic Ears: external ears normal Mouth: moist mucous membranes Eyes Sclera: sclerae normal Pupils: normal by confrontation Neck Neck: no lymphadenopathy noted Neck mass: No Thyroid: thyroid normal, symmetrical Chest Chest palpation inspection: normal inspection of the chest Breast Palpation: No nipple discharge Resp Effort Inspection: normal respiratory effort Auscultation: clear to auscultation bilaterally Percussion: percussion normal Cardio Rate: regular rate Rhythm: regular rhythm Heart Sounds: no murmurs GI Palpation: soft, no hepatosplenomegaly, no masses, nontender Rectal Exam: other Other: Rectal exam deferred. Extrem General: normal to inspection, no clubbing, cyanosis or edema Assessment Plan Problems 1. Personal history of rectal cancer Z85.048 2. Full incontinence of feces R15.9 Plan I have discussed the above with the patient. I have offered the patient colonoscopy for evaluation. I have explained the risks/benefits of the procedure and described the procedure. I have discussed the risks with the patient, including but not limited to: infection, bleeding, perforation of the GI tract requiring emergency surgery, inability to complete the procedure, injury to any internal organs, complications of anesthesia, etc. - the patient understands and agrees to proceed. I have answered all the patient's questions to the patient's satisfaction and the patient has no further questions. The patient has been given instructions for the colon cleansing preparation. Patient has a history of DVT and PE and has been on IV Lovenox for a long time. I am going to keep him on his IV Lovenox and stop it only on his nighttime dose so that we can get his colonoscopy completed. Coding Level of Care Code Off vis,new,level 3 Diagnoses Personal history of rectal cancer Z85.048 Full incontinence of feces R15.9 ?Fecal incontinence type: full incontinence of feces I have re-examined the patient. There are no clinical changes since date of exam. 05/19/20 0832 <Electronically signed by Alfonso Hatch MD> Date Alfonso Hatch MD Cosigner Signature: Date (if applicable) CC: Dr. Alfonso Hatch MD; Dr. Enedina Magdaleno DO Signed Enedina Magdaleno Start: 04-14-2020 End: 04-14-2020 Colonoscopy Report Comments: See Note; NOTES: [facility] Medical Records Department [address] [place] [address] Colonoscopy Report MR#: [id number] Acct: [id number] Name: VALERIA VARGAS Rep #: [id number] : 1960 59 From: Alfonso Hatch MD PCP: Dr. Enedina Magdaleno DO Status[facility] Patient Name: Valeria Vargas Procedure Date: 04/14/2020 8:27 AM Date of : 1960 Age: 59 Procedure: Colonoscopy Indications: High risk colon cancer surveillance: Personal history of colon cancer Providers: Alfonso Hatch MD Referring MD: Enedina Magdaleno Medicines: See the Anesthesia note for documentation of the administered medications Patient Profile: This is a 59 year old male. Refer to note in patient chart for documentation of history and physical. Last Colonoscopy: 2014. Complications: No immediate complications. Procedure: Pre-Anesthesia Assessment: - Prior to the procedure, a History and Physical was performed, and patient medications and allergies were reviewed. The patient's tolerance of previous anesthesia was also reviewed. The risks and benefits of the procedure and the sedation options and risks were discussed with the patient. All questions were answered, and informed consent was obtained. Prior Anticoagulants: The patient has taken Lovenox (enoxaparin), last dose was 1 day prior to procedure. ASA Grade Assessment: III - A patient with severe systemic disease. After reviewing the risks and benefits, the patient was deemed in satisfactory condition to undergo the procedure. After I obtained informed consent, the scope was passed under direct vision. Throughout the procedure, the patient's blood pressure, pulse, and oxygen saturations were monitored continuously. The Colonoscope was introduced through the anus with the intention of advancing to the cecum. The scope was advanced to the sigmoid colon before the procedure was aborted. Medications were given. The colonoscopy was aborted due to inadequate bowel prep. Lavage did not allow for the successful completion of the procedure. Scope In: 8:37:57 AM Scope Out: 8:40:29 AM Total Procedure Duration Time 0 hours 2 minutes 32 seconds Findings: Copious quantities of semi-solid stool was found in the entire colon, precluding visualization. Lavage of the area was performed using a small amount, resulting in incomplete clearance with continued poor visualization. Impression: - The procedure was aborted due to inadequate bowel prep. - Stool in the entire examined colon. - No specimens collected. Recommendation: - Discharge patient to home. - Resume previous diet. - Continue present medications. - Repeat colonoscopy in 2 weeks because the bowel preparation was poor. - Telephone my office to schedule appointment in 3 days. Procedure Code(s): --- Professional --- 28299, 53, Colonoscopy, flexible; diagnostic, including collection of specimen(s) by brushing or washing, when performed (separate procedure) Diagnosis Code(s): --- Professional --- Z85.038, Personal history of other malignant neoplasm of large intestine Z53.8, Procedure and treatment not carried out for other reasons CPT copyright 2017 [employer]. All rights reserved. The codes documented in this report are preliminary and upon brand communications manager review may be revised to meet current compliance requirements. MD Alfonso Francisco MD 04/14/2020 8:48:30 AM This report has been signed electronically. Number of Addenda: 0 Note Initiated On: 04/14/2020 8:27 AM 04/14/20847 Date Alfonso Hatch MD Cosigner Signature: Date (if indicated) CC: Dr. Alfonso Hatch MD; Dr. Enedina Magdaleno, Date Dictated: 04/14/20826 Date Transcribed: Digital Art Director: DP Signed Enedina Magdaleno Start: 04-14-2020 End: 04-14-2020 Operative Report - CC Letter Comments: See Note; NOTES: [facility] Medical Records Department [address] [place] [id number] Operative Report - CC Letter MR#: [id number] Acct: [id number] Name: VALERIA VARGAS Rep #: [id number] : 1960 59 From: Alfonso Hatch MD PCP: Dr. Enedina Magdaleno, DO [place] [place]/14/2020 Enedina Magdaleno [address] [facility], [address] [place] [address] Re : Colonoscopy procedure for Valeria Vargas Dear Dr. Magdaleno This procedure was performed on Sunday, April 14, 2020. My impressions and recommendations are as follows: Impressions : - The procedure was aborted due to inadequate bowel prep. - Stool in the entire examined colon. - No specimens collected. Recommendations : - Discharge patient to home. - Resume previous diet. - Continue present medications. - Repeat colonoscopy in 2 weeks because the bowel preparation was poor. - Telephone my office to schedule appointment in 3 days. My findings are described in the full procedure note, which is enclosed. If I can be of further assistance, please feel free to contact me at Doctor phone number(s): , Fax: [phone], Work: . Sincerely, MD Alfonso Francisco MD 04/14/2020 8:48:30 AM This report has been signed electronically. 04/14/20847 Date Alfonso Hatch MD Cosigner Signature: Date (if indicated) CC: Dr. Alfonso Hatch MD; Dr. Enedina Magdaleno DO Date Dictated: 04/14/20826 Date Transcribed: Digital Art Director: DP Signed Enedina Magdaleno Start: 04-07-2020 End: 05-19-2020 History and Physical Exam Comments: See Note; NOTES: [facility] Medical Records Department [address] [place] [address] History and Physical 04/07/20 1228 MR#: [id number] Acct: [id number] Name: VALERIA VARGAS Rep #: [id number] : 1960 59 From: Alfonso Hatch MD PCP: Dr. Enedina Magdaleno DO Status:[facility] Location: [place] [address] Intake Vital Signs 03/31/20 BMI 34.0 03/31/20 Height 5 ft 9 in 03/31/20 Weight: 232 lb 03/31/20 BMI 34.2 03/31/20 BP 123/70 H 03/31/20 Blood Pressure Location Rt brachial 03/31/20 Position Sitting 03/31/20 Respiration 18 03/31/20 Temp 98.0 F 03/31/20 Temp Source Temporal Intake Visit Reasons: CSCOPE Chief Complaint: N/V/D Certified Appliance Service Technician Required: No Is patient in pain?: No Allergies acetaminophen [From Vicodin] Allergy (Verified 03/31/20 15:12) itchy hydrocodone [From Vicodin] Allergy (Verified 03/31/20 15:12) itchy Penicillins [PCN] Allergy (Verified 03/31/20 15:12) Unknown morphine Adverse Reaction (Verified 03/31/20 15:12) loopy Medications Enoxaparin [Lovenox] 120 mg SC BID 12/04/14 [History Confirmed 03/31/20] Metoprolol Tartrate [Lopressor (beta kris)] 25 mg PO BID 12/04/14 [History Confirmed 03/31/20] Lisinopril [Zestril] 10 mg PO DAILY 01/11/18 [History Confirmed 03/31/20] Famotidine [Pepcid] 20 mg PO DAILY 01/15/19 [History Confirmed 03/31/20] Metoclopramide [Reglan] 10 mg PO 4X/DAY PRN PRN 01/15/19 [History Confirmed 03/31/20] Insulin Lispro [Humalog KwikPen] See Protocol SQ ACHS #2 insuln.pen 01/17/19 [Rx Confirmed 03/31/20] Gemfibrozil 600 mg PO BID 01/21/19 [History Confirmed 03/31/20] Glimepiride 8 mg PO DAILY 01/21/19 [History Confirmed 03/31/20] Insulin Glargine [Lantus SoloStar Pen] 40 units SUBCUT QHS 01/21/19 [History Confirmed 03/31/20] Omeprazole 20 mg PO BID 01/21/19 [History Confirmed 03/31/20] [facility] Medical History Vertigo (Acute) Diarrhea (Acute) Hyperglycemia (Acute) Migraine (Acute) Cranial nerve III palsy (Acute) Headache (Acute) Gastroenteritis (Acute) Lupus anticoagulant disorder (Chronic) Presence of IVC filter (Chronic) Deep venous thrombosis of lower extremity (Chronic) Carcinoma of colon (Chronic) On anticoagulant therapy (Chronic) Anxiety (Chronic) Cancer (Acute) Diabetes (Acute) Hemorrhoids (Acute) Pulmonary embolism (Acute) HTN (hypertension) (Chronic) Surgical History S/P colectomy (Acute) S/P hernia repair (Acute) S/P vasectomy (Acute) Family History Mother Cancer Social History (Updated 04/07/20 @ 12:[address] Alfonso Hatch MD) Smoking Status: Never smoker alcohol intake: current alcohol intake frequency: holidays/special occasions only substance use type: marijuana HPI HPI Surgical H P: Yes HPI: VALERIA VARGAS, is a 59 M who presents to the office today for Evaluation for colonoscopy. Patient had rectal cancer in 2009 underwent a low anterior resection for this. His most recent colonoscopy was 05/28/2015 where a few large mouth diverticuli were found in the sigmoid colon and descending colon and a 5 mm polyp was found at 40 cm from the anal verge.. The polyp came back as a hyperplastic polyp. Patient has a longstanding history of fecal incontinence since his surgery as well. And this is not new and has been fairly consistent and persistent since that surgery. ROS General General: Yes colon cancer; no weight change, appetite, fatigue, breast cancer or weakness HEENT HEENT: No difficulty swallowing, eye injury, eye surgery, swollen glands or hoarseness Endo Endocrine: Yes diabetes mellitus; no thyroid disease, thyroid cancer, Hair loss, heat intolerance or cold intolerance Skin Skin: No rash or changing moles Breast Breast: No left breast lump, right breast lump, nipple discharge, breast pain, abnormal mammogram, abnormal US or breast enlargement Musc Musculoskeletal: No back problems, arthritis, rheumatoid arthritis, gout or joint pain Cardio Cardiovascular: Yes high blood pressure and heart stent; no murmur, pacemaker, heart disease, atrial fibrillation, heart attack, palpitations, shortness of breat with exertion or chest pain Psych Psychiatric: No depression, anxiety or hearing voices Resp Respiratory: No shortness of breath, Yes sleep apnea, No cough, No COPD, No asthma, No emphysema, No wheezing Gastro Gastrointestinal: Yes abdominal pain, No nausea or vomiting, Yes diarrhea, Yes constipation, No blood in stool, Yes acid reflux, No hemorrhoids, No ulcers, No gallbladder problem, No black,tarry stools Hemanth Hematologic: Yes blood thinners, Yes blood disorders, No bleeding, No anemia, Yes blood clots Neuro Neurologic: No system reviewed and no additional complaints, except as docu, No as per HPI, No abnormal walking, No abnormal hearing, No abnormal movements, No abnormal speech, No behavioral changes, No burning sensations, No confusion, No seizure-like activity, No unsteadiness, No dizziness, No localized weakness, No frequent falls, No headache(s), No lack of coordination, No loss of vision, No memory loss, No numbness, No other visual disturbances, No radiating pain, No restless legs, No sensory deficit, No fainting, No tingling, No tremor(s), No weakness, No other Exam Const General: no acute distress, well developed, well hydrated Orientation: oriented to person, oriented to place, oriented to time [facility] Head: normocephalic, atraumatic Ears: external ears normal Mouth: moist mucous membranes Eyes Sclera: sclerae normal Pupils: normal by confrontation Neck Neck: no lymphadenopathy noted Neck mass: No Thyroid: thyroid normal, symmetrical Chest Chest palpation inspection: normal inspection of the chest Breast Palpation: No nipple discharge Resp Effort Inspection: normal respiratory effort Auscultation: clear to auscultation bilaterally Percussion: percussion normal Cardio Rate: regular rate Rhythm: regular rhythm Heart Sounds: no murmurs GI Palpation: soft, no hepatosplenomegaly, no masses, nontender Rectal Exam: other Other: Rectal exam deferred. Extrem General: normal to inspection, no clubbing, cyanosis or edema Assessment Plan Problems 1. Personal history of rectal cancer Z85.048 2. Full incontinence of feces R15.9 Plan I have discussed the above with the patient. I have offered the patient colonoscopy for evaluation. I have explained the risks/benefits of the procedure and described the procedure. I have discussed the risks with the patient, including but not limited to: infection, bleeding, perforation of the GI tract requiring emergency surgery, inability to complete the procedure, injury to any internal organs, complications of anesthesia, etc. - the patient understands and agrees to proceed. I have answered all the patient's questions to the patient's satisfaction and the patient has no further questions. The patient has been given instructions for the colon cleansing preparation. Patient has a history of DVT and PE and has been on IV Lovenox for a long time. I am going to keep him on his IV Lovenox and stop it only on his nighttime dose so that we can get his colonoscopy completed. Coding Level of Care Code Off vis,new,level 3 Diagnoses Personal history of rectal cancer Z85.048 Full incontinence of feces R15.9 ?Fecal incontinence type: full incontinence of feces 04/07/208 <Electronically signed by Alfonso Hatch MD> Date Alfonso Hatch MD I have re-examined the patient. There are no clinical changes since date of exam. 05/19/20 0801 <Electronically signed by Alfonso Hatch MD> Date: Time: Alfonso Hatch MD CC: Dr. Alfonso Hatch MD; Dr. Enedina Magdaleno, Date Dictated: 04/07/20 1228 Date Transcribed: 04/28/208 Digital Art Director: NR Signed Enedina Magdaleno Start: 03-31-2020 End: 04-07-2020 Surgery Visit Report Comments: See Note; NOTES: [facility] [address] [place] [address] OFFICE VISIT Date of Service: 03/31/20 MR#: [id number] Acct: [id number] Name: VALERIA VARGAS V Rep #: [id number] : 1960 Provider: Dr. 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 Appliance Service Technician Required: No Is patient in pain?: No Allergies acetaminophen [From Vicodin] Allergy (Verified 03/31/20 15:12) itchy hydrocodone [From Vicodin] Allergy (Verified 03/31/20 15:12) itchy Penicillins [PCN] Allergy (Verified 03/31/20 15:12) Unknown morphine Adverse Reaction (Verified 03/31/20 15:12) loopy Medications Enoxaparin [Lovenox] 120 mg SC BID 12/04/14 [History Confirmed 03/31/20] Metoprolol Tartrate [Lopressor (beta kris)] 25 mg PO BID 12/04/14 [History Confirmed 03/31/20] Lisinopril [Zestril] 10 mg PO DAILY 01/11/18 [History Confirmed 03/31/20] Famotidine [Pepcid] 20 mg PO DAILY 01/15/19 [History Confirmed 03/31/20] Metoclopramide [Reglan] 10 mg PO 4X/DAY PRN PRN 01/15/19 [History Confirmed 03/31/20] Insulin Lispro [Humalog KwikPen] See Protocol SQ ACHS #2 insuln.pen 01/17/19 [Rx Confirmed 03/31/20] Gemfibrozil 600 mg PO BID 01/21/19 [History Confirmed 03/31/20] Glimepiride 8 mg PO DAILY 01/21/19 [History Confirmed 03/31/20] Insulin Glargine [Lantus SoloStar Pen] 40 units SUBCUT QHS 01/21/19 [History Confirmed 03/31/20] Omeprazole 20 mg PO BID 01/21/19 [History Confirmed 03/31/20] PFSH Medical History Vertigo (Acute) Diarrhea (Acute) Hyperglycemia (Acute) Migraine (Acute) Cranial nerve III palsy (Acute) Headache (Acute) Gastroenteritis (Acute) Lupus anticoagulant disorder (Chronic) Presence of IVC filter (Chronic) Deep venous thrombosis of lower extremity (Chronic) Carcinoma of colon (Chronic) On anticoagulant therapy (Chronic) Anxiety (Chronic) Cancer (Acute) Diabetes (Acute) Hemorrhoids (Acute) Pulmonary embolism (Acute) HTN (hypertension) (Chronic) Surgical History S/P colectomy (Acute) S/P hernia repair (Acute) S/P vasectomy (Acute) Family History Mother Cancer Social History (Updated 04/07/20 @ 12:[address] Alfonso Hatch MD) Smoking Status: Never smoker alcohol intake: current alcohol intake frequency: holidays/special occasions only substance use type: marijuana HPI HPI HPI: VALERIA VARGAS, is a 59 M who presents to the office today for HPI HPI Surgical H P: Yes HPI: VALERIA VARGAS, is a 59 M who presents to the office today for Evaluation for colonoscopy. Patient had rectal cancer in 2009 underwent a low anterior resection for this. His most recent colonoscopy was 05/28/2015 where a few large mouth diverticuli were found in the sigmoid colon and descending colon and a 5 mm polyp was found at 40 cm from the anal verge.. The polyp came back as a hyperplastic polyp. Patient has a longstanding history of fecal incontinence since his surgery as well. And this is not new and has been fairly consistent and persistent since that surgery. ROS General General: Yes colon cancer; no weight change, appetite, fatigue, breast cancer or weakness HEENT HEENT: No difficulty swallowing, eye injury, eye surgery, swollen glands or hoarseness Endo Endocrine: Yes diabetes mellitus; no thyroid disease, thyroid cancer, Hair loss, heat intolerance or cold intolerance Skin Skin: No rash or changing moles Breast Breast: No left breast lump, right breast lump, nipple discharge, breast pain, abnormal mammogram, abnormal US or breast enlargement Musc Musculoskeletal: No back problems, arthritis, rheumatoid arthritis, gout or joint pain Cardio Cardiovascular: Yes high blood pressure and heart stent; no murmur, pacemaker, heart disease, atrial fibrillation, heart attack, palpitations, shortness of breat with exertion or chest pain Psych Psychiatric: No depression, anxiety or hearing voices Resp Respiratory: No shortness of breath, Yes sleep apnea, No cough, No COPD, No asthma, No emphysema, No wheezing Gastro Gastrointestinal: Yes abdominal pain, No nausea or vomiting, Yes diarrhea, Yes constipation, No blood in stool, Yes acid reflux, No hemorrhoids, No ulcers, No gallbladder problem, No black,tarry stools Hemanth Hematologic: Yes blood thinners, Yes blood disorders, No bleeding, No anemia, Yes blood clots Neuro Neurologic: No system reviewed and no additional complaints, except as docu, No as per HPI, No abnormal walking, No abnormal hearing, No abnormal movements, No abnormal speech, No behavioral changes, No burning sensations, No confusion, No seizure-like activity, No unsteadiness, No dizziness, No localized weakness, No frequent falls, No headache(s), No lack of coordination, No loss of vision, No memory loss, No numbness, No other visual disturbances, No radiating pain, No restless legs, No sensory deficit, No fainting, No tingling, No tremor(s), No weakness, No other Exam Const General: no acute distress, well developed, well hydrated Orientation: oriented to person, oriented to place, oriented to time [facility] Head: normocephalic, atraumatic Ears: external ears normal Mouth: moist mucous membranes Eyes Sclera: sclerae normal Pupils: normal by confrontation Neck Neck: no lymphadenopathy noted Neck mass: No Thyroid: thyroid normal, symmetrical Chest Chest palpation inspection: normal inspection of the chest Breast Palpation: No nipple discharge Resp Effort Inspection: normal respiratory effort Auscultation: clear to auscultation bilaterally Percussion: percussion normal Cardio Rate: regular rate Rhythm: regular rhythm Heart Sounds: no murmurs GI Palpation: soft, no hepatosplenomegaly, no masses, nontender Rectal Exam: other Other: Rectal exam deferred. Extrem General: normal to inspection, no clubbing, cyanosis or edema Assessment Plan Problems 1. Personal history of rectal cancer Z85.048 2. Full incontinence of feces R15.9 Plan I have discussed the above with the patient. I have offered the patient colonoscopy for evaluation. I have explained the risks/benefits of the procedure and described the procedure. I have discussed the risks with the patient, including but not limited to: infection, bleeding, perforation of the GI tract requiring emergency surgery, inability to complete the procedure, injury to any internal organs, complications of anesthesia, etc. - the patient understands and agrees to proceed. I have answered all the patient's questions to the patient's satisfaction and the patient has no further questions. The patient has been given instructions for the colon cleansing preparation. Patient has a history of DVT and PE and has been on IV Lovenox for a long time. I am going to keep him on his IV Lovenox and stop it only on his nighttime dose so that we can get his colonoscopy completed. Coding Level of Care Code Off vis,new,level 3 Diagnoses Personal history of rectal cancer Z85.048 Full incontinence of feces R15.9 ?Fecal incontinence type: full incontinence of feces 04/07/20 1228 <Electronically signed by Alfonso Hatch MD> Date Alfonso Hatch MD Cosigner Signature: Date (if applicable) CC: Dr. Enedina Magdaleno, DO; MD Enedina Bolanos colorectal sx [facility] Plan of Treatment Date Care Activity Detail Author Start: 08-21-2023 Procedure Education Eprescribed prescriptions (G8553) [facility]; [facility] Work Phone: Start: 08-21-2023 Provider Instructions for Treatment Follow up - make a gen med appt with Dr. Magdaleno, you have a lot of concerns that should be addressed. [facility]; [facility] Work Phone: Start: 08-07-2023 Procedure Education Eprescribed prescriptions (G8553) [facility]; [facility] Work Phone: Start: 08-07-2023 Provider Instructions for Treatment Follow up with Dr. Magdaleno for a general medical and to f/u with hypertension, we increase med at walk in visit [facility]; [facility] Work Phone: Start: 04-23-2023 Procedure Education Eprescribed prescriptions (G8553) [facility]; [facility] Work Phone: Start: 04-23-2023 Provider Instructions for Treatment [facility]; [facility] Work Phone: Start: 04-05-2023 Procedure Education Eprescribed prescriptions (G8553) [facility]; [facility] Work Phone: Start: 04-05-2023 Provider Instructions for Treatment Follow up in 2 weeks [facility]; [facility] Work Phone: Start: 03-27-2023 Procedure Education Eprescribed prescriptions (G8553) [facility]; [facility] Work Phone: Start: 03-27-2023 Provider Instructions for Treatment Follow up with Dr. Magdaleno for elevated blood pressure [facility]; [facility] Work Phone: Start: 12-27-2022 Procedure Education Eprescribed prescriptions (G8553) [facility]; [facility] Work Phone: Start: 09-28-2022 Procedure Education Eprescribed prescriptions (G8553) [facility]; [facility] Work Phone: Start: 08-30-2022 Procedure Education Eprescribed prescriptions (G8553) [facility]; [facility] Work Phone: Start: 07-05-2022 Procedure Education Eprescribed prescriptions (G8553) [facility]; [facility] Work Phone: Start: 07-05-2022 Provider Instructions for Treatment Follow up as needed [facility]; [facility] Work Phone: Start: 05-09-2022 Procedure Education Eprescribed prescriptions (G8553) [facility]; [facility] Work Phone: Start: 05-09-2022 Blood count manual cell count each CBC with auto diff (80708) [facility]; [facility] Work Phone: Start: 05-09-2022 Comprehensive metabolic panel METABOLIC PANEL, COMPREHENSIVE (95377) [facility]; [facility] Work Phone: Start: 04-13-2022 Procedure Education Eprescribed prescriptions (G8553) [facility]; [facility] Work Phone: Start: 02-24-2022 Procedure Education Eprescribed prescriptions (G8553) [facility]; [facility] Work Phone: Start: 01-30-2022 Procedure Education Eprescribed prescriptions (G8553) [facility]; [facility] Work Phone: Start: 01-30-2022 Provider Instructions for Treatment Follow up in 2 weeks [facility]; [facility] Work Phone: Start: 01-16-2022 Procedure Education Eprescribed prescriptions (G8553) [facility]; [facility] Work Phone: Start: 12-08-2021 Procedure Education Eprescribed prescriptions (G8553) [facility]; [facility] Work Phone: Start: 11-01-2021 Procedure Education Eprescribed prescriptions (G8553) [facility]; [facility] Work Phone: Start: 10-27-2021 Procedure Education Eprescribed prescriptions (G8553) [facility]; [facility] Work Phone: Start: 10-27-2021 Provider Instructions for Treatment Continue Current Prescription(s) [facility]; [facility] Work Phone: Start: 05-02-2021 Procedure Education Eprescribed prescriptions (G8553) [facility]; [facility] Work Phone: Start: 05-02-2021 Provider Instructions for Treatment Follow up if no improvement or if symptoms worsen [facility]; [facility] Work Phone: Start: 02-22-2021 Procedure Education Eprescribed prescriptions (G8553) [facility]; [facility] Work Phone: Start: 02-22-2021 Provider Instructions for Treatment COVID SCREENING FORM [facility]; [facility] Work Phone: Start: 02-09-2021 Lipid panel LIPID PANEL (47022) [facility] Work Phone: Start: 02-09-2021 Procedure Education Eprescribed prescriptions (G8553) [facility]; [facility] Work Phone: Start: 02-09-2021 Provider Instructions for Treatment [facility]; [facility] Work Phone: Start: 02-09-2021 Hemoglobin glycosylated a1c HgA1C , Office (71381) [facility]; [facility] Work Phone: Start: 02-09-2021 Gluc bld gluc mntr dev cleared fda spec home use Blood Glucose , Office (12997) [facility]; [facility] Work Phone: Start: 02-02-2021 Assay of prostate specific antigen total PSA TOTAL (RFLX FREE) 199495 (79015) [facility]; [facility] Work Phone: Start: 02-02-2021 Assay of thyroid stimulating hormone tsh TSH (THYROID STIMULATING HORMONE) (34533) [facility]; [facility] Work Phone: Start: 02-02-2021 TSH Qn TSH (THYROID STIMULATING HORMONE) (40605) [facility]; [facility] Work Phone: Start: 02-02-2021 Lipoprotein blood stephanie numbers & subclasses NMR Profile (56362) [facility]; [facility] Work Phone: Start: 02-02-2021 Comprehensive metabolic panel METABOLIC PANEL, COMPREHENSIVE (46792) [facility]; [facility] Work Phone: Start: 02-02-2021 Blood count complete auto&auto difrntl wbc CBC W/AUTO DIFF WBC (05407) [facility]; [facility] Work Phone: Start: 03-26-2020 Procedure Education Eprescribed prescriptions (G8553) [facility] Work Phone: Start: 03-04-2020 Procedure Education Eprescribed prescriptions (G8553) [facility] Work Phone: Start: 01-26-2020 Assay of prostate specific antigen total PSA (PROSTATE SPECIFIC ANTIGEN) (V76.44) [facility] Work Phone: Start: 01-26-2020 Lipid panel LIPID PANEL (85981) [facility] Work Phone: Start: 01-26-2020 Assay of thyroid stimulating hormone tsh TSH (THYROID STIMULATING HORMONE) (07269) [facility] Work Phone: Start: 01-26-2020 TSH Qn TSH (THYROID STIMULATING HORMONE) (53337) [facility] Work Phone: Start: 01-26-2020 Urine albumin quantitative MICROALBUMIN: CREATININE RATIO (67492) AND (23264) [facility] Work Phone: Start: 01-26-2020 Comprehensive metabolic panel METABOLIC PANEL, COMPREHENSIVE (28519) [facility] Work Phone: Start: 01-26-2020 Blood count complete auto&auto difrntl wbc CBC with auto diff (22527) [facility] Work Phone: Start: 01-26-2020 HbA1c (Bld) [Mass fraction] HGB A1C (97056) [facility] Work Phone: Start: 01-26-2020 Hemoglobin glycosylated a1c HGB A1C (29935) [facility] Work Phone: Start: 01-26-2020 Provider Instructions for Treatment [facility] Work Phone: [facility] Work Phone: [facility] Work Phone: [facility] Work Phone: [facility] Work Phone: [facility] Work Phone: [facility] Work Phone: [facility] Work Phone: [facility] Work Phone: [facility] Work Phone: [facility] Work Phone: [facility] Work Phone: [facility] Work Phone: Payers Date Payer Category Payer Unknown [id number] 1960 Unknown [id number] Unknown [employer] Social History Date Type Detail Facility Caffeine Use Caffeine Use [facility] Work Phone: Medical Equipment Procedure Code Equipment Code Equipment Origin al Text Equipment Identifier Dates Accu-Chek Compac t Plus In Vitro Strip 1 (one) Each tid for 30 days Quantity: 100 {Each} Refills: 11 Ordered: 08-Mar-2020 Enedina Magdaleno DO, DO, Kathleen Start : 08-Mar-2020 Active Comments: E11.65 Start: 03-08-2020 Clinical Notes Note Date & Type Note Facility [facility]; [facility] Work Phone: Instructions* Name Dates Details How to Access Health Informa tion Online using Patient Portal and ETC Education Apps Indication:Nonsmoker Start:09-Feb-2021 Instruction Type:Patient Education Patient Instructions Indication:Nonsmoker Start:09-Feb-2021 Instruction Type:Provider Instructions for Treatment How to access health informa tion online Indication:BMI 34.0-34.9,adult Start:26-Mar-2020 Instruction Type:Patient Education How to access health informa tion online - Detail Indication:BMI 34.0-34.9,adult Start:26-Mar-2020 Instruction Type:Patient Education Patient Instructions Indication:BMI 34.0-34.9,adult Start:26-Mar-2020 Instruction Type:Provider Instructions for Treatment How to access health informa tion online Indication:BMI 36.0-36.9,adult Start:04-Mar-2020 Instruction Type:Patient Education How to access health informa tion online - Detail Indication:BMI 36.0-36.9,adult Start:04-Mar-2020 Instruction Type:Patient Education Patient Instructions Indication:BMI 36.0-36.9,adult Start:04-Mar-2020 Instruction Type:Provider Instructions for Treatment [facility] Work Phone: [employer]* Name Dates Details How to Access Health Informa tion Online using Patient Portal and [employer] Apps Indication:Nonsmoker Start:09-Feb-2021 Instruction Type:Patient Education Patient Instructions Indication:Nonsmoker Start:09-Feb-2021 Instruction Type:Provider Instructions for Treatment How to access health informa tion online Indication:BMI 34.0-34.9,adult Start:26-Mar-2020 Instruction Type:Patient Education How to access health informa tion online - Detail Indication:BMI 34.0-34.9,adult Start:26-Mar-2020 Instruction Type:Patient Education Patient Instructions Indication:BMI 34.0-34.9,adult Start:26-Mar-2020 Instruction Type:Provider Instructions for Treatment How to access health informa tion online Indication:BMI 36.0-36.9,adult Start:04-Mar-2020 Instruction Type:Patient Education How to access health informa tion online - Detail Indication:BMI 36.0-36.9,adult Start:04-Mar-2020 Instruction Type:Patient Education Patient Instructions Indication:BMI 36.0-36.9,adult Start:04-Mar-2020 Instruction Type:Provider Instructions for Treatment [facility]; [facility] Work Phone: [employer]* Name Dates Details Patient Instructions Indication:Nonsmoker Start:22-Feb-2021 Instruction Type:Provider Instructions for Treatment How to Access Health Informa tion Online using Patient Portal and [employer] Apps Indication:Nonsmoker Start:22-Feb-2021 Instruction Type:Patient Education How to Access Health Informa tion Online using Patient Portal and [employer] Apps Indication:Nonsmoker Start:09-Feb-2021 Instruction Type:Patient Education Patient Instructions Indication:Nonsmoker Start:09-Feb-2021 Instruction Type:Provider Instructions for Treatment How to access health informa tion online Indication:BMI 34.0-34.9,adult Start:26-Mar-2020 Instruction Type:Patient Education How to access health informa tion online - Detail Indication:BMI 34.0-34.9,adult Start:26-Mar-2020 Instruction Type:Patient Education Patient Instructions Indication:BMI 34.0-34.9,adult Start:26-Mar-2020 Instruction Type:Provider Instructions for Treatment How to access health informa tion online Indication:BMI 36.0-36.9,adult Start:04-Mar-2020 Instruction Type:Patient Education How to access health informa tion online - Detail Indication:BMI 36.0-36.9,adult Start:04-Mar-2020 Instruction Type:Patient Education Patient Instructions Indication:BMI 36.0-36.9,adult Start:04-Mar-2020 Instruction Type:Provider Instructions for Treatment [facility]; [facility] Work Phone: [employer]* Name Dates Details Patient Instructions Indication:Nonsmoker Start:22-Feb-2021 Instruction Type:Provider Instructions for Treatment How to Access Health Informa tion Online using Patient Portal and [employer] Apps Indication:Nonsmoker Start:22-Feb-2021 Instruction Type:Patient Education How to Access Health Informa tion Online using Patient Portal and [employer] Apps Indication:Nonsmoker Start:09-Feb-2021 Instruction Type:Patient Education Patient Instructions Indication:Nonsmoker Start:09-Feb-2021 Instruction Type:Provider Instructions for Treatment How to access health informa tion online Indication:BMI 34.0-34.9,adult Start:26-Mar-2020 Instruction Type:Patient Education How to access health informa tion online - Detail Indication:BMI 34.0-34.9,adult Start:26-Mar-2020 Instruction Type:Patient Education Patient Instructions Indication:BMI 34.0-34.9,adult Start:26-Mar-2020 Instruction Type:Provider Instructions for Treatment How to access health informa tion online Indication:BMI 36.0-36.9,adult Start:04-Mar-2020 Instruction Type:Patient Education How to access health informa tion online - Detail Indication:BMI 36.0-36.9,adult Start:04-Mar-2020 Instruction Type:Patient Education Patient Instructions Indication:BMI 36.0-36.9,adult Start:04-Mar-2020 Instruction Type:Provider Instructions for Treatment [facility]; [facility] Work Phone: instructions* Name Dates Details Patient Instructions Indication:Nonsmoker Start:22-Feb-2021 Instruction Type:Provider Instructions for Treatment How to Access Health Informa tion Online using Patient Portal and [employer] Apps Indication:Nonsmoker Start:22-Feb-2021 Instruction Type:Patient Education How to Access Health Informa tion Online using Patient Portal and [employer] Apps Indication:Nonsmoker Start:09-Feb-2021 Instruction Type:Patient Education Patient Instructions Indication:Nonsmoker Start:09-Feb-2021 Instruction Type:Provider Instructions for Treatment How to access health informa tion online Indication:BMI 34.0-34.9,adult Start:26-Mar-2020 Instruction Type:Patient Education How to access health informa tion online - Detail Indication:BMI 34.0-34.9,adult Start:26-Mar-2020 Instruction Type:Patient Education Patient Instructions Indication:BMI 34.0-34.9,adult Start:26-Mar-2020 Instruction Type:Provider Instructions for Treatment How to access health informa tion online Indication:BMI 36.0-36.9,adult Start:04-Mar-2020 Instruction Type:Patient Education How to access health informa tion online - Detail Indication:BMI 36.0-36.9,adult Start:04-Mar-2020 Instruction Type:Patient Education Patient Instructions Indication:BMI 36.0-36.9,adult Start:04-Mar-2020 Instruction Type:Provider Instructions for Treatment [facility]; [facility] Work Phone: Instructions* Name Dates Details Patient Instructions Indication:Nonsmoker Start:22-Feb-2021 Instruction Type:Provider Instructions for Treatment How to Access Health Informa tion Online using Patient Portal and [employer] Apps Indication:Nonsmoker Start:22-Feb-2021 Instruction Type:Patient Education How to Access Health Informa tion Online using Patient Portal and [employer] Apps Indication:Nonsmoker Start:09-Feb-2021 Instruction Type:Patient Education Patient Instructions Indication:Nonsmoker Start:09-Feb-2021 Instruction Type:Provider Instructions for Treatment How to access health informa tion online Indication:BMI 34.0-34.9,adult Start:26-Mar-2020 Instruction Type:Patient Education How to access health informa tion online - Detail Indication:BMI 34.0-34.9,adult Start:26-Mar-2020 Instruction Type:Patient Education Patient Instructions Indication:BMI 34.0-34.9,adult Start:26-Mar-2020 Instruction Type:Provider Instructions for Treatment How to access health informa tion online Indication:BMI 36.0-36.9,adult Start:04-Mar-2020 Instruction Type:Patient Education How to access health informa tion online - Detail Indication:BMI 36.0-36.9,adult Start:04-Mar-2020 Instruction Type:Patient Education Patient Instructions Indication:BMI 36.0-36.9,adult Start:04-Mar-2020 Instruction Type:Provider Instructions for Treatment [facility]; [facility] Work Phone: Instructions* Name Dates Details Patient Instructions Indication:Nonsmoker Start:02-May-2021 Instruction Type:Provider Instructions for Treatment How to Access Health Informa tion Online using Patient Portal and [employer] Apps Indication:Nonsmoker Start:02-May-2021 Instruction Type:Patient Education Patient Instructions Indication:Nonsmoker Start:22-Feb-2021 Instruction Type:Provider Instructions for Treatment How to Access Health Informa tion Online using Patient Portal and [employer] Apps Indication:Nonsmoker Start:22-Feb-2021 Instruction Type:Patient Education How to Access Health Informa tion Online using Patient Portal and [employer] Apps Indication:Nonsmoker Start:09-Feb-2021 Instruction Type:Patient Education Patient Instructions Indication:Nonsmoker Start:09-Feb-2021 Instruction Type:Provider Instructions for Treatment How to access health informa tion online Indication:BMI 34.0-34.9,adult Start:26-Mar-2020 Instruction Type:Patient Education How to access health informa tion online - Detail Indication:BMI 34.0-34.9,adult Start:26-Mar-2020 Instruction Type:Patient Education Patient Instructions Indication:BMI 34.0-34.9,adult Start:26-Mar-2020 Instruction Type:Provider Instructions for Treatment How to access health informa tion online Indication:BMI 36.0-36.9,adult Start:04-Mar-2020 Instruction Type:Patient Education How to access health informa tion online - Detail Indication:BMI 36.0-36.9,adult Start:04-Mar-2020 Instruction Type:Patient Education Patient Instructions Indication:BMI 36.0-36.9,adult Start:04-Mar-2020 Instruction Type:Provider Instructions for Treatment [facility]; [facility] Work Phone: Instructions* Name Dates Details Patient Instructions Indication:BMI 32.0-32.9,adult Start:02-May-2021 Instruction Type:Provider Instructions for Treatment How to Access Health Informa tion Online using Patient Portal and [employer] Apps Indication:Nonsmoker Start:02-May-2021 Instruction Type:Patient Education Patient Instructions Indication:Nonsmoker Start:22-Feb-2021 Instruction Type:Provider Instructions for Treatment How to Access Health Informa tion Online using Patient Portal and [employer] Apps Indication:Nonsmoker Start:22-Feb-2021 Instruction Type:Patient Education How to Access Health Informa tion Online using Patient Portal and [employer] Apps Indication:Nonsmoker Start:09-Feb-2021 Instruction Type:Patient Education Patient Instructions Indication:Nonsmoker Start:09-Feb-2021 Instruction Type:Provider Instructions for Treatment How to access health informa tion online Indication:BMI 34.0-34.9,adult Start:26-Mar-2020 Instruction Type:Patient Education How to access health informa tion online - Detail Indication:BMI 34.0-34.9,adult Start:26-Mar-2020 Instruction Type:Patient Education Patient Instructions Indication:BMI 34.0-34.9,adult Start:26-Mar-2020 Instruction Type:Provider Instructions for Treatment How to access health informa tion online Indication:BMI 36.0-36.9,adult Start:04-Mar-2020 Instruction Type:Patient Education How to access health informa tion online - Detail Indication:BMI 36.0-36.9,adult Start:04-Mar-2020 Instruction Type:Patient Education Patient Instructions Indication:BMI 36.0-36.9,adult Start:04-Mar-2020 Instruction Type:Provider Instructions for Treatment [facility]; [facility] Work Phone: Instructions* Name Dates Details Patient Instructions Indication:BMI 32.0-32.9,adult Start:02-May-2021 Instruction Type:Provider Instructions for Treatment How to Access Health Informa tion Online using Patient Portal and [employer] Apps Indication:Nonsmoker Start:02-May-2021 Instruction Type:Patient Education Patient Instructions Indication:Nonsmoker Start:22-Feb-2021 Instruction Type:Provider Instructions for Treatment How to Access Health Informa tion Online using Patient Portal and [employer] Apps Indication:Nonsmoker Start:22-Feb-2021 Instruction Type:Patient Education How to Access Health Informa tion Online using Patient Portal and [employer] Apps Indication:Nonsmoker Start:09-Feb-2021 Instruction Type:Patient Education Patient Instructions Indication:Nonsmoker Start:09-Feb-2021 Instruction Type:Provider Instructions for Treatment How to access health informa tion online Indication:BMI 34.0-34.9,adult Start:26-Mar-2020 Instruction Type:Patient Education How to access health informa tion online - Detail Indication:BMI 34.0-34.9,adult Start:26-Mar-2020 Instruction Type:Patient Education Patient Instructions Indication:BMI 34.0-34.9,adult Start:26-Mar-2020 Instruction Type:Provider Instructions for Treatment How to access health informa tion online Indication:BMI 36.0-36.9,adult Start:04-Mar-2020 Instruction Type:Patient Education How to access health informa tion online - Detail Indication:BMI 36.0-36.9,adult Start:04-Mar-2020 Instruction Type:Patient Education Patient Instructions Indication:BMI 36.0-36.9,adult Start:04-Mar-2020 Instruction Type:Provider Instructions for Treatment [facility]; [facility] Work Phone: Instructions* Name Dates Details Patient Instructions Indication:BMI 32.0-32.9,adult Start:02-May-2021 Instruction Type:Provider Instructions for Treatment How to Access Health Informa tion Online using Patient Portal and [employer] Apps Indication:Nonsmoker Start:02-May-2021 Instruction Type:Patient Education Patient Instructions Indication:Nonsmoker Start:22-Feb-2021 Instruction Type:Provider Instructions for Treatment How to Access Health Informa tion Online using Patient Portal and [employer] Apps Indication:Nonsmoker Start:22-Feb-2021 Instruction Type:Patient Education How to Access Health Informa tion Online using Patient Portal and [employer] Apps Indication:Nonsmoker Start:09-Feb-2021 Instruction Type:Patient Education Patient Instructions Indication:Nonsmoker Start:09-Feb-2021 Instruction Type:Provider Instructions for Treatment How to access health informa tion online Indication:BMI 34.0-34.9,adult Start:26-Mar-2020 Instruction Type:Patient Education How to access health informa tion online - Detail Indication:BMI 34.0-34.9,adult Start:26-Mar-2020 Instruction Type:Patient Education Patient Instructions Indication:BMI 34.0-34.9,adult Start:26-Mar-2020 Instruction Type:Provider Instructions for Treatment How to access health informa tion online Indication:BMI 36.0-36.9,adult Start:04-Mar-2020 Instruction Type:Patient Education How to access health informa tion online - Detail Indication:BMI 36.0-36.9,adult Start:04-Mar-2020 Instruction Type:Patient Education Patient Instructions Indication:BMI 36.0-36.9,adult Start:04-Mar-2020 Instruction Type:Provider Instructions for Treatment [facility]; [facility] Work Phone: Instructions* Name Dates Details Patient Instructions Indication:BMI 32.0-32.9,adult Start:27-Oct-2021 Instruction Type:Provider Instructions for Treatment How to Access Health Informa tion Online using Patient Portal and [employer] Apps Indication:BMI 32.0-32.9,adult Start:27-Oct-2021 Instruction Type:Patient Education Patient Instructions Indication:BMI 32.0-32.9,adult Start:02-May-2021 Instruction Type:Provider Instructions for Treatment How to Access Health Informa tion Online using Patient Portal and [employer] Apps Indication:Nonsmoker Start:02-May-2021 Instruction Type:Patient Education Patient Instructions Indication:Nonsmoker Start:22-Feb-2021 Instruction Type:Provider Instructions for Treatment How to Access Health Informa tion Online using Patient Portal and [employer] Apps Indication:Nonsmoker Start:22-Feb-2021 Instruction Type:Patient Education How to Access Health Informa tion Online using Patient Portal and [employer] Apps Indication:Nonsmoker Start:09-Feb-2021 Instruction Type:Patient Education Patient Instructions Indication:Nonsmoker Start:09-Feb-2021 Instruction Type:Provider Instructions for Treatment How to access health informa tion online Indication:BMI 34.0-34.9,adult Start:26-Mar-2020 Instruction Type:Patient Education How to access health informa tion online - Detail Indication:BMI 34.0-34.9,adult Start:26-Mar-2020 Instruction Type:Patient Education Patient Instructions Indication:BMI 34.0-34.9,adult Start:26-Mar-2020 Instruction Type:Provider Instructions for Treatment How to access health informa tion online Indication:BMI 36.0-36.9,adult Start:04-Mar-2020 Instruction Type:Patient Education How to access health informa tion online - Detail Indication:BMI 36.0-36.9,adult Start:04-Mar-2020 Instruction Type:Patient Education Patient Instructions Indication:BMI 36.0-36.9,adult Start:04-Mar-2020 Instruction Type:Provider Instructions for Treatment [facility]; [facility] Work Phone: Instructions* Name Dates Details Patient Instructions Indication:BMI 32.0-32.9,adult Start:27-Oct-2021 Instruction Type:Provider Instructions for Treatment How to Access Health Informa tion Online using Patient Portal and [employer] Apps Indication:BMI 32.0-32.9,adult Start:27-Oct-2021 Instruction Type:Patient Education Patient Instructions Indication:BMI 32.0-32.9,adult Start:02-May-2021 Instruction Type:Provider Instructions for Treatment How to Access Health Informa tion Online using Patient Portal and [employer] Apps Indication:Nonsmoker Start:02-May-2021 Instruction Type:Patient Education Patient Instructions Indication:Nonsmoker Start:22-Feb-2021 Instruction Type:Provider Instructions for Treatment How to Access Health Informa tion Online using Patient Portal and [employer] Apps Indication:Nonsmoker Start:22-Feb-2021 Instruction Type:Patient Education How to Access Health Informa tion Online using Patient Portal and [employer] Apps Indication:Nonsmoker Start:09-Feb-2021 Instruction Type:Patient Education Patient Instructions Indication:Nonsmoker Start:09-Feb-2021 Instruction Type:Provider Instructions for Treatment How to access health informa tion online Indication:BMI 34.0-34.9,adult Start:26-Mar-2020 Instruction Type:Patient Education How to access health informa tion online - Detail Indication:BMI 34.0-34.9,adult Start:26-Mar-2020 Instruction Type:Patient Education Patient Instructions Indication:BMI 34.0-34.9,adult Start:26-Mar-2020 Instruction Type:Provider Instructions for Treatment How to access health informa tion online Indication:BMI 36.0-36.9,adult Start:04-Mar-2020 Instruction Type:Patient Education How to access health informa tion online - Detail Indication:BMI 36.0-36.9,adult Start:04-Mar-2020 Instruction Type:Patient Education Patient Instructions Indication:BMI 36.0-36.9,adult Start:04-Mar-2020 Instruction Type:Provider Instructions for Treatment [facility]; [facility] Work Phone: Instructions* Name Dates Details Patient Instructions Indication:Fever Start:01-Nov-2021 Instruction Type:Provider Instructions for Treatment How to Access Health Informa tion Online using Patient Portal and [employer] Apps Indication:Fever Start:01-Nov-2021 Instruction Type:Patient Education Patient Instructions Indication:BMI 32.0-32.9,adult Start:27-Oct-2021 Instruction Type:Provider Instructions for Treatment How to Access Health Informa tion Online using Patient Portal and [employer] Apps Indication:BMI 32.0-32.9,adult Start:27-Oct-2021 Instruction Type:Patient Education Patient Instructions Indication:BMI 32.0-32.9,adult Start:02-May-2021 Instruction Type:Provider Instructions for Treatment How to Access Health Informa tion Online using Patient Portal and [employer] Apps Indication:Nonsmoker Start:02-May-2021 Instruction Type:Patient Education Patient Instructions Indication:Nonsmoker Start:22-Feb-2021 Instruction Type:Provider Instructions for Treatment How to Access Health Informa tion Online using Patient Portal and [employer] Apps Indication:Nonsmoker Start:22-Feb-2021 Instruction Type:Patient Education How to Access Health Informa tion Online using Patient Portal and [employer] Apps Indication:Nonsmoker Start:09-Feb-2021 Instruction Type:Patient Education Patient Instructions Indication:Nonsmoker Start:09-Feb-2021 Instruction Type:Provider Instructions for Treatment How to access health informa tion online Indication:BMI 34.0-34.9,adult Start:26-Mar-2020 Instruction Type:Patient Education How to access health informa tion online - Detail Indication:BMI 34.0-34.9,adult Start:26-Mar-2020 Instruction Type:Patient Education Patient Instructions Indication:BMI 34.0-34.9,adult Start:26-Mar-2020 Instruction Type:Provider Instructions for Treatment How to access health informa tion online Indication:BMI 36.0-36.9,adult Start:04-Mar-2020 Instruction Type:Patient Education How to access health informa tion online - Detail Indication:BMI 36.0-36.9,adult Start:04-Mar-2020 Instruction Type:Patient Education Patient Instructions Indication:BMI 36.0-36.9,adult Start:04-Mar-2020 Instruction Type:Provider Instructions for Treatment [facility]; [facility] Work Phone: Instructions* Name Dates Details Patient Instructions Indication:Fever Start:01-Nov-2021 Instruction Type:Provider Instructions for Treatment How to Access Health Informa tion Online using Patient Portal and [employer] Apps Indication:Fever Start:01-Nov-2021 Instruction Type:Patient Education Patient Instructions Indication:BMI 32.0-32.9,adult Start:27-Oct-2021 Instruction Type:Provider Instructions for Treatment How to Access Health Informa tion Online using Patient Portal and [employer] Apps Indication:BMI 32.0-32.9,adult Start:27-Oct-2021 Instruction Type:Patient Education Patient Instructions Indication:BMI 32.0-32.9,adult Start:02-May-2021 Instruction Type:Provider Instructions for Treatment How to Access Health Informa tion Online using Patient Portal and [employer] Apps Indication:Nonsmoker Start:02-May-2021 Instruction Type:Patient Education Patient Instructions Indication:Nonsmoker Start:22-Feb-2021 Instruction Type:Provider Instructions for Treatment How to Access Health Informa tion Online using Patient Portal and [employer] Apps Indication:Nonsmoker Start:22-Feb-2021 Instruction Type:Patient Education How to Access Health Informa tion Online using Patient Portal and [employer] Apps Indication:Nonsmoker Start:09-Feb-2021 Instruction Type:Patient Education Patient Instructions Indication:Nonsmoker Start:09-Feb-2021 Instruction Type:Provider Instructions for Treatment How to access health informa tion online Indication:BMI 34.0-34.9,adult Start:26-Mar-2020 Instruction Type:Patient Education How to access health informa tion online - Detail Indication:BMI 34.0-34.9,adult Start:26-Mar-2020 Instruction Type:Patient Education Patient Instructions Indication:BMI 34.0-34.9,adult Start:26-Mar-2020 Instruction Type:Provider Instructions for Treatment How to access health informa tion online Indication:BMI 36.0-36.9,adult Start:04-Mar-2020 Instruction Type:Patient Education How to access health informa tion online - Detail Indication:BMI 36.0-36.9,adult Start:04-Mar-2020 Instruction Type:Patient Education Patient Instructions Indication:BMI 36.0-36.9,adult Start:04-Mar-2020 Instruction Type:Provider Instructions for Treatment [facility]; [facility] Work Phone: instructions* Name Dates Details How to access health informa tion online Indication:BMI 34.0-34.9,adult Start:26-Mar-2020 Instruction Type:Patient Education How to access health informa tion online - Detail Indication:BMI 34.0-34.9,adult Start:26-Mar-2020 Instruction Type:Patient Education Patient Instructions Indication:BMI 34.0-34.9,adult Start:26-Mar-2020 Instruction Type:Provider Instructions for Treatment How to access health informa tion online Indication:BMI 36.0-36.9,adult Start:04-Mar-2020 Instruction Type:Patient Education How to access health informa tion online - Detail Indication:BMI 36.0-36.9,adult Start:04-Mar-2020 Instruction Type:Patient Education Patient Instructions Indication:BMI 36.0-36.9,adult Start:04-Mar-2020 Instruction Type:Provider Instructions for Treatment [facility] Work Phone: instructions* Name Dates Details Patient Instructions Indication:Fever Start:01-Nov-2021 Instruction Type:Provider Instructions for Treatment How to Access Health Informa tion Online using Patient Portal and [employer] Indication:Fever Start:01-Nov-2021 Instruction Type:Patient Education Patient Instructions Indication:BMI 32.0-32.9,adult Start:27-Oct-2021 Instruction Type:Provider Instructions for Treatment How to Access Health Informa tion Online using Patient Portal and [employer] Indication:BMI 32.0-32.9,adult Start:27-Oct-2021 Instruction Type:Patient Education Patient Instructions Indication:BMI 32.0-32.9,adult Start:02-May-2021 Instruction Type:Provider Instructions for Treatment How to Access Health Informa tion Online using Patient Portal and [employer] Indication:Nonsmoker Start:02-May-2021 Instruction Type:Patient Education Patient Instructions Indication:Nonsmoker Start:22-Feb-2021 Instruction Type:Provider Instructions for Treatment How to Access Health Informa tion Online using Patient Portal and [employer] Indication:Nonsmoker Start:22-Feb-2021 Instruction Type:Patient Education How to Access Health Informa tion Online using Patient Portal and [employer] Indication:Nonsmoker Start:09-Feb-2021 Instruction Type:Patient Education Patient Instructions Indication:Nonsmoker Start:09-Feb-2021 Instruction Type:Provider Instructions for Treatment How to access health informa tion online Indication:BMI 34.0-34.9,adult Start:26-Mar-2020 Instruction Type:Patient Education How to access health informa tion online - Detail Indication:BMI 34.0-34.9,adult Start:26-Mar-2020 Instruction Type:Patient Education Patient Instructions Indication:BMI 34.0-34.9,adult Start:26-Mar-2020 Instruction Type:Provider Instructions for Treatment How to access health informa tion online Indication:BMI 36.0-36.9,adult Start:04-Mar-2020 Instruction Type:Patient Education How to access health informa tion online - Detail Indication:BMI 36.0-36.9,adult Start:04-Mar-2020 Instruction Type:Patient Education Patient Instructions Indication:BMI 36.0-36.9,adult Start:04-Mar-2020 Instruction Type:Provider Instructions for Treatment [facility]; [facility] Work Phone: Instructions* Name Dates Details Patient Instructions Indication:BMI 29.0-29.9,adult Start:08-Dec-2021 Instruction Type:Provider Instructions for Treatment How to Access Health Informa tion Online using Patient Portal and [employer] Indication:BMI 29.0-29.9,adult Start:08-Dec-2021 Instruction Type:Patient Education Patient Instructions Indication:Fever Start:01-Nov-2021 Instruction Type:Provider Instructions for Treatment How to Access Health Informa tion Online using Patient Portal and [employer] Indication:Fever Start:01-Nov-2021 Instruction Type:Patient Education Patient Instructions Indication:BMI 32.0-32.9,adult Start:27-Oct-2021 Instruction Type:Provider Instructions for Treatment How to Access Health Informa tion Online using Patient Portal and [employer] Indication:BMI 32.0-32.9,adult Start:27-Oct-2021 Instruction Type:Patient Education Patient Instructions Indication:BMI 32.0-32.9,adult Start:02-May-2021 Instruction Type:Provider Instructions for Treatment How to Access Health Informa tion Online using Patient Portal and [employer] Indication:Nonsmoker Start:02-May-2021 Instruction Type:Patient Education Patient Instructions Indication:Nonsmoker Start:22-Feb-2021 Instruction Type:Provider Instructions for Treatment How to Access Health Informa tion Online using Patient Portal and [employer] Indication:Nonsmoker Start:22-Feb-2021 Instruction Type:Patient Education How to Access Health Informa tion Online using Patient Portal and [employer] Indication:Nonsmoker Start:09-Feb-2021 Instruction Type:Patient Education Patient Instructions Indication:Nonsmoker Start:09-Feb-2021 Instruction Type:Provider Instructions for Treatment How to access health informa tion online Indication:BMI 34.0-34.9,adult Start:26-Mar-2020 Instruction Type:Patient Education How to access health informa tion online - Detail Indication:BMI 34.0-34.9,adult Start:26-Mar-2020 Instruction Type:Patient Education Patient Instructions Indication:BMI 34.0-34.9,adult Start:26-Mar-2020 Instruction Type:Provider Instructions for Treatment How to access health informa tion online Indication:BMI 36.0-36.9,adult Start:04-Mar-2020 Instruction Type:Patient Education How to access health informa tion online - Detail Indication:BMI 36.0-36.9,adult Start:04-Mar-2020 Instruction Type:Patient Education Patient Instructions Indication:BMI 36.0-36.9,adult Start:04-Mar-2020 Instruction Type:Provider Instructions for Treatment [facility]; [facility] Work Phone: Instructions* Name Dates Details Patient Instructions Indication:BMI 29.0-29.9,adult Start:08-Dec-2021 Instruction Type:Provider Instructions for Treatment How to Access Health Informa tion Online using Patient Portal and [employer] Indication:BMI 29.0-29.9,adult Start:08-Dec-2021 Instruction Type:Patient Education Patient Instructions Indication:Fever Start:01-Nov-2021 Instruction Type:Provider Instructions for Treatment How to Access Health Informa tion Online using Patient Portal and [employer] Indication:Fever Start:01-Nov-2021 Instruction Type:Patient Education Patient Instructions Indication:BMI 32.0-32.9,adult Start:27-Oct-2021 Instruction Type:Provider Instructions for Treatment How to Access Health Informa tion Online using Patient Portal and [employer] Indication:BMI 32.0-32.9,adult Start:27-Oct-2021 Instruction Type:Patient Education Patient Instructions Indication:BMI 32.0-32.9,adult Start:02-May-2021 Instruction Type:Provider Instructions for Treatment How to Access Health Informa tion Online using Patient Portal and [employer] Indication:Nonsmoker Start:02-May-2021 Instruction Type:Patient Education Patient Instructions Indication:Nonsmoker Start:22-Feb-2021 Instruction Type:Provider Instructions for Treatment How to Access Health Informa tion Online using Patient Portal and [employer] Indication:Nonsmoker Start:22-Feb-2021 Instruction Type:Patient Education How to Access Health Informa tion Online using Patient Portal and [employer] Indication:Nonsmoker Start:09-Feb-2021 Instruction Type:Patient Education Patient Instructions Indication:Nonsmoker Start:09-Feb-2021 Instruction Type:Provider Instructions for Treatment How to access health informa tion online Indication:BMI 34.0-34.9,adult Start:26-Mar-2020 Instruction Type:Patient Education How to access health informa tion online - Detail Indication:BMI 34.0-34.9,adult Start:26-Mar-2020 Instruction Type:Patient Education Patient Instructions Indication:BMI 34.0-34.9,adult Start:26-Mar-2020 Instruction Type:Provider Instructions for Treatment How to access health informa tion online Indication:BMI 36.0-36.9,adult Start:04-Mar-2020 Instruction Type:Patient Education How to access health informa tion online - Detail Indication:BMI 36.0-36.9,adult Start:04-Mar-2020 Instruction Type:Patient Education Patient Instructions Indication:BMI 36.0-36.9,adult Start:04-Mar-2020 Instruction Type:Provider Instructions for Treatment [facility]; [facility] Work Phone: Instructions* Name Dates Details Patient Instructions Indication:Nonsmoker Start:24-Feb-2022 Instruction Type:Provider Instructions for Treatment How to Access Health Informa tion Online using Patient Portal and [employer] Indication:Nonsmoker Start:24-Feb-2022 Instruction Type:Patient Education Patient Instructions Indication:BMI 31.0-31.9,adult Start:30-Jan-2022 Instruction Type:Provider Instructions for Treatment How to Access Health Informa tion Online using Patient Portal and [employer] Indication:BMI 31.0-31.9,adult Start:30-Jan-2022 Instruction Type:Patient Education Patient Instructions Indication:BMI 31.0-31.9,adult Start:16-Jan-2022 Instruction Type:Provider Instructions for Treatment How to Access Health Informa tion Online using Patient Portal and [employer] Indication:BMI 31.0-31.9,adult Start:16-Jan-2022 Instruction Type:Patient Education Patient Instructions Indication:BMI 29.0-29.9,adult Start:08-Dec-2021 Instruction Type:Provider Instructions for Treatment How to Access Health Informa tion Online using Patient Portal and [employer] Indication:BMI 29.0-29.9,adult Start:08-Dec-2021 Instruction Type:Patient Education Patient Instructions Indication:Fever Start:01-Nov-2021 Instruction Type:Provider Instructions for Treatment How to Access Health Informa tion Online using Patient Portal and [employer] Indication:Fever Start:01-Nov-2021 Instruction Type:Patient Education Patient Instructions Indication:BMI 32.0-32.9,adult Start:27-Oct-2021 Instruction Type:Provider Instructions for Treatment How to Access Health Informa tion Online using Patient Portal and [employer] Indication:BMI 32.0-32.9,adult Start:27-Oct-2021 Instruction Type:Patient Education Patient Instructions Indication:BMI 32.0-32.9,adult Start:02-May-2021 Instruction Type:Provider Instructions for Treatment How to Access Health Informa tion Online using Patient Portal and [employer] Indication:Nonsmoker Start:02-May-2021 Instruction Type:Patient Education Patient Instructions Indication:Nonsmoker Start:22-Feb-2021 Instruction Type:Provider Instructions for Treatment How to Access Health Informa tion Online using Patient Portal and [employer] Indication:Nonsmoker Start:22-Feb-2021 Instruction Type:Patient Education How to Access Health Informa tion Online using Patient Portal and [employer] Indication:Nonsmoker Start:09-Feb-2021 Instruction Type:Patient Education Patient Instructions Indication:Nonsmoker Start:09-Feb-2021 Instruction Type:Provider Instructions for Treatment How to access health informa tion online Indication:BMI 34.0-34.9,adult Start:26-Mar-2020 Instruction Type:Patient Education How to access health informa tion online - Detail Indication:BMI 34.0-34.9,adult Start:26-Mar-2020 Instruction Type:Patient Education Patient Instructions Indication:BMI 34.0-34.9,adult Start:26-Mar-2020 Instruction Type:Provider Instructions for Treatment How to access health informa tion online Indication:BMI 36.0-36.9,adult Start:04-Mar-2020 Instruction Type:Patient Education How to access health informa tion online - Detail Indication:BMI 36.0-36.9,adult Start:04-Mar-2020 Instruction Type:Patient Education Patient Instructions Indication:BMI 36.0-36.9,adult Start:04-Mar-2020 Instruction Type:Provider Instructions for Treatment [facility]; [facility] Work Phone: Instructions* Name Dates Details Patient Instructions Indication:Nonsmoker Start:24-Feb-2022 Instruction Type:Provider Instructions for Treatment How to Access Health Informa tion Online using Patient Portal and [employer] Indication:Nonsmoker Start:24-Feb-2022 Instruction Type:Patient Education Patient Instructions Indication:BMI 31.0-31.9,adult Start:30-Jan-2022 Instruction Type:Provider Instructions for Treatment How to Access Health Informa tion Online using Patient Portal and [employer] Indication:BMI 31.0-31.9,adult Start:30-Jan-2022 Instruction Type:Patient Education Patient Instructions Indication:BMI 31.0-31.9,adult Start:16-Jan-2022 Instruction Type:Provider Instructions for Treatment How to Access Health Informa tion Online using Patient Portal and [employer] Indication:BMI 31.0-31.9,adult Start:16-Jan-2022 Instruction Type:Patient Education Patient Instructions Indication:BMI 29.0-29.9,adult Start:08-Dec-2021 Instruction Type:Provider Instructions for Treatment How to Access Health Informa tion Online using Patient Portal and [employer] Indication:BMI 29.0-29.9,adult Start:08-Dec-2021 Instruction Type:Patient Education Patient Instructions Indication:Fever Start:01-Nov-2021 Instruction Type:Provider Instructions for Treatment How to Access Health Informa tion Online using Patient Portal and [employer] Indication:Fever Start:01-Nov-2021 Instruction Type:Patient Education Patient Instructions Indication:BMI 32.0-32.9,adult Start:27-Oct-2021 Instruction Type:Provider Instructions for Treatment How to Access Health Informa tion Online using Patient Portal and [employer] Indication:BMI 32.0-32.9,adult Start:27-Oct-2021 Instruction Type:Patient Education Patient Instructions Indication:BMI 32.0-32.9,adult Start:02-May-2021 Instruction Type:Provider Instructions for Treatment How to Access Health Informa tion Online using Patient Portal and [employer] Indication:Nonsmoker Start:02-May-2021 Instruction Type:Patient Education Patient Instructions Indication:Nonsmoker Start:22-Feb-2021 Instruction Type:Provider Instructions for Treatment How to Access Health Informa tion Online using Patient Portal and [employer] Indication:Nonsmoker Start:22-Feb-2021 Instruction Type:Patient Education How to Access Health Informa tion Online using Patient Portal and [employer] Indication:Nonsmoker Start:09-Feb-2021 Instruction Type:Patient Education Patient Instructions Indication:Nonsmoker Start:09-Feb-2021 Instruction Type:Provider Instructions for Treatment How to access health informa tion online Indication:BMI 34.0-34.9,adult Start:26-Mar-2020 Instruction Type:Patient Education How to access health informa tion online - Detail Indication:BMI 34.0-34.9,adult Start:26-Mar-2020 Instruction Type:Patient Education Patient Instructions Indication:BMI 34.0-34.9,adult Start:26-Mar-2020 Instruction Type:Provider Instructions for Treatment How to access health informa tion online Indication:BMI 36.0-36.9,adult Start:04-Mar-2020 Instruction Type:Patient Education How to access health informa tion online - Detail Indication:BMI 36.0-36.9,adult Start:04-Mar-2020 Instruction Type:Patient Education Patient Instructions Indication:BMI 36.0-36.9,adult Start:04-Mar-2020 Instruction Type:Provider Instructions for Treatment [facility]; [facility] Work Phone: Instructions* Name Dates Details Patient Instructions Indication:Nonsmoker Start:24-Feb-2022 Instruction Type:Provider Instructions for Treatment How to Access Health Informa tion Online using Patient Portal and [employer] Indication:Nonsmoker Start:24-Feb-2022 Instruction Type:Patient Education Patient Instructions Indication:BMI 31.0-31.9,adult Start:30-Jan-2022 Instruction Type:Provider Instructions for Treatment How to Access Health Informa tion Online using Patient Portal and [employer] Indication:BMI 31.0-31.9,adult Start:30-Jan-2022 Instruction Type:Patient Education Patient Instructions Indication:BMI 31.0-31.9,adult Start:16-Jan-2022 Instruction Type:Provider Instructions for Treatment How to Access Health Informa tion Online using Patient Portal and [employer] Indication:BMI 31.0-31.9,adult Start:16-Jan-2022 Instruction Type:Patient Education Patient Instructions Indication:BMI 29.0-29.9,adult Start:08-Dec-2021 Instruction Type:Provider Instructions for Treatment How to Access Health Informa tion Online using Patient Portal and [employer] Indication:BMI 29.0-29.9,adult Start:08-Dec-2021 Instruction Type:Patient Education Patient Instructions Indication:Fever Start:01-Nov-2021 Instruction Type:Provider Instructions for Treatment How to Access Health Informa tion Online using Patient Portal and [employer] Indication:Fever Start:01-Nov-2021 Instruction Type:Patient Education Patient Instructions Indication:BMI 32.0-32.9,adult Start:27-Oct-2021 Instruction Type:Provider Instructions for Treatment How to Access Health Informa tion Online using Patient Portal and [employer] Indication:BMI 32.0-32.9,adult Start:27-Oct-2021 Instruction Type:Patient Education Patient Instructions Indication:BMI 32.0-32.9,adult Start:02-May-2021 Instruction Type:Provider Instructions for Treatment How to Access Health Informa tion Online using Patient Portal and [employer] Indication:Nonsmoker Start:02-May-2021 Instruction Type:Patient Education Patient Instructions Indication:Nonsmoker Start:22-Feb-2021 Instruction Type:Provider Instructions for Treatment How to Access Health Informa tion Online using Patient Portal and [employer] Indication:Nonsmoker Start:22-Feb-2021 Instruction Type:Patient Education How to Access Health Informa tion Online using Patient Portal and [employer] Indication:Nonsmoker Start:09-Feb-2021 Instruction Type:Patient Education Patient Instructions Indication:Nonsmoker Start:09-Feb-2021 Instruction Type:Provider Instructions for Treatment How to access health informa tion online Indication:BMI 34.0-34.9,adult Start:26-Mar-2020 Instruction Type:Patient Education How to access health informa tion online - Detail Indication:BMI 34.0-34.9,adult Start:26-Mar-2020 Instruction Type:Patient Education Patient Instructions Indication:BMI 34.0-34.9,adult Start:26-Mar-2020 Instruction Type:Provider Instructions for Treatment How to access health informa tion online Indication:BMI 36.0-36.9,adult Start:04-Mar-2020 Instruction Type:Patient Education How to access health informa tion online - Detail Indication:BMI 36.0-36.9,adult Start:04-Mar-2020 Instruction Type:Patient Education Patient Instructions Indication:BMI 36.0-36.9,adult Start:04-Mar-2020 Instruction Type:Provider Instructions for Treatment [facility]; [facility] Work Phone: Instructions* Name Dates Details Patient Instructions Indication:Nonsmoker Start:24-Feb-2022 Instruction Type:Provider Instructions for Treatment How to Access Health Informa tion Online using Patient Portal and [employer] Indication:Nonsmoker Start:24-Feb-2022 Instruction Type:Patient Education Patient Instructions Indication:BMI 31.0-31.9,adult Start:30-Jan-2022 Instruction Type:Provider Instructions for Treatment How to Access Health Informa tion Online using Patient Portal and [employer] Indication:BMI 31.0-31.9,adult Start:30-Jan-2022 Instruction Type:Patient Education Patient Instructions Indication:BMI 31.0-31.9,adult Start:16-Jan-2022 Instruction Type:Provider Instructions for Treatment How to Access Health Informa tion Online using Patient Portal and [employer] Indication:BMI 31.0-31.9,adult Start:16-Jan-2022 Instruction Type:Patient Education Patient Instructions Indication:BMI 29.0-29.9,adult Start:08-Dec-2021 Instruction Type:Provider Instructions for Treatment How to Access Health Informa tion Online using Patient Portal and [employer] Indication:BMI 29.0-29.9,adult Start:08-Dec-2021 Instruction Type:Patient Education Patient Instructions Indication:Fever Start:01-Nov-2021 Instruction Type:Provider Instructions for Treatment How to Access Health Informa tion Online using Patient Portal and [employer] Indication:Fever Start:01-Nov-2021 Instruction Type:Patient Education Patient Instructions Indication:BMI 32.0-32.9,adult Start:27-Oct-2021 Instruction Type:Provider Instructions for Treatment How to Access Health Informa tion Online using Patient Portal and [employer] Indication:BMI 32.0-32.9,adult Start:27-Oct-2021 Instruction Type:Patient Education Patient Instructions Indication:BMI 32.0-32.9,adult Start:02-May-2021 Instruction Type:Provider Instructions for Treatment How to Access Health Informa tion Online using Patient Portal and [employer] Indication:Nonsmoker Start:02-May-2021 Instruction Type:Patient Education Patient Instructions Indication:Nonsmoker Start:22-Feb-2021 Instruction Type:Provider Instructions for Treatment How to Access Health Informa tion Online using Patient Portal and [employer] Indication:Nonsmoker Start:22-Feb-2021 Instruction Type:Patient Education How to Access Health Informa tion Online using Patient Portal and [employer] Indication:Nonsmoker Start:09-Feb-2021 Instruction Type:Patient Education Patient Instructions Indication:Nonsmoker Start:09-Feb-2021 Instruction Type:Provider Instructions for Treatment How to access health informa tion online Indication:BMI 34.0-34.9,adult Start:26-Mar-2020 Instruction Type:Patient Education How to access health informa tion online - Detail Indication:BMI 34.0-34.9,adult Start:26-Mar-2020 Instruction Type:Patient Education Patient Instructions Indication:BMI 34.0-34.9,adult Start:26-Mar-2020 Instruction Type:Provider Instructions for Treatment How to access health informa tion online Indication:BMI 36.0-36.9,adult Start:04-Mar-2020 Instruction Type:Patient Education How to access health informa tion online - Detail Indication:BMI 36.0-36.9,adult Start:04-Mar-2020 Instruction Type:Patient Education Patient Instructions Indication:BMI 36.0-36.9,adult Start:04-Mar-2020 Instruction Type:Provider Instructions for Treatment [facility]; [facility] Work Phone: Instructions* Name Dates Details Patient Instructions Indication:Nonsmoker Start:24-Feb-2022 Instruction Type:Provider Instructions for Treatment How to Access Health Informa tion Online using Patient Portal and [employer] Indication:Nonsmoker Start:24-Feb-2022 Instruction Type:Patient Education Patient Instructions Indication:BMI 31.0-31.9,adult Start:30-Jan-2022 Instruction Type:Provider Instructions for Treatment How to Access Health Informa tion Online using Patient Portal and [employer] Indication:BMI 31.0-31.9,adult Start:30-Jan-2022 Instruction Type:Patient Education Patient Instructions Indication:BMI 31.0-31.9,adult Start:16-Jan-2022 Instruction Type:Provider Instructions for Treatment How to Access Health Informa tion Online using Patient Portal and [employer] Indication:BMI 31.0-31.9,adult Start:16-Jan-2022 Instruction Type:Patient Education Patient Instructions Indication:BMI 29.0-29.9,adult Start:08-Dec-2021 Instruction Type:Provider Instructions for Treatment How to Access Health Informa tion Online using Patient Portal and [employer] Indication:BMI 29.0-29.9,adult Start:08-Dec-2021 Instruction Type:Patient Education Patient Instructions Indication:Fever Start:01-Nov-2021 Instruction Type:Provider Instructions for Treatment How to Access Health Informa tion Online using Patient Portal and [employer] Indication:Fever Start:01-Nov-2021 Instruction Type:Patient Education Patient Instructions Indication:BMI 32.0-32.9,adult Start:27-Oct-2021 Instruction Type:Provider Instructions for Treatment How to Access Health Informa tion Online using Patient Portal and [employer] Indication:BMI 32.0-32.9,adult Start:27-Oct-2021 Instruction Type:Patient Education Patient Instructions Indication:BMI 32.0-32.9,adult Start:02-May-2021 Instruction Type:Provider Instructions for Treatment How to Access Health Informa tion Online using Patient Portal and [employer] Indication:Nonsmoker Start:02-May-2021 Instruction Type:Patient Education Patient Instructions Indication:Nonsmoker Start:22-Feb-2021 Instruction Type:Provider Instructions for Treatment How to Access Health Informa tion Online using Patient Portal and [employer] Indication:Nonsmoker Start:22-Feb-2021 Instruction Type:Patient Education How to Access Health Informa tion Online using Patient Portal and [employer] Indication:Nonsmoker Start:09-Feb-2021 Instruction Type:Patient Education Patient Instructions Indication:Nonsmoker Start:09-Feb-2021 Instruction Type:Provider Instructions for Treatment How to access health informa tion online Indication:BMI 34.0-34.9,adult Start:26-Mar-2020 Instruction Type:Patient Education How to access health informa tion online - Detail Indication:BMI 34.0-34.9,adult Start:26-Mar-2020 Instruction Type:Patient Education Patient Instructions Indication:BMI 34.0-34.9,adult Start:26-Mar-2020 Instruction Type:Provider Instructions for Treatment How to access health informa tion online Indication:BMI 36.0-36.9,adult Start:04-Mar-2020 Instruction Type:Patient Education How to access health informa tion online - Detail Indication:BMI 36.0-36.9,adult Start:04-Mar-2020 Instruction Type:Patient Education Patient Instructions Indication:BMI 36.0-36.9,adult Start:04-Mar-2020 Instruction Type:Provider Instructions for Treatment [facility]; [facility] Work Phone: Instructions* Name Dates Details Patient Instructions Indication:BMI 33.0-33.9,adult Start:13-Apr-2022 Instruction Type:Provider Instructions for Treatment How to Access Health Informa tion Online using Patient Portal and [employer] Indication:BMI 33.0-33.9,adult Start:13-Apr-2022 Instruction Type:Patient Education Patient Instructions Indication:Nonsmoker Start:24-Feb-2022 Instruction Type:Provider Instructions for Treatment How to Access Health Informa tion Online using Patient Portal and [employer] Apps Indication:Nonsmoker Start:24-Feb-2022 Instruction Type:Patient Education Patient Instructions Indication:BMI 31.0-31.9,adult Start:30-Jan-2022 Instruction Type:Provider Instructions for Treatment How to Access Health Informa tion Online using Patient Portal and [employer] Indication:BMI 31.0-31.9,adult Start:30-Jan-2022 Instruction Type:Patient Education Patient Instructions Indication:BMI 31.0-31.9,adult Start:16-Jan-2022 Instruction Type:Provider Instructions for Treatment How to Access Health Informa tion Online using Patient Portal and [employer] Indication:BMI 31.0-31.9,adult Start:16-Jan-2022 Instruction Type:Patient Education Patient Instructions Indication:BMI 29.0-29.9,adult Start:08-Dec-2021 Instruction Type:Provider Instructions for Treatment How to Access Health Informa tion Online using Patient Portal and [employer] Indication:BMI 29.0-29.9,adult Start:08-Dec-2021 Instruction Type:Patient Education Patient Instructions Indication:Fever Start:01-Nov-2021 Instruction Type:Provider Instructions for Treatment How to Access Health Informa tion Online using Patient Portal and [employer] Apps Indication:Fever Start:01-Nov-2021 Instruction Type:Patient Education Patient Instructions Indication:BMI 32.0-32.9,adult Start:27-Oct-2021 Instruction Type:Provider Instructions for Treatment How to Access Health Informa tion Online using Patient Portal and [employer] Apps Indication:BMI 32.0-32.9,adult Start:27-Oct-2021 Instruction Type:Patient Education Patient Instructions Indication:BMI 32.0-32.9,adult Start:02-May-2021 Instruction Type:Provider Instructions for Treatment How to Access Health Informa tion Online using Patient Portal and [employer] Apps Indication:Nonsmoker Start:02-May-2021 Instruction Type:Patient Education Patient Instructions Indication:Nonsmoker Start:22-Feb-2021 Instruction Type:Provider Instructions for Treatment How to Access Health Informa tion Online using Patient Portal and [employer] Apps Indication:Nonsmoker Start:22-Feb-2021 Instruction Type:Patient Education How to Access Health Informa tion Online using Patient Portal and [employer] Apps Indication:Nonsmoker Start:09-Feb-2021 Instruction Type:Patient Education Patient Instructions Indication:Nonsmoker Start:09-Feb-2021 Instruction Type:Provider Instructions for Treatment How to access health informa tion online Indication:BMI 34.0-34.9,adult Start:26-Mar-2020 Instruction Type:Patient Education How to access health informa tion online - Detail Indication:BMI 34.0-34.9,adult Start:26-Mar-2020 Instruction Type:Patient Education Patient Instructions Indication:BMI 34.0-34.9,adult Start:26-Mar-2020 Instruction Type:Provider Instructions for Treatment How to access health informa tion online Indication:BMI 36.0-36.9,adult Start:04-Mar-2020 Instruction Type:Patient Education How to access health informa tion online - Detail Indication:BMI 36.0-36.9,adult Start:04-Mar-2020 Instruction Type:Patient Education Patient Instructions Indication:BMI 36.0-36.9,adult Start:04-Mar-2020 Instruction Type:Provider Instructions for Treatment [facility]; [facility] Work Phone: Instructions* Name Dates Details Patient Instructions Indication:BMI 33.0-33.9,adult Start:13-Apr-2022 Instruction Type:Provider Instructions for Treatment How to Access Health Informa tion Online using Patient Portal and [employer] Apps Indication:BMI 33.0-33.9,adult Start:13-Apr-2022 Instruction Type:Patient Education Patient Instructions Indication:Nonsmoker Start:24-Feb-2022 Instruction Type:Provider Instructions for Treatment How to Access Health Informa tion Online using Patient Portal and [employer] Apps Indication:Nonsmoker Start:24-Feb-2022 Instruction Type:Patient Education Patient Instructions Indication:BMI 31.0-31.9,adult Start:30-Jan-2022 Instruction Type:Provider Instructions for Treatment How to Access Health Informa tion Online using Patient Portal and [employer] Indication:BMI 31.0-31.9,adult Start:30-Jan-2022 Instruction Type:Patient Education Patient Instructions Indication:BMI 31.0-31.9,adult Start:16-Jan-2022 Instruction Type:Provider Instructions for Treatment How to Access Health Informa tion Online using Patient Portal and [employer] Apps Indication:BMI 31.0-31.9,adult Start:16-Jan-2022 Instruction Type:Patient Education Patient Instructions Indication:BMI 29.0-29.9,adult Start:08-Dec-2021 Instruction Type:Provider Instructions for Treatment How to Access Health Informa tion Online using Patient Portal and [employer] Apps Indication:BMI 29.0-29.9,adult Start:08-Dec-2021 Instruction Type:Patient Education Patient Instructions Indication:Fever Start:01-Nov-2021 Instruction Type:Provider Instructions for Treatment How to Access Health Informa tion Online using Patient Portal and [employer] Apps Indication:Fever Start:01-Nov-2021 Instruction Type:Patient Education Patient Instructions Indication:BMI 32.0-32.9,adult Start:27-Oct-2021 Instruction Type:Provider Instructions for Treatment How to Access Health Informa tion Online using Patient Portal and [employer] Indication:BMI 32.0-32.9,adult Start:27-Oct-2021 Instruction Type:Patient Education Patient Instructions Indication:BMI 32.0-32.9,adult Start:02-May-2021 Instruction Type:Provider Instructions for Treatment How to Access Health Informa tion Online using Patient Portal and [employer] Apps Indication:Nonsmoker Start:02-May-2021 Instruction Type:Patient Education Patient Instructions Indication:Nonsmoker Start:22-Feb-2021 Instruction Type:Provider Instructions for Treatment How to Access Health Informa tion Online using Patient Portal and [employer] Apps Indication:Nonsmoker Start:22-Feb-2021 Instruction Type:Patient Education How to Access Health Informa tion Online using Patient Portal and [employer] Apps Indication:Nonsmoker Start:09-Feb-2021 Instruction Type:Patient Education Patient Instructions Indication:Nonsmoker Start:09-Feb-2021 Instruction Type:Provider Instructions for Treatment How to access health informa tion online Indication:BMI 34.0-34.9,adult Start:26-Mar-2020 Instruction Type:Patient Education How to access health informa tion online - Detail Indication:BMI 34.0-34.9,adult Start:26-Mar-2020 Instruction Type:Patient Education Patient Instructions Indication:BMI 34.0-34.9,adult Start:26-Mar-2020 Instruction Type:Provider Instructions for Treatment How to access health informa tion online Indication:BMI 36.0-36.9,adult Start:04-Mar-2020 Instruction Type:Patient Education How to access health informa tion online - Detail Indication:BMI 36.0-36.9,adult Start:04-Mar-2020 Instruction Type:Patient Education Patient Instructions Indication:BMI 36.0-36.9,adult Start:04-Mar-2020 Instruction Type:Provider Instructions for Treatment [facility]; [facility] Work Phone: Instructions* Name Dates Details How to Access Health Informa tion Online using Patient Portal and [employer] Apps Indication:Nonsmoker Start:09-May-2022 Instruction Type:Patient Education Patient Instructions Indication:Nonsmoker Start:09-May-2022 Instruction Type:Provider Instructions for Treatment Patient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 tion Online using Patient Portal and [employer] Apps Indication:Nonsmoker Start:02-May-2021 Instruction Type:Patient Education Patient Instructions Indication:Nonsmoker Start:22-Feb-2021 Instruction Type:Provider Instructions for Treatment How to Access Health Informa tion Online using Patient Portal and [employer] Apps Indication:Nonsmoker Start:22-Feb-2021 Instruction Type:Patient Education How to Access Health Informa tion Online using Patient Portal and [employer] Apps Indication:Nonsmoker Start:09-Feb-2021 Instruction Type:Patient Education Patient Instructions Indication:Nonsmoker Start:09-Feb-2021 Instruction Type:Provider Instructions for Treatment How to access health informa tion online Indication:BMI 34.0-34.9,adult Start:26-Mar-2020 Instruction Type:Patient Education How to access health informa tion online - Detail Indication:BMI 34.0-34.9,adult Start:26-Mar-2020 Instruction Type:Patient Education Patient Instructions Indication:BMI 34.0-34.9,adult Start:26-Mar-2020 Instruction Type:Provider Instructions for Treatment How to access health informa tion online Indication:BMI 36.0-36.9,adult Start:04-Mar-2020 Instruction Type:Patient Education How to access health informa tion online - Detail Indication:BMI 36.0-36.9,adult Start:04-Mar-2020 Instruction Type:Patient Education Patient Instructions Indication:BMI 36.0-36.9,adult Start:04-Mar-2020 Instruction Type:Provider Instructions for Treatment [facility]; [facility] Work Phone: Instructions* Name Dates Details Patient Instructions Indication:BMI 32.0-32.9,adult Start:28-Sep-2022 Instruction Type:Provider Instructions for Treatment How to Access Health Informa tion Online using Patient Portal and [employer] Apps Indication:BMI 32.0-32.9,adult Start:28-Sep-2022 Instruction Type:Patient Education Patient Instructions Indication:BMI 32.0-32.9,adult Start:30-Aug-2022 Instruction Type:Provider Instructions for Treatment How to Access Health Informa tion Online using Patient Portal and [employer] Apps Indication:BMI 32.0-32.9,adult Start:30-Aug-2022 Instruction Type:Patient Education Patient Instructions Indication:BMI 32.0-32.9,adult Start:05-Jul-2022 Instruction Type:Provider Instructions for Treatment How to Access Health Informa tion Online using Patient Portal and [employer] Apps Indication:BMI 32.0-32.9,adult Start:05-Jul-2022 Instruction Type:Patient Education Patient Instructions Indication:Skin burn Start:13-May-2022 Instruction Type:Provider Instructions for Treatment How to Access Health Informa tion Online using Patient Portal and [employer] Apps Indication:Nonsmoker Start:09-May-2022 Instruction Type:Patient Education Patient Instructions Indication:Nonsmoker Start:09-May-2022 Instruction Type:Provider Instructions for Treatment Patient Instructions Indication:BMI 33.0-33.9,adult Start:13-Apr-2022 Instruction Type:Provider Instructions for Treatment How to Access Health Informa tion Online using Patient Portal and [employer] Apps Indication:BMI 33.0-33.9,adult Start:13-Apr-2022 Instruction Type:Patient Education Patient Instructions Indication:Nonsmoker Start:24-Feb-2022 Instruction Type:Provider Instructions for Treatment How to Access Health Informa tion Online using Patient Portal and [employer] Apps Indication:Nonsmoker Start:24-Feb-2022 Instruction Type:Patient Education Patient Instructions Indication:BMI 31.0-31.9,adult Start:30-Jan-2022 Instruction Type:Provider Instructions for Treatment How to Access Health Informa tion Online using Patient Portal and [employer] Apps Indication:BMI 31.0-31.9,adult Start:30-Jan-2022 Instruction Type:Patient Education Patient Instructions Indication:BMI 31.0-31.9,adult Start:16-Jan-2022 Instruction Type:Provider Instructions for Treatment How to Access Health Informa tion Online using Patient Portal and [employer] Apps Indication:BMI 31.0-31.9,adult Start:16-Jan-2022 Instruction Type:Patient Education Patient Instructions Indication:BMI 29.0-29.9,adult Start:08-Dec-2021 Instruction Type:Provider Instructions for Treatment How to Access Health Informa tion Online using Patient Portal and [employer] Apps Indication:BMI 29.0-29.9,adult Start:08-Dec-2021 Instruction Type:Patient Education Patient Instructions Indication:Fever Start:01-Nov-2021 Instruction Type:Provider Instructions for Treatment How to Access Health Informa tion Online using Patient Portal and [employer] Apps Indication:Fever Start:01-Nov-2021 Instruction Type:Patient Education Patient Instructions Indication:BMI 32.0-32.9,adult Start:27-Oct-2021 Instruction Type:Provider Instructions for Treatment How to Access Health Informa tion Online using Patient Portal and [employer] Apps Indication:BMI 32.0-32.9,adult Start:27-Oct-2021 Instruction Type:Patient Education Patient Instructions Indication:BMI 32.0-32.9,adult Start:02-May-2021 Instruction Type:Provider Instructions for Treatment How to Access Health Informa tion Online using Patient Portal and [employer] Apps Indication:Nonsmoker Start:02-May-2021 Instruction Type:Patient Education Patient Instructions Indication:Nonsmoker Start:22-Feb-2021 Instruction Type:Provider Instructions for Treatment How to Access Health Informa tion Online using Patient Portal and [employer] Apps Indication:Nonsmoker Start:22-Feb-2021 Instruction Type:Patient Education How to Access Health Informa tion Online using Patient Portal and [employer] Apps Indication:Nonsmoker Start:09-Feb-2021 Instruction Type:Patient Education Patient Instructions Indication:Nonsmoker Start:09-Feb-2021 Instruction Type:Provider Instructions for Treatment How to access health informa tion online Indication:BMI 34.0-34.9,adult Start:26-Mar-2020 Instruction Type:Patient Education How to access health informa tion online - Detail Indication:BMI 34.0-34.9,adult Start:26-Mar-2020 Instruction Type:Patient Education Patient Instructions Indication:BMI 34.0-34.9,adult Start:26-Mar-2020 Instruction Type:Provider Instructions for Treatment How to access health informa tion online Indication:BMI 36.0-36.9,adult Start:04-Mar-2020 Instruction Type:Patient Education How to access health informa tion online - Detail Indication:BMI 36.0-36.9,adult Start:04-Mar-2020 Instruction Type:Patient Education Patient Instructions Indication:BMI 36.0-36.9,adult Start:04-Mar-2020 Instruction Type:Provider Instructions for Treatment [facility]; [facility] Work Phone: Instructions* Name Dates Details Patient Instructions Indication:BMI 32.0-32.9,adult Start:28-Sep-2022 Instruction Type:Provider Instructions for Treatment How to Access Health Informa tion Online using Patient Portal and [employer] Apps Indication:BMI 32.0-32.9,adult Start:28-Sep-2022 Instruction Type:Patient Education Patient Instructions Indication:BMI 32.0-32.9,adult Start:30-Aug-2022 Instruction Type:Provider Instructions for Treatment How to Access Health Informa tion Online using Patient Portal and [employer] Apps Indication:BMI 32.0-32.9,adult Start:30-Aug-2022 Instruction Type:Patient Education Patient Instructions Indication:BMI 32.0-32.9,adult Start:05-Jul-2022 Instruction Type:Provider Instructions for Treatment How to Access Health Informa tion Online using Patient Portal and [employer] Apps Indication:BMI 32.0-32.9,adult Start:05-Jul-2022 Instruction Type:Patient Education Patient Instructions Indication:Skin burn Start:13-May-2022 Instruction Type:Provider Instructions for Treatment How to Access Health Informa tion Online using Patient Portal and [employer] Apps Indication:Nonsmoker Start:09-May-2022 Instruction Type:Patient Education Patient Instructions Indication:Nonsmoker Start:09-May-2022 Instruction Type:Provider Instructions for Treatment Patient Instructions Indication:BMI 33.0-33.9,adult Start:13-Apr-2022 Instruction Type:Provider Instructions for Treatment How to Access Health Informa tion Online using Patient Portal and [employer] Apps Indication:BMI 33.0-33.9,adult Start:13-Apr-2022 Instruction Type:Patient Education Patient Instructions Indication:Nonsmoker Start:24-Feb-2022 Instruction Type:Provider Instructions for Treatment How to Access Health Informa tion Online using Patient Portal and [employer] Apps Indication:Nonsmoker Start:24-Feb-2022 Instruction Type:Patient Education Patient Instructions Indication:BMI 31.0-31.9,adult Start:30-Jan-2022 Instruction Type:Provider Instructions for Treatment How to Access Health Informa tion Online using Patient Portal and [employer] Apps Indication:BMI 31.0-31.9,adult Start:30-Jan-2022 Instruction Type:Patient Education Patient Instructions Indication:BMI 31.0-31.9,adult Start:16-Jan-2022 Instruction Type:Provider Instructions for Treatment How to Access Health Informa tion Online using Patient Portal and [employer] Apps Indication:BMI 31.0-31.9,adult Start:16-Jan-2022 Instruction Type:Patient Education Patient Instructions Indication:BMI 29.0-29.9,adult Start:08-Dec-2021 Instruction Type:Provider Instructions for Treatment How to Access Health Informa tion Online using Patient Portal and [employer] Apps Indication:BMI 29.0-29.9,adult Start:08-Dec-2021 Instruction Type:Patient Education Patient Instructions Indication:Fever Start:01-Nov-2021 Instruction Type:Provider Instructions for Treatment How to Access Health Informa tion Online using Patient Portal and [employer] Apps Indication:Fever Start:01-Nov-2021 Instruction Type:Patient Education Patient Instructions Indication:BMI 32.0-32.9,adult Start:27-Oct-2021 Instruction Type:Provider Instructions for Treatment How to Access Health Informa tion Online using Patient Portal and [employer] Apps Indication:BMI 32.0-32.9,adult Start:27-Oct-2021 Instruction Type:Patient Education Patient Instructions Indication:BMI 32.0-32.9,adult Start:02-May-2021 Instruction Type:Provider Instructions for Treatment How to Access Health Informa tion Online using Patient Portal and [employer] Apps Indication:Nonsmoker Start:02-May-2021 Instruction Type:Patient Education Patient Instructions Indication:Nonsmoker Start:22-Feb-2021 Instruction Type:Provider Instructions for Treatment How to Access Health Informa tion Online using Patient Portal and [employer] Apps Indication:Nonsmoker Start:22-Feb-2021 Instruction Type:Patient Education How to Access Health Informa tion Online using Patient Portal and [employer] Apps Indication:Nonsmoker Start:09-Feb-2021 Instruction Type:Patient Education Patient Instructions Indication:Nonsmoker Start:09-Feb-2021 Instruction Type:Provider Instructions for Treatment How to access health informa tion online Indication:BMI 34.0-34.9,adult Start:26-Mar-2020 Instruction Type:Patient Education How to access health informa tion online - Detail Indication:BMI 34.0-34.9,adult Start:26-Mar-2020 Instruction Type:Patient Education Patient Instructions Indication:BMI 34.0-34.9,adult Start:26-Mar-2020 Instruction Type:Provider Instructions for Treatment How to access health informa tion online Indication:BMI 36.0-36.9,adult Start:04-Mar-2020 Instruction Type:Patient Education How to access health informa tion online - Detail Indication:BMI 36.0-36.9,adult Start:04-Mar-2020 Instruction Type:Patient Education Patient Instructions Indication:BMI 36.0-36.9,adult Start:04-Mar-2020 Instruction Type:Provider Instructions for Treatment [facility]; [facility] Work Phone: Instructions* Name Dates Details Patient Instructions Indication:BMI 32.0-32.9,adult Start:28-Sep-2022 Instruction Type:Provider Instructions for Treatment How to Access Health Informa tion Online using Patient Portal and [employer] Apps Indication:BMI 32.0-32.9,adult Start:28-Sep-2022 Instruction Type:Patient Education Patient Instructions Indication:BMI 32.0-32.9,adult Start:30-Aug-2022 Instruction Type:Provider Instructions for Treatment How to Access Health Informa tion Online using Patient Portal and [employer] Apps Indication:BMI 32.0-32.9,adult Start:30-Aug-2022 Instruction Type:Patient Education Patient Instructions Indication:BMI 32.0-32.9,adult Start:05-Jul-2022 Instruction Type:Provider Instructions for Treatment How to Access Health Informa tion Online using Patient Portal and [employer] Apps Indication:BMI 32.0-32.9,adult Start:05-Jul-2022 Instruction Type:Patient Education Patient Instructions Indication:Skin burn Start:13-May-2022 Instruction Type:Provider Instructions for Treatment How to Access Health Informa tion Online using Patient Portal and [employer] Apps Indication:Nonsmoker Start:09-May-2022 Instruction Type:Patient Education Patient Instructions Indication:Nonsmoker Start:09-May-2022 Instruction Type:Provider Instructions for Treatment Patient Instructions Indication:BMI 33.0-33.9,adult Start:13-Apr-2022 Instruction Type:Provider Instructions for Treatment How to Access Health Informa tion Online using Patient Portal and [employer] Apps Indication:BMI 33.0-33.9,adult Start:13-Apr-2022 Instruction Type:Patient Education Patient Instructions Indication:Nonsmoker Start:24-Feb-2022 Instruction Type:Provider Instructions for Treatment How to Access Health Informa tion Online using Patient Portal and [employer] Apps Indication:Nonsmoker Start:24-Feb-2022 Instruction Type:Patient Education Patient Instructions Indication:BMI 31.0-31.9,adult Start:30-Jan-2022 Instruction Type:Provider Instructions for Treatment How to Access Health Informa tion Online using Patient Portal and [employer] Apps Indication:BMI 31.0-31.9,adult Start:30-Jan-2022 Instruction Type:Patient Education Patient Instructions Indication:BMI 31.0-31.9,adult Start:16-Jan-2022 Instruction Type:Provider Instructions for Treatment How to Access Health Informa tion Online using Patient Portal and [employer] Apps Indication:BMI 31.0-31.9,adult Start:16-Jan-2022 Instruction Type:Patient Education Patient Instructions Indication:BMI 29.0-29.9,adult Start:08-Dec-2021 Instruction Type:Provider Instructions for Treatment How to Access Health Informa tion Online using Patient Portal and [employer] Apps Indication:BMI 29.0-29.9,adult Start:08-Dec-2021 Instruction Type:Patient Education Patient Instructions Indication:Fever Start:01-Nov-2021 Instruction Type:Provider Instructions for Treatment How to Access Health Informa tion Online using Patient Portal and [employer] Apps Indication:Fever Start:01-Nov-2021 Instruction Type:Patient Education Patient Instructions Indication:BMI 32.0-32.9,adult Start:27-Oct-2021 Instruction Type:Provider Instructions for Treatment How to Access Health Informa tion Online using Patient Portal and [employer] Apps Indication:BMI 32.0-32.9,adult Start:27-Oct-2021 Instruction Type:Patient Education Patient Instructions Indication:BMI 32.0-32.9,adult Start:02-May-2021 Instruction Type:Provider Instructions for Treatment How to Access Health Informa tion Online using Patient Portal and [employer] Apps Indication:Nonsmoker Start:02-May-2021 Instruction Type:Patient Education Patient Instructions Indication:Nonsmoker Start:22-Feb-2021 Instruction Type:Provider Instructions for Treatment How to Access Health Informa tion Online using Patient Portal and [employer] Indication:Nonsmoker Start:22-Feb-2021 Instruction Type:Patient Education How to Access Health Informa tion Online using Patient Portal and [employer] Apps Indication:Nonsmoker Start:09-Feb-2021 Instruction Type:Patient Education Patient Instructions Indication:Nonsmoker Start:09-Feb-2021 Instruction Type:Provider Instructions for Treatment How to access health informa tion online Indication:BMI 34.0-34.9,adult Start:26-Mar-2020 Instruction Type:Patient Education How to access health informa tion online - Detail Indication:BMI 34.0-34.9,adult Start:26-Mar-2020 Instruction Type:Patient Education Patient Instructions Indication:BMI 34.0-34.9,adult Start:26-Mar-2020 Instruction Type:Provider Instructions for Treatment How to access health informa tion online Indication:BMI 36.0-36.9,adult Start:04-Mar-2020 Instruction Type:Patient Education How to access health informa tion online - Detail Indication:BMI 36.0-36.9,adult Start:04-Mar-2020 Instruction Type:Patient Education Patient Instructions Indication:BMI 36.0-36.9,adult Start:04-Mar-2020 Instruction Type:Provider Instructions for Treatment [facility]; [facility] Work Phone: Instructions* Name Dates Details Patient Instructions Indication:BMI 32.0-32.9,adult Start:28-Sep-2022 Instruction Type:Provider Instructions for Treatment How to Access Health Informa tion Online using Patient Portal and [employer] Apps Indication:BMI 32.0-32.9,adult Start:28-Sep-2022 Instruction Type:Patient Education Patient Instructions Indication:BMI 32.0-32.9,adult Start:30-Aug-2022 Instruction Type:Provider Instructions for Treatment How to Access Health Informa tion Online using Patient Portal and [employer] Apps Indication:BMI 32.0-32.9,adult Start:30-Aug-2022 Instruction Type:Patient Education Patient Instructions Indication:BMI 32.0-32.9,adult Start:05-Jul-2022 Instruction Type:Provider Instructions for Treatment How to Access Health Informa tion Online using Patient Portal and [employer] Apps Indication:BMI 32.0-32.9,adult Start:05-Jul-2022 Instruction Type:Patient Education Patient Instructions Indication:Skin burn Start:13-May-2022 Instruction Type:Provider Instructions for Treatment How to Access Health Informa tion Online using Patient Portal and [employer] Apps Indication:Nonsmoker Start:09-May-2022 Instruction Type:Patient Education Patient Instructions Indication:Nonsmoker Start:09-May-2022 Instruction Type:Provider Instructions for Treatment Patient Instructions Indication:BMI 33.0-33.9,adult Start:13-Apr-2022 Instruction Type:Provider Instructions for Treatment How to Access Health Informa tion Online using Patient Portal and [employer] Apps Indication:BMI 33.0-33.9,adult Start:13-Apr-2022 Instruction Type:Patient Education Patient Instructions Indication:Nonsmoker Start:24-Feb-2022 Instruction Type:Provider Instructions for Treatment How to Access Health Informa tion Online using Patient Portal and [employer] Apps Indication:Nonsmoker Start:24-Feb-2022 Instruction Type:Patient Education Patient Instructions Indication:BMI 31.0-31.9,adult Start:30-Jan-2022 Instruction Type:Provider Instructions for Treatment How to Access Health Informa tion Online using Patient Portal and [employer] Apps Indication:BMI 31.0-31.9,adult Start:30-Jan-2022 Instruction Type:Patient Education Patient Instructions Indication:BMI 31.0-31.9,adult Start:16-Jan-2022 Instruction Type:Provider Instructions for Treatment How to Access Health Informa tion Online using Patient Portal and [employer] Apps Indication:BMI 31.0-31.9,adult Start:16-Jan-2022 Instruction Type:Patient Education Patient Instructions Indication:BMI 29.0-29.9,adult Start:08-Dec-2021 Instruction Type:Provider Instructions for Treatment How to Access Health Informa tion Online using Patient Portal and [employer] Apps Indication:BMI 29.0-29.9,adult Start:08-Dec-2021 Instruction Type:Patient Education Patient Instructions Indication:Fever Start:01-Nov-2021 Instruction Type:Provider Instructions for Treatment How to Access Health Informa tion Online using Patient Portal and [employer] Apps Indication:Fever Start:01-Nov-2021 Instruction Type:Patient Education Patient Instructions Indication:BMI 32.0-32.9,adult Start:27-Oct-2021 Instruction Type:Provider Instructions for Treatment How to Access Health Informa tion Online using Patient Portal and [employer] Apps Indication:BMI 32.0-32.9,adult Start:27-Oct-2021 Instruction Type:Patient Education Patient Instructions Indication:BMI 32.0-32.9,adult Start:02-May-2021 Instruction Type:Provider Instructions for Treatment How to Access Health Informa tion Online using Patient Portal and [employer] Apps Indication:Nonsmoker Start:02-May-2021 Instruction Type:Patient Education Patient Instructions Indication:Nonsmoker Start:22-Feb-2021 Instruction Type:Provider Instructions for Treatment How to Access Health Informa tion Online using Patient Portal and [employer] Apps Indication:Nonsmoker Start:22-Feb-2021 Instruction Type:Patient Education How to Access Health Informa tion Online using Patient Portal and [employer] Apps Indication:Nonsmoker Start:09-Feb-2021 Instruction Type:Patient Education Patient Instructions Indication:Nonsmoker Start:09-Feb-2021 Instruction Type:Provider Instructions for Treatment How to access health informa tion online Indication:BMI 34.0-34.9,adult Start:26-Mar-2020 Instruction Type:Patient Education How to access health informa tion online - Detail Indication:BMI 34.0-34.9,adult Start:26-Mar-2020 Instruction Type:Patient Education Patient Instructions Indication:BMI 34.0-34.9,adult Start:26-Mar-2020 Instruction Type:Provider Instructions for Treatment How to access health informa tion online Indication:BMI 36.0-36.9,adult Start:04-Mar-2020 Instruction Type:Patient Education How to access health informa tion online - Detail Indication:BMI 36.0-36.9,adult Start:04-Mar-2020 Instruction Type:Patient Education Patient Instructions Indication:BMI 36.0-36.9,adult Start:04-Mar-2020 Instruction Type:Provider Instructions for Treatment [facility]; [facility] Work Phone: Instructions* Name Dates Details Patient Instructions Indication:Diarrhea with dehydration Start:27-Dec-2022 Instruction Type:Provider Instructions for Treatment How to Access Health Informa tion Online using Patient Portal and [employer] Apps Indication:Diarrhea with dehydration Start:27-Dec-2022 Instruction Type:Patient Education Patient Instructions Indication:BMI 32.0-32.9,adult Start:28-Sep-2022 Instruction Type:Provider Instructions for Treatment How to Access Health Informa tion Online using Patient Portal and [employer] Apps Indication:BMI 32.0-32.9,adult Start:28-Sep-2022 Instruction Type:Patient Education Patient Instructions Indication:BMI 32.0-32.9,adult Start:30-Aug-2022 Instruction Type:Provider Instructions for Treatment How to Access Health Informa tion Online using Patient Portal and [employer] Apps Indication:BMI 32.0-32.9,adult Start:30-Aug-2022 Instruction Type:Patient Education Patient Instructions Indication:BMI 32.0-32.9,adult Start:05-Jul-2022 Instruction Type:Provider Instructions for Treatment How to Access Health Informa tion Online using Patient Portal and [employer] Apps Indication:BMI 32.0-32.9,adult Start:05-Jul-2022 Instruction Type:Patient Education Patient Instructions Indication:Skin burn Start:13-May-2022 Instruction Type:Provider Instructions for Treatment How to Access Health Informa tion Online using Patient Portal and [employer] Apps Indication:Nonsmoker Start:09-May-2022 Instruction Type:Patient Education Patient Instructions Indication:Nonsmoker Start:09-May-2022 Instruction Type:Provider Instructions for Treatment Patient Instructions Indication:BMI 33.0-33.9,adult Start:13-Apr-2022 Instruction Type:Provider Instructions for Treatment How to Access Health Informa tion Online using Patient Portal and [employer] Apps Indication:BMI 33.0-33.9,adult Start:13-Apr-2022 Instruction Type:Patient Education Patient Instructions Indication:Nonsmoker Start:24-Feb-2022 Instruction Type:Provider Instructions for Treatment How to Access Health Informa tion Online using Patient Portal and [employer] Apps Indication:Nonsmoker Start:24-Feb-2022 Instruction Type:Patient Education Patient Instructions Indication:BMI 31.0-31.9,adult Start:30-Jan-2022 Instruction Type:Provider Instructions for Treatment How to Access Health Informa tion Online using Patient Portal and [employer] Apps Indication:BMI 31.0-31.9,adult Start:30-Jan-2022 Instruction Type:Patient Education Patient Instructions Indication:BMI 31.0-31.9,adult Start:16-Jan-2022 Instruction Type:Provider Instructions for Treatment How to Access Health Informa tion Online using Patient Portal and [employer] Indication:BMI 31.0-31.9,adult Start:16-Jan-2022 Instruction Type:Patient Education Patient Instructions Indication:BMI 29.0-29.9,adult Start:08-Dec-2021 Instruction Type:Provider Instructions for Treatment How to Access Health Informa tion Online using Patient Portal and [employer] Apps Indication:BMI 29.0-29.9,adult Start:08-Dec-2021 Instruction Type:Patient Education Patient Instructions Indication:Fever Start:01-Nov-2021 Instruction Type:Provider Instructions for Treatment How to Access Health Informa tion Online using Patient Portal and [employer] Apps Indication:Fever Start:01-Nov-2021 Instruction Type:Patient Education Patient Instructions Indication:BMI 32.0-32.9,adult Start:27-Oct-2021 Instruction Type:Provider Instructions for Treatment How to Access Health Informa tion Online using Patient Portal and [employer] Apps Indication:BMI 32.0-32.9,adult Start:27-Oct-2021 Instruction Type:Patient Education Patient Instructions Indication:BMI 32.0-32.9,adult Start:02-May-2021 Instruction Type:Provider Instructions for Treatment How to Access Health Informa tion Online using Patient Portal and [employer] Indication:Nonsmoker Start:02-May-2021 Instruction Type:Patient Education Patient Instructions Indication:Nonsmoker Start:22-Feb-2021 Instruction Type:Provider Instructions for Treatment How to Access Health Informa tion Online using Patient Portal and [employer] Apps Indication:Nonsmoker Start:22-Feb-2021 Instruction Type:Patient Education How to Access Health Informa tion Online using Patient Portal and [employer] Apps Indication:Nonsmoker Start:09-Feb-2021 Instruction Type:Patient Education Patient Instructions Indication:Nonsmoker Start:09-Feb-2021 Instruction Type:Provider Instructions for Treatment How to access health informa tion online Indication:BMI 34.0-34.9,adult Start:26-Mar-2020 Instruction Type:Patient Education How to access health informa tion online - Detail Indication:BMI 34.0-34.9,adult Start:26-Mar-2020 Instruction Type:Patient Education Patient Instructions Indication:BMI 34.0-34.9,adult Start:26-Mar-2020 Instruction Type:Provider Instructions for Treatment How to access health informa tion online Indication:BMI 36.0-36.9,adult Start:04-Mar-2020 Instruction Type:Patient Education How to access health informa tion online - Detail Indication:BMI 36.0-36.9,adult Start:04-Mar-2020 Instruction Type:Patient Education Patient Instructions Indication:BMI 36.0-36.9,adult Start:04-Mar-2020 Instruction Type:Provider Instructions for Treatment [facility]; [facility] Work Phone: Instructions* Name Dates Details Patient Instructions Indication:Headache, acute Start:27-Mar-2023 Instruction Type:Provider Instructions for Treatment How to Access Health Informa tion Online using Patient Portal and [employer] Apps Indication:Headache, acute Start:27-Mar-2023 Instruction Type:Patient Education Patient Instructions Indication:Diarrhea with dehydration Start:27-Dec-2022 Instruction Type:Provider Instructions for Treatment How to Access Health Informa tion Online using Patient Portal and [employer] Apps Indication:Diarrhea with dehydration Start:27-Dec-2022 Instruction Type:Patient Education Patient Instructions Indication:BMI 32.0-32.9,adult Start:28-Sep-2022 Instruction Type:Provider Instructions for Treatment How to Access Health Informa tion Online using Patient Portal and [employer] Apps Indication:BMI 32.0-32.9,adult Start:28-Sep-2022 Instruction Type:Patient Education Patient Instructions Indication:BMI 32.0-32.9,adult Start:30-Aug-2022 Instruction Type:Provider Instructions for Treatment How to Access Health Informa tion Online using Patient Portal and [employer] Indication:BMI 32.0-32.9,adult Start:30-Aug-2022 Instruction Type:Patient Education Patient Instructions Indication:BMI 32.0-32.9,adult Start:05-Jul-2022 Instruction Type:Provider Instructions for Treatment How to Access Health Informa tion Online using Patient Portal and [employer] Apps Indication:BMI 32.0-32.9,adult Start:05-Jul-2022 Instruction Type:Patient Education Patient Instructions Indication:Skin burn Start:13-May-2022 Instruction Type:Provider Instructions for Treatment How to Access Health Informa tion Online using Patient Portal and [employer] Apps Indication:Nonsmoker Start:09-May-2022 Instruction Type:Patient Education Patient Instructions Indication:Nonsmoker Start:09-May-2022 Instruction Type:Provider Instructions for Treatment Patient Instructions Indication:BMI 33.0-33.9,adult Start:13-Apr-2022 Instruction Type:Provider Instructions for Treatment How to Access Health Informa tion Online using Patient Portal and [employer] Apps Indication:BMI 33.0-33.9,adult Start:13-Apr-2022 Instruction Type:Patient Education Patient Instructions Indication:Nonsmoker Start:24-Feb-2022 Instruction Type:Provider Instructions for Treatment How to Access Health Informa tion Online using Patient Portal and [employer] Apps Indication:Nonsmoker Start:24-Feb-2022 Instruction Type:Patient Education Patient Instructions Indication:BMI 31.0-31.9,adult Start:30-Jan-2022 Instruction Type:Provider Instructions for Treatment How to Access Health Informa tion Online using Patient Portal and [employer] Apps Indication:BMI 31.0-31.9,adult Start:30-Jan-2022 Instruction Type:Patient Education Patient Instructions Indication:BMI 31.0-31.9,adult Start:16-Jan-2022 Instruction Type:Provider Instructions for Treatment How to Access Health Informa tion Online using Patient Portal and [employer] Apps Indication:BMI 31.0-31.9,adult Start:16-Jan-2022 Instruction Type:Patient Education Patient Instructions Indication:BMI 29.0-29.9,adult Start:08-Dec-2021 Instruction Type:Provider Instructions for Treatment How to Access Health Informa tion Online using Patient Portal and [employer] Apps Indication:BMI 29.0-29.9,adult Start:08-Dec-2021 Instruction Type:Patient Education Patient Instructions Indication:Fever Start:01-Nov-2021 Instruction Type:Provider Instructions for Treatment How to Access Health Informa tion Online using Patient Portal and [employer] Apps Indication:Fever Start:01-Nov-2021 Instruction Type:Patient Education Patient Instructions Indication:BMI 32.0-32.9,adult Start:27-Oct-2021 Instruction Type:Provider Instructions for Treatment How to Access Health Informa tion Online using Patient Portal and [employer] Apps Indication:BMI 32.0-32.9,adult Start:27-Oct-2021 Instruction Type:Patient Education Patient Instructions Indication:BMI 32.0-32.9,adult Start:02-May-2021 Instruction Type:Provider Instructions for Treatment How to Access Health Informa tion Online using Patient Portal and [employer] Apps Indication:Nonsmoker Start:02-May-2021 Instruction Type:Patient Education Patient Instructions Indication:Nonsmoker Start:22-Feb-2021 Instruction Type:Provider Instructions for Treatment How to Access Health Informa tion Online using Patient Portal and [employer] Apps Indication:Nonsmoker Start:22-Feb-2021 Instruction Type:Patient Education How to Access Health Informa tion Online using Patient Portal and [employer] Apps Indication:Nonsmoker Start:09-Feb-2021 Instruction Type:Patient Education Patient Instructions Indication:Nonsmoker Start:09-Feb-2021 Instruction Type:Provider Instructions for Treatment How to access health informa tion online Indication:BMI 34.0-34.9,adult Start:26-Mar-2020 Instruction Type:Patient Education How to access health informa tion online - Detail Indication:BMI 34.0-34.9,adult Start:26-Mar-2020 Instruction Type:Patient Education Patient Instructions Indication:BMI 34.0-34.9,adult Start:26-Mar-2020 Instruction Type:Provider Instructions for Treatment How to access health informa tion online Indication:BMI 36.0-36.9,adult Start:04-Mar-2020 Instruction Type:Patient Education How to access health informa tion online - Detail Indication:BMI 36.0-36.9,adult Start:04-Mar-2020 Instruction Type:Patient Education Patient Instructions Indication:BMI 36.0-36.9,adult Start:04-Mar-2020 Instruction Type:Provider Instructions for Treatment [facility]; [facility] Work Phone: Instructions* Name Dates Details Patient Instructions Indication:Nonsmoker Start:05-Apr-2023 Instruction Type:Provider Instructions for Treatment How to Access Health Informa tion Online using Patient Portal and [employer] Indication:Nonsmoker Start:05-Apr-2023 Instruction Type:Patient Education Patient Instructions Indication:Headache, acute Start:27-Mar-2023 Instruction Type:Provider Instructions for Treatment How to Access Health Informa tion Online using Patient Portal and [employer] Apps Indication:Headache, acute Start:27-Mar-2023 Instruction Type:Patient Education Patient Instructions Indication:Diarrhea with dehydration Start:27-Dec-2022 Instruction Type:Provider Instructions for Treatment How to Access Health Informa tion Online using Patient Portal and [employer] Apps Indication:Diarrhea with dehydration Start:27-Dec-2022 Instruction Type:Patient Education Patient Instructions Indication:BMI 32.0-32.9,adult Start:28-Sep-2022 Instruction Type:Provider Instructions for Treatment How to Access Health Informa tion Online using Patient Portal and [employer] Indication:BMI 32.0-32.9,adult Start:28-Sep-2022 Instruction Type:Patient Education Patient Instructions Indication:BMI 32.0-32.9,adult Start:30-Aug-2022 Instruction Type:Provider Instructions for Treatment How to Access Health Informa tion Online using Patient Portal and [employer] Indication:BMI 32.0-32.9,adult Start:30-Aug-2022 Instruction Type:Patient Education Patient Instructions Indication:BMI 32.0-32.9,adult Start:05-Jul-2022 Instruction Type:Provider Instructions for Treatment How to Access Health Informa tion Online using Patient Portal and [employer] Apps Indication:BMI 32.0-32.9,adult Start:05-Jul-2022 Instruction Type:Patient Education Patient Instructions Indication:Skin burn Start:13-May-2022 Instruction Type:Provider Instructions for Treatment How to Access Health Informa tion Online using Patient Portal and [employer] Apps Indication:Nonsmoker Start:09-May-2022 Instruction Type:Patient Education Patient Instructions Indication:Nonsmoker Start:09-May-2022 Instruction Type:Provider Instructions for Treatment Patient Instructions Indication:BMI 33.0-33.9,adult Start:13-Apr-2022 Instruction Type:Provider Instructions for Treatment How to Access Health Informa tion Online using Patient Portal and [employer] Indication:BMI 33.0-33.9,adult Start:13-Apr-2022 Instruction Type:Patient Education Patient Instructions Indication:Nonsmoker Start:24-Feb-2022 Instruction Type:Provider Instructions for Treatment How to Access Health Informa tion Online using Patient Portal and [employer] Apps Indication:Nonsmoker Start:24-Feb-2022 Instruction Type:Patient Education Patient Instructions Indication:BMI 31.0-31.9,adult Start:30-Jan-2022 Instruction Type:Provider Instructions for Treatment How to Access Health Informa tion Online using Patient Portal and [employer] Indication:BMI 31.0-31.9,adult Start:30-Jan-2022 Instruction Type:Patient Education Patient Instructions Indication:BMI 31.0-31.9,adult Start:16-Jan-2022 Instruction Type:Provider Instructions for Treatment How to Access Health Informa tion Online using Patient Portal and [employer] Indication:BMI 31.0-31.9,adult Start:16-Jan-2022 Instruction Type:Patient Education Patient Instructions Indication:BMI 29.0-29.9,adult Start:08-Dec-2021 Instruction Type:Provider Instructions for Treatment How to Access Health Informa tion Online using Patient Portal and [employer] Indication:BMI 29.0-29.9,adult Start:08-Dec-2021 Instruction Type:Patient Education Patient Instructions Indication:Fever Start:01-Nov-2021 Instruction Type:Provider Instructions for Treatment How to Access Health Informa tion Online using Patient Portal and [employer] Apps Indication:Fever Start:01-Nov-2021 Instruction Type:Patient Education Patient Instructions Indication:BMI 32.0-32.9,adult Start:27-Oct-2021 Instruction Type:Provider Instructions for Treatment How to Access Health Informa tion Online using Patient Portal and [employer] Indication:BMI 32.0-32.9,adult Start:27-Oct-2021 Instruction Type:Patient Education Patient Instructions Indication:BMI 32.0-32.9,adult Start:02-May-2021 Instruction Type:Provider Instructions for Treatment How to Access Health Informa tion Online using Patient Portal and [employer] Indication:Nonsmoker Start:02-May-2021 Instruction Type:Patient Education Patient Instructions Indication:Nonsmoker Start:22-Feb-2021 Instruction Type:Provider Instructions for Treatment How to Access Health Informa tion Online using Patient Portal and [employer] Apps Indication:Nonsmoker Start:22-Feb-2021 Instruction Type:Patient Education How to Access Health Informa tion Online using Patient Portal and [employer] Apps Indication:Nonsmoker Start:09-Feb-2021 Instruction Type:Patient Education Patient Instructions Indication:Nonsmoker Start:09-Feb-2021 Instruction Type:Provider Instructions for Treatment How to access health informa tion online Indication:BMI 34.0-34.9,adult Start:26-Mar-2020 Instruction Type:Patient Education How to access health informa tion online - Detail Indication:BMI 34.0-34.9,adult Start:26-Mar-2020 Instruction Type:Patient Education Patient Instructions Indication:BMI 34.0-34.9,adult Start:26-Mar-2020 Instruction Type:Provider Instructions for Treatment How to access health informa tion online Indication:BMI 36.0-36.9,adult Start:04-Mar-2020 Instruction Type:Patient Education How to access health informa tion online - Detail Indication:BMI 36.0-36.9,adult Start:04-Mar-2020 Instruction Type:Patient Education Patient Instructions Indication:BMI 36.0-36.9,adult Start:04-Mar-2020 Instruction Type:Provider Instructions for Treatment [facility]; [facility] Work Phone: Instructions* Name Dates Details Patient Instructions Indication:Nonsmoker Start:23-Apr-2023 Instruction Type:Provider Instructions for Treatment How to Access Health Informa tion Online using Patient Portal and [employer] Indication:Nonsmoker Start:23-Apr-2023 Instruction Type:Patient Education Patient Instructions Indication:Nonsmoker Start:05-Apr-2023 Instruction Type:Provider Instructions for Treatment How to Access Health Informa tion Online using Patient Portal and [employer] Indication:Nonsmoker Start:05-Apr-2023 Instruction Type:Patient Education Patient Instructions Indication:Headache, acute Start:27-Mar-2023 Instruction Type:Provider Instructions for Treatment How to Access Health Informa tion Online using Patient Portal and [employer] Indication:Headache, acute Start:27-Mar-2023 Instruction Type:Patient Education Patient Instructions Indication:Diarrhea with dehydration Start:27-Dec-2022 Instruction Type:Provider Instructions for Treatment How to Access Health Informa tion Online using Patient Portal and [employer] Indication:Diarrhea with dehydration Start:27-Dec-2022 Instruction Type:Patient Education Patient Instructions Indication:BMI 32.0-32.9,adult Start:28-Sep-2022 Instruction Type:Provider Instructions for Treatment How to Access Health Informa tion Online using Patient Portal and [employer] Apps Indication:BMI 32.0-32.9,adult Start:28-Sep-2022 Instruction Type:Patient Education Patient Instructions Indication:BMI 32.0-32.9,adult Start:30-Aug-2022 Instruction Type:Provider Instructions for Treatment How to Access Health Informa tion Online using Patient Portal and [employer] Apps Indication:BMI 32.0-32.9,adult Start:30-Aug-2022 Instruction Type:Patient Education Patient Instructions Indication:BMI 32.0-32.9,adult Start:05-Jul-2022 Instruction Type:Provider Instructions for Treatment How to Access Health Informa tion Online using Patient Portal and [employer] Apps Indication:BMI 32.0-32.9,adult Start:05-Jul-2022 Instruction Type:Patient Education Patient Instructions Indication:Skin burn Start:13-May-2022 Instruction Type:Provider Instructions for Treatment How to Access Health Informa tion Online using Patient Portal and [employer] Apps Indication:Nonsmoker Start:09-May-2022 Instruction Type:Patient Education Patient Instructions Indication:Nonsmoker Start:09-May-2022 Instruction Type:Provider Instructions for Treatment Patient Instructions Indication:BMI 33.0-33.9,adult Start:13-Apr-2022 Instruction Type:Provider Instructions for Treatment How to Access Health Informa tion Online using Patient Portal and [employer] Apps Indication:BMI 33.0-33.9,adult Start:13-Apr-2022 Instruction Type:Patient Education Patient Instructions Indication:Nonsmoker Start:24-Feb-2022 Instruction Type:Provider Instructions for Treatment How to Access Health Informa tion Online using Patient Portal and [employer] Apps Indication:Nonsmoker Start:24-Feb-2022 Instruction Type:Patient Education Patient Instructions Indication:BMI 31.0-31.9,adult Start:30-Jan-2022 Instruction Type:Provider Instructions for Treatment How to Access Health Informa tion Online using Patient Portal and [employer] Apps Indication:BMI 31.0-31.9,adult Start:30-Jan-2022 Instruction Type:Patient Education Patient Instructions Indication:BMI 31.0-31.9,adult Start:16-Jan-2022 Instruction Type:Provider Instructions for Treatment How to Access Health Informa tion Online using Patient Portal and [employer] Apps Indication:BMI 31.0-31.9,adult Start:16-Jan-2022 Instruction Type:Patient Education Patient Instructions Indication:BMI 29.0-29.9,adult Start:08-Dec-2021 Instruction Type:Provider Instructions for Treatment How to Access Health Informa tion Online using Patient Portal and [employer] Apps Indication:BMI 29.0-29.9,adult Start:08-Dec-2021 Instruction Type:Patient Education Patient Instructions Indication:Fever Start:01-Nov-2021 Instruction Type:Provider Instructions for Treatment How to Access Health Informa tion Online using Patient Portal and [employer] Apps Indication:Fever Start:01-Nov-2021 Instruction Type:Patient Education Patient Instructions Indication:BMI 32.0-32.9,adult Start:27-Oct-2021 Instruction Type:Provider Instructions for Treatment How to Access Health Informa tion Online using Patient Portal and [employer] Apps Indication:BMI 32.0-32.9,adult Start:27-Oct-2021 Instruction Type:Patient Education Patient Instructions Indication:BMI 32.0-32.9,adult Start:02-May-2021 Instruction Type:Provider Instructions for Treatment How to Access Health Informa tion Online using Patient Portal and [employer] Apps Indication:Nonsmoker Start:02-May-2021 Instruction Type:Patient Education Patient Instructions Indication:Nonsmoker Start:22-Feb-2021 Instruction Type:Provider Instructions for Treatment How to Access Health Informa tion Online using Patient Portal and [employer] Apps Indication:Nonsmoker Start:22-Feb-2021 Instruction Type:Patient Education How to Access Health Informa tion Online using Patient Portal and [employer] Apps Indication:Nonsmoker Start:09-Feb-2021 Instruction Type:Patient Education Patient Instructions Indication:Nonsmoker Start:09-Feb-2021 Instruction Type:Provider Instructions for Treatment How to access health informa tion online Indication:BMI 34.0-34.9,adult Start:26-Mar-2020 Instruction Type:Patient Education How to access health informa tion online - Detail Indication:BMI 34.0-34.9,adult Start:26-Mar-2020 Instruction Type:Patient Education Patient Instructions Indication:BMI 34.0-34.9,adult Start:26-Mar-2020 Instruction Type:Provider Instructions for Treatment How to access health informa tion online Indication:BMI 36.0-36.9,adult Start:04-Mar-2020 Instruction Type:Patient Education How to access health informa tion online - Detail Indication:BMI 36.0-36.9,adult Start:04-Mar-2020 Instruction Type:Patient Education Patient Instructions Indication:BMI 36.0-36.9,adult Start:04-Mar-2020 Instruction Type:Provider Instructions for Treatment [facility]; [facility] Work Phone: Instructions* Name Dates Details Patient Instructions Indication:Nonsmoker Start:23-Apr-2023 Instruction Type:Provider Instructions for Treatment How to Access Health Informa tion Online using Patient Portal and [employer] Apps Indication:Nonsmoker Start:23-Apr-2023 Instruction Type:Patient Education Patient Instructions Indication:Nonsmoker Start:05-Apr-2023 Instruction Type:Provider Instructions for Treatment How to Access Health Informa tion Online using Patient Portal and [employer] Apps Indication:Nonsmoker Start:05-Apr-2023 Instruction Type:Patient Education Patient Instructions Indication:Headache, acute Start:27-Mar-2023 Instruction Type:Provider Instructions for Treatment How to Access Health Informa tion Online using Patient Portal and [employer] Apps Indication:Headache, acute Start:27-Mar-2023 Instruction Type:Patient Education Patient Instructions Indication:Diarrhea with dehydration Start:27-Dec-2022 Instruction Type:Provider Instructions for Treatment How to Access Health Informa tion Online using Patient Portal and [employer] Apps Indication:Diarrhea with dehydration Start:27-Dec-2022 Instruction Type:Patient Education Patient Instructions Indication:BMI 32.0-32.9,adult Start:28-Sep-2022 Instruction Type:Provider Instructions for Treatment How to Access Health Informa tion Online using Patient Portal and [employer] Apps Indication:BMI 32.0-32.9,adult Start:28-Sep-2022 Instruction Type:Patient Education Patient Instructions Indication:BMI 32.0-32.9,adult Start:30-Aug-2022 Instruction Type:Provider Instructions for Treatment How to Access Health Informa tion Online using Patient Portal and [employer] Apps Indication:BMI 32.0-32.9,adult Start:30-Aug-2022 Instruction Type:Patient Education Patient Instructions Indication:BMI 32.0-32.9,adult Start:05-Jul-2022 Instruction Type:Provider Instructions for Treatment How to Access Health Informa tion Online using Patient Portal and [employer] Apps Indication:BMI 32.0-32.9,adult Start:05-Jul-2022 Instruction Type:Patient Education Patient Instructions Indication:Skin burn Start:13-May-2022 Instruction Type:Provider Instructions for Treatment How to Access Health Informa tion Online using Patient Portal and [employer] Apps Indication:Nonsmoker Start:09-May-2022 Instruction Type:Patient Education Patient Instructions Indication:Nonsmoker Start:09-May-2022 Instruction Type:Provider Instructions for Treatment Patient Instructions Indication:BMI 33.0-33.9,adult Start:13-Apr-2022 Instruction Type:Provider Instructions for Treatment How to Access Health Informa tion Online using Patient Portal and [employer] Apps Indication:BMI 33.0-33.9,adult Start:13-Apr-2022 Instruction Type:Patient Education Patient Instructions Indication:Nonsmoker Start:24-Feb-2022 Instruction Type:Provider Instructions for Treatment How to Access Health Informa tion Online using Patient Portal and [employer] Apps Indication:Nonsmoker Start:24-Feb-2022 Instruction Type:Patient Education Patient Instructions Indication:BMI 31.0-31.9,adult Start:30-Jan-2022 Instruction Type:Provider Instructions for Treatment How to Access Health Informa tion Online using Patient Portal and [employer] Apps Indication:BMI 31.0-31.9,adult Start:30-Jan-2022 Instruction Type:Patient Education Patient Instructions Indication:BMI 31.0-31.9,adult Start:16-Jan-2022 Instruction Type:Provider Instructions for Treatment How to Access Health Informa tion Online using Patient Portal and [employer] Apps Indication:BMI 31.0-31.9,adult Start:16-Jan-2022 Instruction Type:Patient Education Patient Instructions Indication:BMI 29.0-29.9,adult Start:08-Dec-2021 Instruction Type:Provider Instructions for Treatment How to Access Health Informa tion Online using Patient Portal and [employer] Apps Indication:BMI 29.0-29.9,adult Start:08-Dec-2021 Instruction Type:Patient Education Patient Instructions Indication:Fever Start:01-Nov-2021 Instruction Type:Provider Instructions for Treatment How to Access Health Informa tion Online using Patient Portal and [employer] Apps Indication:Fever Start:01-Nov-2021 Instruction Type:Patient Education Patient Instructions Indication:BMI 32.0-32.9,adult Start:27-Oct-2021 Instruction Type:Provider Instructions for Treatment How to Access Health Informa tion Online using Patient Portal and [employer] Apps Indication:BMI 32.0-32.9,adult Start:27-Oct-2021 Instruction Type:Patient Education Patient Instructions Indication:BMI 32.0-32.9,adult Start:02-May-2021 Instruction Type:Provider Instructions for Treatment How to Access Health Informa tion Online using Patient Portal and [employer] Apps Indication:Nonsmoker Start:02-May-2021 Instruction Type:Patient Education Patient Instructions Indication:Nonsmoker Start:22-Feb-2021 Instruction Type:Provider Instructions for Treatment How to Access Health Informa tion Online using Patient Portal and [employer] Apps Indication:Nonsmoker Start:22-Feb-2021 Instruction Type:Patient Education How to Access Health Informa tion Online using Patient Portal and [employer] Apps Indication:Nonsmoker Start:09-Feb-2021 Instruction Type:Patient Education Patient Instructions Indication:Nonsmoker Start:09-Feb-2021 Instruction Type:Provider Instructions for Treatment How to access health informa tion online Indication:BMI 34.0-34.9,adult Start:26-Mar-2020 Instruction Type:Patient Education How to access health informa tion online - Detail Indication:BMI 34.0-34.9,adult Start:26-Mar-2020 Instruction Type:Patient Education Patient Instructions Indication:BMI 34.0-34.9,adult Start:26-Mar-2020 Instruction Type:Provider Instructions for Treatment How to access health informa tion online Indication:BMI 36.0-36.9,adult Start:04-Mar-2020 Instruction Type:Patient Education How to access health informa tion online - Detail Indication:BMI 36.0-36.9,adult Start:04-Mar-2020 Instruction Type:Patient Education Patient Instructions Indication:BMI 36.0-36.9,adult Start:04-Mar-2020 Instruction Type:Provider Instructions for Treatment [facility]; [facility] Work Phone: Instructions* Name Dates Details Patient Instructions Indication:Nonsmoker Start:23-Apr-2023 Instruction Type:Provider Instructions for Treatment How to Access Health Informa tion Online using Patient Portal and [employer] Apps Indication:Nonsmoker Start:23-Apr-2023 Instruction Type:Patient Education Patient Instructions Indication:Nonsmoker Start:05-Apr-2023 Instruction Type:Provider Instructions for Treatment How to Access Health Informa tion Online using Patient Portal and [employer] Apps Indication:Nonsmoker Start:05-Apr-2023 Instruction Type:Patient Education Patient Instructions Indication:Headache, acute Start:27-Mar-2023 Instruction Type:Provider Instructions for Treatment How to Access Health Informa tion Online using Patient Portal and [employer] Apps Indication:Headache, acute Start:27-Mar-2023 Instruction Type:Patient Education Patient Instructions Indication:Diarrhea with dehydration Start:27-Dec-2022 Instruction Type:Provider Instructions for Treatment How to Access Health Informa tion Online using Patient Portal and [employer] Apps Indication:Diarrhea with dehydration Start:27-Dec-2022 Instruction Type:Patient Education Patient Instructions Indication:BMI 32.0-32.9,adult Start:28-Sep-2022 Instruction Type:Provider Instructions for Treatment How to Access Health Informa tion Online using Patient Portal and [employer] Apps Indication:BMI 32.0-32.9,adult Start:28-Sep-2022 Instruction Type:Patient Education Patient Instructions Indication:BMI 32.0-32.9,adult Start:30-Aug-2022 Instruction Type:Provider Instructions for Treatment How to Access Health Informa tion Online using Patient Portal and [employer] Apps Indication:BMI 32.0-32.9,adult Start:30-Aug-2022 Instruction Type:Patient Education Patient Instructions Indication:BMI 32.0-32.9,adult Start:05-Jul-2022 Instruction Type:Provider Instructions for Treatment How to Access Health Informa tion Online using Patient Portal and [employer] Apps Indication:BMI 32.0-32.9,adult Start:05-Jul-2022 Instruction Type:Patient Education Patient Instructions Indication:Skin burn Start:13-May-2022 Instruction Type:Provider Instructions for Treatment How to Access Health Informa tion Online using Patient Portal and [employer] Apps Indication:Nonsmoker Start:09-May-2022 Instruction Type:Patient Education Patient Instructions Indication:Nonsmoker Start:09-May-2022 Instruction Type:Provider Instructions for Treatment Patient Instructions Indication:BMI 33.0-33.9,adult Start:13-Apr-2022 Instruction Type:Provider Instructions for Treatment How to Access Health Informa tion Online using Patient Portal and [employer] Apps Indication:BMI 33.0-33.9,adult Start:13-Apr-2022 Instruction Type:Patient Education Patient Instructions Indication:Nonsmoker Start:24-Feb-2022 Instruction Type:Provider Instructions for Treatment How to Access Health Informa tion Online using Patient Portal and [employer] Apps Indication:Nonsmoker Start:24-Feb-2022 Instruction Type:Patient Education Patient Instructions Indication:BMI 31.0-31.9,adult Start:30-Jan-2022 Instruction Type:Provider Instructions for Treatment How to Access Health Informa tion Online using Patient Portal and [employer] Apps Indication:BMI 31.0-31.9,adult Start:30-Jan-2022 Instruction Type:Patient Education Patient Instructions Indication:BMI 31.0-31.9,adult Start:16-Jan-2022 Instruction Type:Provider Instructions for Treatment How to Access Health Informa tion Online using Patient Portal and [employer] Apps Indication:BMI 31.0-31.9,adult Start:16-Jan-2022 Instruction Type:Patient Education Patient Instructions Indication:BMI 29.0-29.9,adult Start:08-Dec-2021 Instruction Type:Provider Instructions for Treatment How to Access Health Informa tion Online using Patient Portal and [employer] Apps Indication:BMI 29.0-29.9,adult Start:08-Dec-2021 Instruction Type:Patient Education Patient Instructions Indication:Fever Start:01-Nov-2021 Instruction Type:Provider Instructions for Treatment How to Access Health Informa tion Online using Patient Portal and [employer] Apps Indication:Fever Start:01-Nov-2021 Instruction Type:Patient Education Patient Instructions Indication:BMI 32.0-32.9,adult Start:27-Oct-2021 Instruction Type:Provider Instructions for Treatment How to Access Health Informa tion Online using Patient Portal and [employer] Apps Indication:BMI 32.0-32.9,adult Start:27-Oct-2021 Instruction Type:Patient Education Patient Instructions Indication:BMI 32.0-32.9,adult Start:02-May-2021 Instruction Type:Provider Instructions for Treatment How to Access Health Informa tion Online using Patient Portal and [employer] Apps Indication:Nonsmoker Start:02-May-2021 Instruction Type:Patient Education Patient Instructions Indication:Nonsmoker Start:22-Feb-2021 Instruction Type:Provider Instructions for Treatment How to Access Health Informa tion Online using Patient Portal and [employer] Apps Indication:Nonsmoker Start:22-Feb-2021 Instruction Type:Patient Education How to Access Health Informa tion Online using Patient Portal and [employer] Apps Indication:Nonsmoker Start:09-Feb-2021 Instruction Type:Patient Education Patient Instructions Indication:Nonsmoker Start:09-Feb-2021 Instruction Type:Provider Instructions for Treatment How to access health informa tion online Indication:BMI 34.0-34.9,adult Start:26-Mar-2020 Instruction Type:Patient Education How to access health informa tion online - Detail Indication:BMI 34.0-34.9,adult Start:26-Mar-2020 Instruction Type:Patient Education Patient Instructions Indication:BMI 34.0-34.9,adult Start:26-Mar-2020 Instruction Type:Provider Instructions for Treatment How to access health informa tion online Indication:BMI 36.0-36.9,adult Start:04-Mar-2020 Instruction Type:Patient Education How to access health informa tion online - Detail Indication:BMI 36.0-36.9,adult Start:04-Mar-2020 Instruction Type:Patient Education Patient Instructions Indication:BMI 36.0-36.9,adult Start:04-Mar-2020 Instruction Type:Provider Instructions for Treatment [facility]; [facility] Work Phone: Instructions* Name Dates Details Patient Instructions Indication:Nonsmoker Start:07-Aug-2023 Instruction Type:Provider Instructions for Treatment How to Access Health Informa tion Online using Patient Portal and [employer] Apps Indication:Nonsmoker Start:07-Aug-2023 Instruction Type:Patient Education Patient Instructions Indication:Nonsmoker Start:23-Apr-2023 Instruction Type:Provider Instructions for Treatment How to Access Health Informa tion Online using Patient Portal and [employer] Apps Indication:Nonsmoker Start:23-Apr-2023 Instruction Type:Patient Education Patient Instructions Indication:Nonsmoker Start:05-Apr-2023 Instruction Type:Provider Instructions for Treatment How to Access Health Informa tion Online using Patient Portal and [employer] Apps Indication:Nonsmoker Start:05-Apr-2023 Instruction Type:Patient Education Patient Instructions Indication:Headache, acute Start:27-Mar-2023 Instruction Type:Provider Instructions for Treatment How to Access Health Informa tion Online using Patient Portal and [employer] Apps Indication:Headache, acute Start:27-Mar-2023 Instruction Type:Patient Education Patient Instructions Indication:Diarrhea with dehydration Start:27-Dec-2022 Instruction Type:Provider Instructions for Treatment How to Access Health Informa tion Online using Patient Portal and [employer] Apps Indication:Diarrhea with dehydration Start:27-Dec-2022 Instruction Type:Patient Education Patient Instructions Indication:BMI 32.0-32.9,adult Start:28-Sep-2022 Instruction Type:Provider Instructions for Treatment How to Access Health Informa tion Online using Patient Portal and [employer] Apps Indication:BMI 32.0-32.9,adult Start:28-Sep-2022 Instruction Type:Patient Education Patient Instructions Indication:BMI 32.0-32.9,adult Start:30-Aug-2022 Instruction Type:Provider Instructions for Treatment How to Access Health Informa tion Online using Patient Portal and [employer] Apps Indication:BMI 32.0-32.9,adult Start:30-Aug-2022 Instruction Type:Patient Education Patient Instructions Indication:BMI 32.0-32.9,adult Start:05-Jul-2022 Instruction Type:Provider Instructions for Treatment How to Access Health Informa tion Online using Patient Portal and [employer] Apps Indication:BMI 32.0-32.9,adult Start:05-Jul-2022 Instruction Type:Patient Education Patient Instructions Indication:Skin burn Start:13-May-2022 Instruction Type:Provider Instructions for Treatment How to Access Health Informa tion Online using Patient Portal and [employer] Apps Indication:Nonsmoker Start:09-May-2022 Instruction Type:Patient Education Patient Instructions Indication:Nonsmoker Start:09-May-2022 Instruction Type:Provider Instructions for Treatment Patient Instructions Indication:BMI 33.0-33.9,adult Start:13-Apr-2022 Instruction Type:Provider Instructions for Treatment How to Access Health Informa tion Online using Patient Portal and [employer] Apps Indication:BMI 33.0-33.9,adult Start:13-Apr-2022 Instruction Type:Patient Education Patient Instructions Indication:Nonsmoker Start:24-Feb-2022 Instruction Type:Provider Instructions for Treatment How to Access Health Informa tion Online using Patient Portal and [employer] Apps Indication:Nonsmoker Start:24-Feb-2022 Instruction Type:Patient Education Patient Instructions Indication:BMI 31.0-31.9,adult Start:30-Jan-2022 Instruction Type:Provider Instructions for Treatment How to Access Health Informa tion Online using Patient Portal and [employer] Apps Indication:BMI 31.0-31.9,adult Start:30-Jan-2022 Instruction Type:Patient Education Patient Instructions Indication:BMI 31.0-31.9,adult Start:16-Jan-2022 Instruction Type:Provider Instructions for Treatment How to Access Health Informa tion Online using Patient Portal and [employer] Apps Indication:BMI 31.0-31.9,adult Start:16-Jan-2022 Instruction Type:Patient Education Patient Instructions Indication:BMI 29.0-29.9,adult Start:08-Dec-2021 Instruction Type:Provider Instructions for Treatment How to Access Health Informa tion Online using Patient Portal and [employer] Apps Indication:BMI 29.0-29.9,adult Start:08-Dec-2021 Instruction Type:Patient Education Patient Instructions Indication:Fever Start:01-Nov-2021 Instruction Type:Provider Instructions for Treatment How to Access Health Informa tion Online using Patient Portal and [employer] Apps Indication:Fever Start:01-Nov-2021 Instruction Type:Patient Education Patient Instructions Indication:BMI 32.0-32.9,adult Start:27-Oct-2021 Instruction Type:Provider Instructions for Treatment How to Access Health Informa tion Online using Patient Portal and [employer] Apps Indication:BMI 32.0-32.9,adult Start:27-Oct-2021 Instruction Type:Patient Education Patient Instructions Indication:BMI 32.0-32.9,adult Start:02-May-2021 Instruction Type:Provider Instructions for Treatment How to Access Health Informa tion Online using Patient Portal and [employer] Apps Indication:Nonsmoker Start:02-May-2021 Instruction Type:Patient Education Patient Instructions Indication:Nonsmoker Start:22-Feb-2021 Instruction Type:Provider Instructions for Treatment How to Access Health Informa tion Online using Patient Portal and [employer] Apps Indication:Nonsmoker Start:22-Feb-2021 Instruction Type:Patient Education How to Access Health Informa tion Online using Patient Portal and [employer] Apps Indication:Nonsmoker Start:09-Feb-2021 Instruction Type:Patient Education Patient Instructions Indication:Nonsmoker Start:09-Feb-2021 Instruction Type:Provider Instructions for Treatment How to access health informa tion online Indication:BMI 34.0-34.9,adult Start:26-Mar-2020 Instruction Type:Patient Education How to access health informa tion online - Detail Indication:BMI 34.0-34.9,adult Start:26-Mar-2020 Instruction Type:Patient Education Patient Instructions Indication:BMI 34.0-34.9,adult Start:26-Mar-2020 Instruction Type:Provider Instructions for Treatment How to access health informa tion online Indication:BMI 36.0-36.9,adult Start:04-Mar-2020 Instruction Type:Patient Education How to access health informa tion online - Detail Indication:BMI 36.0-36.9,adult Start:04-Mar-2020 Instruction Type:Patient Education Patient Instructions Indication:BMI 36.0-36.9,adult Start:04-Mar-2020 Instruction Type:Provider Instructions for Treatment [facility]; [facility] Work Phone: Instructions* Name Dates Details Patient Instructions Indication:Nonsmoker Start:07-Aug-2023 Instruction Type:Provider Instructions for Treatment How to Access Health Informa tion Online using Patient Portal and [employer] Apps Indication:Nonsmoker Start:07-Aug-2023 Instruction Type:Patient Education Patient Instructions Indication:Nonsmoker Start:23-Apr-2023 Instruction Type:Provider Instructions for Treatment How to Access Health Informa tion Online using Patient Portal and [employer] Apps Indication:Nonsmoker Start:23-Apr-2023 Instruction Type:Patient Education Patient Instructions Indication:Nonsmoker Start:05-Apr-2023 Instruction Type:Provider Instructions for Treatment How to Access Health Informa tion Online using Patient Portal and [employer] Indication:Nonsmoker Start:05-Apr-2023 Instruction Type:Patient Education Patient Instructions Indication:Headache, acute Start:27-Mar-2023 Instruction Type:Provider Instructions for Treatment How to Access Health Informa tion Online using Patient Portal and [employer] Apps Indication:Headache, acute Start:27-Mar-2023 Instruction Type:Patient Education Patient Instructions Indication:Diarrhea with dehydration Start:27-Dec-2022 Instruction Type:Provider Instructions for Treatment How to Access Health Informa tion Online using Patient Portal and [employer] Apps Indication:Diarrhea with dehydration Start:27-Dec-2022 Instruction Type:Patient Education Patient Instructions Indication:BMI 32.0-32.9,adult Start:28-Sep-2022 Instruction Type:Provider Instructions for Treatment How to Access Health Informa tion Online using Patient Portal and [employer] Apps Indication:BMI 32.0-32.9,adult Start:28-Sep-2022 Instruction Type:Patient Education Patient Instructions Indication:BMI 32.0-32.9,adult Start:30-Aug-2022 Instruction Type:Provider Instructions for Treatment How to Access Health Informa tion Online using Patient Portal and [employer] Apps Indication:BMI 32.0-32.9,adult Start:30-Aug-2022 Instruction Type:Patient Education Patient Instructions Indication:BMI 32.0-32.9,adult Start:05-Jul-2022 Instruction Type:Provider Instructions for Treatment How to Access Health Informa tion Online using Patient Portal and [employer] Apps Indication:BMI 32.0-32.9,adult Start:05-Jul-2022 Instruction Type:Patient Education Patient Instructions Indication:Skin burn Start:13-May-2022 Instruction Type:Provider Instructions for Treatment How to Access Health Informa tion Online using Patient Portal and [employer] Apps Indication:Nonsmoker Start:09-May-2022 Instruction Type:Patient Education Patient Instructions Indication:Nonsmoker Start:09-May-2022 Instruction Type:Provider Instructions for Treatment Patient Instructions Indication:BMI 33.0-33.9,adult Start:13-Apr-2022 Instruction Type:Provider Instructions for Treatment How to Access Health Informa tion Online using Patient Portal and [employer] Apps Indication:BMI 33.0-33.9,adult Start:13-Apr-2022 Instruction Type:Patient Education Patient Instructions Indication:Nonsmoker Start:24-Feb-2022 Instruction Type:Provider Instructions for Treatment How to Access Health Informa tion Online using Patient Portal and [employer] Apps Indication:Nonsmoker Start:24-Feb-2022 Instruction Type:Patient Education Patient Instructions Indication:BMI 31.0-31.9,adult Start:30-Jan-2022 Instruction Type:Provider Instructions for Treatment How to Access Health Informa tion Online using Patient Portal and [employer] Apps Indication:BMI 31.0-31.9,adult Start:30-Jan-2022 Instruction Type:Patient Education Patient Instructions Indication:BMI 31.0-31.9,adult Start:16-Jan-2022 Instruction Type:Provider Instructions for Treatment How to Access Health Informa tion Online using Patient Portal and [employer] Apps Indication:BMI 31.0-31.9,adult Start:16-Jan-2022 Instruction Type:Patient Education Patient Instructions Indication:BMI 29.0-29.9,adult Start:08-Dec-2021 Instruction Type:Provider Instructions for Treatment How to Access Health Informa tion Online using Patient Portal and [employer] Apps Indication:BMI 29.0-29.9,adult Start:08-Dec-2021 Instruction Type:Patient Education Patient Instructions Indication:Fever Start:01-Nov-2021 Instruction Type:Provider Instructions for Treatment How to Access Health Informa tion Online using Patient Portal and [employer] Apps Indication:Fever Start:01-Nov-2021 Instruction Type:Patient Education Patient Instructions Indication:BMI 32.0-32.9,adult Start:27-Oct-2021 Instruction Type:Provider Instructions for Treatment How to Access Health Informa tion Online using Patient Portal and [employer] Apps Indication:BMI 32.0-32.9,adult Start:27-Oct-2021 Instruction Type:Patient Education Patient Instructions Indication:BMI 32.0-32.9,adult Start:02-May-2021 Instruction Type:Provider Instructions for Treatment How to Access Health Informa tion Online using Patient Portal and [employer] Apps Indication:Nonsmoker Start:02-May-2021 Instruction Type:Patient Education Patient Instructions Indication:Nonsmoker Start:22-Feb-2021 Instruction Type:Provider Instructions for Treatment How to Access Health Informa tion Online using Patient Portal and [employer] Apps Indication:Nonsmoker Start:22-Feb-2021 Instruction Type:Patient Education How to Access Health Informa tion Online using Patient Portal and [employer] Apps Indication:Nonsmoker Start:09-Feb-2021 Instruction Type:Patient Education Patient Instructions Indication:Nonsmoker Start:09-Feb-2021 Instruction Type:Provider Instructions for Treatment How to access health informa tion online Indication:BMI 34.0-34.9,adult Start:26-Mar-2020 Instruction Type:Patient Education How to access health informa tion online - Detail Indication:BMI 34.0-34.9,adult Start:26-Mar-2020 Instruction Type:Patient Education Patient Instructions Indication:BMI 34.0-34.9,adult Start:26-Mar-2020 Instruction Type:Provider Instructions for Treatment How to access health informa tion online Indication:BMI 36.0-36.9,adult Start:04-Mar-2020 Instruction Type:Patient Education How to access health informa tion online - Detail Indication:BMI 36.0-36.9,adult Start:04-Mar-2020 Instruction Type:Patient Education Patient Instructions Indication:BMI 36.0-36.9,adult Start:04-Mar-2020 Instruction Type:Provider Instructions for Treatment [facility]; [facility] Work Phone: Instructions* Name Dates Details Patient Instructions Indication:Nonsmoker Start:21-Aug-2023 Instruction Type:Provider Instructions for Treatment How to Access Health Informa tion Online using Patient Portal and [employer] Apps Indication:Nonsmoker Start:21-Aug-2023 Instruction Type:Patient Education Patient Instructions Indication:Nonsmoker Start:07-Aug-2023 Instruction Type:Provider Instructions for Treatment How to Access Health Informa tion Online using Patient Portal and [employer] Apps Indication:Nonsmoker Start:07-Aug-2023 Instruction Type:Patient Education Patient Instructions Indication:Nonsmoker Start:23-Apr-2023 Instruction Type:Provider Instructions for Treatment How to Access Health Informa tion Online using Patient Portal and [employer] Apps Indication:Nonsmoker Start:23-Apr-2023 Instruction Type:Patient Education Patient Instructions Indication:Nonsmoker Start:05-Apr-2023 Instruction Type:Provider Instructions for Treatment How to Access Health Informa tion Online using Patient Portal and [employer] Apps Indication:Nonsmoker Start:05-Apr-2023 Instruction Type:Patient Education Patient Instructions Indication:Headache, acute Start:27-Mar-2023 Instruction Type:Provider Instructions for Treatment How to Access Health Informa tion Online using Patient Portal and [employer] Apps Indication:Headache, acute Start:27-Mar-2023 Instruction Type:Patient Education Patient Instructions Indication:Diarrhea with dehydration Start:27-Dec-2022 Instruction Type:Provider Instructions for Treatment How to Access Health Informa tion Online using Patient Portal and [employer] Apps Indication:Diarrhea with dehydration Start:27-Dec-2022 Instruction Type:Patient Education Patient Instructions Indication:BMI 32.0-32.9,adult Start:28-Sep-2022 Instruction Type:Provider Instructions for Treatment How to Access Health Informa tion Online using Patient Portal and [employer] Apps Indication:BMI 32.0-32.9,adult Start:28-Sep-2022 Instruction Type:Patient Education Patient Instructions Indication:BMI 32.0-32.9,adult Start:30-Aug-2022 Instruction Type:Provider Instructions for Treatment How to Access Health Informa tion Online using Patient Portal and [employer] Apps Indication:BMI 32.0-32.9,adult Start:30-Aug-2022 Instruction Type:Patient Education Patient Instructions Indication:BMI 32.0-32.9,adult Start:05-Jul-2022 Instruction Type:Provider Instructions for Treatment How to Access Health Informa tion Online using Patient Portal and [employer] Apps Indication:BMI 32.0-32.9,adult Start:05-Jul-2022 Instruction Type:Patient Education Patient Instructions Indication:Skin burn Start:13-May-2022 Instruction Type:Provider Instructions for Treatment How to Access Health Informa tion Online using Patient Portal and [employer] Apps Indication:Nonsmoker Start:09-May-2022 Instruction Type:Patient Education Patient Instructions Indication:Nonsmoker Start:09-May-2022 Instruction Type:Provider Instructions for Treatment Patient Instructions Indication:BMI 33.0-33.9,adult Start:13-Apr-2022 Instruction Type:Provider Instructions for Treatment How to Access Health Informa tion Online using Patient Portal and [employer] Apps Indication:BMI 33.0-33.9,adult Start:13-Apr-2022 Instruction Type:Patient Education Patient Instructions Indication:Nonsmoker Start:24-Feb-2022 Instruction Type:Provider Instructions for Treatment How to Access Health Informa tion Online using Patient Portal and [employer] Apps Indication:Nonsmoker Start:24-Feb-2022 Instruction Type:Patient Education Patient Instructions Indication:BMI 31.0-31.9,adult Start:30-Jan-2022 Instruction Type:Provider Instructions for Treatment How to Access Health Informa tion Online using Patient Portal and [employer] Apps Indication:BMI 31.0-31.9,adult Start:30-Jan-2022 Instruction Type:Patient Education Patient Instructions Indication:BMI 31.0-31.9,adult Start:16-Jan-2022 Instruction Type:Provider Instructions for Treatment How to Access Health Informa tion Online using Patient Portal and [employer] Apps Indication:BMI 31.0-31.9,adult Start:16-Jan-2022 Instruction Type:Patient Education Patient Instructions Indication:BMI 29.0-29.9,adult Start:08-Dec-2021 Instruction Type:Provider Instructions for Treatment How to Access Health Informa tion Online using Patient Portal and [employer] Apps Indication:BMI 29.0-29.9,adult Start:08-Dec-2021 Instruction Type:Patient Education Patient Instructions Indication:Fever Start:01-Nov-2021 Instruction Type:Provider Instructions for Treatment How to Access Health Informa tion Online using Patient Portal and [employer] Apps Indication:Fever Start:01-Nov-2021 Instruction Type:Patient Education Patient Instructions Indication:BMI 32.0-32.9,adult Start:27-Oct-2021 Instruction Type:Provider Instructions for Treatment How to Access Health Informa tion Online using Patient Portal and [employer] Apps Indication:BMI 32.0-32.9,adult Start:27-Oct-2021 Instruction Type:Patient Education Patient Instructions Indication:BMI 32.0-32.9,adult Start:02-May-2021 Instruction Type:Provider Instructions for Treatment How to Access Health Informa tion Online using Patient Portal and [employer] Apps Indication:Nonsmoker Start:02-May-2021 Instruction Type:Patient Education Patient Instructions Indication:Nonsmoker Start:22-Feb-2021 Instruction Type:Provider Instructions for Treatment How to Access Health Informa tion Online using Patient Portal and [employer] Apps Indication:Nonsmoker Start:22-Feb-2021 Instruction Type:Patient Education How to Access Health Informa tion Online using Patient Portal and [employer] Apps Indication:Nonsmoker Start:09-Feb-2021 Instruction Type:Patient Education Patient Instructions Indication:Nonsmoker Start:09-Feb-2021 Instruction Type:Provider Instructions for Treatment How to access health informa tion online Indication:BMI 34.0-34.9,adult Start:26-Mar-2020 Instruction Type:Patient Education How to access health informa tion online - Detail Indication:BMI 34.0-34.9,adult Start:26-Mar-2020 Instruction Type:Patient Education Patient Instructions Indication:BMI 34.0-34.9,adult Start:26-Mar-2020 Instruction Type:Provider Instructions for Treatment How to access health informa tion online Indication:BMI 36.0-36.9,adult Start:04-Mar-2020 Instruction Type:Patient Education How to access health informa tion online - Detail Indication:BMI 36.0-36.9,adult Start:04-Mar-2020 Instruction Type:Patient Education Patient Instructions Indication:BMI 36.0-36.9,adult Start:04-Mar-2020 Instruction Type:Provider Instructions for Treatment [facility]; [facility] Work Phone: Instructions Name Dates Details How to access health informa tion online Indication:BMI 34.0-34.9,adult Start:26-Mar-2020 Instruction Type:Patient Education How to access health informa tion online - Detail Indication:BMI 34.0-34.9,adult Start:26-Mar-2020 Instruction Type:Patient Education Patient Instructions Indication:BMI 34.0-34.9,adult Start:26-Mar-2020 Instruction Type:Provider Instructions for Treatment How to access health informa tion online Indication:BMI 36.0-36.9,adult Start:04-Mar-2020 Instruction Type:Patient Education How to access health informa tion online - Detail Indication:BMI 36.0-36.9,adult Start:04-Mar-2020 Instruction Type:Patient Education Patient Instructions Indication:BMI 36.0-36.9,adult Start:04-Mar-2020 Instruction Type:Provider Instructions for Treatment Name Dates Details How to access health informa tion online Indication:BMI 34.0-34.9,adult Start:26-Mar-2020 Instruction Type:Patient Education How to access health informa tion online - Detail Indication:BMI 34.0-34.9,adult Start:26-Mar-2020 Instruction Type:Patient Education Patient Instructions Indication:BMI 34.0-34.9,adult Start:26-Mar-2020 Instruction Type:Provider Instructions for Treatment How to access health informa tion online Indication:BMI 36.0-36.9,adult Start:04-Mar-2020 Instruction Type:Patient Education How to access health informa tion online - Detail Indication:BMI 36.0-36.9,adult Start:04-Mar-2020 Instruction Type:Patient Education Patient Instructions Indication:BMI 36.0-36.9,adult Start:04-Mar-2020 Instruction Type:Provider Instructions for Treatment Name Dates Details How to access health informa tion online Indication:BMI 34.0-34.9,adult Start:26-Mar-2020 Instruction Type:Patient Education How to access health informa tion online - Detail Indication:BMI 34.0-34.9,adult Start:26-Mar-2020 Instruction Type:Patient Education Patient Instructions Indication:BMI 34.0-34.9,adult Start:26-Mar-2020 Instruction Type:Provider Instructions for Treatment How to access health informa tion online Indication:BMI 36.0-36.9,adult Start:04-Mar-2020 Instruction Type:Patient Education How to access health informa tion online - Detail Indication:BMI 36.0-36.9,adult Start:04-Mar-2020 Instruction Type:Patient Education Patient Instructions Indication:BMI 36.0-36.9,adult Start:04-Mar-2020 Instruction Type:Provider Instructions for Treatment Name Dates Details How to access health informa tion online Indication:BMI 34.0-34.9,adult Start:26-Mar-2020 Instruction Type:Patient Education How to access health informa tion online - Detail Indication:BMI 34.0-34.9,adult Start:26-Mar-2020 Instruction Type:Patient Education Patient Instructions Indication:BMI 34.0-34.9,adult Start:26-Mar-2020 Instruction Type:Provider Instructions for Treatment How to access health informa tion online Indication:BMI 36.0-36.9,adult Start:04-Mar-2020 Instruction Type:Patient Education How to access health informa tion online - Detail Indication:BMI 36.0-36.9,adult Start:04-Mar-2020 Instruction Type:Patient Education Patient Instructions Indication:BMI 36.0-36.9,adult Start:04-Mar-2020 Instruction Type:Provider Instructions for Treatment Name Dates Details How to access health informa tion online Indication:BMI 34.0-34.9,adult Start:26-Mar-2020 Instruction Type:Patient Education How to access health informa tion online - Detail Indication:BMI 34.0-34.9,adult Start:26-Mar-2020 Instruction Type:Patient Education Patient Instructions Indication:BMI 34.0-34.9,adult Start:26-Mar-2020 Instruction Type:Provider Instructions for Treatment How to access health informa tion online Indication:BMI 36.0-36.9,adult Start:04-Mar-2020 Instruction Type:Patient Education How to access health informa tion online - Detail Indication:BMI 36.0-36.9,adult Start:04-Mar-2020 Instruction Type:Patient Education Patient Instructions Indication:BMI 36.0-36.9,adult Start:04-Mar-2020 Instruction Type:Provider Instructions for Treatment Name Dates Details How to access health informa tion online Indication:BMI 34.0-34.9,adult Start:26-Mar-2020 Instruction Type:Patient Education How to access health informa tion online - Detail Indication:BMI 34.0-34.9,adult Start:26-Mar-2020 Instruction Type:Patient Education Patient Instructions Indication:BMI 34.0-34.9,adult Start:26-Mar-2020 Instruction Type:Provider Instructions for Treatment How to access health informa tion online Indication:BMI 36.0-36.9,adult Start:04-Mar-2020 Instruction Type:Patient Education How to access health informa tion online - Detail Indication:BMI 36.0-36.9,adult Start:04-Mar-2020 Instruction Type:Patient Education Patient Instructions Indication:BMI 36.0-36.9,adult Start:04-Mar-2020 Instruction Type:Provider Instructions for Treatment Name Dates Details How to access health informa tion online Indication:BMI 34.0-34.9,adult Start:26-Mar-2020 Instruction Type:Patient Education How to access health informa tion online - Detail Indication:BMI 34.0-34.9,adult Start:26-Mar-2020 Instruction Type:Patient Education Patient Instructions Indication:BMI 34.0-34.9,adult Start:26-Mar-2020 Instruction Type:Provider Instructions for Treatment How to access health informa tion online Indication:BMI 36.0-36.9,adult Start:04-Mar-2020 Instruction Type:Patient Education How to access health informa tion online - Detail Indication:BMI 36.0-36.9,adult Start:04-Mar-2020 Instruction Type:Patient Education Patient Instructions Indication:BMI 36.0-36.9,adult Start:04-Mar-2020 Instruction Type:Provider Instructions for Treatment Name Dates Details How to access health informa tion online Indication:BMI 34.0-34.9,adult Start:26-Mar-2020 Instruction Type:Patient Education How to access health informa tion online - Detail Indication:BMI 34.0-34.9,adult Start:26-Mar-2020 Instruction Type:Patient Education Patient Instructions Indication:BMI 34.0-34.9,adult Start:26-Mar-2020 Instruction Type:Provider Instructions for Treatment How to access health informa tion online Indication:BMI 36.0-36.9,adult Start:04-Mar-2020 Instruction Type:Patient Education How to access health informa tion online - Detail Indication:BMI 36.0-36.9,adult Start:04-Mar-2020 Instruction Type:Patient Education Patient Instructions Indication:BMI 36.0-36.9,adult Start:04-Mar-2020 Instruction Type:Provider Instructions for Treatment Name Dates Details How to access health informa tion online Indication:BMI 34.0-34.9,adult Start:26-Mar-2020 Instruction Type:Patient Education How to access health informa tion online - Detail Indication:BMI 34.0-34.9,adult Start:26-Mar-2020 Instruction Type:Patient Education Patient Instructions Indication:BMI 34.0-34.9,adult Start:26-Mar-2020 Instruction Type:Provider Instructions for Treatment How to access health informa tion online Indication:BMI 36.0-36.9,adult Start:04-Mar-2020 Instruction Type:Patient Education How to access health informa tion online - Detail Indication:BMI 36.0-36.9,adult Start:04-Mar-2020 Instruction Type:Patient Education Patient Instructions Indication:BMI 36.0-36.9,adult Start:04-Mar-2020 Instruction Type:Provider Instructions for Treatment Summary Purpose Family History No Family History Records Found Advance Directives No Advanced Directives Records Found Additional Source Comments (unrecognized sect ion and content) No Status Records Found INFORMATION SOURCE (unrecogn ized section and content) FOR RECORDS PERTAINING TO PATIENTS WHO ARE OR HAVE BEEN ENROLLED IN A CHEMICAL DEPENDENCY/SUBSTANCEABUSE PROGRAM, SOME INFORMATION MAY BE OMITTED. This clinical summary was aggregated from multiple sources. Caution should be exercised in using it in the provision of clinical care. This summary normalizes information from multiple sources, and as a consequence, information in this document may materially change the coding, format and clinical context of patient data. In addition, data may be omitted in some cases. CLINICAL DECISIONS SHOULD BE BASED ON THE PRIMARY CLINICAL RECORDS. [facility] [employer] [facility]. provides no warranty or guarantee of the accuracy or completeness of information in this document.
[2023-11-09 10:39] LABS: Cholesterol 241 mg/dL (200); Ferritin 860 ng/mL (26-388); High Density Lipoprotein 30 mg/dL; Iron 62 ug/dL (65-175); Iron Binding Capacity,Total 380 ug/dL (250-450); PERCENT IRON SATURATION 16.3 % (15.0-55.0); Triglycerides 972 mg/dL
[2023-11-09 11:59] LABS: Vitamin B12 336 pg/mL (211-911)
== END | disposition home or self-care (01) ==
PROVIDERS: PCP Internal Medicine; Referring Provider Internal Medicine; Visit Provider Internal Medicine
DX: D64.9 Anemia, unspecified (principal); E78.1 Pure hyperglyceridemia
CPT/HCPCS: 36415; 80061; 82607; 82728; 83540; 83550

== ENCOUNTER 2024-01-06 13:15 | Emergency (ER) | payer OTHER, SELFPAY ==
[2024-01-06 13:16] VITALS: BP 154/77; PULSE 95; RESP 14; TEMP 36.8; O2SAT 97
[2024-01-06] MEDS: 0.9% Normal Saline (1000mL) 1,000 ML 999 ML IV (13:53)
[2024-01-06] MEDS: Ondansetron 4 MG/2 ML Vial IV (13:54)
[2024-01-06 14:05] LABS: Absolute Lymphocyte Count 0.71 X10^3/uL (0.83-4.51); Absolute Neutrophil Count 6.4 X10^3/uL (2.0-7.7); Basophil# 0.03 X10^3/uL; Basophil% 0.4 % (0-1); Eosinophil# 0.02 X10^3/uL; Eosinophils% 0.2 % (0-5); Hematocrit 41.6 % (40-54); Hemoglobin 14.3 g/dL (13.0-16.5); Lymphocyte # 0.71 X10^3/ul (0.83-4.51); Lymphocyte % 8.7 % (19-41); Mean Corp Hgb Conc 34.4 g/dL (32-36); Mean Corpuscular Volume 87.4 fL (80-94); Mean Platelet Vol. 10.1 fl (6.2-12.0); Monocyte# 0.98 X10^3/uL; NRBC Flagged by Analyzer 0 % (0-5); Neutrophil # 6.42 X10^3/uL (2.7-7.7); Neutrophil % 78.2 % (47-70); Platelet Count 178 K/mm3 (150-450); RBC Distribution Width CV 13.2 % (11.6-14.6); RBC Distribution Width SD 42.1 fl (35.1-43.9); Red Blood Count 4.76 M/mm3 (4.6-6.2); White Blood Count 8.2 K/mm3 (4.4-11.0)
--- NOTE | 2024-01-06 14:05 | ED.VIS.GI ---
HPI <DENNY Roger - Last Filed: 01/06/24 16:27> HPI - GI History of Present Illness Chief Complaint: Abd Pain Narrative Narrative: 63-year-old male states over the last 2 weeks has had periumbilical pain and a feeling of knots in his stomach. It can occur after eating but has sometimes occurred before. He tried changing his diet and cutting out red meat without a change. Over the weekend he was traveling to [place] with his . Last night he developed dry heaving, continues to have abdominal pain, and is having diarrhea. He states he has had loose yellow/green stools every 30 to 60 minutes. No melena or hematochezia. No actual emesis. He denies eating anything differently while traveling. No fever or chills. No recent antibiotics. His is not sick. He has a history of remote colon cancer with resection and and chemo/radiation in 2009. He thinks his last colonoscopy was about [address] Hatch. He is also had hernia repair and history of diverticulitis. [facility] <DENNY Roger - Last Filed: 01/06/24 16:27> [facility] Medical History Anxiety Carcinoma of colon Cranial nerve III palsy Deep venous thrombosis of lower extremity Diabetes HTN (hypertension) Lupus anticoagulant disorder Migraine Presence of IVC filter Pulmonary embolism Home Medications enoxaparin 120 mg/0.8 mL subcutaneous syringe 120 mg subcut BID lupus 12/04/14 [History Last Taken 01/21/19] metoprolol tartrate 25 mg tablet 25 mg PO BID arrythmia 12/04/14 [History Last Taken 04/14/20 05:00] lisinopril 10 mg tablet 10 mg PO BID blood pressure 01/11/18 [History Last Taken 01/21/19] famotidine 20 mg tablet 20 mg PO BID GERD 01/15/19 [History Last Taken 01/21/19] insulin lispro 100 unit/mL subcutaneous pen See Protocol SQ ACHS ##2 01/17/19 [Rx Last Taken 01/21/19] gemfibrozil 600 mg tablet 600 mg PO DAILY DIABETES 01/21/19 [History Last Taken 01/21/19] glimepiride 4 mg tablet 8 mg PO DAILY DIABETES 01/21/19 [History Last Taken 01/21/19] insulin glargine 100 unit/mL (3 mL) subcutaneous pen 20 - 30 unit subcut BID DM 01/21/19 [History Last Taken 01/20/19] oxycodone-acetaminophen 5 mg-325 mg tablet (Percocet) 1 tab PO Q6H PRN pain 3 days #12 tabs 05/08/22 [Rx Last Taken Unknown] cyclobenzaprine 10 mg tablet 10 mg PO TID PRN Muscle Spasm #20 TABLETS 10/25/22 [Rx Last Taken Unknown] meloxicam 7.5 mg tablet 7.5 mg PO DAILY #10 tabs 10/25/22 [Rx Last Taken Unknown] oxycodone-acetaminophen 5 mg-325 mg tablet 1 tab PO Q6H PRN PRN Pain 3 days #12 TABLETS 10/25/22 [Rx Last Taken Unknown] metoclopramide HCl 10 mg tablet (Reglan) 10 mg PO Q6H PRN nausea and vomiting 5 days #20 tabs 01/06/24 [Rx Last Taken Unknown] sucralfate 1 gram tablet (Carafate) 1 g PO TID 7 days #21 tabs 01/06/24 [Rx Last Taken Unknown] Allergy/AdvReac Type Severity Reaction Status Date / Time Penicillins [PCN] Allergy Unknown Verified 01/06/24 13:16 acetaminophen [From Vicodin] AdvReac dopey Verified 01/06/24 13:16 hydrocodone [From Vicodin] AdvReac dopey Verified 01/06/24 13:16 morphine AdvReac loopy Verified 01/06/24 13:16 Family History (Updated 05/08/22 @ 04:[address] Tatiana Sanchez MD) Mother Cancer VTE (venous thromboembolism) Clotting disorder Surgical History History of vascular surgery S/P colectomy S/P hernia repair S/P partial colectomy S/P vasectomy Social History household members: spouse Smoking Status: Current some day smoker tobacco type: cigarettes alcohol intake: current alcohol intake frequency: holidays/special occasions only substance use type: marijuana ROS <DENNY Roger - Last Filed: 01/06/24 16:27> ROS ED ROS Narrative Constitutional: Negative for fever, chills, malaise. CVS: Negative for chest pain. Respiratory: Negative for shortness of breath. GI: Positive for abdominal pain, nausea, diarrhea. Negative for melena, hematochezia. : Negative for dysuria, hematuria or frequency. EXAM <DENNY Roger - Last Filed: 01/06/24 16:27> Physical Exam Narrative Exam Narrative: CONST: Patient sitting in no acute distress. EYES: Normal inspection. NECK: Normal inspection. RESP: No respiratory distress, CTAB. CVS: Regular rate and rhythm, no murmur, no gallop. ABD: Soft with left upper quadrant periumbilical tender, no guarding or rebound, nondistended, no hepatosplenomegaly. SKIN: Color normal, no rash, warm, dry, intact. EXTREMITIES: Normal appearance, no pedal edema. NEURO: Oriented x4. PSYCH: Normal affect. Const Vital Signs: 01/06/24 13:16 01/06/24 15:15 01/06/24 16:34 Temperature 98.2 F 97.6 F L Temperature Source Temporal Pulse Rate 95 89 73 Respiratory Rate 14 16 16 Blood Pressure 154/77 H 181/71 H 161/78 H Blood Pressure Mean 102 107 105 Pulse Ox 97 96 95 Oxygen Delivery Method Room Air Room Air <Dr. Yuriy Bland, DO - Last Filed: 01/06/24 22:41> Physical Exam Const Vital Signs: 01/06/24 13:16 01/06/24 15:15 01/06/24 16:34 Temperature 98.2 F 97.6 F L Temperature Source Temporal Pulse Rate 95 89 73 Respiratory Rate 14 16 16 Blood Pressure 154/77 H 181/71 H 161/78 H Blood Pressure Mean 102 107 105 Pulse Ox 97 96 95 Oxygen Delivery Method Room Air Room Air MDM <DENNY Roger - Last Filed: 01/06/24 16:27> MDM MDM Narrative Medical decision making narrative: History gathered from: Patient and spouse Differential: Viral gastroenteritis, diverticulitis, obstruction among others Patient has had 2 weeks of intermittent periumbilical pain. Last night developed dry heaving and diarrhea. He appears well and nontoxic. Vital signs stable. Abdomen soft with periumbilical and left-sided tenderness. No distention, no peritoneal signs. CBC is WNL. BMP shows glucose of 296 with no signs of DKA. This is consistent with his type 2 diabetes. Sodium is 132, otherwise normal electrolytes and renal function. Normal LFTs and lipase. CT scan shows no acute process. It notes multiple gallstones but he has no RUQ pain or tenderness so I do not think this is contributory to his symptoms. After IV fluids, Zofran, and Toradol he is feeling better and tolerating p.o. intake. Since he is diabetic he may have an element of gastroparesis and I prescribed Carafate and Reglan for home. Return precautions discussed. He was discharged in stable condition. Lab Data Attestation: I reviewed the patient's lab results. Labs: Laboratory Results - last 24 hr 01/06/24 13:55 WBC 8.2 RBC 4.76 Hgb 14.3 Hct 41.6 MCV 87.4 MCH 30.0 MCHC 34.4 RDW Std Deviation 42.1 RDW Coeff of Yolanda 13.2 Plt Count 178 MPV 10.1 Immature Gran % (Auto) 0.500 Neut % (Auto) 78.2 H Lymph % (Auto) 8.7 L [place] % (Auto) 12.0 H Eos % (Auto) 0.2 Baso % (Auto) 0.4 Absolute Neuts (auto) 6.4 Absolute Lymphs (auto) 0.71 L Nucleated RBC % 0 Sodium 132 L Potassium 4.0 Chloride 99 Carbon Dioxide 27.0 Anion Gap 6 BUN 16 Creatinine 0.83 Est GFR (MDRD) Af Amer 120 Est GFR (MDRD) Non-Af 100 BUN/Creatinine Ratio 19.3 Glucose 296 H Calcium 10.4 H Total Bilirubin 0.80 AST 14 L ALT 37 Alkaline Phosphatase 87 Total Protein 8.2 Albumin 4.4 Globulin 3.8 Albumin/Globulin Ratio 1.2 Lipase 23 Radiography Diagnostic Testing: Clinical Impression(s) from Imaging Studies Abdomen/Pelvis CT 01/06/24 14:06 IMPRESSION: (NOT LISTED IN ORDER OF SIGNIFICANCE) There are atherosclerotic calcifications of visualized coronary arteries. Stable rectosigmoid anastomosis. There are multiple gallstones. Other findings as above. Electronically Signed: Finesse Owen MD at 15:34 EDT , <Dr. Yuriy Bland, DO - Last Filed: 01/06/24 22:41> [facility] Narrative Medical decision making narrative: History gathered from: Patient and spouse Differential: Viral gastroenteritis, diverticulitis, obstruction among others Patient has had 2 weeks of intermittent periumbilical pain. Last night developed dry heaving and diarrhea. He appears well and nontoxic. Vital signs stable. Abdomen soft with periumbilical and left-sided tenderness. No distention, no peritoneal signs. CBC is WNL. BMP shows glucose of 296 with no signs of DKA. This is consistent with his type 2 diabetes. Sodium is 132, otherwise normal electrolytes and renal function. Normal LFTs and lipase. CT scan shows no acute process. It notes multiple gallstones but he has no RUQ pain or tenderness so I do not think this is contributory to his symptoms. After IV fluids, Zofran, and Toradol he is feeling better and tolerating p.o. intake. Since he is diabetic he may have an element of gastroparesis and I prescribed Carafate and Reglan for home. Return precautions discussed. He was discharged in stable condition. This patient was seen with a PA/[employer] Individually assessed they patient including history and physical. I have reviewed everything on the chart that is available and agree with the documentation provided by the PA/[employer] including discussion about the assessment, treatment plan, discussion, and return precautions. Patient presenting with 2 weeks of abdominal pain. Abdominal exam is benign. Differential as above. Blood work ultimately unremarkable. Patient feeling better after treatment with fluids, Zofran, Toradol. He was able to tolerate p.o. I suspect the patient likely has some diabetic gastroparesis as he states that his diabetes was out of control and he is constipated for several days at a time he is also complaining of some epigastric pain. For this reason we will put him on some Carafate to help with his epigastric pain and he is already on a PPI. Will also given Reglan which will help with nausea and also with bowel movements. Patient still counseled he can use laxatives. Return precautions discussed. Lab Data Labs: Laboratory Results - last 24 hr 01/06/24 13:55 WBC 8.2 RBC 4.76 Hgb 14.3 Hct 41.6 MCV 87.4 MCH 30.0 MCHC 34.4 RDW Std Deviation 42.1 RDW Coeff of Yolanda 13.2 Plt Count 178 MPV 10.1 Immature Gran % (Auto) 0.500 Neut % (Auto) 78.2 H Lymph % (Auto) 8.7 L [place] % (Auto) 12.0 H Eos % (Auto) 0.2 Baso % (Auto) 0.4 Absolute Neuts (auto) 6.4 Absolute Lymphs (auto) 0.71 L Nucleated RBC % 0 Sodium 132 L Potassium 4.0 Chloride 99 Carbon Dioxide 27.0 Anion Gap 6 BUN 16 Creatinine 0.83 Est GFR (MDRD) Af Amer 120 Est GFR (MDRD) Non-Af 100 BUN/Creatinine Ratio 19.3 Glucose 296 H Calcium 10.4 H Total Bilirubin 0.80 AST 14 L ALT 37 Alkaline Phosphatase 87 Total Protein 8.2 Albumin 4.4 Globulin 3.8 Albumin/Globulin Ratio 1.2 Lipase 23 Radiography Diagnostic Testing: Clinical Impression(s) from Imaging Studies Abdomen/Pelvis CT 01/06/24 14:06 IMPRESSION: (NOT LISTED IN ORDER OF SIGNIFICANCE) There are atherosclerotic calcifications of visualized coronary arteries. Stable rectosigmoid anastomosis. There are multiple gallstones. Other findings as above. Electronically Signed: Finesse Owen MD at 15:34 EDT Reading Location ID and State: [facility] / [place] , Service support , Discharge Plan Triage Chief Complaint: Abd Pain ED Midlevel Provider: Heidi Dumont ED Provider: Yuriy Bland Dx/Rx/DC Orders Clinical Impression: Abdominal pain, History of diabetes mellitus, type II, Acute diarrhea Instructions: Abdominal Pain Prescriptions: New sucralfate [Carafate] 1 gram tablet 1 g PO TID 7 Days Qty: 21 0RF metoclopramide HCl [Reglan] 10 mg tablet 10 mg PO Q6H PRN (Reason: nausea and vomiting) 5 Days Qty: 20 0RF No Action enoxaparin 120 MG/0.8 ML syringe 120 mg SC BID Patient Comments: pt states Dr Hatch instructed to hold on [id number] for [id number] metoprolol tartrate 25 MG tablet 25 mg PO BID lisinopril 10 MG tablet 10 mg PO BID famotidine 20 MG tablet 20 mg PO BID insulin lispro 100 UNIT/ML insulin pen See Protocol SQ ACHS Qty: 2 0RF Protocol: 4. Sliding Scale Insulin High-Med Dosing Condition: 150-199 mg/dl = 2 units Condition: 200-259 mg/dl = 4 units Condition: 260-324 mg/dl = 6 units Condition: 325-374 mg/dl = 8 units Condition: 375-409 mg/dl = 10 units Condition: 410-449 mg/dl = 11 units Condition: Greater than 449 call physician Protocol Text: - Use for Total Daily Dose of Insulin 56-80 units - Patient who are insulin resistant or septic HIGH MEDIUM DOSING ALGORITHM gemfibrozil 600 MG tablet 600 mg PO DAILY Patient Comments: TAKE 1 TABLET BY MOUTH TWICE DAILY. glimepiride 4 MG tablet 8 mg PO DAILY Patient Comments: TAKE 2 TABLETS BY MOUTH DAILY WITH BREAKFAST. insulin glargine 100 UNITS/ML insulin pen 20 - 30 unit SC BID oxycodone-acetaminophen [Percocet] 5-325 mg tablet 1 tab PO Q6H PRN (Reason: pain) 3 Days Qty: 12 0RF cyclobenzaprine [cyclobenzaprine] 10 mg tablet 10 mg PO TID PRN (Reason: Muscle Spasm) Qty: 20 0RF oxycodone-acetaminophen [oxycodone-acetaminophen] 5-325 mg tablet 1 tab PO Q6H PRN PRN (Reason: Pain) 3 Days Qty: 12 0RF meloxicam 7.5 mg tablet 7.5 mg PO DAILY Qty: 10 0RF Stand Alone Forms: ED Work / School Excuse Primary Care Provider: Enedina Magdaleno Referrals: Enedina Magdaleno DO [Primary Care Provider] - Activity Restrictions/Additional Instructions: Take the prescribed medications as needed for nausea and upset stomach. Take small sips of clear fluids throughout the day. When you feel better and start eating please eat a bland diet. Disposition Disposition: Home, Self Care Discharge Date/Time: 01/06/24 16:44
[2024-01-06] MEDS: Ketorolac 15 MG/ML Vial IV (14:06)
--- NOTE | 2024-01-06 14:06 | CT_ITS ---
STUDY: CT Abdomen And Pelvis W/ Contrast Injection 01/06/2024 3:30 PM REASON FOR EXAM: Male, 63 years old. Abdominal pain abdominal pain Individualized dose optimization techniques were used for this CT. COMPARISON: 10.25.22 TECHNIQUE: CT Abdomen And Pelvis W/ Contrast Injection IV 100mL [id number] FINDINGS: There are atherosclerotic calcifications of visualized coronary arteries. The visualized portions of the heart are within normal limits. Normal liver. There are multiple gallstones. Normal spleen. Normal pancreas. Normal bilateral adrenal glands. No acute findings of the right kidney. There are hypodensities in the left kidney. These are consistent for cysts. No follow up required. Normal visualized stomach. Normal small intestine. There are multiple colonic diverticula consistent with diverticulosis. The appendix is visualized and appears normal. There are calcifications of the abdominal aorta. This is consistent for atherosclerotic disease. There is NO abdominal aortic aneurysm. Vascular workup can be obtained based on clinical correlation. There is an IVC filter in place. Subcentimeter mesenteric lymph nodes. Normal urinary bladder. There are prostatic calcifications. Presacral soft tissue thickening is stable. Rectosigmoid anastomosis. Normal abdominal wall. There are diffuse degenerative changes of the visualized lumbar spine. There is bilateral neural foraminal stenosis at L4-5 and L5-S1. CT/Abdomen/Pelvis W IV Cont ONLY IMPRESSION: (NOT LISTED IN ORDER OF SIGNIFICANCE) There are atherosclerotic calcifications of visualized coronary arteries. Stable rectosigmoid anastomosis. There are multiple gallstones. Other findings as above. Electronically Signed: Finesse Owen MD at 15:34 EDT ,
[2024-01-06 14:21] LABS: ALB/GLOB Ratio 1.2 RATIO (0.9-2.4); AST(SGOT) 14 U/L (15-37); Alanine Aminotransfer ALT/SGPT 37 U/L (16-61); Albumin, Serum 4.4 g/dL (3.2-5.0); Alkaline Phosphatase 87 U/L (45-117); Anion Gap 6 (5-15); BUN 16 mg/dL (7-18); BUN/Creat Ratio 19.3 RATIO (10-20); Calcium,Total 10.4 mg/dL (8.5-10.1); Chloride 99 mmol/L (98-107); Creatinine, Serum 0.83 mg/dL (0.70-1.30); EST Glomerular Filtration Rate 100 mL/min (>60); Est Glom Filt Rate - Afr Amer 120 mL/min (>60); Globulin 3.8 g/dL (2.2-4.2); Glucose 296 mg/dL (74-106); Lipase 23 U/L (13-75); Protein, Total 8.2 g/dL (6.4-8.2); Sodium Level 132 mmol/L (136-145)
--- OUTSIDE RECORDS SUMMARY | 2024-01-06 14:45 | XMS RPT_ITS | CCD ---
Author Name Unknown Address [address] [place] [address] Organization [facility] Care Team Providers Care Interactive Video Technician Name Role Phone Enedina Magdaleno Unavailable Alfonso Ponce Unavailable Gravius, Dari Unavailable Unavailable Daniel Mcclendon Unavailable Unavailable Unavailable Unavailable Daniel Herron Unavailable Unavailable Alfonso Ponce Unavailable Paulina Fine Unavailable Unavailable Enedina Magdaleno DO Unavailable Alfonso Ponce MD Unavailable [phone] Gravius SWATCH CLERK, Dari Unavailable Unavailable Daniel Herron LPN Unavailable Unavailable Rody DOE, Paulina Unavailable Unavailable Ricco MEDINAN, Cristina Unavailable Unavailable Unavailable Unavailable Mike VITALE, Julia Jacobs Unavailable [place] ATHLETIC COORDINATOR, Claire Unavailable Unavailable Alfonso Ponce MD Unavailable Daniel Mcclendon LPN Unavailable Unavailable Enedina Magdaleno DO Unavailable [facility] Unavailable Bon ELIZONDO, Torey Lynch Unavailable [phone] Nina Alegria CNP Unavailable Unavailable Unavailable Blanca Alas MA Unavailable Unavailable [place] SWATCH CLERK, Jessica Unavailable Unavailable Sharla DO Enedina Attending Unavailable Sharla DO Enedina Referring Unavailable Sharla DOEnedina Consulting Unavailable [place] ATHLETIC COORDINATOR, Poncho Unavailable Unavailable Allergies Allergy Classification Reported [...] 31-Jan-2022 Julia Mckeon Start : 31-Jan-2022 Active [id number] actuat albuterol 0.09 mg/actuat metered dose [...] 08-21-2023 10:15-0400 Body temperature 96.5 [degF] Blanca Alas MA [facility]; [facility] [...] 04-13-2022 Office outpatient visit 10 minutes Enedina Sharla DO Work Phone: [facility] Start: 04-13-2022 Review Eendina Fearo n DO Work Phone: [facility] [...] End: 02-02-2021 Lab Order Enedina Sharla [facility] Start: 05-19-2020 End: 05-19-2020 Phone Encounter Enedina Guadalupe [facility] Start: 03-26-2020 End: 03-26-2020 Office outpatient visit 15 minutes Enedina Magdaleno [facility] Start: 03-10-2020 End: 03-10-2020 Phone Encounter Enedina Magdaleno [facility] Start: 03-04-2020 End: 03-04-2020 Office outpatient visit 15 minutes Enedina Magdaleno [facility] Start: 01-26-2020 End: 01-26-2020 Office outpatient new 45 minutes Enedina Magdaleno [facility] Internal Medicine Procedures Date Procedure Procedure Detail Performing Clinician Start: 10-25-2022 End: 10-25-2022 Emergency Department Summary Procedure Note: See Note; NOTES: [facility] Medical Records Department [address] [place] [address] Emergency Department Summary 10/25/22 MR#: [id number] Acct: [id number] Name: VALERIA VARGAS Rep #: [id number] : 1960 61 From: Mark Armijo MD [...] muscle relaxer that may be baclofen, and qqrs-lsc-jndhkza pain relievers) Nausea/Vomiting/Emesis GI Symptom: Negative for [...] has been colicky in his low back. 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 % (Auto) 13.5 H Eos % (Auto) [...] Clarity Clear Urine pH 6.5 Ur Specific [place] 1.015 Urine Protein Negative Urine Glucose (UA) [...] states Dr Hatch instructed to hold on 433996 for 762590 metoprolol tartrate 25 MG tablet 25 mg [...] your Primary Care Provider. Call [facility] ([phone]) or report to the closest Emergency Room. Call 911 if necessary. 10/25/22 1151 <Electronically signed by Mark Armijo MD> Cosigner Signature (if applicable): CC: Dr. Enedina Magdaleno DO Signed Enedina Magdaleno DO Work Phone: Start: 10-25-2022 End: 10-25-2022 Abdomen/Pelvis without Cont Procedure Note: See Note; NOTES: [facility] Imaging Services [address] [facility] [place] [address] Abdomen/Pelvis without Cont MR#: [id number] Acct: [id number] Name: VALERIA VARGAS Rep #: [id number] : 1960 M 61 From: Yogesh argueta MD PCP: Dr. Enedina Magdaleno, DO Status: REG ER Study: Abdomen/Pelvis without Cont Date of Exam: 02/11 Exam# [id number] Ordering Dr: Mark Armijo MD STUDY: CT [...] Mark Armijo MD; Dr. Enedina Magdaleno DO Box Lining Machine Feeder: Signed Enedina Magdaleno DO Work Phone: Start: 05-08-2022 End: 05-08-2022 Venous Duplex US, Unilateral Comments: See Note; NOTES: [facility] Cardiovascular Services [address] [place] [address] Venous Duplex US, Unilateral 05/08/22 1337 MR#: [id number] Acct: [id number] Name: VALERIA VARGAS Rep #: [id number] : 1960 61 From: Lenin Pandya MD [...] Date Dictated: 05/08/22 1337 Date Transcribed: 05/08/221532 Box Lining Machine Feeder: Jonel Magdaleno DO Work Phone: Start: 05-08-2022 End: 05-08-2022 Emergency Department Summary Comments: See Note; NOTES: [facility] Medical Records Department [address] [place] [address] Emergency Department Summary 05/08/22 MR#: [id number] Acct: [id number] Name: VALERIA VARGAS Rep #: [id number] : 1960 61 From: Alvaro Canas DO [...] secondary to this comes in for evaluation [facility] Medical History Anxiety Carcinoma of colon Cranial [...] states Dr Hatch instructed to hold on 225135 for 161838 metoprolol tartrate 25 MG tablet 25 mg [...] Orders: Venous Duplex US, Unilateral (Routine) Facility: [facility] - Location: [facility] Ordered By: Dr. Alvaro Canas Primary [...] your Primary Care Provider. Call [facility] ([phone]) or report to the closest Emergency Room. Call 911 if necessary. 05/08/22 1678 <Electronically signed by Alvaro Canas DO> Cosigner Signature (if applicable): CC: Dr. Enedina Magdaleno DO Signed Enedina Magdaleno DO Work Phone: Start: 02-13-2022 End: 02-14-2022 Spine Cervical (Routine) Comments: See Note; NOTES: [facility] Imaging Services [address] [facility] [facility] [place] [address] Spine Cervical (Routine) MR#: [id number] Acct: [id number] Name: VALERIA VARGAS Rep #: [id number] : 1960 M 61 From: Jennifer Gray MD PCP: Dr. Enedina Magdaleno DO Status: REG CLI Study: Spine Cervical (Routine) Date of Exam: Exam# [id number] Ordering Dr: Julia Mckeon NP CATTLE FARMER-C EXAM: MR CERVICAL SPINE WITHOUT INTRAVENOUS CONTRAST CLINICAL INDICATION: RADICULOPATHY, NECK PAIN, LEFT ARM PAIN TECHNIQUE: Multiplanar and multisequence MR images of the cervical spine without intravenous contrast were performed. This report was created using [employer] report generation technology. COMPARISON: None. FINDINGS: VERTEBRAE: [...] Gray MD at 4:39 EDT , CC: CATTLE FARMER-Alonso Mckeon; Dr. Enedina Magdaleno DO Box Lining Machine Feeder: Signed Julia Mckeon Work Phone: Start: 01-30-2022 End: 01-30-2022 Re-Evaluation - PT (1) Comments: See Note; NOTES: [facility] Physical Therapy [facility] [address] [place] [address]. [address] [place] [address] / REEVALUATION / MEDICARE RECERTIFICATION PHYSICAL THERAPY MR#: [id number] Acct: [id number] Name: VALERIA VARGAS Rep #: [id number] : 1960 61 From: Andres Alegria DPT, OCS, CSCS Referring Dr.: Dr. Enedina Magdaleno DO Status:REG RCR Insurance: [facility] SELF PAY INSURANCE Dr. Enedina Magdaleno, [...] do not hesitate to contact me at [phone] by phone or if you have questions [...] (1) - PT Comments: See Note; NOTES: [facility] Physical Therapy [facility] [address] [place] [address] / REHABILITATION SERVICES INITIAL EVALUATION MR#: [id number] Acct: [id number] Name: VALERIA VARGAS Rep #: [id number] : 1960 61 From: Andres Alegria DPT, OCS, CSCS Referring Dr.: Dr. Enedina Magdaleno DO Status: REG RCR Insurance: 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 For Medicare only, by [...] Emergency Department Summary Comments: See Note; NOTES: [facility] Medical Records Department [address] [place] [address] Emergency Department Summary 01/11/22 MR#: [id number] Acct: [id number] Name: VALERIA VARGAS Rep #: [id number] : 1960 61 From: Colleen Do MD [...] taking Tylenol and muscle relaxer at home. [facility] Medical History Anxiety Cancer Carcinoma of colon [...] your Primary Care Provider. Call [facility] ([phone]) or report to the closest Emergency Room. Call 911 if necessary. 01/11/22 3919 <Electronically signed by Colleen Do MD> Cosigner Signature (if applicable): CC: Dr. Enedina Magdaleno DO Signed Enedina Magdaleno DO Work Phone: Start: 01-11-2022 End: 01-11-2022 Chest PA and Lateral Comments: See Note; NOTES: [facility] Imaging Services [address] [place] [address] Chest PA and Lateral MR#: [id number] Acct: [id number] Name: VALERIA VARGAS Rep #: [id number] : 1960 M 61 From: Yogesh argueta MD PCP: Dr. Enedina Magdaleno DO Status: REG ER Study: Chest PA and Lateral Date of Exam: 01/11/22 Exam# [id number] Ordering Dr: Colleen Do MD STUDY: X-RAY [...] Colleen Do MD; Dr. Enedina Magdaleno DO Box Lining Machine Feeder: Signed Enedina Magdaleno DO Work Phone: Start: 01-11-2022 End: 01-11-2022 Spine Cervical without Contras Comments: See Note; NOTES: [facility] Imaging Services [address] [place] [address] Spine Cervical without Contras MR#: [id number] Acct: [id number] Name: VALERIA VARGAS Rep #: [id number] : 1960 M 61 From: Yogesh argueta MD PCP: Dr. Enedina Magdaleno, DO Status: REG ER Study: Spine Cervical without Contras Date of Exam: 0 01/11/22 Exam# [id number] Ordering Dr: Colleen Do MD STUDY: CT [...] Colleen Do MD; Dr. Enedina Magdaleno DO Box Lining Machine Feeder: Signed Enedina Magdaleno DO Work Phone: Start: 12-28-2021 End: 12-28-2021 Cerv Spine 4 or 5 Views Comments: See Note; NOTES: [facility] Radiology [address] [place] [address] Cerv Spine 4 or 5 Views MR#: [id number] Acct: [id number] Name: VALERIA VARGAS Rep #: [id number] : 1960 M 61 From: Adonay Grier PCP: Dr. Enedina Magdaleno DO Status: DEP AMB Study: Cerv Spine 4 or 5 Views Date of Exam: 12/28/21 Exam# [id number] Ordering Dr: Hema Garvin STUDY: X-RAY - [...] CC: DENNY Garvin; Dr. Enedina Magdaleno DO Box Lining Machine Feeder: Signed Enedina Magdaleno DO Work Phone: Start: 12-28-2021 End: 12-28-2021 Shoulder min 2 Views Comments: See Note; NOTES: [facility] Radiology [address] [place] [address] Shoulder min 2 Views MR#: [id number] Acct: [id number] Name: VALERIA VARGAS Rep #: [id number] : 1960 M 61 From: Adonay Grier PCP: Dr. Enedina Magdaleno DO Status: DEP AMB Study: Shoulder min 2 Views Date of Exam: 12/28/21 Exam# [id number] Ordering Dr: Hema Garvin STUDY: X-RAY - [...] CC: DENNY Garvin; Dr. Enedina Magdaleno DO Box Lining Machine Feeder: Signed Enedina Magdaleno DO Work Phone: Start: 12-28-2021 End: 12-28-2021 Thoracic Spine 3 Views Comments: See Note; NOTES: [facility] Radiology [address] [place] [address] Thoracic Spine 3 Views MR#: [id number] Acct: [id number] Name: VALERIA VARGAS Rep #: [id number] : 1960 M 61 From: Js Stewart MD PCP: Dr. Enedina Magdaleno DO Status: DEP AMB Study: Thoracic Spine 3 Views Date of Exam: 12/28/21 Exam# [id number] Ordering Dr: Hema Garvin STUDY: X-RAY - [...] CC: DENNY Garvin; Dr. Enedina Magdaleno DO Box Lining Machine Feeder: Signed Enedina Magdaleno DO Work Phone: Start: 12-28-2021 End: 12-28-2021 Urgent Care Visit Report Comments: See Note; NOTES: [facility] [address] [place] [address] [address] [place] [address] OFFICE VISIT Date of Service: 12/28/21 MR#: [id number] Acct: [id number] Name: VALERIA VARGAS Rep #: [id number] : 1960 Provider: DENNY ruiz Age/Sex: 61/M [...] dopey morphine Adverse Reaction (Verified 07/25/21 12:19) gibsony [facility] Medical History (Updated 12/28/21 @ 10:38 by Hema Garvin PA, PA) Anxiety Cancer Carcinoma of [...] he so states he has taken no jrnw-zcl-sekrvlb products to assist with symptoms. He notes [...] the above. This note was generated with Dokkank[employer] dictation software. It may contain incorrect words, [...] Emergency Department Summary Comments: See Note; NOTES: [facility] Medical Records Department [address] [place] [address] Emergency Department Summary 07/25/21 MR#: [id number] Acct: [id number] Name: VALERIA VARGAS Rep #: [id number] : 1960 60 From: Yuriy Bland DO [...] middle finger. Patient's tetanus immunization is unknown. Nrbbj-wgwh-lxrgkpzv. Patient was able to get the bleeding somewhat controlled however he is on Lovenox daily because he has history of blood clots secondary to lupus anticoagulant disorder. [facility] Medical History Anxiety Cancer Carcinoma of colon [...] your Primary Care Provider. Call [facility] ([phone]) or report to the closest Emergency Room. Call 911 if necessary. 07/25/21 1531 <Electronically signed by Yuriy Bland DO> Cosigner Signature (if applicable): CC: Dr. Enedina Magdaleno DO Signed Enedina Magdaleno DO Work Phone: Start: 07-25-2021 End: 07-25-2021 Finger(s) Min 2 Views Comments: See Note; NOTES: [facility] Imaging Services [address] [place] [address] Finger(s) Min 2 Views MR#: [id number] Acct: [id number] Name: VALERIA VARGAS Rep #: [id number] : 1960 M 60 From: Js Stewart MD PCP: Dr. Enedina Magdaleno DO Status: PRE ER Study: Finger(s) Min 2 Views Date of Exam: 07/25/21 Exam# [id number] Ordering Dr: Provider,Ed P. STUDY: X-RAY - [...] Dr. Enedina Magdaleno DO; ED PHYSICIAN PROVIDER Box Lining Machine Feeder: Signed Enedina Magdaleno DO Work Phone: Start: 06-28-2021 End: 06-28-2021 Urgent Care Visit Report Comments: See Note; NOTES: [facility] [address] [place] [address] [address] [place] [address] OFFICE VISIT Date of Service: 06/28/21 MR#: [id number] Acct: [id number] Name: VALERIA VARGAS Rep #: [id number] : 1960 Provider: DENNY Reynoso Age/Sex: 60/M [...] Exam Const General: cooperative and healthy appearing [facility] Head: normocephalic and atraumatic Ears: hearing [...] Care Visit Report Comments: See Note; NOTES: [facility] [address] [place] [address] 6 [place] [address] OFFICE VISIT Date of Service: 04/06/21 MR#: [id number] Acct: [id number] Name: VALERIA VARGAS Rep #: [id number] : 1960 Provider: DENNY ruiz Age/Sex: 60/M [...] Care Visit Report Comments: See Note; NOTES: [facility] [address] [place] [address] 6 [place] [address] OFFICE VISIT Date of Service: 02/07/21 MR#: [id number] Acct: [id number] Name: VALERIA VARGAS Rep #: [id number] : 1960 Provider: DENNY ruiz Age/Sex: 60/M [...] dopey morphine Adverse Reaction (Verified 12/15/20 10:31) [facility] Medical History Vertigo (Acute) Diarrhea (Acute) Hyperglycemia [...] Sensory Exam: no sensory deficits noted Coordination: aespyf-qw-khxb test normal, xbjh-ph-lhoz test normal, Romberg test normal, tandem gait [...] the above. This note was generated with D[employer]kank[employer] dictation software. It may contain incorrect words, [...] Care Visit Report Comments: See Note; NOTES: [place] [id number] OFFICE VISIT Date of Service: 12/15/20 MR#: [id number] Acct: [id number] Name: VALERIA VARGAS Rep #: [id number] : 1960 Provider: DENNY ruiz Age/Sex: 60/M [...] ONCE #4000 ml 04/27/20 [Rx Confirmed 12/15/20] [facility] Medical History Vertigo (Acute) Diarrhea (Acute) Hyperglycemia [...] return to work. He is taking no tzgj-txx-rmielmc medications to assist as he is symptom-free. He notes no other complaints at this time. ROS Const Constitutional: No other (As above) Exam Const General: cooperative, healthy appearing, comfortable, no acute distress Nutritional Appearance: well nourished Orientation: alert, awake, oriented x3 [facility] Head: normal to inspection Ears: hearing [...] the above. This note was generated with Sumerian[employer] software. It may contain incorrect words, spelling, and punctuation that were not noted in checking the note before signing. Coding Level of Care Code Off vis,est,level 2 Diagnoses Diarrhea R19.7 12/15/20 1110 <Electronically signed by Hema BALDWIN> Date Hema BALDWIN Cosigner Signature: Date (if applicable) CC: Enedina Magdaleno Start: 10-27-2020 End: 04-03-2021 Urgent Care Visit Report Comments: See Note; NOTES: [facility] [address] [place], [place] [address] OFFICE VISIT Date of Service: 10/27/20 MR#: [id number] Acct: [id number] Name: VALERIA VARGAS Rep #: [id number] : 1960 Provider: DENNY ruiz Age/Sex: 59/M [...] ONCE #4000 ml 04/27/20 [Rx Confirmed 10/27/20] [facility] Medical History Vertigo (Acute) Diarrhea (Acute) Hyperglycemia [...] dizziness remaining and he has taken no akyb-iqq-aijblap products to assist with symptoms. He is [...] the above. This note was generated with Sumerian[employer] software. It may contain incorrect words, spelling, and punctuation that were not noted in checking the note before signing. Coding Level of Care Code Off vis,est,level 2 Diagnoses Vertigo R42 04/03/21 1354 <Electronically signed by Meryl BALDWIN> Date Meryl BALDWIN 10/27/20 1338<Electronically signed by Hema BALDWIN> Cosigner Signature: Date (if applicable) Hema Garvin CC: Enedina Magdaleno DO Work Phone: Start: 05-19-2020 End: 05-19-2020 Colonoscopy Report Comments: See Note; NOTES: [facility] Medical Records Department [address] [place] [address] Colonoscopy Report MR#: [id number] Acct: [id number] Name: VALERIA VARGAS Rep #: [id number] : 1960 59 From: Alfonso Hatch MD PCP: Dr. Enedina Magdaleno, DO Status:REG [facility] Patient Name: Valeria aVrgas Procedure Date: 05/19/2020 8:03 AM Date of [...] be scheduled. Procedure Code(s): --- Professional --- 96438, Colonoscopy, flexible; diagnostic, including collection of specimen(s) by brushing or washing, when performed (separate procedure) Diagnosis Code(s): --- Professional --- Z86.010, Personal history of colonic polyps K62.89, Other specified diseases of anus and rectum K57.30, Diverticulosis of large intestine without perforation or abscess without bleeding CPT copyright 2017 [employer]. All rights reserved. The codes documented in this report are preliminary and upon automotive starter repairer review may be revised to meet current compliance requirements. MD Alfonso Francisco MD 05/19/2020 8:35:02 AM This report has been signed electronically. Number of Addenda: 0 Note Initiated On: 05/19/2020 8:03 AM 05/19/20834 Date Alfonso Hatch MD Cosigner Signature: Date (if indicated) CC: Dr. Alfonso Hatch MD; Dr. Enedina Magdaleno DO Date Dictated: 05/19/20802 Date Transcribed: Box Lining Machine Feeder: DP Signed Enedina Magdaleno Start: 05-19-2020 End: 05-19-2020 Operative Report - CC Letter Comments: See Note; NOTES: [facility] Medical Records Department [address] [place] [address] Operative Report - CC Letter MR#: [id number] Acct: [id number] Name: VALERIA VARGAS Rep #: [id number] : 1960 59 From: Alfonso Hatch MD PCP: Dr. Enedina Magdaleno, DO Status:REG [facility] 05/19/2020 Enedina Magdaleno [address] [facility] [place] [address] Re : Colonoscopy procedure for Valeria Vargas [...] me at Doctor phone number(s): , Fax: [phone], Work: . Sincerely, MD Alfonso Francisco MD 05/19/2020 8:35:02 AM This report has been signed electronically. 05/19/20834 Date Alfonso Hatch MD Cosigner Signature: Date (if indicated) CC: Dr. Alfonso Hatch MD; Dr. Enedina Magdaleno DO Date Dictated: 05/19/20802 Date Transcribed: Box Lining Machine Feeder: DP Signed Enedina Magdaleno Start: 05-19-2020 End: 05-19-2020 History and Physical Exam Comments: See Note; NOTES: [facility] Medical Records Department [address] [place] [address] History and Physical 05/19/20 0831 MR#: [id number] Acct: [id number] Name: VALERIA VARGAS Rep #: [id number] : 1960 59 From: Alfonso Hatch MD PCP: Dr. Enedina Magdaleno DO Status:REG SDC Y Location: [place] [address] History and Physical Date of Admission: 05/19/20 [facility] Medical Records Department [address] [place] [address] MR#: [id number] Acct: [id number] Name: VALERIA VARGAS Rep #: [id number] : 1960 59 From: Alfonso Hatch MD PCP: Dr. Enedina Magdaleno, DO Status:REG [facility] Location: [place] [address]- Intake Vital Signs 03/31/20 BMI 34.0 03/31/20 Height 5 ft 9 in 03/31/20 Weight: 232 lb 03/31/20 BMI 34.2 03/31/20 BP 123/70 H 03/31/20 Blood Pressure Location Rt brachial 03/31/20 Position Sitting 03/31/20 Respiration 18 03/31/20 Temp 98.0 F 03/31/20 Temp Source Temporal Intake Visit Reasons: CSCOPE Chief Complaint: N/V/D Furniture Mechanic Required: No Is patient in pain?: No [...] mg PO BID 01/21/19 [History Confirmed 03/31/20] [facility] Medical History Vertigo (Acute) Diarrhea (Acute) Hyperglycemia [...] person, oriented to place, oriented to time [facility] Head: normocephalic, atraumatic Ears: external ears [...] 04-14-2020 Colonoscopy Report Comments: See Note; NOTES: [facility] Medical Records Department [address] [place] [address] Colonoscopy Report MR#: [id number] Acct: [id number] Name: VALERIA VARGAS Rep #: [id number] : 1960 59 From: Alfonso Hatch MD PCP: Dr. Enedina Magdaleno DO Status:[facility] Patient Name: Valeria Vargas Procedure Date: 04/14/2020 [...] 3 days. Procedure Code(s): --- Professional --- 01335, 53, Colonoscopy, flexible; diagnostic, including collection of specimen(s) by brushing or washing, when performed (separate procedure) Diagnosis Code(s): --- Professional --- Z85.038, Personal history of other malignant neoplasm of large intestine Z53.8, Procedure and treatment not carried out for other reasons CPT copyright 2017 [employer]. All rights reserved. The codes documented in this report are preliminary and upon automotive starter repairer review may be revised to meet current compliance requirements. MD Alfonso Francisco MD 04/14/2020 8:48:30 AM This report has been signed electronically. Number of Addenda: 0 Note Initiated On: 04/14/2020 8:27 AM 04/14/20847 Date Alfonso Hatch MD Cosigner Signature: Date (if indicated) CC: Dr. Alfonso Hatch MD; Dr. Enedina Magdaleno, Date Dictated: 04/14/20826 Date Transcribed: Box Lining Machine Feeder: DP Signed Enedina Magdaleno Start: 04-14-2020 End: 04-14-2020 Operative Report - CC Letter Comments: See Note; NOTES: [facility] Medical Records Department [address] [place] [address] Operative Report - CC Letter MR#: [id number] Acct: [id number] Name: VALERIA VARGAS Rep #: [id number] : 1960 59 From: Alfonso Hatch MD PCP: Dr. Enedina Magdaleno, DO Status:REG [facility] 04/14/2020 Enedina Magdaleno [address] [facility] [place] [address] Re : Colonoscopy procedure for Valeria Vargas [...] me at Doctor phone number(s): , Fax: [phone], Work: . Sincerely, MD Alfonso Francisco MD 04/14/2020 8:48:30 AM This report has been signed electronically. 04/14/20847 Date Alfonso Hatch MD Cosigner Signature: Date (if indicated) CC: Dr. Alfonso Hatch MD; Dr. Enedina Magdaleno DO Date Dictated: 04/14/20826 Date Transcribed: Box Lining Machine Feeder: DP Signed Enedina Magdaleno Start: 04-07-2020 End: 05-19-2020 History and Physical Exam Comments: See Note; NOTES: [facility] Medical Records Department [address] [place] [address] History and Physical 04/07/20 1228 MR#: [id number] Acct: [id number] Name: VALERIA VARGAS Rep #: [id number] : 1960 59 From: Alfonso Hatch MD PCP: Dr. Enedina Magdaleno DO Status:[facility] Location: [place] [address] Intake Vital Signs 03/31/20 BMI 34.0 03/31/20 Height 5 ft 9 in 03/31/20 Weight: 232 lb 03/31/20 BMI 34.2 03/31/20 BP 123/70 H 03/31/20 Blood Pressure Location Rt brachial 03/31/20 Position Sitting 03/31/20 Respiration 18 03/31/20 Temp 98.0 F 03/31/20 Temp Source Temporal Intake Visit Reasons: CSCOPE Chief Complaint: N/V/D Furniture Mechanic Required: No Is patient in pain?: No [...] mg PO BID 01/21/19 [History Confirmed 03/31/20] [facility] Medical History Vertigo (Acute) Diarrhea (Acute) Hyperglycemia [...] person, oriented to place, oriented to time [facility] Head: normocephalic, atraumatic Ears: external ears [...] Date Dictated: 04/07/20 1228 Date Transcribed: 04/28/208 Box Lining Machine Feeder: NR Signed Enedina Magdaleno Start: 03-31-2020 End: 04-07-2020 Surgery Visit Report Comments: See Note; NOTES: [facility] [address] [place] [address] OFFICE VISIT Date of Service: 03/31/20 MR#: [id number] Acct: [id number] Name: VALERIA VARGAS V Rep #: [id number] : 1960 Provider: Dr. 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 Is patient in pain?: No [...] person, oriented to place, oriented to time [facility] Head: normocephalic, atraumatic Ears: external ears [...] DO; MD Enedina Bolanos colorectal sx [facility] Plan of Treatment Date Care Activity [...] cell count each CBC with auto diff (80088) [facility]; [facility] Work Phone: Start: 05-09-2022 Comprehensive metabolic panel METABOLIC PANEL, COMPREHENSIVE (96123) [facility]; [facility] Work [...] Phone: Start: 02-09-2021 Lipid panel LIPID PANEL (45858) [facility]; [facility] Work Phone: Start: 02-09-2021 Procedure Education Eprescribed prescriptions (G8553) [facility]; [facility] Work Phone: Start: 02-09-2021 Provider Instructions for Treatment [facility]; [facility] Work Phone: Start: 02-09-2021 Hemoglobin glycosylated a1c HgA1C , Office (49139) [facility]; [facility] Work Phone: Start: 02-09-2021 Gluc bld gluc mntr dev cleared fda spec home use Blood Glucose , Office (57353) [facility]; [facility] Work Phone: Start: 02-02-2021 Assay of prostate specific antigen total PSA TOTAL (RFLX FREE) 780031 (42319) [facility]; [facility] Work Phone: Start: 02-02-2021 Assay of thyroid stimulating hormone tsh TSH (THYROID STIMULATING HORMONE) (67856) [facility]; [facility] Work Phone: Start: 02-02-2021 TSH Qn TSH (THYROID STIMULATING HORMONE) (86451) [facility]; [facility] Work Phone: Start: 02-02-2021 Lipoprotein blood stephanie numbers & subclasses NMR Profile (44542) [facility]; [facility] Work Phone: Start: 02-02-2021 Comprehensive metabolic panel METABOLIC PANEL, COMPREHENSIVE (11568) [facility]; [facility] Work Phone: Start: 02-02-2021 Blood count complete auto&auto difrntl wbc CBC W/AUTO DIFF WBC (33056) [facility]; [facility] Work Phone: Start: 03-26-2020 Procedure Education Eprescribed prescriptions (G8553) [facility] Work Phone: Start: 03-04-2020 Procedure Education Eprescribed prescriptions (G8553) [facility] Work Phone: Start: 01-26-2020 Assay of prostate specific antigen total PSA (PROSTATE SPECIFIC ANTIGEN) (V76.44) [facility] Work Phone: Start: 01-26-2020 Lipid panel LIPID PANEL (23701) [facility] Work Phone: Start: 01-26-2020 Assay of thyroid stimulating hormone tsh TSH (THYROID STIMULATING HORMONE) (47495) [facility] Work Phone: Start: 01-26-2020 TSH Qn TSH (THYROID STIMULATING HORMONE) (84083) [facility] Work Phone: Start: 01-26-2020 Urine albumin quantitative MICROALBUMIN: CREATININE RATIO (47730) AND (72990) [facility] Work Phone: Start: 01-26-2020 Comprehensive metabolic panel METABOLIC PANEL, COMPREHENSIVE (71573) [facility] Work Phone: Start: 01-26-2020 Blood count complete auto&auto difrntl wbc CBC with auto diff (87834) [facility] Work Phone: Start: 01-26-2020 HbA1c (Bld) [Mass fraction] HGB A1C (83277) [facility] Work Phone: Start: 01-26-2020 Hemoglobin glycosylated a1c HGB A1C (25514) [facility] Work Phone: Start: 01-26-2020 [...] Phone: Payers Date Payer Category Payer Unknown [id number] 1960 Unknown [id number] Unknown [employer] Social History Date Type [...] Informa tion Online using Patient Portal and [employer] Apps Indication:Nonsmoker Start:09-Feb-2021 Instruction Type:Patient Education Patient [...] [facility]; [facility] Work Phone: [employer]* Name Dates Details How to Access Health Informa tion Online using Patient Portal and 3rd [employer] Apps Indication:Nonsmoker Start:09-Feb-2021 Instruction Type:Patient Education Patient [...] [facility] Medicine; [facility] Work Phone: [employer]* Name Dates Details Patient Instructions Indication:Nonsmoker Start:22-Feb-2021 Instruction Type:Provider Instructions for Treatment How to Access Health Informa tion Online using Patient Portal and [employer]rd [employer] Apps Indication:Nonsmoker Start:22-Feb-2021 Instruction Type:Patient Education How to Access Health Informa tion Online using Patient Portal and [employer]rd [employer] Apps Indication:Nonsmoker Start:09-Feb-2021 Instruction Type:Patient Education Patient [...] [facility] Medicine; [facility] Work Phone: [employer]* Name Dates Details Patient Instructions Indication:Nonsmoker Start:22-Feb-2021 Instruction Type:Provider Instructions for Treatment How to Access Health Informa tion Online using Patient Portal and [employer]rd [employer] Apps Indication:Nonsmoker Start:22-Feb-2021 Instruction Type:Patient Education How to Access Health Informa tion Online using Patient Portal and [employer]rd [employer] Apps Indication:Nonsmoker Start:09-Feb-2021 Instruction Type:Patient Education Patient [...] tion Online using Patient Portal and [employer] Apps Indication:Nonsmoker Start:22-Feb-2021 Instruction Type:Patient Education How to Access Health Informa tion Online using Patient Portal and [employer]rd [employer] Apps Indication:Nonsmoker Start:09-Feb-2021 Instruction Type:Patient Education Patient [...] tion Online using Patient Portal and [employer] Apps Indication:Nonsmoker Start:22-Feb-2021 Instruction Type:Patient Education How to Access Health Informa tion Online using Patient Portal and [employer]rd [employer] Apps Indication:Nonsmoker Start:09-Feb-2021 Instruction Type:Patient Education Patient [...] tion Online using Patient Portal and [employer] Apps Indication:Nonsmoker Start:02-May-2021 Instruction Type:Patient Education Patient Instructions Indication:Nonsmoker Start:22-Feb-2021 Instruction Type:Provider Instructions for Treatment How to Access Health Informa tion Online using Patient Portal and [employer]rd [employer] Apps Indication:Nonsmoker Start:22-Feb-2021 Instruction Type:Patient Education How to Access Health Informa tion Online using Patient Portal and [employer] Apps Indication:Nonsmoker Start:09-Feb-2021 Instruction Type:Patient Education Patient [...] tion Online using Patient Portal and [employer] Apps Indication:Nonsmoker Start:02-May-2021 Instruction Type:Patient Education Patient Instructions Indication:Nonsmoker Start:22-Feb-2021 Instruction Type:Provider Instructions for Treatment How to Access Health Informa tion Online using Patient Portal and [employer]rd [employer] Apps Indication:Nonsmoker Start:22-Feb-2021 Instruction Type:Patient Education How to Access Health Informa tion Online using Patient Portal and [employer] Apps Indication:Nonsmoker Start:09-Feb-2021 Instruction Type:Patient Education Patient [...] tion Online using Patient Portal and [employer] Apps Indication:Nonsmoker Start:02-May-2021 Instruction Type:Patient Education Patient Instructions Indication:Nonsmoker Start:22-Feb-2021 Instruction Type:Provider Instructions for Treatment How to Access Health Informa tion Online using Patient Portal and [employer]rd [employer] Apps Indication:Nonsmoker Start:22-Feb-2021 Instruction Type:Patient Education How to Access Health Informa tion Online using Patient Portal and [employer] Apps Indication:Nonsmoker Start:09-Feb-2021 Instruction Type:Patient Education Patient [...] tion Online using Patient Portal and [employer] Apps Indication:Nonsmoker Start:02-May-2021 Instruction Type:Patient Education Patient Instructions Indication:Nonsmoker Start:22-Feb-2021 Instruction Type:Provider Instructions for Treatment How to Access Health Informa tion Online using Patient Portal and [employer]rd [employer] Apps Indication:Nonsmoker Start:22-Feb-2021 Instruction Type:Patient Education How to Access Health Informa tion Online using Patient Portal and [employer] Apps Indication:Nonsmoker Start:09-Feb-2021 Instruction Type:Patient Education Patient [...] tion Online using Patient Portal and [employer] Apps Indication:BMI 32.0-32.9,adult Start:27-Oct-2021 Instruction Type:Patient Education Patient Instructions Indication:BMI 32.0-32.9,adult Start:02-May-2021 Instruction Type:Provider Instructions for Treatment How to Access Health Informa tion Online using Patient Portal and [employer] Apps Indication:Nonsmoker Start:02-May-2021 Instruction Type:Patient Education Patient Instructions Indication:Nonsmoker Start:22-Feb-2021 Instruction Type:Provider Instructions for Treatment How to Access Health Informa tion Online using Patient Portal and [employer] Apps Indication:Nonsmoker Start:22-Feb-2021 Instruction Type:Patient Education How to Access Health Informa tion Online using Patient Portal and [employer] Apps Indication:Nonsmoker Start:09-Feb-2021 Instruction Type:Patient Education Patient [...] tion Online using Patient Portal and [employer] Apps Indication:BMI 32.0-32.9,adult Start:27-Oct-2021 Instruction Type:Patient Education Patient Instructions Indication:BMI 32.0-32.9,adult Start:02-May-2021 Instruction Type:Provider Instructions for Treatment How to Access Health Informa tion Online using Patient Portal and [employer]rd [employer] Apps Indication:Nonsmoker Start:02-May-2021 Instruction Type:Patient Education Patient Instructions Indication:Nonsmoker Start:22-Feb-2021 Instruction Type:Provider Instructions for Treatment How to Access Health Informa tion Online using Patient Portal and [employer] Apps Indication:Nonsmoker Start:22-Feb-2021 Instruction Type:Patient Education How to Access Health Informa tion Online using Patient Portal and [employer] Apps Indication:Nonsmoker Start:09-Feb-2021 Instruction Type:Patient Education Patient [...] tion Online using Patient Portal and [employer]rd [employer] Apps Indication:Fever Start:01-Nov-2021 Instruction Type:Patient Education Patient Instructions Indication:BMI 32.0-32.9,adult Start:27-Oct-2021 Instruction Type:Provider Instructions for Treatment How to Access Health Informa tion Online using Patient Portal and [employer]rd [employer] Apps Indication:BMI 32.0-32.9,adult Start:27-Oct-2021 Instruction Type:Patient Education Patient Instructions Indication:BMI 32.0-32.9,adult Start:02-May-2021 Instruction Type:Provider Instructions for Treatment How to Access Health Informa tion Online using Patient Portal and [employer] Apps Indication:Nonsmoker Start:02-May-2021 Instruction Type:Patient Education Patient Instructions Indication:Nonsmoker Start:22-Feb-2021 Instruction Type:Provider Instructions for Treatment How to Access Health Informa tion Online using Patient Portal and [employer] Apps Indication:Nonsmoker Start:22-Feb-2021 Instruction Type:Patient Education How to Access Health Informa tion Online using Patient Portal and [employer] Apps Indication:Nonsmoker Start:09-Feb-2021 Instruction Type:Patient Education Patient [...] tion Online using Patient Portal and [employer] Apps Indication:Fever Start:01-Nov-2021 Instruction Type:Patient Education Patient Instructions Indication:BMI 32.0-32.9,adult Start:27-Oct-2021 Instruction Type:Provider Instructions for Treatment How to Access Health Informa tion Online using Patient Portal and [employer] Apps Indication:BMI 32.0-32.9,adult Start:27-Oct-2021 Instruction Type:Patient Education Patient Instructions Indication:BMI 32.0-32.9,adult Start:02-May-2021 Instruction Type:Provider Instructions for Treatment How to Access Health Informa tion Online using Patient Portal and [employer] Apps Indication:Nonsmoker Start:02-May-2021 Instruction Type:Patient Education Patient Instructions Indication:Nonsmoker Start:22-Feb-2021 Instruction Type:Provider Instructions for Treatment How to Access Health Informa tion Online using Patient Portal and [employer] Apps Indication:Nonsmoker Start:22-Feb-2021 Instruction Type:Patient Education How to Access Health Informa tion Online using Patient Portal and [employer] Apps Indication:Nonsmoker Start:09-Feb-2021 Instruction Type:Patient Education Patient [...] tion Online using Patient Portal and [employer] Apps Indication:Fever Start:01-Nov-2021 Instruction Type:Patient Education Patient Instructions Indication:BMI 32.0-32.9,adult Start:27-Oct-2021 Instruction Type:Provider Instructions for Treatment How to Access Health Informa tion Online using Patient Portal and [employer]rd [employer] Apps Indication:BMI 32.0-32.9,adult Start:27-Oct-2021 Instruction Type:Patient Education Patient Instructions Indication:BMI 32.0-32.9,adult Start:02-May-2021 Instruction Type:Provider Instructions for Treatment How to Access Health Informa tion Online using Patient Portal and [employer]rd [employer] Apps Indication:Nonsmoker Start:02-May-2021 Instruction Type:Patient Education Patient Instructions Indication:Nonsmoker Start:22-Feb-2021 Instruction Type:Provider Instructions for Treatment How to Access Health Informa tion Online using Patient Portal and [employer] Apps Indication:Nonsmoker Start:22-Feb-2021 Instruction Type:Patient Education How to Access Health Informa tion Online using Patient Portal and [employer]rd [employer] Apps Indication:Nonsmoker Start:09-Feb-2021 Instruction Type:Patient Education Patient [...] tion Online using Patient Portal and [employer] Apps Indication:BMI 29.0-29.9,adult Start:08-Dec-2021 Instruction Type:Patient Education Patient Instructions Indication:Fever Start:01-Nov-2021 Instruction Type:Provider Instructions for Treatment How to Access Health Informa tion Online using Patient Portal and [employer] Apps Indication:Fever Start:01-Nov-2021 Instruction Type:Patient Education Patient Instructions Indication:BMI 32.0-32.9,adult Start:27-Oct-2021 Instruction Type:Provider Instructions for Treatment How to Access Health Informa tion Online using Patient Portal and [employer]rd [employer] Apps Indication:BMI 32.0-32.9,adult Start:27-Oct-2021 Instruction Type:Patient Education Patient Instructions Indication:BMI 32.0-32.9,adult Start:02-May-2021 Instruction Type:Provider Instructions for Treatment How to Access Health Informa tion Online using Patient Portal and [employer] Apps Indication:Nonsmoker Start:02-May-2021 Instruction Type:Patient Education Patient Instructions Indication:Nonsmoker Start:22-Feb-2021 Instruction Type:Provider Instructions for Treatment How to Access Health Informa tion Online using Patient Portal and [employer] Apps Indication:Nonsmoker Start:22-Feb-2021 Instruction Type:Patient Education How to Access Health Informa tion Online using Patient Portal and [employer] Apps Indication:Nonsmoker Start:09-Feb-2021 Instruction Type:Patient Education Patient [...] tion Online using Patient Portal and [employer] Apps Indication:BMI 29.0-29.9,adult Start:08-Dec-2021 Instruction Type:Patient Education Patient Instructions Indication:Fever Start:01-Nov-2021 Instruction Type:Provider Instructions for Treatment How to Access Health Informa tion Online using Patient Portal and [employer]rd [employer] Apps Indication:Fever Start:01-Nov-2021 Instruction Type:Patient Education Patient Instructions Indication:BMI 32.0-32.9,adult Start:27-Oct-2021 Instruction Type:Provider Instructions for Treatment How to Access Health Informa tion Online using Patient Portal and [employer] Apps Indication:BMI 32.0-32.9,adult Start:27-Oct-2021 Instruction Type:Patient Education Patient Instructions Indication:BMI 32.0-32.9,adult Start:02-May-2021 Instruction Type:Provider Instructions for Treatment How to Access Health Informa tion Online using Patient Portal and [employer] Apps Indication:Nonsmoker Start:02-May-2021 Instruction Type:Patient Education Patient Instructions Indication:Nonsmoker Start:22-Feb-2021 Instruction Type:Provider Instructions for Treatment How to Access Health Informa tion Online using Patient Portal and [employer]rd [employer] Apps Indication:Nonsmoker Start:22-Feb-2021 Instruction Type:Patient Education How to Access Health Informa tion Online using Patient Portal and [employer] Apps Indication:Nonsmoker Start:09-Feb-2021 Instruction Type:Patient Education Patient [...] tion Online using Patient Portal and [employer] Apps Indication:Nonsmoker Start:24-Feb-2022 Instruction Type:Patient Education Patient Instructions Indication:BMI 31.0-31.9,adult Start:30-Jan-2022 Instruction Type:Provider Instructions for Treatment How to Access Health Informa tion Online using Patient Portal and [employer]rd [employer] Apps Indication:BMI 31.0-31.9,adult Start:30-Jan-2022 Instruction Type:Patient Education Patient Instructions Indication:BMI 31.0-31.9,adult Start:16-Jan-2022 Instruction Type:Provider Instructions for Treatment How to Access Health Informa tion Online using Patient Portal and [employer] Apps Indication:BMI 31.0-31.9,adult Start:16-Jan-2022 Instruction Type:Patient Education Patient Instructions Indication:BMI 29.0-29.9,adult Start:08-Dec-2021 Instruction Type:Provider Instructions for Treatment How to Access Health Informa tion Online using Patient Portal and [employer] Apps Indication:BMI 29.0-29.9,adult Start:08-Dec-2021 Instruction Type:Patient Education Patient Instructions Indication:Fever Start:01-Nov-2021 Instruction Type:Provider Instructions for Treatment How to Access Health Informa tion Online using Patient Portal and [employer] Apps Indication:Fever Start:01-Nov-2021 Instruction Type:Patient Education Patient Instructions Indication:BMI 32.0-32.9,adult Start:27-Oct-2021 Instruction Type:Provider Instructions for Treatment How to Access Health Informa tion Online using Patient Portal and [employer] Apps Indication:BMI 32.0-32.9,adult Start:27-Oct-2021 Instruction Type:Patient Education Patient Instructions Indication:BMI 32.0-32.9,adult Start:02-May-2021 Instruction Type:Provider Instructions for Treatment How to Access Health Informa tion Online using Patient Portal and [employer] Apps Indication:Nonsmoker Start:02-May-2021 Instruction Type:Patient Education Patient Instructions Indication:Nonsmoker Start:22-Feb-2021 Instruction Type:Provider Instructions for Treatment How to Access Health Informa tion Online using Patient Portal and [employer] Apps Indication:Nonsmoker Start:22-Feb-2021 Instruction Type:Patient Education How to Access Health Informa tion Online using Patient Portal and [employer] Apps Indication:Nonsmoker Start:09-Feb-2021 Instruction Type:Patient Education Patient [...] tion Online using Patient Portal and [employer] Apps Indication:Nonsmoker Start:24-Feb-2022 Instruction Type:Patient Education Patient Instructions Indication:BMI 31.0-31.9,adult Start:30-Jan-2022 Instruction Type:Provider Instructions for Treatment How to Access Health Informa tion Online using Patient Portal and [employer] Apps Indication:BMI 31.0-31.9,adult Start:30-Jan-2022 Instruction Type:Patient Education Patient Instructions Indication:BMI 31.0-31.9,adult Start:16-Jan-2022 Instruction Type:Provider Instructions for Treatment How to Access Health Informa tion Online using Patient Portal and [employer] Apps Indication:BMI 31.0-31.9,adult Start:16-Jan-2022 Instruction Type:Patient Education Patient Instructions Indication:BMI 29.0-29.9,adult Start:08-Dec-2021 Instruction Type:Provider Instructions for Treatment How to Access Health Informa tion Online using Patient Portal and [employer] Apps Indication:BMI 29.0-29.9,adult Start:08-Dec-2021 Instruction Type:Patient Education Patient Instructions Indication:Fever Start:01-Nov-2021 Instruction Type:Provider Instructions for Treatment How to Access Health Informa tion Online using Patient Portal and [employer] Apps Indication:Fever Start:01-Nov-2021 Instruction Type:Patient Education Patient Instructions Indication:BMI 32.0-32.9,adult Start:27-Oct-2021 Instruction Type:Provider Instructions for Treatment How to Access Health Informa tion Online using Patient Portal and [employer] Apps Indication:BMI 32.0-32.9,adult Start:27-Oct-2021 Instruction Type:Patient Education Patient Instructions Indication:BMI 32.0-32.9,adult Start:02-May-2021 Instruction Type:Provider Instructions for Treatment How to Access Health Informa tion Online using Patient Portal and [employer] Apps Indication:Nonsmoker Start:02-May-2021 Instruction Type:Patient Education Patient Instructions Indication:Nonsmoker Start:22-Feb-2021 Instruction Type:Provider Instructions for Treatment How to Access Health Informa tion Online using Patient Portal and [employer] Apps Indication:Nonsmoker Start:22-Feb-2021 Instruction Type:Patient Education How to Access Health Informa tion Online using Patient Portal and [employer] Apps Indication:Nonsmoker Start:09-Feb-2021 Instruction Type:Patient Education Patient [...] tion Online using Patient Portal and [employer] Apps Indication:Nonsmoker Start:24-Feb-2022 Instruction Type:Patient Education Patient Instructions Indication:BMI 31.0-31.9,adult Start:30-Jan-2022 Instruction Type:Provider Instructions for Treatment How to Access Health Informa tion Online using Patient Portal and [employer] Apps Indication:BMI 31.0-31.9,adult Start:30-Jan-2022 Instruction Type:Patient Education Patient Instructions Indication:BMI 31.0-31.9,adult Start:16-Jan-2022 Instruction Type:Provider Instructions for Treatment How to Access Health Informa tion Online using Patient Portal and [employer] Apps Indication:BMI 31.0-31.9,adult Start:16-Jan-2022 Instruction Type:Patient Education Patient Instructions Indication:BMI 29.0-29.9,adult Start:08-Dec-2021 Instruction Type:Provider Instructions for Treatment How to Access Health Informa tion Online using Patient Portal and [employer] Apps Indication:BMI 29.0-29.9,adult Start:08-Dec-2021 Instruction Type:Patient Education Patient Instructions Indication:Fever Start:01-Nov-2021 Instruction Type:Provider Instructions for Treatment How to Access Health Informa tion Online using Patient Portal and [employer] Apps Indication:Fever Start:01-Nov-2021 Instruction Type:Patient Education Patient Instructions Indication:BMI 32.0-32.9,adult Start:27-Oct-2021 Instruction Type:Provider Instructions for Treatment How to Access Health Informa tion Online using Patient Portal and [employer] Apps Indication:BMI 32.0-32.9,adult Start:27-Oct-2021 Instruction Type:Patient Education Patient Instructions Indication:BMI 32.0-32.9,adult Start:02-May-2021 Instruction Type:Provider Instructions for Treatment How to Access Health Informa tion Online using Patient Portal and [employer] Apps Indication:Nonsmoker Start:02-May-2021 Instruction Type:Patient Education Patient Instructions Indication:Nonsmoker Start:22-Feb-2021 Instruction Type:Provider Instructions for Treatment How to Access Health Informa tion Online using Patient Portal and [employer] Apps Indication:Nonsmoker Start:22-Feb-2021 Instruction Type:Patient Education How to Access Health Informa tion Online using Patient Portal and [employer] Apps Indication:Nonsmoker Start:09-Feb-2021 Instruction Type:Patient Education Patient [...] tion Online using Patient Portal and [employer] Apps Indication:Nonsmoker Start:24-Feb-2022 Instruction Type:Patient Education Patient Instructions Indication:BMI 31.0-31.9,adult Start:30-Jan-2022 Instruction Type:Provider Instructions for Treatment How to Access Health Informa tion Online using Patient Portal and [employer] Apps Indication:BMI 31.0-31.9,adult Start:30-Jan-2022 Instruction Type:Patient Education Patient Instructions Indication:BMI 31.0-31.9,adult Start:16-Jan-2022 Instruction Type:Provider Instructions for Treatment How to Access Health Informa tion Online using Patient Portal and [employer] Apps Indication:BMI 31.0-31.9,adult Start:16-Jan-2022 Instruction Type:Patient Education Patient Instructions Indication:BMI 29.0-29.9,adult Start:08-Dec-2021 Instruction Type:Provider Instructions for Treatment How to Access Health Informa tion Online using Patient Portal and [employer] Apps Indication:BMI 29.0-29.9,adult Start:08-Dec-2021 Instruction Type:Patient Education Patient Instructions Indication:Fever Start:01-Nov-2021 Instruction Type:Provider Instructions for Treatment How to Access Health Informa tion Online using Patient Portal and [employer] Apps Indication:Fever Start:01-Nov-2021 Instruction Type:Patient Education Patient Instructions Indication:BMI 32.0-32.9,adult Start:27-Oct-2021 Instruction Type:Provider Instructions for Treatment How to Access Health Informa tion Online using Patient Portal and [employer] Apps Indication:BMI 32.0-32.9,adult Start:27-Oct-2021 Instruction Type:Patient Education Patient Instructions Indication:BMI 32.0-32.9,adult Start:02-May-2021 Instruction Type:Provider Instructions for Treatment How to Access Health Informa tion Online using Patient Portal and [employer] Apps Indication:Nonsmoker Start:02-May-2021 Instruction Type:Patient Education Patient Instructions Indication:Nonsmoker Start:22-Feb-2021 Instruction Type:Provider Instructions for Treatment How to Access Health Informa tion Online using Patient Portal and [employer] Apps Indication:Nonsmoker Start:22-Feb-2021 Instruction Type:Patient Education How to Access Health Informa tion Online using Patient Portal and [employer] Apps Indication:Nonsmoker Start:09-Feb-2021 Instruction Type:Patient Education Patient [...] tion Online using Patient Portal and [employer] Apps Indication:Nonsmoker Start:24-Feb-2022 Instruction Type:Patient Education Patient Instructions Indication:BMI 31.0-31.9,adult Start:30-Jan-2022 Instruction Type:Provider Instructions for Treatment How to Access Health Informa tion Online using Patient Portal and [employer] Apps Indication:BMI 31.0-31.9,adult Start:30-Jan-2022 Instruction Type:Patient Education Patient Instructions Indication:BMI 31.0-31.9,adult Start:16-Jan-2022 Instruction Type:Provider Instructions for Treatment How to Access Health Informa tion Online using Patient Portal and [employer] Apps Indication:BMI 31.0-31.9,adult Start:16-Jan-2022 Instruction Type:Patient Education Patient Instructions Indication:BMI 29.0-29.9,adult Start:08-Dec-2021 Instruction Type:Provider Instructions for Treatment How to Access Health Informa tion Online using Patient Portal and [employer] Apps Indication:BMI 29.0-29.9,adult Start:08-Dec-2021 Instruction Type:Patient Education Patient Instructions Indication:Fever Start:01-Nov-2021 Instruction Type:Provider Instructions for Treatment How to Access Health Informa tion Online using Patient Portal and [employer] Apps Indication:Fever Start:01-Nov-2021 Instruction Type:Patient Education Patient Instructions Indication:BMI 32.0-32.9,adult Start:27-Oct-2021 Instruction Type:Provider Instructions for Treatment How to Access Health Informa tion Online using Patient Portal and [employer] Apps Indication:BMI 32.0-32.9,adult Start:27-Oct-2021 Instruction Type:Patient Education Patient Instructions Indication:BMI 32.0-32.9,adult Start:02-May-2021 Instruction Type:Provider Instructions for Treatment How to Access Health Informa tion Online using Patient Portal and [employer] Apps Indication:Nonsmoker Start:02-May-2021 Instruction Type:Patient Education Patient Instructions Indication:Nonsmoker Start:22-Feb-2021 Instruction Type:Provider Instructions for Treatment How to Access Health Informa tion Online using Patient Portal and [employer] Apps Indication:Nonsmoker Start:22-Feb-2021 Instruction Type:Patient Education How to Access Health Informa tion Online using Patient Portal and [employer] Apps Indication:Nonsmoker Start:09-Feb-2021 Instruction Type:Patient Education Patient [...] tion Online using Patient Portal and [employer] Apps Indication:BMI 33.0-33.9,adult Start:13-Apr-2022 Instruction Type:Patient Education Patient Instructions Indication:Nonsmoker Start:24-Feb-2022 Instruction Type:Provider Instructions for Treatment How to Access Health Informa tion Online using Patient Portal and [employer] Apps Indication:Nonsmoker Start:24-Feb-2022 Instruction Type:Patient Education Patient Instructions Indication:BMI 31.0-31.9,adult Start:30-Jan-2022 Instruction Type:Provider Instructions for Treatment How to Access Health Informa tion Online using Patient Portal and [employer] Apps Indication:BMI 31.0-31.9,adult Start:30-Jan-2022 Instruction Type:Patient Education Patient Instructions Indication:BMI 31.0-31.9,adult Start:16-Jan-2022 Instruction Type:Provider Instructions for Treatment How to Access Health Informa tion Online using Patient Portal and [employer] Apps Indication:BMI 31.0-31.9,adult Start:16-Jan-2022 Instruction Type:Patient Education Patient Instructions Indication:BMI 29.0-29.9,adult Start:08-Dec-2021 Instruction Type:Provider Instructions for Treatment How to Access Health Informa tion Online using Patient Portal and [employer] Apps Indication:BMI 29.0-29.9,adult Start:08-Dec-2021 Instruction Type:Patient Education Patient Instructions Indication:Fever Start:01-Nov-2021 Instruction Type:Provider Instructions for Treatment How to Access Health Informa tion Online using Patient Portal and [employer] Apps Indication:Fever Start:01-Nov-2021 Instruction Type:Patient Education Patient Instructions Indication:BMI 32.0-32.9,adult Start:27-Oct-2021 Instruction Type:Provider Instructions for Treatment How to Access Health Informa tion Online using Patient Portal and [employer] Apps Indication:BMI 32.0-32.9,adult Start:27-Oct-2021 Instruction Type:Patient Education Patient Instructions Indication:BMI 32.0-32.9,adult Start:02-May-2021 Instruction Type:Provider Instructions for Treatment How to Access Health Informa tion Online using Patient Portal and [employer] Apps Indication:Nonsmoker Start:02-May-2021 Instruction Type:Patient Education Patient Instructions Indication:Nonsmoker Start:22-Feb-2021 Instruction Type:Provider Instructions for Treatment How to Access Health Informa tion Online using Patient Portal and [employer] Apps Indication:Nonsmoker Start:22-Feb-2021 Instruction Type:Patient Education How to Access Health Informa tion Online using Patient Portal and [employer] Apps Indication:Nonsmoker Start:09-Feb-2021 Instruction Type:Patient Education Patient [...] tion Online using Patient Portal and [employer] Apps Indication:BMI 33.0-33.9,adult Start:13-Apr-2022 Instruction Type:Patient Education Patient Instructions Indication:Nonsmoker Start:24-Feb-2022 Instruction Type:Provider Instructions for Treatment How to Access Health Informa tion Online using Patient Portal and [employer] Apps Indication:Nonsmoker Start:24-Feb-2022 Instruction Type:Patient Education Patient Instructions Indication:BMI 31.0-31.9,adult Start:30-Jan-2022 Instruction Type:Provider Instructions for Treatment How to Access Health Informa tion Online using Patient Portal and [employer] Apps Indication:BMI 31.0-31.9,adult Start:30-Jan-2022 Instruction Type:Patient Education Patient Instructions Indication:BMI 31.0-31.9,adult Start:16-Jan-2022 Instruction Type:Provider Instructions for Treatment How to Access Health Informa tion Online using Patient Portal and [employer] Apps Indication:BMI 31.0-31.9,adult Start:16-Jan-2022 Instruction Type:Patient Education Patient Instructions Indication:BMI 29.0-29.9,adult Start:08-Dec-2021 Instruction Type:Provider Instructions for Treatment How to Access Health Informa tion Online using Patient Portal and [employer] Apps Indication:BMI 29.0-29.9,adult Start:08-Dec-2021 Instruction Type:Patient Education Patient Instructions Indication:Fever Start:01-Nov-2021 Instruction Type:Provider Instructions for Treatment How to Access Health Informa tion Online using Patient Portal and [employer] Apps Indication:Fever Start:01-Nov-2021 Instruction Type:Patient Education Patient Instructions Indication:BMI 32.0-32.9,adult Start:27-Oct-2021 Instruction Type:Provider Instructions for Treatment How to Access Health Informa tion Online using Patient Portal and [employer] Apps Indication:BMI 32.0-32.9,adult Start:27-Oct-2021 Instruction Type:Patient Education Patient Instructions Indication:BMI 32.0-32.9,adult Start:02-May-2021 Instruction Type:Provider Instructions for Treatment How to Access Health Informa tion Online using Patient Portal and [employer] Apps Indication:Nonsmoker Start:02-May-2021 Instruction Type:Patient Education Patient Instructions Indication:Nonsmoker Start:22-Feb-2021 Instruction Type:Provider Instructions for Treatment How to Access Health Informa tion Online using Patient Portal and [employer] Apps Indication:Nonsmoker Start:22-Feb-2021 Instruction Type:Patient Education How to Access Health Informa tion Online using Patient Portal and [employer] Apps Indication:Nonsmoker Start:09-Feb-2021 Instruction Type:Patient Education Patient [...] tion Online using Patient Portal and [employer] Apps Indication:Nonsmoker Start:09-May-2022 Instruction Type:Patient Education Patient Instructions Indication:Nonsmoker Start:09-May-2022 Instruction Type:Provider Instructions for Treatment Patient Instructions Indication:BMI 33.0-33.9,adult Start:13-Apr-2022 Instruction Type:Provider Instructions for Treatment How to Access Health Informa tion Online using Patient Portal and [employer] Apps Indication:BMI 33.0-33.9,adult Start:13-Apr-2022 Instruction Type:Patient Education Patient Instructions Indication:Nonsmoker Start:24-Feb-2022 Instruction Type:Provider Instructions for Treatment How to Access Health Informa tion Online using Patient Portal and [employer] Apps Indication:Nonsmoker Start:24-Feb-2022 Instruction Type:Patient Education Patient Instructions Indication:BMI 31.0-31.9,adult Start:30-Jan-2022 Instruction Type:Provider Instructions for Treatment How to Access Health Informa tion Online using Patient Portal and [employer] Apps Indication:BMI 31.0-31.9,adult Start:30-Jan-2022 Instruction Type:Patient Education Patient Instructions Indication:BMI 31.0-31.9,adult Start:16-Jan-2022 Instruction Type:Provider Instructions for Treatment How to Access Health Informa tion Online using Patient Portal and [employer] Apps Indication:BMI 31.0-31.9,adult Start:16-Jan-2022 Instruction Type:Patient Education Patient Instructions Indication:BMI 29.0-29.9,adult Start:08-Dec-2021 Instruction Type:Provider Instructions for Treatment How to Access Health Informa tion Online using Patient Portal and [employer] Apps Indication:BMI 29.0-29.9,adult Start:08-Dec-2021 Instruction Type:Patient Education Patient Instructions Indication:Fever Start:01-Nov-2021 Instruction Type:Provider Instructions for Treatment How to Access Health Informa tion Online using Patient Portal and [employer] Apps Indication:Fever Start:01-Nov-2021 Instruction Type:Patient Education Patient Instructions Indication:BMI 32.0-32.9,adult Start:27-Oct-2021 Instruction Type:Provider Instructions for Treatment How to Access Health Informa tion Online using Patient Portal and [employer] Apps Indication:BMI 32.0-32.9,adult Start:27-Oct-2021 Instruction Type:Patient Education Patient Instructions Indication:BMI 32.0-32.9,adult Start:02-May-2021 Instruction Type:Provider Instructions for Treatment How to Access Health Informa tion Online using Patient Portal and [employer] Apps Indication:Nonsmoker Start:02-May-2021 Instruction Type:Patient Education Patient Instructions Indication:Nonsmoker Start:22-Feb-2021 Instruction Type:Provider Instructions for Treatment How to Access Health Informa tion Online using Patient Portal and [employer] Apps Indication:Nonsmoker Start:22-Feb-2021 Instruction Type:Patient Education How to Access Health Informa tion Online using Patient Portal and [employer] Apps Indication:Nonsmoker Start:09-Feb-2021 Instruction Type:Patient Education Patient [...] tion Online using Patient Portal and [employer] Apps Indication:Nonsmoker Start:09-May-2022 Instruction Type:Patient Education Patient Instructions Indication:Nonsmoker Start:09-May-2022 Instruction Type:Provider Instructions for Treatment Patient Instructions Indication:BMI 33.0-33.9,adult Start:13-Apr-2022 Instruction Type:Provider Instructions for Treatment How to Access Health Informa tion Online using Patient Portal and [employer] Apps Indication:BMI 33.0-33.9,adult Start:13-Apr-2022 Instruction Type:Patient Education Patient Instructions Indication:Nonsmoker Start:24-Feb-2022 Instruction Type:Provider Instructions for Treatment How to Access Health Informa tion Online using Patient Portal and [employer] Apps Indication:Nonsmoker Start:24-Feb-2022 Instruction Type:Patient Education Patient Instructions Indication:BMI 31.0-31.9,adult Start:30-Jan-2022 Instruction Type:Provider Instructions for Treatment How to Access Health Informa tion Online using Patient Portal and [employer] Apps Indication:BMI 31.0-31.9,adult Start:30-Jan-2022 Instruction Type:Patient Education Patient Instructions Indication:BMI 31.0-31.9,adult Start:16-Jan-2022 Instruction Type:Provider Instructions for Treatment How to Access Health Informa tion Online using Patient Portal and [employer] Apps Indication:BMI 31.0-31.9,adult Start:16-Jan-2022 Instruction Type:Patient Education Patient Instructions Indication:BMI 29.0-29.9,adult Start:08-Dec-2021 Instruction Type:Provider Instructions for Treatment How to Access Health Informa tion Online using Patient Portal and [employer] Apps Indication:BMI 29.0-29.9,adult Start:08-Dec-2021 Instruction Type:Patient Education Patient Instructions Indication:Fever Start:01-Nov-2021 Instruction Type:Provider Instructions for Treatment How to Access Health Informa tion Online using Patient Portal and [employer] Apps Indication:Fever Start:01-Nov-2021 Instruction Type:Patient Education Patient Instructions Indication:BMI 32.0-32.9,adult Start:27-Oct-2021 Instruction Type:Provider Instructions for Treatment How to Access Health Informa tion Online using Patient Portal and [employer] Apps Indication:BMI 32.0-32.9,adult Start:27-Oct-2021 Instruction Type:Patient Education Patient Instructions Indication:BMI 32.0-32.9,adult Start:02-May-2021 Instruction Type:Provider Instructions for Treatment How to Access Health Informa tion Online using Patient Portal and [employer] Apps Indication:Nonsmoker Start:02-May-2021 Instruction Type:Patient Education Patient Instructions Indication:Nonsmoker Start:22-Feb-2021 Instruction Type:Provider Instructions for Treatment How to Access Health Informa tion Online using Patient Portal and [employer] Apps Indication:Nonsmoker Start:22-Feb-2021 Instruction Type:Patient Education How to Access Health Informa tion Online using Patient Portal and [employer] Apps Indication:Nonsmoker Start:09-Feb-2021 Instruction Type:Patient Education Patient [...] tion Online using Patient Portal and [employer] Apps Indication:Nonsmoker Start:09-May-2022 Instruction Type:Patient Education Patient Instructions Indication:Nonsmoker Start:09-May-2022 Instruction Type:Provider Instructions for Treatment Patient Instructions Indication:BMI 33.0-33.9,adult Start:13-Apr-2022 Instruction Type:Provider Instructions for Treatment How to Access Health Informa tion Online using Patient Portal and [employer] Apps Indication:BMI 33.0-33.9,adult Start:13-Apr-2022 Instruction Type:Patient Education Patient Instructions Indication:Nonsmoker Start:24-Feb-2022 Instruction Type:Provider Instructions for Treatment How to Access Health Informa tion Online using Patient Portal and [employer] Apps Indication:Nonsmoker Start:24-Feb-2022 Instruction Type:Patient Education Patient Instructions Indication:BMI 31.0-31.9,adult Start:30-Jan-2022 Instruction Type:Provider Instructions for Treatment How to Access Health Informa tion Online using Patient Portal and [employer] Apps Indication:BMI 31.0-31.9,adult Start:30-Jan-2022 Instruction Type:Patient Education Patient Instructions Indication:BMI 31.0-31.9,adult Start:16-Jan-2022 Instruction Type:Provider Instructions for Treatment How to Access Health Informa tion Online using Patient Portal and [employer] Apps Indication:BMI 31.0-31.9,adult Start:16-Jan-2022 Instruction Type:Patient Education Patient Instructions Indication:BMI 29.0-29.9,adult Start:08-Dec-2021 Instruction Type:Provider Instructions for Treatment How to Access Health Informa tion Online using Patient Portal and [employer] Apps Indication:BMI 29.0-29.9,adult Start:08-Dec-2021 Instruction Type:Patient Education Patient Instructions Indication:Fever Start:01-Nov-2021 Instruction Type:Provider Instructions for Treatment How to Access Health Informa tion Online using Patient Portal and [employer] Apps Indication:Fever Start:01-Nov-2021 Instruction Type:Patient Education Patient Instructions Indication:BMI 32.0-32.9,adult Start:27-Oct-2021 Instruction Type:Provider Instructions for Treatment How to Access Health Informa tion Online using Patient Portal and [employer] Apps Indication:BMI 32.0-32.9,adult Start:27-Oct-2021 Instruction Type:Patient Education Patient Instructions Indication:BMI 32.0-32.9,adult Start:02-May-2021 Instruction Type:Provider Instructions for Treatment How to Access Health Informa tion Online using Patient Portal and [employer] Apps Indication:Nonsmoker Start:02-May-2021 Instruction Type:Patient Education Patient Instructions Indication:Nonsmoker Start:22-Feb-2021 Instruction Type:Provider Instructions for Treatment How to Access Health Informa tion Online using Patient Portal and [employer] Apps Indication:Nonsmoker Start:22-Feb-2021 Instruction Type:Patient Education How to Access Health Informa tion Online using Patient Portal and [employer] Apps Indication:Nonsmoker Start:09-Feb-2021 Instruction Type:Patient Education Patient [...] tion Online using Patient Portal and [employer] Apps Indication:Nonsmoker Start:09-May-2022 Instruction Type:Patient Education Patient Instructions Indication:Nonsmoker Start:09-May-2022 Instruction Type:Provider Instructions for Treatment Patient Instructions Indication:BMI 33.0-33.9,adult Start:13-Apr-2022 Instruction Type:Provider Instructions for Treatment How to Access Health Informa tion Online using Patient Portal and [employer] Apps Indication:BMI 33.0-33.9,adult Start:13-Apr-2022 Instruction Type:Patient Education Patient Instructions Indication:Nonsmoker Start:24-Feb-2022 Instruction Type:Provider Instructions for Treatment How to Access Health Informa tion Online using Patient Portal and [employer] Apps Indication:Nonsmoker Start:24-Feb-2022 Instruction Type:Patient Education Patient Instructions Indication:BMI 31.0-31.9,adult Start:30-Jan-2022 Instruction Type:Provider Instructions for Treatment How to Access Health Informa tion Online using Patient Portal and [employer] Apps Indication:BMI 31.0-31.9,adult Start:30-Jan-2022 Instruction Type:Patient Education Patient Instructions Indication:BMI 31.0-31.9,adult Start:16-Jan-2022 Instruction Type:Provider Instructions for Treatment How to Access Health Informa tion Online using Patient Portal and [employer] Apps Indication:BMI 31.0-31.9,adult Start:16-Jan-2022 Instruction Type:Patient Education Patient Instructions Indication:BMI 29.0-29.9,adult Start:08-Dec-2021 Instruction Type:Provider Instructions for Treatment How to Access Health Informa tion Online using Patient Portal and [employer] Apps Indication:BMI 29.0-29.9,adult Start:08-Dec-2021 Instruction Type:Patient Education Patient Instructions Indication:Fever Start:01-Nov-2021 Instruction Type:Provider Instructions for Treatment How to Access Health Informa tion Online using Patient Portal and [employer] Apps Indication:Fever Start:01-Nov-2021 Instruction Type:Patient Education Patient Instructions Indication:BMI 32.0-32.9,adult Start:27-Oct-2021 Instruction Type:Provider Instructions for Treatment How to Access Health Informa tion Online using Patient Portal and [employer] Apps Indication:BMI 32.0-32.9,adult Start:27-Oct-2021 Instruction Type:Patient Education Patient Instructions Indication:BMI 32.0-32.9,adult Start:02-May-2021 Instruction Type:Provider Instructions for Treatment How to Access Health Informa tion Online using Patient Portal and [employer] Apps Indication:Nonsmoker Start:02-May-2021 Instruction Type:Patient Education Patient Instructions Indication:Nonsmoker Start:22-Feb-2021 Instruction Type:Provider Instructions for Treatment How to Access Health Informa tion Online using Patient Portal and [employer] Apps Indication:Nonsmoker Start:22-Feb-2021 Instruction Type:Patient Education How to Access Health Informa tion Online using Patient Portal and [employer] Apps Indication:Nonsmoker Start:09-Feb-2021 Instruction Type:Patient Education Patient [...] tion Online using Patient Portal and [employer] Apps Indication:Nonsmoker Start:09-May-2022 Instruction Type:Patient Education Patient Instructions Indication:Nonsmoker Start:09-May-2022 Instruction Type:Provider Instructions for Treatment Patient Instructions Indication:BMI 33.0-33.9,adult Start:13-Apr-2022 Instruction Type:Provider Instructions for Treatment How to Access Health Informa tion Online using Patient Portal and [employer] Apps Indication:BMI 33.0-33.9,adult Start:13-Apr-2022 Instruction Type:Patient Education Patient Instructions Indication:Nonsmoker Start:24-Feb-2022 Instruction Type:Provider Instructions for Treatment How to Access Health Informa tion Online using Patient Portal and [employer] Apps Indication:Nonsmoker Start:24-Feb-2022 Instruction Type:Patient Education Patient Instructions Indication:BMI 31.0-31.9,adult Start:30-Jan-2022 Instruction Type:Provider Instructions for Treatment How to Access Health Informa tion Online using Patient Portal and [employer] Apps Indication:BMI 31.0-31.9,adult Start:30-Jan-2022 Instruction Type:Patient Education Patient Instructions Indication:BMI 31.0-31.9,adult Start:16-Jan-2022 Instruction Type:Provider Instructions for Treatment How to Access Health Informa tion Online using Patient Portal and [employer] Apps Indication:BMI 31.0-31.9,adult Start:16-Jan-2022 Instruction Type:Patient Education Patient Instructions Indication:BMI 29.0-29.9,adult Start:08-Dec-2021 Instruction Type:Provider Instructions for Treatment How to Access Health Informa tion Online using Patient Portal and [employer] Apps Indication:BMI 29.0-29.9,adult Start:08-Dec-2021 Instruction Type:Patient Education Patient Instructions Indication:Fever Start:01-Nov-2021 Instruction Type:Provider Instructions for Treatment How to Access Health Informa tion Online using Patient Portal and [employer] Apps Indication:Fever Start:01-Nov-2021 Instruction Type:Patient Education Patient Instructions Indication:BMI 32.0-32.9,adult Start:27-Oct-2021 Instruction Type:Provider Instructions for Treatment How to Access Health Informa tion Online using Patient Portal and [employer] Indication:BMI 32.0-32.9,adult Start:27-Oct-2021 Instruction Type:Patient Education Patient Instructions Indication:BMI 32.0-32.9,adult Start:02-May-2021 Instruction Type:Provider Instructions for Treatment How to Access Health Informa tion Online using Patient Portal and [employer] Apps Indication:Nonsmoker Start:02-May-2021 Instruction Type:Patient Education Patient Instructions Indication:Nonsmoker Start:22-Feb-2021 Instruction Type:Provider Instructions for Treatment How to Access Health Informa tion Online using Patient Portal and [employer] Apps Indication:Nonsmoker Start:22-Feb-2021 Instruction Type:Patient Education How to Access Health Informa tion Online using Patient Portal and [employer] Apps Indication:Nonsmoker Start:09-Feb-2021 Instruction Type:Patient Education Patient [...] tion Online using Patient Portal and [employer] Apps Indication:Nonsmoker Start:09-May-2022 Instruction Type:Patient Education Patient Instructions Indication:Nonsmoker Start:09-May-2022 Instruction Type:Provider Instructions for Treatment Patient Instructions Indication:BMI 33.0-33.9,adult Start:13-Apr-2022 Instruction Type:Provider Instructions for Treatment How to Access Health Informa tion Online using Patient Portal and [employer] Apps Indication:BMI 33.0-33.9,adult Start:13-Apr-2022 Instruction Type:Patient Education Patient Instructions Indication:Nonsmoker Start:24-Feb-2022 Instruction Type:Provider Instructions for Treatment How to Access Health Informa tion Online using Patient Portal and [employer] Apps Indication:Nonsmoker Start:24-Feb-2022 Instruction Type:Patient Education Patient Instructions Indication:BMI 31.0-31.9,adult Start:30-Jan-2022 Instruction Type:Provider Instructions for Treatment How to Access Health Informa tion Online using Patient Portal and [employer] Indication:BMI 31.0-31.9,adult Start:30-Jan-2022 Instruction Type:Patient Education Patient Instructions Indication:BMI 31.0-31.9,adult Start:16-Jan-2022 Instruction Type:Provider Instructions for Treatment How to Access Health Informa tion Online using Patient Portal and [employer] Indication:BMI 31.0-31.9,adult Start:16-Jan-2022 Instruction Type:Patient Education Patient Instructions Indication:BMI 29.0-29.9,adult Start:08-Dec-2021 Instruction Type:Provider Instructions for Treatment How to Access Health Informa tion Online using Patient Portal and [employer] Indication:BMI 29.0-29.9,adult Start:08-Dec-2021 Instruction Type:Patient Education Patient Instructions Indication:Fever Start:01-Nov-2021 Instruction Type:Provider Instructions for Treatment How to Access Health Informa tion Online using Patient Portal and [employer] Indication:Fever Start:01-Nov-2021 Instruction Type:Patient Education Patient Instructions Indication:BMI 32.0-32.9,adult Start:27-Oct-2021 Instruction Type:Provider Instructions for Treatment How to Access Health Informa tion Online using Patient Portal and [employer] Apps Indication:BMI 32.0-32.9,adult Start:27-Oct-2021 Instruction Type:Patient Education Patient Instructions Indication:BMI 32.0-32.9,adult Start:02-May-2021 Instruction Type:Provider Instructions for Treatment How to Access Health Informa tion Online using Patient Portal and [employer] Indication:Nonsmoker Start:02-May-2021 Instruction Type:Patient Education Patient Instructions Indication:Nonsmoker Start:22-Feb-2021 Instruction Type:Provider Instructions for Treatment How to Access Health Informa tion Online using Patient Portal and [employer] Indication:Nonsmoker Start:22-Feb-2021 Instruction Type:Patient Education How to Access Health Informa tion Online using Patient Portal and [employer] Indication:Nonsmoker Start:09-Feb-2021 Instruction Type:Patient Education Patient [...] tion Online using Patient Portal and [employer] Indication:Nonsmoker Start:09-May-2022 Instruction Type:Patient Education Patient Instructions Indication:Nonsmoker Start:09-May-2022 Instruction Type:Provider Instructions for Treatment Patient Instructions Indication:BMI 33.0-33.9,adult Start:13-Apr-2022 Instruction Type:Provider Instructions for Treatment How to Access Health Informa tion Online using Patient Portal and [employer] Indication:BMI 33.0-33.9,adult Start:13-Apr-2022 Instruction Type:Patient Education Patient Instructions Indication:Nonsmoker Start:24-Feb-2022 Instruction Type:Provider Instructions for Treatment How to Access Health Informa tion Online using Patient Portal and [employer] Indication:Nonsmoker Start:24-Feb-2022 Instruction Type:Patient Education Patient Instructions Indication:BMI 31.0-31.9,adult Start:30-Jan-2022 Instruction Type:Provider Instructions for Treatment How to Access Health Informa tion Online using Patient Portal and [employer] Indication:BMI 31.0-31.9,adult Start:30-Jan-2022 Instruction Type:Patient Education Patient Instructions Indication:BMI 31.0-31.9,adult Start:16-Jan-2022 Instruction Type:Provider Instructions for Treatment How to Access Health Informa tion Online using Patient Portal and [employer] Indication:BMI 31.0-31.9,adult Start:16-Jan-2022 Instruction Type:Patient Education Patient Instructions Indication:BMI 29.0-29.9,adult Start:08-Dec-2021 Instruction Type:Provider Instructions for Treatment How to Access Health Informa tion Online using Patient Portal and [employer] Indication:BMI 29.0-29.9,adult Start:08-Dec-2021 Instruction Type:Patient Education Patient Instructions Indication:Fever Start:01-Nov-2021 Instruction Type:Provider Instructions for Treatment How to Access Health Informa tion Online using Patient Portal and [employer] Indication:Fever Start:01-Nov-2021 Instruction Type:Patient Education Patient Instructions Indication:BMI 32.0-32.9,adult Start:27-Oct-2021 Instruction Type:Provider Instructions for Treatment How to Access Health Informa tion Online using Patient Portal and [employer] Indication:BMI 32.0-32.9,adult Start:27-Oct-2021 Instruction Type:Patient Education Patient Instructions Indication:BMI 32.0-32.9,adult Start:02-May-2021 Instruction Type:Provider Instructions for Treatment How to Access Health Informa tion Online using Patient Portal and [employer] Indication:Nonsmoker Start:02-May-2021 Instruction Type:Patient Education Patient Instructions Indication:Nonsmoker Start:22-Feb-2021 Instruction Type:Provider Instructions for Treatment How to Access Health Informa tion Online using Patient Portal and [employer] Indication:Nonsmoker Start:22-Feb-2021 Instruction Type:Patient Education How to Access Health Informa tion Online using Patient Portal and [employer] Indication:Nonsmoker Start:09-Feb-2021 Instruction Type:Patient Education Patient [...] tion Online using Patient Portal and [employer] Indication:BMI 32.0-32.9,adult Start:05-Jul-2022 Instruction Type:Patient Education Patient Instructions Indication:Skin burn Start:13-May-2022 Instruction Type:Provider Instructions for Treatment How to Access Health Informa tion Online using Patient Portal and [employer] Indication:Nonsmoker Start:09-May-2022 Instruction Type:Patient Education Patient Instructions Indication:Nonsmoker Start:09-May-2022 Instruction Type:Provider Instructions for Treatment Patient Instructions Indication:BMI 33.0-33.9,adult Start:13-Apr-2022 Instruction Type:Provider Instructions for Treatment How to Access Health Informa tion Online using Patient Portal and [employer] Indication:BMI 33.0-33.9,adult Start:13-Apr-2022 Instruction Type:Patient Education Patient Instructions Indication:Nonsmoker Start:24-Feb-2022 Instruction Type:Provider Instructions for Treatment How to Access Health Informa tion Online using Patient Portal and [employer] Indication:Nonsmoker Start:24-Feb-2022 Instruction Type:Patient Education Patient Instructions Indication:BMI 31.0-31.9,adult Start:30-Jan-2022 Instruction Type:Provider Instructions for Treatment How to Access Health Informa tion Online using Patient Portal and [employer] Indication:BMI 31.0-31.9,adult Start:30-Jan-2022 Instruction Type:Patient Education Patient Instructions Indication:BMI 31.0-31.9,adult Start:16-Jan-2022 Instruction Type:Provider Instructions for Treatment How to Access Health Informa tion Online using Patient Portal and [employer] Indication:BMI 31.0-31.9,adult Start:16-Jan-2022 Instruction Type:Patient Education Patient Instructions Indication:BMI 29.0-29.9,adult Start:08-Dec-2021 Instruction Type:Provider Instructions for Treatment How to Access Health Informa tion Online using Patient Portal and [employer] Indication:BMI 29.0-29.9,adult Start:08-Dec-2021 Instruction Type:Patient Education Patient Instructions Indication:Fever Start:01-Nov-2021 Instruction Type:Provider Instructions for Treatment How to Access Health Informa tion Online using Patient Portal and [employer] Indication:Fever Start:01-Nov-2021 Instruction Type:Patient Education Patient Instructions Indication:BMI 32.0-32.9,adult Start:27-Oct-2021 Instruction Type:Provider Instructions for Treatment How to Access Health Informa tion Online using Patient Portal and [employer] Indication:BMI 32.0-32.9,adult Start:27-Oct-2021 Instruction Type:Patient Education Patient Instructions Indication:BMI 32.0-32.9,adult Start:02-May-2021 Instruction Type:Provider Instructions for Treatment How to Access Health Informa tion Online using Patient Portal and [employer] Indication:Nonsmoker Start:02-May-2021 Instruction Type:Patient Education Patient Instructions Indication:Nonsmoker Start:22-Feb-2021 Instruction Type:Provider Instructions for Treatment How to Access Health Informa tion Online using Patient Portal and [employer] Indication:Nonsmoker Start:22-Feb-2021 Instruction Type:Patient Education How to Access Health Informa tion Online using Patient Portal and [employer] Indication:Nonsmoker Start:09-Feb-2021 Instruction Type:Patient Education Patient [...] tion Online using Patient Portal and [employer] Indication:BMI 32.0-32.9,adult Start:05-Jul-2022 Instruction Type:Patient Education Patient Instructions Indication:Skin burn Start:13-May-2022 Instruction Type:Provider Instructions for Treatment How to Access Health Informa tion Online using Patient Portal and [employer] Indication:Nonsmoker Start:09-May-2022 Instruction Type:Patient Education Patient Instructions Indication:Nonsmoker Start:09-May-2022 Instruction Type:Provider Instructions for Treatment Patient Instructions Indication:BMI 33.0-33.9,adult Start:13-Apr-2022 Instruction Type:Provider Instructions for Treatment How to Access Health Informa tion Online using Patient Portal and [employer] Indication:BMI 33.0-33.9,adult Start:13-Apr-2022 Instruction Type:Patient Education Patient Instructions Indication:Nonsmoker Start:24-Feb-2022 Instruction Type:Provider Instructions for Treatment How to Access Health Informa tion Online using Patient Portal and [employer] Indication:Nonsmoker Start:24-Feb-2022 Instruction Type:Patient Education Patient Instructions Indication:BMI 31.0-31.9,adult Start:30-Jan-2022 Instruction Type:Provider Instructions for Treatment How to Access Health Informa tion Online using Patient Portal and [employer] Indication:BMI 31.0-31.9,adult Start:30-Jan-2022 Instruction Type:Patient Education Patient Instructions Indication:BMI 31.0-31.9,adult Start:16-Jan-2022 Instruction Type:Provider Instructions for Treatment How to Access Health Informa tion Online using Patient Portal and [employer] Indication:BMI 31.0-31.9,adult Start:16-Jan-2022 Instruction Type:Patient Education Patient Instructions Indication:BMI 29.0-29.9,adult Start:08-Dec-2021 Instruction Type:Provider Instructions for Treatment How to Access Health Informa tion Online using Patient Portal and [employer] Indication:BMI 29.0-29.9,adult Start:08-Dec-2021 Instruction Type:Patient Education Patient Instructions Indication:Fever Start:01-Nov-2021 Instruction Type:Provider Instructions for Treatment How to Access Health Informa tion Online using Patient Portal and [employer] Indication:Fever Start:01-Nov-2021 Instruction Type:Patient Education Patient Instructions Indication:BMI 32.0-32.9,adult Start:27-Oct-2021 Instruction Type:Provider Instructions for Treatment How to Access Health Informa tion Online using Patient Portal and [employer] Indication:BMI 32.0-32.9,adult Start:27-Oct-2021 Instruction Type:Patient Education Patient Instructions Indication:BMI 32.0-32.9,adult Start:02-May-2021 Instruction Type:Provider Instructions for Treatment How to Access Health Informa tion Online using Patient Portal and [employer] Indication:Nonsmoker Start:02-May-2021 Instruction Type:Patient Education Patient Instructions Indication:Nonsmoker Start:22-Feb-2021 Instruction Type:Provider Instructions for Treatment How to Access Health Informa tion Online using Patient Portal and [employer] Indication:Nonsmoker Start:22-Feb-2021 Instruction Type:Patient Education How to Access Health Informa tion Online using Patient Portal and [employer] Indication:Nonsmoker Start:09-Feb-2021 Instruction Type:Patient Education Patient [...] tion Online using Patient Portal and [employer] Indication:BMI 32.0-32.9,adult Start:30-Aug-2022 Instruction Type:Patient Education Patient Instructions Indication:BMI 32.0-32.9,adult Start:05-Jul-2022 Instruction Type:Provider Instructions for Treatment How to Access Health Informa tion Online using Patient Portal and [employer] Indication:BMI 32.0-32.9,adult Start:05-Jul-2022 Instruction Type:Patient Education Patient Instructions Indication:Skin burn Start:13-May-2022 Instruction Type:Provider Instructions for Treatment How to Access Health Informa tion Online using Patient Portal and [employer] Indication:Nonsmoker Start:09-May-2022 Instruction Type:Patient Education Patient Instructions Indication:Nonsmoker Start:09-May-2022 Instruction Type:Provider Instructions for Treatment Patient Instructions Indication:BMI 33.0-33.9,adult Start:13-Apr-2022 Instruction Type:Provider Instructions for Treatment How to Access Health Informa tion Online using Patient Portal and [employer] Indication:BMI 33.0-33.9,adult Start:13-Apr-2022 Instruction Type:Patient Education Patient Instructions Indication:Nonsmoker Start:24-Feb-2022 Instruction Type:Provider Instructions for Treatment How to Access Health Informa tion Online using Patient Portal and [employer] Indication:Nonsmoker Start:24-Feb-2022 Instruction Type:Patient Education Patient Instructions Indication:BMI 31.0-31.9,adult Start:30-Jan-2022 Instruction Type:Provider Instructions for Treatment How to Access Health Informa tion Online using Patient Portal and [employer] Indication:BMI 31.0-31.9,adult Start:30-Jan-2022 Instruction Type:Patient Education Patient Instructions Indication:BMI 31.0-31.9,adult Start:16-Jan-2022 Instruction Type:Provider Instructions for Treatment How to Access Health Informa tion Online using Patient Portal and [employer] Indication:BMI 31.0-31.9,adult Start:16-Jan-2022 Instruction Type:Patient Education Patient Instructions Indication:BMI 29.0-29.9,adult Start:08-Dec-2021 Instruction Type:Provider Instructions for Treatment How to Access Health Informa tion Online using Patient Portal and [employer] Indication:BMI 29.0-29.9,adult Start:08-Dec-2021 Instruction Type:Patient Education Patient Instructions Indication:Fever Start:01-Nov-2021 Instruction Type:Provider Instructions for Treatment How to Access Health Informa tion Online using Patient Portal and [employer] Indication:Fever Start:01-Nov-2021 Instruction Type:Patient Education Patient Instructions Indication:BMI 32.0-32.9,adult Start:27-Oct-2021 Instruction Type:Provider Instructions for Treatment How to Access Health Informa tion Online using Patient Portal and [employer] Indication:BMI 32.0-32.9,adult Start:27-Oct-2021 Instruction Type:Patient Education Patient Instructions Indication:BMI 32.0-32.9,adult Start:02-May-2021 Instruction Type:Provider Instructions for Treatment How to Access Health Informa tion Online using Patient Portal and [employer] Indication:Nonsmoker Start:02-May-2021 Instruction Type:Patient Education Patient Instructions Indication:Nonsmoker Start:22-Feb-2021 Instruction Type:Provider Instructions for Treatment How to Access Health Informa tion Online using Patient Portal and [employer] Indication:Nonsmoker Start:22-Feb-2021 Instruction Type:Patient Education How to Access Health Informa tion Online using Patient Portal and [employer] Indication:Nonsmoker Start:09-Feb-2021 Instruction Type:Patient Education Patient [...] tion Online using Patient Portal and [employer] Indication:BMI 32.0-32.9,adult Start:30-Aug-2022 Instruction Type:Patient Education Patient Instructions Indication:BMI 32.0-32.9,adult Start:05-Jul-2022 Instruction Type:Provider Instructions for Treatment How to Access Health Informa tion Online using Patient Portal and [employer] Indication:BMI 32.0-32.9,adult Start:05-Jul-2022 Instruction Type:Patient Education Patient Instructions Indication:Skin burn Start:13-May-2022 Instruction Type:Provider Instructions for Treatment How to Access Health Informa tion Online using Patient Portal and [employer] Indication:Nonsmoker Start:09-May-2022 Instruction Type:Patient Education Patient Instructions Indication:Nonsmoker Start:09-May-2022 Instruction Type:Provider Instructions for Treatment Patient Instructions Indication:BMI 33.0-33.9,adult Start:13-Apr-2022 Instruction Type:Provider Instructions for Treatment How to Access Health Informa tion Online using Patient Portal and [employer] Indication:BMI 33.0-33.9,adult Start:13-Apr-2022 Instruction Type:Patient Education Patient Instructions Indication:Nonsmoker Start:24-Feb-2022 Instruction Type:Provider Instructions for Treatment How to Access Health Informa tion Online using Patient Portal and [employer] Indication:Nonsmoker Start:24-Feb-2022 Instruction Type:Patient Education Patient Instructions Indication:BMI 31.0-31.9,adult Start:30-Jan-2022 Instruction Type:Provider Instructions for Treatment How to Access Health Informa tion Online using Patient Portal and [employer] Indication:BMI 31.0-31.9,adult Start:30-Jan-2022 Instruction Type:Patient Education Patient Instructions Indication:BMI 31.0-31.9,adult Start:16-Jan-2022 Instruction Type:Provider Instructions for Treatment How to Access Health Informa tion Online using Patient Portal and [employer] Indication:BMI 31.0-31.9,adult Start:16-Jan-2022 Instruction Type:Patient Education Patient Instructions Indication:BMI 29.0-29.9,adult Start:08-Dec-2021 Instruction Type:Provider Instructions for Treatment How to Access Health Informa tion Online using Patient Portal and [employer] Indication:BMI 29.0-29.9,adult Start:08-Dec-2021 Instruction Type:Patient Education Patient Instructions Indication:Fever Start:01-Nov-2021 Instruction Type:Provider Instructions for Treatment How to Access Health Informa tion Online using Patient Portal and [employer] Indication:Fever Start:01-Nov-2021 Instruction Type:Patient Education Patient Instructions Indication:BMI 32.0-32.9,adult Start:27-Oct-2021 Instruction Type:Provider Instructions for Treatment How to Access Health Informa tion Online using Patient Portal and [employer] Indication:BMI 32.0-32.9,adult Start:27-Oct-2021 Instruction Type:Patient Education Patient Instructions Indication:BMI 32.0-32.9,adult Start:02-May-2021 Instruction Type:Provider Instructions for Treatment How to Access Health Informa tion Online using Patient Portal and [employer] Indication:Nonsmoker Start:02-May-2021 Instruction Type:Patient Education Patient Instructions Indication:Nonsmoker Start:22-Feb-2021 Instruction Type:Provider Instructions for Treatment How to Access Health Informa tion Online using Patient Portal and [employer] Indication:Nonsmoker Start:22-Feb-2021 Instruction Type:Patient Education How to Access Health Informa tion Online using Patient Portal and [employer] Indication:Nonsmoker Start:09-Feb-2021 Instruction Type:Patient Education Patient [...] tion Online using Patient Portal and [employer] Indication:BMI 32.0-32.9,adult Start:28-Sep-2022 Instruction Type:Patient Education Patient Instructions Indication:BMI 32.0-32.9,adult Start:30-Aug-2022 Instruction Type:Provider Instructions for Treatment How to Access Health Informa tion Online using Patient Portal and [employer] Indication:BMI 32.0-32.9,adult Start:30-Aug-2022 Instruction Type:Patient Education Patient Instructions Indication:BMI 32.0-32.9,adult Start:05-Jul-2022 Instruction Type:Provider Instructions for Treatment How to Access Health Informa tion Online using Patient Portal and [employer] Indication:BMI 32.0-32.9,adult Start:05-Jul-2022 Instruction Type:Patient Education Patient Instructions Indication:Skin burn Start:13-May-2022 Instruction Type:Provider Instructions for Treatment How to Access Health Informa tion Online using Patient Portal and [employer] Indication:Nonsmoker Start:09-May-2022 Instruction Type:Patient Education Patient Instructions Indication:Nonsmoker Start:09-May-2022 Instruction Type:Provider Instructions for Treatment Patient Instructions Indication:BMI 33.0-33.9,adult Start:13-Apr-2022 Instruction Type:Provider Instructions for Treatment How to Access Health Informa tion Online using Patient Portal and [employer] Indication:BMI 33.0-33.9,adult Start:13-Apr-2022 Instruction Type:Patient Education Patient Instructions Indication:Nonsmoker Start:24-Feb-2022 Instruction Type:Provider Instructions for Treatment How to Access Health Informa tion Online using Patient Portal and [employer] Indication:Nonsmoker Start:24-Feb-2022 Instruction Type:Patient Education Patient Instructions Indication:BMI 31.0-31.9,adult Start:30-Jan-2022 Instruction Type:Provider Instructions for Treatment How to Access Health Informa tion Online using Patient Portal and [employer] Apps Indication:BMI 31.0-31.9,adult Start:30-Jan-2022 Instruction Type:Patient Education Patient Instructions Indication:BMI 31.0-31.9,adult Start:16-Jan-2022 Instruction Type:Provider Instructions for Treatment How to Access Health Informa tion Online using Patient Portal and [employer] Apps Indication:BMI 31.0-31.9,adult Start:16-Jan-2022 Instruction Type:Patient Education Patient Instructions Indication:BMI 29.0-29.9,adult Start:08-Dec-2021 Instruction Type:Provider Instructions for Treatment How to Access Health Informa tion Online using Patient Portal and [employer]rd [employer] Apps Indication:BMI 29.0-29.9,adult Start:08-Dec-2021 Instruction Type:Patient Education Patient Instructions Indication:Fever Start:01-Nov-2021 Instruction Type:Provider Instructions for Treatment How to Access Health Informa tion Online using Patient Portal and [employer] Apps Indication:Fever Start:01-Nov-2021 Instruction Type:Patient Education Patient Instructions Indication:BMI 32.0-32.9,adult Start:27-Oct-2021 Instruction Type:Provider Instructions for Treatment How to Access Health Informa tion Online using Patient Portal and [employer] Apps Indication:BMI 32.0-32.9,adult Start:27-Oct-2021 Instruction Type:Patient Education Patient Instructions Indication:BMI 32.0-32.9,adult Start:02-May-2021 Instruction Type:Provider Instructions for Treatment How to Access Health Informa tion Online using Patient Portal and [employer] Apps Indication:Nonsmoker Start:02-May-2021 Instruction Type:Patient Education Patient Instructions Indication:Nonsmoker Start:22-Feb-2021 Instruction Type:Provider Instructions for Treatment How to Access Health Informa tion Online using Patient Portal and [employer] Apps Indication:Nonsmoker Start:22-Feb-2021 Instruction Type:Patient Education How to Access Health Informa tion Online using Patient Portal and [employer] Apps Indication:Nonsmoker Start:09-Feb-2021 Instruction Type:Patient Education Patient [...] tion Online using Patient Portal and [employer] Apps Indication:BMI 32.0-32.9,adult Start:28-Sep-2022 Instruction Type:Patient Education Patient Instructions Indication:BMI 32.0-32.9,adult Start:30-Aug-2022 Instruction Type:Provider Instructions for Treatment How to Access Health Informa tion Online using Patient Portal and [employer] Apps Indication:BMI 32.0-32.9,adult Start:30-Aug-2022 Instruction Type:Patient Education Patient Instructions Indication:BMI 32.0-32.9,adult Start:05-Jul-2022 Instruction Type:Provider Instructions for Treatment How to Access Health Informa tion Online using Patient Portal and [employer] Apps Indication:BMI 32.0-32.9,adult Start:05-Jul-2022 Instruction Type:Patient Education Patient Instructions Indication:Skin burn Start:13-May-2022 Instruction Type:Provider Instructions for Treatment How to Access Health Informa tion Online using Patient Portal and [employer] Apps Indication:Nonsmoker Start:09-May-2022 Instruction Type:Patient Education Patient Instructions Indication:Nonsmoker Start:09-May-2022 Instruction Type:Provider Instructions for Treatment Patient Instructions Indication:BMI 33.0-33.9,adult Start:13-Apr-2022 Instruction Type:Provider Instructions for Treatment How to Access Health Informa tion Online using Patient Portal and [employer] Apps Indication:BMI 33.0-33.9,adult Start:13-Apr-2022 Instruction Type:Patient Education Patient Instructions Indication:Nonsmoker Start:24-Feb-2022 Instruction Type:Provider Instructions for Treatment How to Access Health Informa tion Online using Patient Portal and [employer] Apps Indication:Nonsmoker Start:24-Feb-2022 Instruction Type:Patient Education Patient Instructions Indication:BMI 31.0-31.9,adult Start:30-Jan-2022 Instruction Type:Provider Instructions for Treatment How to Access Health Informa tion Online using Patient Portal and [employer] Apps Indication:BMI 31.0-31.9,adult Start:30-Jan-2022 Instruction Type:Patient Education Patient Instructions Indication:BMI 31.0-31.9,adult Start:16-Jan-2022 Instruction Type:Provider Instructions for Treatment How to Access Health Informa tion Online using Patient Portal and [employer] Apps Indication:BMI 31.0-31.9,adult Start:16-Jan-2022 Instruction Type:Patient Education Patient Instructions Indication:BMI 29.0-29.9,adult Start:08-Dec-2021 Instruction Type:Provider Instructions for Treatment How to Access Health Informa tion Online using Patient Portal and [employer] Apps Indication:BMI 29.0-29.9,adult Start:08-Dec-2021 Instruction Type:Patient Education Patient Instructions Indication:Fever Start:01-Nov-2021 Instruction Type:Provider Instructions for Treatment How to Access Health Informa tion Online using Patient Portal and [employer] Apps Indication:Fever Start:01-Nov-2021 Instruction Type:Patient Education Patient Instructions Indication:BMI 32.0-32.9,adult Start:27-Oct-2021 Instruction Type:Provider Instructions for Treatment How to Access Health Informa tion Online using Patient Portal and [employer] Apps Indication:BMI 32.0-32.9,adult Start:27-Oct-2021 Instruction Type:Patient Education Patient Instructions Indication:BMI 32.0-32.9,adult Start:02-May-2021 Instruction Type:Provider Instructions for Treatment How to Access Health Informa tion Online using Patient Portal and [employer] Apps Indication:Nonsmoker Start:02-May-2021 Instruction Type:Patient Education Patient Instructions Indication:Nonsmoker Start:22-Feb-2021 Instruction Type:Provider Instructions for Treatment How to Access Health Informa tion Online using Patient Portal and [employer] Apps Indication:Nonsmoker Start:22-Feb-2021 Instruction Type:Patient Education How to Access Health Informa tion Online using Patient Portal and [employer] Apps Indication:Nonsmoker Start:09-Feb-2021 Instruction Type:Patient Education Patient [...] tion Online using Patient Portal and [employer] Apps Indication:BMI 32.0-32.9,adult Start:28-Sep-2022 Instruction Type:Patient Education Patient Instructions Indication:BMI 32.0-32.9,adult Start:30-Aug-2022 Instruction Type:Provider Instructions for Treatment How to Access Health Informa tion Online using Patient Portal and [employer] Apps Indication:BMI 32.0-32.9,adult Start:30-Aug-2022 Instruction Type:Patient Education Patient Instructions Indication:BMI 32.0-32.9,adult Start:05-Jul-2022 Instruction Type:Provider Instructions for Treatment How to Access Health Informa tion Online using Patient Portal and [employer] Apps Indication:BMI 32.0-32.9,adult Start:05-Jul-2022 Instruction Type:Patient Education Patient Instructions Indication:Skin burn Start:13-May-2022 Instruction Type:Provider Instructions for Treatment How to Access Health Informa tion Online using Patient Portal and [employer] Apps Indication:Nonsmoker Start:09-May-2022 Instruction Type:Patient Education Patient Instructions Indication:Nonsmoker Start:09-May-2022 Instruction Type:Provider Instructions for Treatment Patient Instructions Indication:BMI 33.0-33.9,adult Start:13-Apr-2022 Instruction Type:Provider Instructions for Treatment How to Access Health Informa tion Online using Patient Portal and [employer] Apps Indication:BMI 33.0-33.9,adult Start:13-Apr-2022 Instruction Type:Patient Education Patient Instructions Indication:Nonsmoker Start:24-Feb-2022 Instruction Type:Provider Instructions for Treatment How to Access Health Informa tion Online using Patient Portal and [employer] Apps Indication:Nonsmoker Start:24-Feb-2022 Instruction Type:Patient Education Patient Instructions Indication:BMI 31.0-31.9,adult Start:30-Jan-2022 Instruction Type:Provider Instructions for Treatment How to Access Health Informa tion Online using Patient Portal and [employer] Apps Indication:BMI 31.0-31.9,adult Start:30-Jan-2022 Instruction Type:Patient Education Patient Instructions Indication:BMI 31.0-31.9,adult Start:16-Jan-2022 Instruction Type:Provider Instructions for Treatment How to Access Health Informa tion Online using Patient Portal and [employer] Apps Indication:BMI 31.0-31.9,adult Start:16-Jan-2022 Instruction Type:Patient Education Patient Instructions Indication:BMI 29.0-29.9,adult Start:08-Dec-2021 Instruction Type:Provider Instructions for Treatment How to Access Health Informa tion Online using Patient Portal and [employer] Apps Indication:BMI 29.0-29.9,adult Start:08-Dec-2021 Instruction Type:Patient Education Patient Instructions Indication:Fever Start:01-Nov-2021 Instruction Type:Provider Instructions for Treatment How to Access Health Informa tion Online using Patient Portal and [employer] Apps Indication:Fever Start:01-Nov-2021 Instruction Type:Patient Education Patient Instructions Indication:BMI 32.0-32.9,adult Start:27-Oct-2021 Instruction Type:Provider Instructions for Treatment How to Access Health Informa tion Online using Patient Portal and [employer] Apps Indication:BMI 32.0-32.9,adult Start:27-Oct-2021 Instruction Type:Patient Education Patient Instructions Indication:BMI 32.0-32.9,adult Start:02-May-2021 Instruction Type:Provider Instructions for Treatment How to Access Health Informa tion Online using Patient Portal and [employer] Apps Indication:Nonsmoker Start:02-May-2021 Instruction Type:Patient Education Patient Instructions Indication:Nonsmoker Start:22-Feb-2021 Instruction Type:Provider Instructions for Treatment How to Access Health Informa tion Online using Patient Portal and [employer] Apps Indication:Nonsmoker Start:22-Feb-2021 Instruction Type:Patient Education How to Access Health Informa tion Online using Patient Portal and [employer] Apps Indication:Nonsmoker Start:09-Feb-2021 Instruction Type:Patient Education Patient [...] tion Online using Patient Portal and [employer] Apps Indication:BMI 32.0-32.9,adult Start:28-Sep-2022 Instruction Type:Patient Education Patient Instructions Indication:BMI 32.0-32.9,adult Start:30-Aug-2022 Instruction Type:Provider Instructions for Treatment How to Access Health Informa tion Online using Patient Portal and [employer] Apps Indication:BMI 32.0-32.9,adult Start:30-Aug-2022 Instruction Type:Patient Education Patient Instructions Indication:BMI 32.0-32.9,adult Start:05-Jul-2022 Instruction Type:Provider Instructions for Treatment How to Access Health Informa tion Online using Patient Portal and [employer] Apps Indication:BMI 32.0-32.9,adult Start:05-Jul-2022 Instruction Type:Patient Education Patient Instructions Indication:Skin burn Start:13-May-2022 Instruction Type:Provider Instructions for Treatment How to Access Health Informa tion Online using Patient Portal and [employer] Apps Indication:Nonsmoker Start:09-May-2022 Instruction Type:Patient Education Patient Instructions Indication:Nonsmoker Start:09-May-2022 Instruction Type:Provider Instructions for Treatment Patient Instructions Indication:BMI 33.0-33.9,adult Start:13-Apr-2022 Instruction Type:Provider Instructions for Treatment How to Access Health Informa tion Online using Patient Portal and [employer] Apps Indication:BMI 33.0-33.9,adult Start:13-Apr-2022 Instruction Type:Patient Education Patient Instructions Indication:Nonsmoker Start:24-Feb-2022 Instruction Type:Provider Instructions for Treatment How to Access Health Informa tion Online using Patient Portal and [employer]rd [employer] Apps Indication:Nonsmoker Start:24-Feb-2022 Instruction Type:Patient Education Patient Instructions Indication:BMI 31.0-31.9,adult Start:30-Jan-2022 Instruction Type:Provider Instructions for Treatment How to Access Health Informa tion Online using Patient Portal and [employer] Apps Indication:BMI 31.0-31.9,adult Start:30-Jan-2022 Instruction Type:Patient Education Patient Instructions Indication:BMI 31.0-31.9,adult Start:16-Jan-2022 Instruction Type:Provider Instructions for Treatment How to Access Health Informa tion Online using Patient Portal and [employer] Apps Indication:BMI 31.0-31.9,adult Start:16-Jan-2022 Instruction Type:Patient Education Patient Instructions Indication:BMI 29.0-29.9,adult Start:08-Dec-2021 Instruction Type:Provider Instructions for Treatment How to Access Health Informa tion Online using Patient Portal and [employer]rd [employer] Apps Indication:BMI 29.0-29.9,adult Start:08-Dec-2021 Instruction Type:Patient Education Patient Instructions Indication:Fever Start:01-Nov-2021 Instruction Type:Provider Instructions for Treatment How to Access Health Informa tion Online using Patient Portal and [employer] Apps Indication:Fever Start:01-Nov-2021 Instruction Type:Patient Education Patient Instructions Indication:BMI 32.0-32.9,adult Start:27-Oct-2021 Instruction Type:Provider Instructions for Treatment How to Access Health Informa tion Online using Patient Portal and [employer] Apps Indication:BMI 32.0-32.9,adult Start:27-Oct-2021 Instruction Type:Patient Education Patient Instructions Indication:BMI 32.0-32.9,adult Start:02-May-2021 Instruction Type:Provider Instructions for Treatment How to Access Health Informa tion Online using Patient Portal and [employer] Apps Indication:Nonsmoker Start:02-May-2021 Instruction Type:Patient Education Patient Instructions Indication:Nonsmoker Start:22-Feb-2021 Instruction Type:Provider Instructions for Treatment How to Access Health Informa tion Online using Patient Portal and [employer] Apps Indication:Nonsmoker Start:22-Feb-2021 Instruction Type:Patient Education How to Access Health Informa tion Online using Patient Portal and [employer] Apps Indication:Nonsmoker Start:09-Feb-2021 Instruction Type:Patient Education Patient [...] tion Online using Patient Portal and [employer] Apps Indication:BMI 32.0-32.9,adult Start:28-Sep-2022 Instruction Type:Patient Education Patient Instructions Indication:BMI 32.0-32.9,adult Start:30-Aug-2022 Instruction Type:Provider Instructions for Treatment How to Access Health Informa tion Online using Patient Portal and [employer] Apps Indication:BMI 32.0-32.9,adult Start:30-Aug-2022 Instruction Type:Patient Education Patient Instructions Indication:BMI 32.0-32.9,adult Start:05-Jul-2022 Instruction Type:Provider Instructions for Treatment How to Access Health Informa tion Online using Patient Portal and [employer] Apps Indication:BMI 32.0-32.9,adult Start:05-Jul-2022 Instruction Type:Patient Education Patient Instructions Indication:Skin burn Start:13-May-2022 Instruction Type:Provider Instructions for Treatment How to Access Health Informa tion Online using Patient Portal and [employer] Apps Indication:Nonsmoker Start:09-May-2022 Instruction Type:Patient Education Patient Instructions Indication:Nonsmoker Start:09-May-2022 Instruction Type:Provider Instructions for Treatment Patient Instructions Indication:BMI 33.0-33.9,adult Start:13-Apr-2022 Instruction Type:Provider Instructions for Treatment How to Access Health Informa tion Online using Patient Portal and [employer] Apps Indication:BMI 33.0-33.9,adult Start:13-Apr-2022 Instruction Type:Patient Education Patient Instructions Indication:Nonsmoker Start:24-Feb-2022 Instruction Type:Provider Instructions for Treatment How to Access Health Informa tion Online using Patient Portal and [employer] Apps Indication:Nonsmoker Start:24-Feb-2022 Instruction Type:Patient Education Patient Instructions Indication:BMI 31.0-31.9,adult Start:30-Jan-2022 Instruction Type:Provider Instructions for Treatment How to Access Health Informa tion Online using Patient Portal and [employer] Apps Indication:BMI 31.0-31.9,adult Start:30-Jan-2022 Instruction Type:Patient Education Patient Instructions Indication:BMI 31.0-31.9,adult Start:16-Jan-2022 Instruction Type:Provider Instructions for Treatment How to Access Health Informa tion Online using Patient Portal and [employer]rd [employer] Apps Indication:BMI 31.0-31.9,adult Start:16-Jan-2022 Instruction Type:Patient Education Patient Instructions Indication:BMI 29.0-29.9,adult Start:08-Dec-2021 Instruction Type:Provider Instructions for Treatment How to Access Health Informa tion Online using Patient Portal and [employer]rd [employer] Apps Indication:BMI 29.0-29.9,adult Start:08-Dec-2021 Instruction Type:Patient Education Patient Instructions Indication:Fever Start:01-Nov-2021 Instruction Type:Provider Instructions for Treatment How to Access Health Informa tion Online using Patient Portal and [employer] Apps Indication:Fever Start:01-Nov-2021 Instruction Type:Patient Education Patient Instructions Indication:BMI 32.0-32.9,adult Start:27-Oct-2021 Instruction Type:Provider Instructions for Treatment How to Access Health Informa tion Online using Patient Portal and [employer] Apps Indication:BMI 32.0-32.9,adult Start:27-Oct-2021 Instruction Type:Patient Education Patient Instructions Indication:BMI 32.0-32.9,adult Start:02-May-2021 Instruction Type:Provider Instructions for Treatment How to Access Health Informa tion Online using Patient Portal and [employer] Apps Indication:Nonsmoker Start:02-May-2021 Instruction Type:Patient Education Patient Instructions Indication:Nonsmoker Start:22-Feb-2021 Instruction Type:Provider Instructions for Treatment How to Access Health Informa tion Online using Patient Portal and [employer] Apps Indication:Nonsmoker Start:22-Feb-2021 Instruction Type:Patient Education How to Access Health Informa tion Online using Patient Portal and [employer]rd [employer] Apps Indication:Nonsmoker Start:09-Feb-2021 Instruction Type:Patient Education Patient [...] tion Online using Patient Portal and [employer]rd [employer] Apps Indication:Diarrhea with dehydration Start:27-Dec-2022 Instruction Type:Patient Education Patient Instructions Indication:BMI 32.0-32.9,adult Start:28-Sep-2022 Instruction Type:Provider Instructions for Treatment How to Access Health Informa tion Online using Patient Portal and [employer] Apps Indication:BMI 32.0-32.9,adult Start:28-Sep-2022 Instruction Type:Patient Education Patient Instructions Indication:BMI 32.0-32.9,adult Start:30-Aug-2022 Instruction Type:Provider Instructions for Treatment How to Access Health Informa tion Online using Patient Portal and [employer]rd [employer] Apps Indication:BMI 32.0-32.9,adult Start:30-Aug-2022 Instruction Type:Patient Education Patient Instructions Indication:BMI 32.0-32.9,adult Start:05-Jul-2022 Instruction Type:Provider Instructions for Treatment How to Access Health Informa tion Online using Patient Portal and [employer] Apps Indication:BMI 32.0-32.9,adult Start:05-Jul-2022 Instruction Type:Patient Education Patient Instructions Indication:Skin burn Start:13-May-2022 Instruction Type:Provider Instructions for Treatment How to Access Health Informa tion Online using Patient Portal and [employer] Apps Indication:Nonsmoker Start:09-May-2022 Instruction Type:Patient Education Patient Instructions Indication:Nonsmoker Start:09-May-2022 Instruction Type:Provider Instructions for Treatment Patient Instructions Indication:BMI 33.0-33.9,adult Start:13-Apr-2022 Instruction Type:Provider Instructions for Treatment How to Access Health Informa tion Online using Patient Portal and [employer] Apps Indication:BMI 33.0-33.9,adult Start:13-Apr-2022 Instruction Type:Patient Education Patient Instructions Indication:Nonsmoker Start:24-Feb-2022 Instruction Type:Provider Instructions for Treatment How to Access Health Informa tion Online using Patient Portal and [employer] Apps Indication:Nonsmoker Start:24-Feb-2022 Instruction Type:Patient Education Patient Instructions Indication:BMI 31.0-31.9,adult Start:30-Jan-2022 Instruction Type:Provider Instructions for Treatment How to Access Health Informa tion Online using Patient Portal and [employer] Apps Indication:BMI 31.0-31.9,adult Start:30-Jan-2022 Instruction Type:Patient Education Patient Instructions Indication:BMI 31.0-31.9,adult Start:16-Jan-2022 Instruction Type:Provider Instructions for Treatment How to Access Health Informa tion Online using Patient Portal and [employer] Apps Indication:BMI 31.0-31.9,adult Start:16-Jan-2022 Instruction Type:Patient Education Patient Instructions Indication:BMI 29.0-29.9,adult Start:08-Dec-2021 Instruction Type:Provider Instructions for Treatment How to Access Health Informa tion Online using Patient Portal and [employer] Apps Indication:BMI 29.0-29.9,adult Start:08-Dec-2021 Instruction Type:Patient Education Patient Instructions Indication:Fever Start:01-Nov-2021 Instruction Type:Provider Instructions for Treatment How to Access Health Informa tion Online using Patient Portal and [employer] Apps Indication:Fever Start:01-Nov-2021 Instruction Type:Patient Education Patient Instructions Indication:BMI 32.0-32.9,adult Start:27-Oct-2021 Instruction Type:Provider Instructions for Treatment How to Access Health Informa tion Online using Patient Portal and [employer] Apps Indication:BMI 32.0-32.9,adult Start:27-Oct-2021 Instruction Type:Patient Education Patient Instructions Indication:BMI 32.0-32.9,adult Start:02-May-2021 Instruction Type:Provider Instructions for Treatment How to Access Health Informa tion Online using Patient Portal and [employer] Apps Indication:Nonsmoker Start:02-May-2021 Instruction Type:Patient Education Patient Instructions Indication:Nonsmoker Start:22-Feb-2021 Instruction Type:Provider Instructions for Treatment How to Access Health Informa tion Online using Patient Portal and [employer] Apps Indication:Nonsmoker Start:22-Feb-2021 Instruction Type:Patient Education How to Access Health Informa tion Online using Patient Portal and [employer] Apps Indication:Nonsmoker Start:09-Feb-2021 Instruction Type:Patient Education Patient [...] tion Online using Patient Portal and [employer] Apps Indication:Headache, acute Start:27-Mar-2023 Instruction Type:Patient Education Patient Instructions Indication:Diarrhea with dehydration Start:27-Dec-2022 Instruction Type:Provider Instructions for Treatment How to Access Health Informa tion Online using Patient Portal and [employer] Apps Indication:Diarrhea with dehydration Start:27-Dec-2022 Instruction Type:Patient Education Patient Instructions Indication:BMI 32.0-32.9,adult Start:28-Sep-2022 Instruction Type:Provider Instructions for Treatment How to Access Health Informa tion Online using Patient Portal and [employer] Apps Indication:BMI 32.0-32.9,adult Start:28-Sep-2022 Instruction Type:Patient Education Patient Instructions Indication:BMI 32.0-32.9,adult Start:30-Aug-2022 Instruction Type:Provider Instructions for Treatment How to Access Health Informa tion Online using Patient Portal and [employer] Apps Indication:BMI 32.0-32.9,adult Start:30-Aug-2022 Instruction Type:Patient Education Patient Instructions Indication:BMI 32.0-32.9,adult Start:05-Jul-2022 Instruction Type:Provider Instructions for Treatment How to Access Health Informa tion Online using Patient Portal and [employer] Apps Indication:BMI 32.0-32.9,adult Start:05-Jul-2022 Instruction Type:Patient Education Patient Instructions Indication:Skin burn Start:13-May-2022 Instruction Type:Provider Instructions for Treatment How to Access Health Informa tion Online using Patient Portal and [employer] Apps Indication:Nonsmoker Start:09-May-2022 Instruction Type:Patient Education Patient Instructions Indication:Nonsmoker Start:09-May-2022 Instruction Type:Provider Instructions for Treatment Patient Instructions Indication:BMI 33.0-33.9,adult Start:13-Apr-2022 Instruction Type:Provider Instructions for Treatment How to Access Health Informa tion Online using Patient Portal and [employer] Apps Indication:BMI 33.0-33.9,adult Start:13-Apr-2022 Instruction Type:Patient Education Patient Instructions Indication:Nonsmoker Start:24-Feb-2022 Instruction Type:Provider Instructions for Treatment How to Access Health Informa tion Online using Patient Portal and [employer] Apps Indication:Nonsmoker Start:24-Feb-2022 Instruction Type:Patient Education Patient Instructions Indication:BMI 31.0-31.9,adult Start:30-Jan-2022 Instruction Type:Provider Instructions for Treatment How to Access Health Informa tion Online using Patient Portal and [employer] Apps Indication:BMI 31.0-31.9,adult Start:30-Jan-2022 Instruction Type:Patient Education Patient Instructions Indication:BMI 31.0-31.9,adult Start:16-Jan-2022 Instruction Type:Provider Instructions for Treatment How to Access Health Informa tion Online using Patient Portal and [employer] Apps Indication:BMI 31.0-31.9,adult Start:16-Jan-2022 Instruction Type:Patient Education Patient Instructions Indication:BMI 29.0-29.9,adult Start:08-Dec-2021 Instruction Type:Provider Instructions for Treatment How to Access Health Informa tion Online using Patient Portal and [employer] Apps Indication:BMI 29.0-29.9,adult Start:08-Dec-2021 Instruction Type:Patient Education Patient Instructions Indication:Fever Start:01-Nov-2021 Instruction Type:Provider Instructions for Treatment How to Access Health Informa tion Online using Patient Portal and [employer] Apps Indication:Fever Start:01-Nov-2021 Instruction Type:Patient Education Patient Instructions Indication:BMI 32.0-32.9,adult Start:27-Oct-2021 Instruction Type:Provider Instructions for Treatment How to Access Health Informa tion Online using Patient Portal and [employer] Apps Indication:BMI 32.0-32.9,adult Start:27-Oct-2021 Instruction Type:Patient Education Patient Instructions Indication:BMI 32.0-32.9,adult Start:02-May-2021 Instruction Type:Provider Instructions for Treatment How to Access Health Informa tion Online using Patient Portal and [employer] Apps Indication:Nonsmoker Start:02-May-2021 Instruction Type:Patient Education Patient Instructions Indication:Nonsmoker Start:22-Feb-2021 Instruction Type:Provider Instructions for Treatment How to Access Health Informa tion Online using Patient Portal and [employer] Apps Indication:Nonsmoker Start:22-Feb-2021 Instruction Type:Patient Education How to Access Health Informa tion Online using Patient Portal and [employer] Apps Indication:Nonsmoker Start:09-Feb-2021 Instruction Type:Patient Education Patient [...] tion Online using Patient Portal and [employer] Apps Indication:Nonsmoker Start:05-Apr-2023 Instruction Type:Patient Education Patient Instructions Indication:Headache, acute Start:27-Mar-2023 Instruction Type:Provider Instructions for Treatment How to Access Health Informa tion Online using Patient Portal and [employer] Apps Indication:Headache, acute Start:27-Mar-2023 Instruction Type:Patient Education Patient Instructions Indication:Diarrhea with dehydration Start:27-Dec-2022 Instruction Type:Provider Instructions for Treatment How to Access Health Informa tion Online using Patient Portal and [employer] Apps Indication:Diarrhea with dehydration Start:27-Dec-2022 Instruction Type:Patient Education Patient Instructions Indication:BMI 32.0-32.9,adult Start:28-Sep-2022 Instruction Type:Provider Instructions for Treatment How to Access Health Informa tion Online using Patient Portal and [employer] Apps Indication:BMI 32.0-32.9,adult Start:28-Sep-2022 Instruction Type:Patient Education Patient Instructions Indication:BMI 32.0-32.9,adult Start:30-Aug-2022 Instruction Type:Provider Instructions for Treatment How to Access Health Informa tion Online using Patient Portal and [employer] Apps Indication:BMI 32.0-32.9,adult Start:30-Aug-2022 Instruction Type:Patient Education Patient Instructions Indication:BMI 32.0-32.9,adult Start:05-Jul-2022 Instruction Type:Provider Instructions for Treatment How to Access Health Informa tion Online using Patient Portal and [employer] Apps Indication:BMI 32.0-32.9,adult Start:05-Jul-2022 Instruction Type:Patient Education Patient Instructions Indication:Skin burn Start:13-May-2022 Instruction Type:Provider Instructions for Treatment How to Access Health Informa tion Online using Patient Portal and [employer] Apps Indication:Nonsmoker Start:09-May-2022 Instruction Type:Patient Education Patient Instructions Indication:Nonsmoker Start:09-May-2022 Instruction Type:Provider Instructions for Treatment Patient Instructions Indication:BMI 33.0-33.9,adult Start:13-Apr-2022 Instruction Type:Provider Instructions for Treatment How to Access Health Informa tion Online using Patient Portal and [employer] Apps Indication:BMI 33.0-33.9,adult Start:13-Apr-2022 Instruction Type:Patient Education Patient Instructions Indication:Nonsmoker Start:24-Feb-2022 Instruction Type:Provider Instructions for Treatment How to Access Health Informa tion Online using Patient Portal and [employer] Apps Indication:Nonsmoker Start:24-Feb-2022 Instruction Type:Patient Education Patient Instructions Indication:BMI 31.0-31.9,adult Start:30-Jan-2022 Instruction Type:Provider Instructions for Treatment How to Access Health Informa tion Online using Patient Portal and [employer] Apps Indication:BMI 31.0-31.9,adult Start:30-Jan-2022 Instruction Type:Patient Education Patient Instructions Indication:BMI 31.0-31.9,adult Start:16-Jan-2022 Instruction Type:Provider Instructions for Treatment How to Access Health Informa tion Online using Patient Portal and [employer] Apps Indication:BMI 31.0-31.9,adult Start:16-Jan-2022 Instruction Type:Patient Education Patient Instructions Indication:BMI 29.0-29.9,adult Start:08-Dec-2021 Instruction Type:Provider Instructions for Treatment How to Access Health Informa tion Online using Patient Portal and [employer] Apps Indication:BMI 29.0-29.9,adult Start:08-Dec-2021 Instruction Type:Patient Education Patient Instructions Indication:Fever Start:01-Nov-2021 Instruction Type:Provider Instructions for Treatment How to Access Health Informa tion Online using Patient Portal and [employer] Apps Indication:Fever Start:01-Nov-2021 Instruction Type:Patient Education Patient Instructions Indication:BMI 32.0-32.9,adult Start:27-Oct-2021 Instruction Type:Provider Instructions for Treatment How to Access Health Informa tion Online using Patient Portal and [employer] Apps Indication:BMI 32.0-32.9,adult Start:27-Oct-2021 Instruction Type:Patient Education Patient Instructions Indication:BMI 32.0-32.9,adult Start:02-May-2021 Instruction Type:Provider Instructions for Treatment How to Access Health Informa tion Online using Patient Portal and [employer] Apps Indication:Nonsmoker Start:02-May-2021 Instruction Type:Patient Education Patient Instructions Indication:Nonsmoker Start:22-Feb-2021 Instruction Type:Provider Instructions for Treatment How to Access Health Informa tion Online using Patient Portal and [employer] Apps Indication:Nonsmoker Start:22-Feb-2021 Instruction Type:Patient Education How to Access Health Informa tion Online using Patient Portal and [employer] Apps Indication:Nonsmoker Start:09-Feb-2021 Instruction Type:Patient Education Patient [...] tion Online using Patient Portal and [employer] Apps Indication:Nonsmoker Start:23-Apr-2023 Instruction Type:Patient Education Patient Instructions Indication:Nonsmoker Start:05-Apr-2023 Instruction Type:Provider Instructions for Treatment How to Access Health Informa tion Online using Patient Portal and [employer] Apps Indication:Nonsmoker Start:05-Apr-2023 Instruction Type:Patient Education Patient Instructions Indication:Headache, acute Start:27-Mar-2023 Instruction Type:Provider Instructions for Treatment How to Access Health Informa tion Online using Patient Portal and [employer] Apps Indication:Headache, acute Start:27-Mar-2023 Instruction Type:Patient Education Patient Instructions Indication:Diarrhea with dehydration Start:27-Dec-2022 Instruction Type:Provider Instructions for Treatment How to Access Health Informa tion Online using Patient Portal and [employer] Apps Indication:Diarrhea with dehydration Start:27-Dec-2022 Instruction Type:Patient Education Patient Instructions Indication:BMI 32.0-32.9,adult Start:28-Sep-2022 Instruction Type:Provider Instructions for Treatment How to Access Health Informa tion Online using Patient Portal and [employer] Apps Indication:BMI 32.0-32.9,adult Start:28-Sep-2022 Instruction Type:Patient Education Patient Instructions Indication:BMI 32.0-32.9,adult Start:30-Aug-2022 Instruction Type:Provider Instructions for Treatment How to Access Health Informa tion Online using Patient Portal and [employer] Apps Indication:BMI 32.0-32.9,adult Start:30-Aug-2022 Instruction Type:Patient Education Patient Instructions Indication:BMI 32.0-32.9,adult Start:05-Jul-2022 Instruction Type:Provider Instructions for Treatment How to Access Health Informa tion Online using Patient Portal and [employer] Apps Indication:BMI 32.0-32.9,adult Start:05-Jul-2022 Instruction Type:Patient Education Patient Instructions Indication:Skin burn Start:13-May-2022 Instruction Type:Provider Instructions for Treatment How to Access Health Informa tion Online using Patient Portal and [employer] Apps Indication:Nonsmoker Start:09-May-2022 Instruction Type:Patient Education Patient Instructions Indication:Nonsmoker Start:09-May-2022 Instruction Type:Provider Instructions for Treatment Patient Instructions Indication:BMI 33.0-33.9,adult Start:13-Apr-2022 Instruction Type:Provider Instructions for Treatment How to Access Health Informa tion Online using Patient Portal and [employer] Apps Indication:BMI 33.0-33.9,adult Start:13-Apr-2022 Instruction Type:Patient Education Patient Instructions Indication:Nonsmoker Start:24-Feb-2022 Instruction Type:Provider Instructions for Treatment How to Access Health Informa tion Online using Patient Portal and [employer] Apps Indication:Nonsmoker Start:24-Feb-2022 Instruction Type:Patient Education Patient Instructions Indication:BMI 31.0-31.9,adult Start:30-Jan-2022 Instruction Type:Provider Instructions for Treatment How to Access Health Informa tion Online using Patient Portal and [employer] Apps Indication:BMI 31.0-31.9,adult Start:30-Jan-2022 Instruction Type:Patient Education Patient Instructions Indication:BMI 31.0-31.9,adult Start:16-Jan-2022 Instruction Type:Provider Instructions for Treatment How to Access Health Informa tion Online using Patient Portal and [employer] Apps Indication:BMI 31.0-31.9,adult Start:16-Jan-2022 Instruction Type:Patient Education Patient Instructions Indication:BMI 29.0-29.9,adult Start:08-Dec-2021 Instruction Type:Provider Instructions for Treatment How to Access Health Informa tion Online using Patient Portal and [employer] Apps Indication:BMI 29.0-29.9,adult Start:08-Dec-2021 Instruction Type:Patient Education Patient Instructions Indication:Fever Start:01-Nov-2021 Instruction Type:Provider Instructions for Treatment How to Access Health Informa tion Online using Patient Portal and [employer] Apps Indication:Fever Start:01-Nov-2021 Instruction Type:Patient Education Patient Instructions Indication:BMI 32.0-32.9,adult Start:27-Oct-2021 Instruction Type:Provider Instructions for Treatment How to Access Health Informa tion Online using Patient Portal and [employer] Apps Indication:BMI 32.0-32.9,adult Start:27-Oct-2021 Instruction Type:Patient Education Patient Instructions Indication:BMI 32.0-32.9,adult Start:02-May-2021 Instruction Type:Provider Instructions for Treatment How to Access Health Informa tion Online using Patient Portal and [employer] Apps Indication:Nonsmoker Start:02-May-2021 Instruction Type:Patient Education Patient Instructions Indication:Nonsmoker Start:22-Feb-2021 Instruction Type:Provider Instructions for Treatment How to Access Health Informa tion Online using Patient Portal and [employer] Apps Indication:Nonsmoker Start:22-Feb-2021 Instruction Type:Patient Education How to Access Health Informa tion Online using Patient Portal and [employer] Apps Indication:Nonsmoker Start:09-Feb-2021 Instruction Type:Patient Education Patient [...] tion Online using Patient Portal and [employer] Apps Indication:Nonsmoker Start:23-Apr-2023 Instruction Type:Patient Education Patient Instructions Indication:Nonsmoker Start:05-Apr-2023 Instruction Type:Provider Instructions for Treatment How to Access Health Informa tion Online using Patient Portal and [employer] Apps Indication:Nonsmoker Start:05-Apr-2023 Instruction Type:Patient Education Patient Instructions Indication:Headache, acute Start:27-Mar-2023 Instruction Type:Provider Instructions for Treatment How to Access Health Informa tion Online using Patient Portal and [employer] Apps Indication:Headache, acute Start:27-Mar-2023 Instruction Type:Patient Education Patient Instructions Indication:Diarrhea with dehydration Start:27-Dec-2022 Instruction Type:Provider Instructions for Treatment How to Access Health Informa tion Online using Patient Portal and [employer] Apps Indication:Diarrhea with dehydration Start:27-Dec-2022 Instruction Type:Patient Education Patient Instructions Indication:BMI 32.0-32.9,adult Start:28-Sep-2022 Instruction Type:Provider Instructions for Treatment How to Access Health Informa tion Online using Patient Portal and [employer] Apps Indication:BMI 32.0-32.9,adult Start:28-Sep-2022 Instruction Type:Patient Education Patient Instructions Indication:BMI 32.0-32.9,adult Start:30-Aug-2022 Instruction Type:Provider Instructions for Treatment How to Access Health Informa tion Online using Patient Portal and [employer] Apps Indication:BMI 32.0-32.9,adult Start:30-Aug-2022 Instruction Type:Patient Education Patient Instructions Indication:BMI 32.0-32.9,adult Start:05-Jul-2022 Instruction Type:Provider Instructions for Treatment How to Access Health Informa tion Online using Patient Portal and [employer] Apps Indication:BMI 32.0-32.9,adult Start:05-Jul-2022 Instruction Type:Patient Education Patient Instructions Indication:Skin burn Start:13-May-2022 Instruction Type:Provider Instructions for Treatment How to Access Health Informa tion Online using Patient Portal and [employer] Apps Indication:Nonsmoker Start:09-May-2022 Instruction Type:Patient Education Patient Instructions Indication:Nonsmoker Start:09-May-2022 Instruction Type:Provider Instructions for Treatment Patient Instructions Indication:BMI 33.0-33.9,adult Start:13-Apr-2022 Instruction Type:Provider Instructions for Treatment How to Access Health Informa tion Online using Patient Portal and [employer] Apps Indication:BMI 33.0-33.9,adult Start:13-Apr-2022 Instruction Type:Patient Education Patient Instructions Indication:Nonsmoker Start:24-Feb-2022 Instruction Type:Provider Instructions for Treatment How to Access Health Informa tion Online using Patient Portal and [employer] Apps Indication:Nonsmoker Start:24-Feb-2022 Instruction Type:Patient Education Patient Instructions Indication:BMI 31.0-31.9,adult Start:30-Jan-2022 Instruction Type:Provider Instructions for Treatment How to Access Health Informa tion Online using Patient Portal and [employer] Apps Indication:BMI 31.0-31.9,adult Start:30-Jan-2022 Instruction Type:Patient Education Patient Instructions Indication:BMI 31.0-31.9,adult Start:16-Jan-2022 Instruction Type:Provider Instructions for Treatment How to Access Health Informa tion Online using Patient Portal and [employer] Apps Indication:BMI 31.0-31.9,adult Start:16-Jan-2022 Instruction Type:Patient Education Patient Instructions Indication:BMI 29.0-29.9,adult Start:08-Dec-2021 Instruction Type:Provider Instructions for Treatment How to Access Health Informa tion Online using Patient Portal and [employer] Apps Indication:BMI 29.0-29.9,adult Start:08-Dec-2021 Instruction Type:Patient Education Patient Instructions Indication:Fever Start:01-Nov-2021 Instruction Type:Provider Instructions for Treatment How to Access Health Informa tion Online using Patient Portal and [employer] Apps Indication:Fever Start:01-Nov-2021 Instruction Type:Patient Education Patient Instructions Indication:BMI 32.0-32.9,adult Start:27-Oct-2021 Instruction Type:Provider Instructions for Treatment How to Access Health Informa tion Online using Patient Portal and [employer] Apps Indication:BMI 32.0-32.9,adult Start:27-Oct-2021 Instruction Type:Patient Education Patient Instructions Indication:BMI 32.0-32.9,adult Start:02-May-2021 Instruction Type:Provider Instructions for Treatment How to Access Health Informa tion Online using Patient Portal and [employer] Apps Indication:Nonsmoker Start:02-May-2021 Instruction Type:Patient Education Patient Instructions Indication:Nonsmoker Start:22-Feb-2021 Instruction Type:Provider Instructions for Treatment How to Access Health Informa tion Online using Patient Portal and [employer] Apps Indication:Nonsmoker Start:22-Feb-2021 Instruction Type:Patient Education How to Access Health Informa tion Online using Patient Portal and [employer] Apps Indication:Nonsmoker Start:09-Feb-2021 Instruction Type:Patient Education Patient [...] tion Online using Patient Portal and [employer] Apps Indication:Nonsmoker Start:23-Apr-2023 Instruction Type:Patient Education Patient Instructions Indication:Nonsmoker Start:05-Apr-2023 Instruction Type:Provider Instructions for Treatment How to Access Health Informa tion Online using Patient Portal and [employer] Apps Indication:Nonsmoker Start:05-Apr-2023 Instruction Type:Patient Education Patient Instructions Indication:Headache, acute Start:27-Mar-2023 Instruction Type:Provider Instructions for Treatment How to Access Health Informa tion Online using Patient Portal and [employer] Apps Indication:Headache, acute Start:27-Mar-2023 Instruction Type:Patient Education Patient Instructions Indication:Diarrhea with dehydration Start:27-Dec-2022 Instruction Type:Provider Instructions for Treatment How to Access Health Informa tion Online using Patient Portal and [employer] Apps Indication:Diarrhea with dehydration Start:27-Dec-2022 Instruction Type:Patient Education Patient Instructions Indication:BMI 32.0-32.9,adult Start:28-Sep-2022 Instruction Type:Provider Instructions for Treatment How to Access Health Informa tion Online using Patient Portal and [employer]rd [employer] Apps Indication:BMI 32.0-32.9,adult Start:28-Sep-2022 Instruction Type:Patient Education Patient Instructions Indication:BMI 32.0-32.9,adult Start:30-Aug-2022 Instruction Type:Provider Instructions for Treatment How to Access Health Informa tion Online using Patient Portal and [employer]rd [employer] Apps Indication:BMI 32.0-32.9,adult Start:30-Aug-2022 Instruction Type:Patient Education Patient Instructions Indication:BMI 32.0-32.9,adult Start:05-Jul-2022 Instruction Type:Provider Instructions for Treatment How to Access Health Informa tion Online using Patient Portal and [employer] Apps Indication:BMI 32.0-32.9,adult Start:05-Jul-2022 Instruction Type:Patient Education Patient Instructions Indication:Skin burn Start:13-May-2022 Instruction Type:Provider Instructions for Treatment How to Access Health Informa tion Online using Patient Portal and [employer] Apps Indication:Nonsmoker Start:09-May-2022 Instruction Type:Patient Education Patient Instructions Indication:Nonsmoker Start:09-May-2022 Instruction Type:Provider Instructions for Treatment Patient Instructions Indication:BMI 33.0-33.9,adult Start:13-Apr-2022 Instruction Type:Provider Instructions for Treatment How to Access Health Informa tion Online using Patient Portal and [employer] Apps Indication:BMI 33.0-33.9,adult Start:13-Apr-2022 Instruction Type:Patient Education Patient Instructions Indication:Nonsmoker Start:24-Feb-2022 Instruction Type:Provider Instructions for Treatment How to Access Health Informa tion Online using Patient Portal and [employer] Apps Indication:Nonsmoker Start:24-Feb-2022 Instruction Type:Patient Education Patient Instructions Indication:BMI 31.0-31.9,adult Start:30-Jan-2022 Instruction Type:Provider Instructions for Treatment How to Access Health Informa tion Online using Patient Portal and [employer] Apps Indication:BMI 31.0-31.9,adult Start:30-Jan-2022 Instruction Type:Patient Education Patient Instructions Indication:BMI 31.0-31.9,adult Start:16-Jan-2022 Instruction Type:Provider Instructions for Treatment How to Access Health Informa tion Online using Patient Portal and [employer] Apps Indication:BMI 31.0-31.9,adult Start:16-Jan-2022 Instruction Type:Patient Education Patient Instructions Indication:BMI 29.0-29.9,adult Start:08-Dec-2021 Instruction Type:Provider Instructions for Treatment How to Access Health Informa tion Online using Patient Portal and [employer] Apps Indication:BMI 29.0-29.9,adult Start:08-Dec-2021 Instruction Type:Patient Education Patient Instructions Indication:Fever Start:01-Nov-2021 Instruction Type:Provider Instructions for Treatment How to Access Health Informa tion Online using Patient Portal and [employer] Apps Indication:Fever Start:01-Nov-2021 Instruction Type:Patient Education Patient Instructions Indication:BMI 32.0-32.9,adult Start:27-Oct-2021 Instruction Type:Provider Instructions for Treatment How to Access Health Informa tion Online using Patient Portal and [employer] Apps Indication:BMI 32.0-32.9,adult Start:27-Oct-2021 Instruction Type:Patient Education Patient Instructions Indication:BMI 32.0-32.9,adult Start:02-May-2021 Instruction Type:Provider Instructions for Treatment How to Access Health Informa tion Online using Patient Portal and [employer] Apps Indication:Nonsmoker Start:02-May-2021 Instruction Type:Patient Education Patient Instructions Indication:Nonsmoker Start:22-Feb-2021 Instruction Type:Provider Instructions for Treatment How to Access Health Informa tion Online using Patient Portal and [employer] Apps Indication:Nonsmoker Start:22-Feb-2021 Instruction Type:Patient Education How to Access Health Informa tion Online using Patient Portal and [employer] Apps Indication:Nonsmoker Start:09-Feb-2021 Instruction Type:Patient Education Patient [...] tion Online using Patient Portal and [employer] Apps Indication:Nonsmoker Start:07-Aug-2023 Instruction Type:Patient Education Patient Instructions Indication:Nonsmoker Start:23-Apr-2023 Instruction Type:Provider Instructions for Treatment How to Access Health Informa tion Online using Patient Portal and [employer] Apps Indication:Nonsmoker Start:23-Apr-2023 Instruction Type:Patient Education Patient Instructions Indication:Nonsmoker Start:05-Apr-2023 Instruction Type:Provider Instructions for Treatment How to Access Health Informa tion Online using Patient Portal and [employer] Apps Indication:Nonsmoker Start:05-Apr-2023 Instruction Type:Patient Education Patient Instructions Indication:Headache, acute Start:27-Mar-2023 Instruction Type:Provider Instructions for Treatment How to Access Health Informa tion Online using Patient Portal and [employer] Apps Indication:Headache, acute Start:27-Mar-2023 Instruction Type:Patient Education Patient Instructions Indication:Diarrhea with dehydration Start:27-Dec-2022 Instruction Type:Provider Instructions for Treatment How to Access Health Informa tion Online using Patient Portal and [employer] Apps Indication:Diarrhea with dehydration Start:27-Dec-2022 Instruction Type:Patient Education Patient Instructions Indication:BMI 32.0-32.9,adult Start:28-Sep-2022 Instruction Type:Provider Instructions for Treatment How to Access Health Informa tion Online using Patient Portal and [employer] Apps Indication:BMI 32.0-32.9,adult Start:28-Sep-2022 Instruction Type:Patient Education Patient Instructions Indication:BMI 32.0-32.9,adult Start:30-Aug-2022 Instruction Type:Provider Instructions for Treatment How to Access Health Informa tion Online using Patient Portal and [employer] Apps Indication:BMI 32.0-32.9,adult Start:30-Aug-2022 Instruction Type:Patient Education Patient Instructions Indication:BMI 32.0-32.9,adult Start:05-Jul-2022 Instruction Type:Provider Instructions for Treatment How to Access Health Informa tion Online using Patient Portal and [employer] Apps Indication:BMI 32.0-32.9,adult Start:05-Jul-2022 Instruction Type:Patient Education Patient Instructions Indication:Skin burn Start:13-May-2022 Instruction Type:Provider Instructions for Treatment How to Access Health Informa tion Online using Patient Portal and [employer] Apps Indication:Nonsmoker Start:09-May-2022 Instruction Type:Patient Education Patient Instructions Indication:Nonsmoker Start:09-May-2022 Instruction Type:Provider Instructions for Treatment Patient Instructions Indication:BMI 33.0-33.9,adult Start:13-Apr-2022 Instruction Type:Provider Instructions for Treatment How to Access Health Informa tion Online using Patient Portal and [employer] Apps Indication:BMI 33.0-33.9,adult Start:13-Apr-2022 Instruction Type:Patient Education Patient Instructions Indication:Nonsmoker Start:24-Feb-2022 Instruction Type:Provider Instructions for Treatment How to Access Health Informa tion Online using Patient Portal and [employer] Apps Indication:Nonsmoker Start:24-Feb-2022 Instruction Type:Patient Education Patient Instructions Indication:BMI 31.0-31.9,adult Start:30-Jan-2022 Instruction Type:Provider Instructions for Treatment How to Access Health Informa tion Online using Patient Portal and [employer] Apps Indication:BMI 31.0-31.9,adult Start:30-Jan-2022 Instruction Type:Patient Education Patient Instructions Indication:BMI 31.0-31.9,adult Start:16-Jan-2022 Instruction Type:Provider Instructions for Treatment How to Access Health Informa tion Online using Patient Portal and [employer] Apps Indication:BMI 31.0-31.9,adult Start:16-Jan-2022 Instruction Type:Patient Education Patient Instructions Indication:BMI 29.0-29.9,adult Start:08-Dec-2021 Instruction Type:Provider Instructions for Treatment How to Access Health Informa tion Online using Patient Portal and [employer] Apps Indication:BMI 29.0-29.9,adult Start:08-Dec-2021 Instruction Type:Patient Education Patient Instructions Indication:Fever Start:01-Nov-2021 Instruction Type:Provider Instructions for Treatment How to Access Health Informa tion Online using Patient Portal and [employer] Apps Indication:Fever Start:01-Nov-2021 Instruction Type:Patient Education Patient Instructions Indication:BMI 32.0-32.9,adult Start:27-Oct-2021 Instruction Type:Provider Instructions for Treatment How to Access Health Informa tion Online using Patient Portal and [employer] Apps Indication:BMI 32.0-32.9,adult Start:27-Oct-2021 Instruction Type:Patient Education Patient Instructions Indication:BMI 32.0-32.9,adult Start:02-May-2021 Instruction Type:Provider Instructions for Treatment How to Access Health Informa tion Online using Patient Portal and [employer] Apps Indication:Nonsmoker Start:02-May-2021 Instruction Type:Patient Education Patient Instructions Indication:Nonsmoker Start:22-Feb-2021 Instruction Type:Provider Instructions for Treatment How to Access Health Informa tion Online using Patient Portal and [employer] Apps Indication:Nonsmoker Start:22-Feb-2021 Instruction Type:Patient Education How to Access Health Informa tion Online using Patient Portal and [employer] Apps Indication:Nonsmoker Start:09-Feb-2021 Instruction Type:Patient Education Patient [...] tion Online using Patient Portal and [employer] Apps Indication:Nonsmoker Start:07-Aug-2023 Instruction Type:Patient Education Patient Instructions Indication:Nonsmoker Start:23-Apr-2023 Instruction Type:Provider Instructions for Treatment How to Access Health Informa tion Online using Patient Portal and [employer] Apps Indication:Nonsmoker Start:23-Apr-2023 Instruction Type:Patient Education Patient Instructions Indication:Nonsmoker Start:05-Apr-2023 Instruction Type:Provider Instructions for Treatment How to Access Health Informa tion Online using Patient Portal and [employer] Apps Indication:Nonsmoker Start:05-Apr-2023 Instruction Type:Patient Education Patient Instructions Indication:Headache, acute Start:27-Mar-2023 Instruction Type:Provider Instructions for Treatment How to Access Health Informa tion Online using Patient Portal and [employer] Apps Indication:Headache, acute Start:27-Mar-2023 Instruction Type:Patient Education Patient Instructions Indication:Diarrhea with dehydration Start:27-Dec-2022 Instruction Type:Provider Instructions for Treatment How to Access Health Informa tion Online using Patient Portal and [employer] Apps Indication:Diarrhea with dehydration Start:27-Dec-2022 Instruction Type:Patient Education Patient Instructions Indication:BMI 32.0-32.9,adult Start:28-Sep-2022 Instruction Type:Provider Instructions for Treatment How to Access Health Informa tion Online using Patient Portal and [employer] Apps Indication:BMI 32.0-32.9,adult Start:28-Sep-2022 Instruction Type:Patient Education Patient Instructions Indication:BMI 32.0-32.9,adult Start:30-Aug-2022 Instruction Type:Provider Instructions for Treatment How to Access Health Informa tion Online using Patient Portal and [employer] Apps Indication:BMI 32.0-32.9,adult Start:30-Aug-2022 Instruction Type:Patient Education Patient Instructions Indication:BMI 32.0-32.9,adult Start:05-Jul-2022 Instruction Type:Provider Instructions for Treatment How to Access Health Informa tion Online using Patient Portal and [employer] Apps Indication:BMI 32.0-32.9,adult Start:05-Jul-2022 Instruction Type:Patient Education Patient Instructions Indication:Skin burn Start:13-May-2022 Instruction Type:Provider Instructions for Treatment How to Access Health Informa tion Online using Patient Portal and [employer] Apps Indication:Nonsmoker Start:09-May-2022 Instruction Type:Patient Education Patient Instructions Indication:Nonsmoker Start:09-May-2022 Instruction Type:Provider Instructions for Treatment Patient Instructions Indication:BMI 33.0-33.9,adult Start:13-Apr-2022 Instruction Type:Provider Instructions for Treatment How to Access Health Informa tion Online using Patient Portal and [employer] Apps Indication:BMI 33.0-33.9,adult Start:13-Apr-2022 Instruction Type:Patient Education Patient Instructions Indication:Nonsmoker Start:24-Feb-2022 Instruction Type:Provider Instructions for Treatment How to Access Health Informa tion Online using Patient Portal and [employer] Apps Indication:Nonsmoker Start:24-Feb-2022 Instruction Type:Patient Education Patient Instructions Indication:BMI 31.0-31.9,adult Start:30-Jan-2022 Instruction Type:Provider Instructions for Treatment How to Access Health Informa tion Online using Patient Portal and [employer] Apps Indication:BMI 31.0-31.9,adult Start:30-Jan-2022 Instruction Type:Patient Education Patient Instructions Indication:BMI 31.0-31.9,adult Start:16-Jan-2022 Instruction Type:Provider Instructions for Treatment How to Access Health Informa tion Online using Patient Portal and [employer] Apps Indication:BMI 31.0-31.9,adult Start:16-Jan-2022 Instruction Type:Patient Education Patient Instructions Indication:BMI 29.0-29.9,adult Start:08-Dec-2021 Instruction Type:Provider Instructions for Treatment How to Access Health Informa tion Online using Patient Portal and [employer] Apps Indication:BMI 29.0-29.9,adult Start:08-Dec-2021 Instruction Type:Patient Education Patient Instructions Indication:Fever Start:01-Nov-2021 Instruction Type:Provider Instructions for Treatment How to Access Health Informa tion Online using Patient Portal and [employer] Apps Indication:Fever Start:01-Nov-2021 Instruction Type:Patient Education Patient Instructions Indication:BMI 32.0-32.9,adult Start:27-Oct-2021 Instruction Type:Provider Instructions for Treatment How to Access Health Informa tion Online using Patient Portal and [employer] Apps Indication:BMI 32.0-32.9,adult Start:27-Oct-2021 Instruction Type:Patient Education Patient Instructions Indication:BMI 32.0-32.9,adult Start:02-May-2021 Instruction Type:Provider Instructions for Treatment How to Access Health Informa tion Online using Patient Portal and [employer] Apps Indication:Nonsmoker Start:02-May-2021 Instruction Type:Patient Education Patient Instructions Indication:Nonsmoker Start:22-Feb-2021 Instruction Type:Provider Instructions for Treatment How to Access Health Informa tion Online using Patient Portal and [employer] Apps Indication:Nonsmoker Start:22-Feb-2021 Instruction Type:Patient Education How to Access Health Informa tion Online using Patient Portal and [employer] Apps Indication:Nonsmoker Start:09-Feb-2021 Instruction Type:Patient Education Patient [...] tion Online using Patient Portal and [employer] Apps Indication:Nonsmoker Start:21-Aug-2023 Instruction Type:Patient Education Patient Instructions Indication:Nonsmoker Start:07-Aug-2023 Instruction Type:Provider Instructions for Treatment How to Access Health Informa tion Online using Patient Portal and [employer] Apps Indication:Nonsmoker Start:07-Aug-2023 Instruction Type:Patient Education Patient Instructions Indication:Nonsmoker Start:23-Apr-2023 Instruction Type:Provider Instructions for Treatment How to Access Health Informa tion Online using Patient Portal and [employer] Apps Indication:Nonsmoker Start:23-Apr-2023 Instruction Type:Patient Education Patient Instructions Indication:Nonsmoker Start:05-Apr-2023 Instruction Type:Provider Instructions for Treatment How to Access Health Informa tion Online using Patient Portal and [employer] Apps Indication:Nonsmoker Start:05-Apr-2023 Instruction Type:Patient Education Patient Instructions Indication:Headache, acute Start:27-Mar-2023 Instruction Type:Provider Instructions for Treatment How to Access Health Informa tion Online using Patient Portal and [employer] Apps Indication:Headache, acute Start:27-Mar-2023 Instruction Type:Patient Education Patient Instructions Indication:Diarrhea with dehydration Start:27-Dec-2022 Instruction Type:Provider Instructions for Treatment How to Access Health Informa tion Online using Patient Portal and [employer] Apps Indication:Diarrhea with dehydration Start:27-Dec-2022 Instruction Type:Patient Education Patient Instructions Indication:BMI 32.0-32.9,adult Start:28-Sep-2022 Instruction Type:Provider Instructions for Treatment How to Access Health Informa tion Online using Patient Portal and [employer] Apps Indication:BMI 32.0-32.9,adult Start:28-Sep-2022 Instruction Type:Patient Education Patient Instructions Indication:BMI 32.0-32.9,adult Start:30-Aug-2022 Instruction Type:Provider Instructions for Treatment How to Access Health Informa tion Online using Patient Portal and [employer] Apps Indication:BMI 32.0-32.9,adult Start:30-Aug-2022 Instruction Type:Patient Education Patient Instructions Indication:BMI 32.0-32.9,adult Start:05-Jul-2022 Instruction Type:Provider Instructions for Treatment How to Access Health Informa tion Online using Patient Portal and [employer] Apps Indication:BMI 32.0-32.9,adult Start:05-Jul-2022 Instruction Type:Patient Education Patient Instructions Indication:Skin burn Start:13-May-2022 Instruction Type:Provider Instructions for Treatment How to Access Health Informa tion Online using Patient Portal and [employer] Apps Indication:Nonsmoker Start:09-May-2022 Instruction Type:Patient Education Patient Instructions Indication:Nonsmoker Start:09-May-2022 Instruction Type:Provider Instructions for Treatment Patient Instructions Indication:BMI 33.0-33.9,adult Start:13-Apr-2022 Instruction Type:Provider Instructions for Treatment How to Access Health Informa tion Online using Patient Portal and [employer] Apps Indication:BMI 33.0-33.9,adult Start:13-Apr-2022 Instruction Type:Patient Education Patient Instructions Indication:Nonsmoker Start:24-Feb-2022 Instruction Type:Provider Instructions for Treatment How to Access Health Informa tion Online using Patient Portal and [employer] Apps Indication:Nonsmoker Start:24-Feb-2022 Instruction Type:Patient Education Patient Instructions Indication:BMI 31.0-31.9,adult Start:30-Jan-2022 Instruction Type:Provider Instructions for Treatment How to Access Health Informa tion Online using Patient Portal and [employer] Apps Indication:BMI 31.0-31.9,adult Start:30-Jan-2022 Instruction Type:Patient Education Patient Instructions Indication:BMI 31.0-31.9,adult Start:16-Jan-2022 Instruction Type:Provider Instructions for Treatment How to Access Health Informa tion Online using Patient Portal and [employer] Apps Indication:BMI 31.0-31.9,adult Start:16-Jan-2022 Instruction Type:Patient Education Patient Instructions Indication:BMI 29.0-29.9,adult Start:08-Dec-2021 Instruction Type:Provider Instructions for Treatment How to Access Health Informa tion Online using Patient Portal and [employer] Apps Indication:BMI 29.0-29.9,adult Start:08-Dec-2021 Instruction Type:Patient Education Patient Instructions Indication:Fever Start:01-Nov-2021 Instruction Type:Provider Instructions for Treatment How to Access Health Informa tion Online using Patient Portal and [employer] Apps Indication:Fever Start:01-Nov-2021 Instruction Type:Patient Education Patient Instructions Indication:BMI 32.0-32.9,adult Start:27-Oct-2021 Instruction Type:Provider Instructions for Treatment How to Access Health Informa tion Online using Patient Portal and [employer] Apps Indication:BMI 32.0-32.9,adult Start:27-Oct-2021 Instruction Type:Patient Education Patient Instructions Indication:BMI 32.0-32.9,adult Start:02-May-2021 Instruction Type:Provider Instructions for Treatment How to Access Health Informa tion Online using Patient Portal and [employer] Apps Indication:Nonsmoker Start:02-May-2021 Instruction Type:Patient Education Patient Instructions Indication:Nonsmoker Start:22-Feb-2021 Instruction Type:Provider Instructions for Treatment How to Access Health Informa tion Online using Patient Portal and [employer] Apps Indication:Nonsmoker Start:22-Feb-2021 Instruction Type:Patient Education How to Access Health Informa tion Online using Patient Portal and [employer] Apps Indication:Nonsmoker Start:09-Feb-2021 Instruction Type:Patient Education Patient [...] BE BASED ON THE PRIMARY CLINICAL RECORDS. [facility] [employer] [facility]. provides no warranty or guarantee of the accuracy or completeness of information in this document.
[2024-01-06 15:15] VITALS: BP 181/71; PULSE 89; RESP 16; O2SAT 96
[2024-01-06 16:34] VITALS: BP 161/78; PULSE 73; RESP 16; TEMP 36.4; O2SAT 95
== END 2024-01-06 16:44 | disposition home or self-care (01) ==
PROVIDERS: Physician Assistant; Emergency Provider Student in an Organized Health Care Education/Training Program; PCP Internal Medicine; Visit Provider Student in an Organized Health Care Education/Training Program
DX: R10.11 Right upper quadrant pain (principal); E11.9 Type 2 diabetes mellitus without complications; Z79.4 Long term (current) use of insulin; R19.7 Diarrhea, unspecified; Z85.038 Personal history of other malignant neoplasm of large intestine; I10 Essential (primary) hypertension; Z79.899 Other long term (current) drug therapy; Z79.84 Long term (current) use of oral hypoglycemic drugs; Z98.52 Vasectomy status; Z90.49 Acquired absence of other specified parts of digestive tract; F17.210 Nicotine dependence, cigarettes, uncomplicated; R11.0 Nausea
CPT/HCPCS: 74177; 80053; 83690; 85025; 96361; 96374; 96375; 99283; J7030; Q9967; J2405

== ENCOUNTER → 2024-02-01 | Outpatient (CLI) | payer OTHER, SELFPAY ==
[2024-02-01 16:51] LABS: Absolute Lymphocyte Count 1.58 X10^3/uL (0.83-4.51); Absolute Neutrophil Count 2.5 X10^3/uL (2.0-7.7); Basophil# 0.03 X10^3/uL; Basophil% 0.6 % (0-1); Eosinophils% 4.1 % (0-5); Hematocrit 34.7 % (40-54); Hemoglobin 12.8 g/dL (13.0-16.5); Lymphocyte # 1.58 X10^3/ul (0.83-4.51); Lymphocyte % 32.4 % (19-41); Mean Corp Hgb Conc 36.9 g/dL (32-36); Mean Corpuscular Hgb 31.8 pg (27.0-32.0); Mean Corpuscular Volume 86.3 fL (80-94); Mean Platelet Vol. 10.5 fl (6.2-12.0); Monocyte# 0.54 X10^3/uL; Monocyte% 11.1 % (0-10); NRBC Flagged by Analyzer 0 % (0-5); Neutrophil # 2.49 X10^3/uL (2.7-7.7); Neutrophil % 51.2 % (47-70); Platelet Count 187 K/mm3 (150-450); RBC Distribution Width CV 12.9 % (11.6-14.6); RBC Distribution Width SD 40.5 fl (35.1-43.9); RET-HE 35.9 pg (30-35); Red Blood Count 4.02 M/mm3 (4.6-6.2); Reticulocyte Count 1.68 % (0.5-1.5); White Blood Count 4.9 K/mm3 (4.4-11.0)
[2024-02-01 16:56] LABS: Erythrocyte Sedimentation Rate 6 mm/hr (0-20)
[2024-02-01 18:08] LABS: AST(SGOT) 31 U/L (15-37); Alanine Aminotransfer ALT/SGPT 37 U/L (16-61); Albumin, Serum 3.9 g/dL (3.2-5.0); Alkaline Phosphatase 78 U/L (45-117); Anion Gap 3 (5-15); BUN 18 mg/dL (7-18); BUN/Creat Ratio 24.8 RATIO (10-20); CRP < 2.90 mg/L (0.0-3.0); Calcium,Total 9.3 mg/dL (8.5-10.1); Chloride 101 mmol/L (98-107); Creatinine, Serum 0.72 mg/dL (0.70-1.30); EST Glomerular Filtration Rate 116 mL/min (>60); Est Glom Filt Rate - Afr Amer 140 mL/min (>60); Ferritin 811 ng/mL (26-388); Free T3 3.6 pg/mL (2.18-3.98); Globulin 3.9 g/dL (2.2-4.2); Glucose 265 mg/dL (74-106); Iron 88 ug/dL (65-175); Iron Binding Capacity,Total 350 ug/dL (250-450); LDH 225 U/L (87-241); Potassium 3.9 mmol/L (3.5-5.1); Protein, Total 7.8 g/dL (6.4-8.2); Sodium Level 133 mmol/L (136-145); Thyroid Stim Hormone (TSH) 3.24 uIU/mL (0.358-3.74)
[2024-02-07 19:07] LABS: Anti-Centromere B Ab <0.2 AI (0.0-0.9); Anti-Chromatin <0.2 AI (0.0-0.9); Anti-Jo <0.2 AI (0.0-0.9); Anti-Scleroderma-70 AB <0.2 AI (0.0-0.9); Anti-dsDNA Ab <1 IU/mL (0-9); Chocolate <0.10 kU/L (Class 0); Codfish <0.10 kU/L (Class 0); Corn <0.10 kU/L (Class 0); Egg, Whole <0.10 kU/L (Class 0); Milk (Cow) 0.31 kU/L (Class 0/I); Mussels <0.10 kU/L (Class 0); Peanut <0.10 kU/L (Class 0); Pork <0.10 kU/L (Class 0); RNP Ab 0.4 AI (0.0-0.9); SJOGREN'S Anti-SS-A test < 0.2 AI (0.0-0.9); SJOGREN'S Anti-SS-B test < 0.2 AI (0.0-0.9); Salmon <0.10 kU/L (Class 0); Shrimp <0.10 kU/L (Class 0); Smith Ab <0.2 AI (0.0-0.9); Soybean <0.10 kU/L (Class 0); Tuna <0.10 kU/L (Class 0); Wheat <0.10 kU/L (Class 0)
[2024-02-12 09:24] LABS: Albumin 3.7 g/dL (2.9-4.4); Alpha-1-Globulins 0.2 g/dL (0.0-0.4); Chromogranin A 640.3 ng/mL (0.0-101.8); Dopamine, Pl <30 pg/mL (0-48); Epinephrine, Pl 30 pg/mL (0-62); Gamma Globulin 0.9 g/dL (0.4-1.8); Gastrin, Serum 134 pg/mL (0-115); Haptoglobin 107 mg/dL (32-363); IgG, Quant 684 mg/dL (603-1613); Immunoglobulin A 261 mg/dL (61-437); Immunoglobulin G, Subclass 1 490 mg/dL (248-810); Immunoglobulin G, Subclass 2 145 mg/dL (130-555); Immunoglobulin G, Subclass 3 28 mg/dL (15-102); Immunoglobulin G, Subclass 4 6 mg/dL (2-96); Immunoglobulin M 131 mg/dL (20-172); Intrinsic Factor Ab 0.9 AU/mL (0.0-1.1); Norepinephrine, Pl 754 pg/mL (0-874); PROEL- TOTAL PROTEIN 6.9 g/dL (6.0-8.5); QNTFERON TB Mitogen Value > 10.00 IU/mL (.); QNTFERON TB Nil Value 0.04 IU/mL (.); QNTFERON TB1+ Ag Value 0.04 IU/mL (.); QNTFERON TB2+ Ag Value 0.04 IU/mL (.); QNTIFERON TB Positive Criteria Negative (Negative); Renin, Plasma 2.859 ng/mL/hr (0.167-5.380); Testosterone, Total 90 ng/dL (264-916)
== END | disposition home or self-care (01) ==
LOC: LAB 15:38
PROVIDERS: PCP Internal Medicine; Referring Provider Internal Medicine Gastroenterology; Visit Provider Internal Medicine Gastroenterology
DX: R19.7 Diarrhea, unspecified (principal)
CPT/HCPCS: 36415; 80053; 82384; 82533; 82728; 82784; 82787; 82941; 83010; 83516; 83540; 83550; 83615; 84165; 84244; 84402; 84403; 84443; 84481; 85025; 85045; 85652; 86003; 86005; 86140; 86225; 86235; 86255; 86256; 86316; 86334; 86340; 86480

== ENCOUNTER → 2024-02-28 | Outpatient (CLI) | payer OTHER, SELFPAY ==
--- NOTE | 2024-02-28 08:48 | MRI_ITS ---
STUDY: MR ENTEROGRAPHY WITH CONTRAST REASON FOR EXAM: Male, 63 years old.HX COLON CA 2010- PREV COLON SURG, PREV CT 01/06/24 R19.7 - Diarrhea, unspecified TECHNIQUE: Multipulse sequence MRI performed with IV contrast according to standard MR enterography protocol following administration of oral contrast for maximal bowel distention. Images were obtained from the dome of the diaphragm to the symphysis pubis. 20ML IV CLARISCAN was administered intravenously. TECHNICAL QUALITY: Image Quality: Satisfactory Small Bowel Distension: Adequate. COMPARISON: CT of abdomen and pelvis dated January 06, 2024 FINDINGS: Bowel: Bowel wall thickening: Absent. Skip lesions: None. Vascularity: Normal. Enhancement: Normal. Fistula: None. Abscess: None. Other Findings: The visualized lung bases are unremarkable. The visualized portions of the heart are within normal limits. Normal liver. There are multiple gallstones. No gallbladder wall thickening or pericholecystic fluid is present. No intrahepatic or CBD dilatation. Normal spleen. Normal pancreas. Normal bilateral adrenal glands. Normal right kidney. Several small cysts are present in the superior pole of the left kidney which does not requiring additional imaging or assessment. Normal visualized stomach. Normal small intestine. The colon is not well evaluated on this exam, CT with oral contrast is recommended for better visualization of the colon. No visualized bowel masses or wall thickening. CT of abdomen and pelvis showed prior surgical resection with suture material at the rectoanal junction which is suboptimally visualized on this study but does not reveal any recurrent malignant process in the bowel. Redemonstration of moderate soft tissue density in the presacral region posterior to the rectal anal surgical resection site likely due to a combination of prior surgical intervention with fibrosis and treatment related changes, this tissue would have to be evaluated with PET/CT imaging to determine if there was any residual or recurrent malignant activity in it. There is non-visualization of the appendix. There is diffuse atherosclerotic calcification of the abdominal aorta, without a demonstrated aneurysm. Normal inferior vena cava. Normal retroperitoneum. Normal urinary bladder. Normal abdominal wall. Unremarkable osseous structures. No marrow edema or lytic or blastic lesions or abnormal enhancement is seen in the bony structures. No pelvic sidewall lymphadenopathy is seen. MRI/Enterography Abd/Pel IMPRESSION: 1. The colon is not well evaluated on this exam, CT with oral contrast is recommended for better visualization of the colon. 2. No visualized bowel masses or wall thickening. CT of abdomen and pelvis showed prior surgical resection with suture material at the rectoanal junction which is suboptimally visualized on this study but does not reveal any recurrent malignant process in the bowel. 3. Redemonstration of moderate soft tissue density in the presacral region posterior to the rectal anal surgical resection site likely due to a combination of prior surgical intervention with fibrosis and treatment related changes, this tissue would have to be evaluated with PET/CT imaging to determine if there was any residual or recurrent malignant activity in it. 4. Gallstones Electronically Signed: Adrian Cavazos MD at 10:45 EDT ,
[2024-02-28 10:02] VITALS: BP 174/79; PULSE 68; RESP 16; O2SAT 97; BMI 33.2
[2024-02-28] MEDS: Glucagon 1 MG/ML Syringe IV (11:14)
[2024-02-28] MEDS: 0.9% Saline Lock 10 ML Syringe IV (11:15)
[2024-02-28 11:46] VITALS: BP 180/83; PULSE 72; RESP 16; O2SAT 95
== END | disposition home or self-care (01) ==
LOC: MRI 08:46
PROVIDERS: PCP Internal Medicine; Referring Provider Internal Medicine Gastroenterology; Visit Provider Internal Medicine Gastroenterology
DX: R19.7 Diarrhea, unspecified (principal)
CPT/HCPCS: 74183; 96374; A9575; A4216; J1610

== ENCOUNTER → 2024-05-26 | Outpatient (CLI) | payer OTHER, SELFPAY ==
[2024-05-26 10:24] LABS: Cholesterol 201 mg/dL (200); High Density Lipoprotein 33 mg/dL; Triglycerides 716 mg/dL
[2024-05-27 12:09] LABS: LDL, Direct 120295 94 mg/dL (0-99); PSA, Free 0.03 ng/mL; PSA, Free % 71.4 % (.); PSA, Total Ultrasensitive 0.042 ng/mL (0.000-4.000)
== END | disposition home or self-care (01) ==
LOC: LAB 09:30
PROVIDERS: PCP Internal Medicine; Referring Provider Internal Medicine Gastroenterology; Visit Provider Internal Medicine Gastroenterology
DX: R19.7 Diarrhea, unspecified (principal)
CPT/HCPCS: 36415; 82465; 83718; 83721; 84153; 84154; 84478

== ENCOUNTER 2024-07-14 08:27 | Emergency (ER) | payer OTHER, SELFPAY ==
[2024-07-14 08:29] VITALS: BP 203/83; PULSE 68; RESP 18; TEMP 36.8; O2SAT 99; BMI 33.2
--- NOTE | 2024-07-14 09:13 | EKG12_ITS ---
Test Reason : BLISTERS Blood Pressure : / mmHG Vent. Rate : 065 BPM Atrial Rate : 065 BPM P-R Int : 144 ms QRS Dur : 088 ms QT Int : 384 ms P-R-T Axes : 066 051 040 degrees QTc Int : 399 ms Normal sinus rhythm Normal ECG Confirmed by Vishal Eden ([id number]), script editor KEENA BRADY ([id number]) on 07/15/2024 10:06:38 AM Referred By: PAULINO Confirmed By:Vishal Eden
--- NOTE | 2024-07-14 09:34 | EDS_ITS ---
HPI History of Present Illness Chief Complaint: Wound Check Informant: patient Narrative Narrative: Patient is a 63-year-old male with history of clotting disorder on Lovenox twice a day, colon cancer (s/p resection and chemo), diabetes mellitus and hypertriglyceridemia presenting with bilateral heel pain. Patient states he has been 8 and half hours 2 days ago splitting wood. At about the 5-hour ronn he is noticing he was having pain in his bilateral heels. When he took off his shoes he notes he had golf ball sized blisters on the bilateral heels. Yesterday evening when he was going into work (he works third shift) he was putting on his boots with the left heel blister popped. He has been having significant pain since. He initially went to his PCP office today but they looked at the wound and recommend he come to the emergency room. He denies any other complaints or concerns at this time. Did try using his medical marijuana for pain relief with no relief at this time. Denies any fever or chills. Does have neuropathy but denies any change in sensation to his legs. No other complaints or concerns reported at this time. Notes he did not take his morning medication today. [facility] Medical History TAMIA (obstructive sleep apnea) HLD (hyperlipidemia) DVT (deep venous thrombosis) Cholelithiasis Arrhythmia Pulmonary embolism Diabetes HTN (hypertension) Cranial nerve III palsy Migraine Lupus anticoagulant disorder Presence of IVC filter Deep venous thrombosis of lower extremity Carcinoma of colon Anxiety Home Medications ?Medication ?Instructions ?Recorded ?Last Taken ?Type enoxaparin 120 mg/0.8 mL 120 mg subcut BID lupus 12/04/14 01/21/19 History subcutaneous syringe metoprolol tartrate 25 mg tablet 25 mg PO BID arrythmia 12/04/14 04/14/20 05:00 History lisinopril 10 mg tablet 10 mg PO DAILY blood pressure 01/11/18 01/21/19 History famotidine 20 mg tablet 20 mg PO BID GERD 01/15/19 01/21/19 History insulin lispro 100 unit/mL See Protocol SQ ACHS ##2 01/17/19 01/21/19 Rx subcutaneous pen gemfibrozil 600 mg tablet 600 mg PO DAILY DIABETES 01/21/19 01/21/19 History glimepiride 4 mg tablet 8 mg PO DAILY DIABETES 01/21/19 01/21/19 History insulin glargine 100 unit/mL (3 20 - 30 unit subcut BID DM 01/21/19 01/20/19 H istory mL) subcutaneous pen oxycodone-acetaminophen 5 mg-325 1 tab PO Q6H PRN pain 3 days #12 05/08/22 Unknown Rx mg tablet (Percocet) tabs cyclobenzaprine 10 mg tablet 10 mg PO TID PRN Muscle Spasm #20 10/25/22 Unknown Rx TABLETS oxycodone-acetaminophen 5 mg-325 1 tab PO Q6H PRN PRN Pain 3 days 10/25/22 Unknown Rx mg tablet #12 TABLETS meloxicam 7.5 mg tablet 7.5 mg PO DAILY PRN pain 02/28/24 Unknown History oxycodone-acetaminophen 5 mg-325 1 tab PO Q6H PRN pain 3 days #12 07/14/24 Unknown Rx mg tablet (Percocet) tabs Allergy/AdvReac Type Severity Reaction Status Date / Time acetaminophen (From Vicodin) Allergy Mild Hives Verified 07/14/24 08:33 hydrocodone (From Vicodin) Allergy Mild Hives Verified 07/14/24 08:33 Penicillins (PCN) Allergy Unknown Verified 07/14/24 08:33 Family History Mother Cancer VTE (venous thromboembolism) Clotting disorder Surgical History S/P partial colectomy History of vascular surgery S/P hernia repair S/P vasectomy S/P colectomy Social History household members: spouse Smoking Status: Current some day smoker tobacco type: cigarettes alcohol intake: current alcohol intake frequency: holidays/special occasions only substance use type: marijuana ROS ROS ED Constitutional Constitutional ED: Denies chills or fever(s) Cardiovascular Cardiovascular: Denies chest pain Respiratory/Chest Respiratory/Chest: Denies cough or dyspnea Musculoskeletal Musculoskeletal: Reports other Details: Bilateral heel pain Integumentary Reports other Details: Large blisters to the bilateral heels Psychiatric Psychiatric: Denies anxiety or depression Hematologic/Lymphatic Hematologic/Lymphatic: Denies easy bleeding or easy bruising EXAM Physical Exam Const Vital Signs: 07/14/24 08:29 Temperature 98.2 F Temperature Source Oral Pulse Rate 68 Respiratory Rate 18 Blood Pressure 203/83 H Blood Pressure Mean 123 Pulse Ox 99 Oxygen Delivery Method Room Air Positive well nourished and well developed General Appearance ED: well developed and NAD Neck supple and no JVD Chest Wall inspection of chest normal and palpation of chest normal Resp normal respiratory effort and clear to auscultation bilaterally Cardio regular rate and regular rhythm GI normal to inspection, nondistended, normoactive bowel sounds and non-tender Extremity Extremity Narrative: No obvious deformity. Tenderness to the bilateral heels consistent pain from his blisters. 2+ DP pulses. No peripheral edema. Neuro oriented x3 Sensorium / Orientation: alert Motor Exam: Negative for general weakness Psych mental status grossly normal Skin Skin Narrative: Chronic venous stasis changes of the lower extremities more pronounced on the left. Patient has approximately 4 cm diameter circumferential areas of blisters on the bilateral heel. The left blister has been opened and is draining serous fluid. Underlying tissue is pink and healthy appearing. MDM MDM MDM Narrative Medical decision making narrative: Patient evaluated for bilateral heel pain. Patient's vital signs significant for hypertension but patient states he is in a lot of pain and also did not take his medications today. Patient has blisters of the bilateral heels that look to be friction blisters which is consistent with his HPI. Do not appear infected. The open blister is reapproximated with skin to provide a little bit more protection to the underlying skin. Patient is counseled this likely will need to be debrided/clipped off in a couple days. He has follow-up with his primary care doctor on Sunday (2 days from now). Discussed with him obtaining some baseline labs so she is he says his blood sugars been high and he is hypertensive. Patient declines at this time. He states he just had labs with his GI doctor. Overall patient is well-appearing. I did obtain EKG because of his hypertension which shows normal sinus rhythm. Patient does not have any chest pain, shortness of breath or signs of hypertensive emergency. I suspect his hypertension is more pain reaction mixed with he did not have his lisinopril this morning. It is instructed to take his medications when he gets home. Is given a dose of IM Dilaudid for pain control. Will prescribe a short course of oxycodone for this pain. Is given a work note until Sunday. Discussed wound care. Localized wound care and bandages applied by nursing staff. Discussed that he can use Epsom salt soaks as well. He verbalized agreement or stands plan. Discussed that his greatest risk is for infection and he will need to keep an eye out for signs infection including worsening pain, increased redness or purulent discharge. Patient verbalized agreement or stands plan. Discharged home and also given referral for podiatry. Discussed that ultimately because he is diabetic and has slow wound healing he might require wound care for this but it is too soon to tell. Rhythm Strip Rhythm Strip: Sinus Rhythm Rate: 65 Ectopy: None EKG Initial EKG: Attestation: I personally reviewed and interpreted this EKG as follows: Interpretation: Sinus Rhythm Comments: Normal sinus rhythm at rate 65 bpm Normal axis Normal intervals Normal ST segments Discharge Plan Triage Chief Complaint: Wound Check Other Complaint: Lower Extremity Injury ED Provider: Swathi Thomas Dx/Rx/DC Orders Clinical Impression: Friction blister of the foot, Bilateral foot pain, Hypertension Instructions: ED Blister (Adult) Prescriptions: New oxycodone-acetaminophen [Percocet] 5-325 mg tablet 1 tab PO Q6H PRN (Reason: pain) 3 Days Qty: 12 0RF No Action enoxaparin 120 MG/0.8 ML syringe 120 mg SC BID Patient Comments: pt states Dr Hatch instructed to hold on [id number] for [id number] metoprolol tartrate 25 MG tablet 25 mg PO BID lisinopril 10 MG tablet 10 mg PO DAILY famotidine 20 MG tablet 20 mg PO BID insulin lispro 100 UNIT/ML insulin pen See Protocol SQ ACHS Qty: 2 0RF Protocol: 4. Sliding Scale Insulin High-Med Dosing Condition: 150-199 mg/dl = 2 units Condition: 200-259 mg/dl = 4 units Condition: 260-324 mg/dl = 6 units Condition: 325-374 mg/dl = 8 units Condition: 375-409 mg/dl = 10 units Condition: 410-449 mg/dl = 11 units Condition: Greater than 449 call physician Protocol Text: - Use for Total Daily Dose of Insulin 56-80 units - Patient who are insulin resistant or septic HIGH MEDIUM DOSING ALGORITHM gemfibrozil 600 MG tablet 600 mg PO DAILY Patient Comments: TAKE 1 TABLET BY MOUTH TWICE DAILY. glimepiride 4 MG tablet 8 mg PO DAILY Patient Comments: TAKE 2 TABLETS BY MOUTH DAILY WITH BREAKFAST. insulin glargine 100 UNITS/ML insulin pen 20 - 30 unit SC BID oxycodone-acetaminophen [Percocet] 5-325 mg tablet 1 tab PO Q6H PRN (Reason: pain) 3 Days Qty: 12 0RF cyclobenzaprine [cyclobenzaprine] 10 mg tablet 10 mg PO TID PRN (Reason: Muscle Spasm) Qty: 20 0RF oxycodone-acetaminophen [oxycodone-acetaminophen] 5-325 mg tablet 1 tab PO Q6H PRN PRN (Reason: Pain) 3 Days Qty: 12 0RF meloxicam 7.5 mg tablet 7.5 mg PO DAILY PRN (Reason: pain) Stand Alone Forms: ED Work / School Excuse Primary Care Provider: Enedina Magdaleno Referrals: Enedina Magdaleno DO [Primary Care Provider] - Vishal Torre DPM [Med Staff - Active Staff] - 3-5 Days Activity Restrictions/Additional Instructions: You have been prescribed a short course of Percocet for your pain. As we discussed I recommend taking daily MiraLAX and Metamucil to help with opioid- induced constipation while in the pain medicine. Please follow-up with your primary care doctor on Sunday as scheduled for wound check. Keep a close eye out for signs of infection. Keep the blisters clean. You may do Epsom salt soaks as well. Make sure you take your medications when you get home including her blood pressure medicine. Print Language: Bulgarian Disposition Disposition: Home, Self Care
[2024-07-14] MEDS: HYDROmorphone 1 MG/ML Syringe IM (09:42)
[2024-07-14 10:28] VITALS: BP 173/68; PULSE 69; RESP 16; O2SAT 98
[2024-07-14 10:43] VITALS: BP 173/68; PULSE 69; RESP 16; TEMP 36.8; O2SAT 98
--- NOTE | 2024-07-15 12:13 | ED.RN ---
Patient called to get verification on discharge instructions. He asked if he should leave his dressings on while showering or take them off while showering and put back on. Patient was advised to soak his feet in epson salt after taking dressings off, shower and then put clean, dry dressings on after his shower. Patient also advised to not rub his feet, but pat them dry. Patient verbalized understanding of instructions.
== END 2024-07-14 10:47 | disposition home or self-care (01) ==
PROVIDERS: Emergency Provider Emergency Medicine; PCP Internal Medicine; Visit Provider Emergency Medicine
DX: S90.821A Blister (nonthermal), right foot, initial encounter (principal); E11.40 Type 2 diabetes mellitus with diabetic neuropathy, unspecified; Z79.4 Long term (current) use of insulin; S90.822A Blister (nonthermal), left foot, initial encounter; X58.XXXA Exposure to other specified factors, initial encounter; I10 Essential (primary) hypertension; E78.1 Pure hyperglyceridemia; G47.33 Obstructive sleep apnea (adult) (pediatric); D68.62 Lupus anticoagulant syndrome; F17.210 Nicotine dependence, cigarettes, uncomplicated; Z79.01 Long term (current) use of anticoagulants; Z79.84 Long term (current) use of oral hypoglycemic drugs; Z79.899 Other long term (current) drug therapy
CPT/HCPCS: 93005; 96372; 99283

== ENCOUNTER → 2025-07-20 | Outpatient (CLI) | payer BC, SELFPAY ==
--- NOTE | 2025-07-20 13:04 | ART_ITS ---
Reason For Study Reason For Study: BLE Claudication Procedure A bilateral lower extremity continuous wave Doppler with analog waveform analysis,segmental pressures,and ankle brachial indexes with exercise. Left Segmental Pressures Left brachial= 186mmHg. Left posterior tibial artery = 213mmHg. Left dorsalis pedis artery = 187mmHg. Left digit = 152 mmHg. The left posterior tibial artery waveforms are triphasic. The left dorsalis pedis waveforms are triphasic. Right Segmental Pressures Right brachial= 178mmHg. Right posterior tibial artery = 219mmHg. Right dorsalis pedis artery = 180mmHg. Right digit = 137 mmHg. The right posterior tibial artery waveforms are triphasic. The right dorsalis pedis waveforms are triphasic. Indices The right ankle brachial index by the posterior tibial artery is 1.18. The right ankle brachial index by the dorsalis pedis is 0.97. The right digital-brachial index is 0.74. The right post exercise ankle brachial index is 1.15. The left ankle brachial index by the posterior tibial artery is 1.15. The left ankle brachial index by the dorsalis pedis is 1.01. The left digital-brachial index is 0.82. The left post exercise ankle brachial index is 1.12. VL/Lower Ext Art Exam w/ Exercise Interpretation Summary Triphasic Doppler waveforms are noted at ankle level bilaterally. Pulse-volume recordings appear satisfactory at all levels bilaterally. Resting ankle-brachial indices are normal bilaterally. Digi tuan-brachial indices are normal bilaterally. The patient was ambulated for 5 minutes at 2 MPH and a 5% incline, following which ankle pressures augmented bilaterally, a normal physiological response. There is no evidence of significant arterial occlusive disease in the lower ext remities bilaterally. Ordering Physician: Matthew Lee Referring Physician: MATTHEW LEE MD Performed By: Myke Jimenez RVT
== END | disposition home or self-care (01) ==
PROVIDERS: PCP Internal Medicine; Referring Provider Internal Medicine; Visit Provider Internal Medicine
DX: I73.9 Peripheral vascular disease, unspecified (principal)
CPT/HCPCS: 93924